=== PATIENT | male | born 1935 | race Caucasian/White ===

== ENCOUNTER → 2016-06-27 | Outpatient (CLI) | payer MEDICARE ==
[2016-06-27 16:48] LABS: Blood Urea Nitrogen 21 mg/dL (9-20); Non-African American GFR(MDRD) 59 (>60 ml/min/1.73 sqM)
--- NOTE | 2016-06-28 07:29 | CT ---
EXAMINATION TYPE: CT angio neck DATE OF EXAM: 06/27/2016 6:06 PM COMPARISON: NONE HISTORY: Carotid stenosis CT DLP: 344.70 mGycm Automated exposure control for dose reduction was used. TECHNIQUE: Performed with IV Contrast, patient injected with 80 mL of Visipaque 320. 3D reconstructed images are created on an independent workstation and reviewed. FINDINGS: There are emphysematous changes throughout the visualized portions of the lungs. Visualized intracranial structures are normal. Visualized portions of the paranasal sinuses and mastoids are clear. There is degenerative disc disease and hypertrophic spondylosis in the cervical spine, most marked at C5-6. There is uncovertebral joint disease throughout the cervical spine. There is facet arthropathy , most marked at C3-4 and C4-5. The major salivary glands are unremarkable. The parapharyngeal, oropharyngeal and laryngeal soft tissues are normal. The thyroid is heterogenous in its enhancement pattern. There is no significant cervical adenopathy. There is a normal origin of the great vessels. The right vertebral artery is diminutive. The left marc tebral artery is dominant. There is moderate atheromatous calcification at the level of the carotid bulbs, worse on the right th an the left. There is a greater than 70% by diameter stenosis of the proximal right ICA. This approac hes 90% by diameter. There is only a mild, 20-30% by diameter stenosis of the proximal left ICA. IMPRESSION: 1. HIGH-GRADE STENOSIS OF THE PROXIMAL RIGHT ICA. 2. MILD STENOSIS OF THE PROXIMAL LEFT ICA. 3. DIMINUTIVE RIGHT VERTEBRAL ARTERY. 4. EMPHYSEMATOUS CHANGES. 5. DEGENERATIVE CHANGES IN THE CERVICAL SPINE. 6. HETEROGENOUS THYROID GLAND. THYROID ULTRASOUND MAY BE INDICATED.
== END | disposition home or self-care (01) ==
LOC: RADCTMAIN 15:48
PROVIDERS: ATTEND Internal Medicine
DX: I65.23 Occlusion and stenosis of bilateral carotid arteries (principal)
CPT/HCPCS: 82565; 84520; 70498; 36415; Q9967

== ENCOUNTER → 2016-08-14 | Outpatient (CLI) | payer MEDICARE ==
--- NOTE | 2016-08-15 08:20 | ECHOF ---
Referral Reason:Pre Op Clearance I.27 MEASUREMENTS -------- HEIGHT: 182.9 cm WEIGHT: 98.0 kg BP: RVIDd: 3.1 cm (< 3.3) IVSd: 1.4 cm (0.6 - 1.1) LVIDd: 4.2 cm (3.9 - 5.3) LVPWd: 1.2 cm (0.6 - 1.1) IVSs: 1.7 cm LVIDs: 3.6 cm LVPWs: 1.2 cm LA Diam: 4.0 cm (2.7 - 3.8) Ao Diam: 4.2 cm (2.0 - 3.7) AV Cusp: 1.9 cm (1.5 - 2.6) LA Diam: 4.6 cm (2.7 - 3.8) MV EXCURSION: 9.371 mm (> 18.000) MV EF SLOPE: 33 mm/s (70 - 150) EPSS: 0.9 cm MV E Moo: 0.38 m/s MV DecT: 276 ms MV A Moo: 0.77 m/s MV E/A Ratio: 0.50 RAP: 5.00 mmHg RVSP: 16.63 mmHg FINDINGS -------- Sinus rhythm. This was a technically adequate study. There is mild concentric left ventricular hypertrophy. Overall left ventricular systolic function is normal with, an EF between 55 - 60 %. The right ventricle is normal in size. The right atrial size is normal. There is mild aortic valve sclerosis. There is no evidence of aortic regurgitation. Mild mitral annular calcification present. Mild mitral regurgitation is present. Mild tricuspid regurgitation present. There is no evidence of pulmonary hypertension. The right ventricular systolic pressure, as measured by Doppler, is 16.63mmHg. There is no pulmonic regurgitation present. Aortic Root is mildly dilated measures 4.1cm. Echo free space may represent effusion or a pericardial fat pad. CONCLUSIONS -------- 1. There is mild concentric left ventricular hypertrophy. 2. Echo free space may represent effusion or a pericardial fat pad. 3. Overall left ventricular systolic function is normal with, an EF between 55 - 60 %. 4. There is mild aortic valve sclerosis. 5. Mild mitral annular calcification present. 6. Mild mitral regurgitation is present. 7. Mild tricuspid regurgitation present. 8. There is no evidence of pulmonary hypertension. 9. The right ventricular systolic pressure, as measured by Doppler, is 16.63mmHg. 10. Aortic Root is mildly dilated measures 4.1cm. [employer]OKE BEATER OPERATOR: Jacqueline Spence RDCS
== END | disposition home or self-care (01) ==
LOC: RADECHMAIN 13:51
PROVIDERS: ATTEND Internal Medicine Interventional Cardiology
DX: I27.0 Primary pulmonary hypertension (principal)
CPT/HCPCS: 93306

== ENCOUNTER → 2016-09-02 | Outpatient (CLI) | payer MEDICARE ==
[2016-09-02 13:00] LABS: Anion Gap 13 mmol/L; Blood Urea Nitrogen 19 mg/dL (9-20); Carbon Dioxide 25 mmol/L (22-30); Chloride 95 mmol/L (98-107); Glucose 144 mg/dL (74-99); Non-African American GFR(MDRD) >60 (>60 ml/min/1.73 sqM); Potassium 3.9 mmol/L (3.5-5.1); Sodium 133 mmol/L (137-145)
[2016-09-02 13:06] LABS: Partial Thromboplastin Time 23.5 sec (22.0-30.0); Prothrombin Time 10.3 sec (9.0-12.0)
[2016-09-02 13:14] LABS: Basophils # (A) 0.1 k/uL (0-0.2); Basophils % (A) 1 %; CH 32.9; Eosinophils # (A) 0.2 k/uL (0-0.7); Eosinophils % (A) 2 %; HCT 44.4 % (39.0-53.0); HDW 2.72; HGB 15.4 gm/dL (13.0-17.5); Luc # (Auto) 0.32; Luc % (Auto) 3; Lymphocytes # (A) 2.2 k/uL (1.0-4.8); Lymphocytes % (A) 23 %; MCH 31.9 pg (25.0-35.0); MCHC 34.7 g/dL (31.0-37.0); MCV 91.9 fL (80.0-100.0); Mean Platelet Volume 9.3; Monocytes # (A) 0.6 k/uL (0-1.0); Monocytes % (A) 6 %; Neutrophils # (A) 6.2 k/uL (1.3-7.7); Neutrophils % (A) 66 %; RBC 4.83 m/uL (4.30-5.90); RDW 12.6 % (11.5-15.5); WBC 9.5 k/uL (3.8-10.6)
== END | disposition home or self-care (01) ==
LOC: LABPAT 12:02
PROVIDERS: ATTEND Thoracic Surgery (Cardiothoracic Vascular Surgery)
DX: Z01.812 Encounter for preprocedural laboratory examination (principal)
CPT/HCPCS: 80051; 82565; 82947; 84520; 85025; 85610; 85730; 86850; 86900; 86901; 87086

== ENCOUNTER 2017-06-19 21:20 | Emergency (ER) | payer MEDICARE ==
--- NOTE | 2017-06-19 21:51 | ED ---
Extremity Problem HPI - General Chief complaint: Extremity Problem,Nontraumatic Stated complaint: swollen legs/ankles Time Seen by Provider: 06/19/17 21:36 Source: patient Mode of arrival: ambulatory Limitations: no limitations - History of Present Illness Initial comments: This patient is an 82-year-old man who presents to be evaluated for bilateral lower extremity swelling that has been going on for approximately one week. The patient states that he saw Dr. Johnson on Friday who examined him and assured him that this was not a circulatory issue and recommended that he follow -up with his physician Dr. Alexis. The patient states that the next available appointment was for July 10 and he did not feel that this was appropriate to wait that long. The patient denies fever or chills, chest pain, dyspnea, change in urination or bowel movements. He denies calf pain but states there is a little bit of a swollen feeling in bilateral legs. He states that this does seem to be getting progressively worse, that it started low in the legs and now has progressed almost to the knees. He feels it is symmetric. The patient states that he may also have some mild dyspnea with exertion, but not at rest. MD Complaint: extremity swelling Onset/Timin -: week(s) Location: bilateral lower extremity History of Same: No Radiation: distal Quality: dull Consistency: constant Improves with: nothing Worsens with: nothing - Related Data Home Medications Medication Instructions Recorded Confirmed Aspirin 81 mg PO W/SUPPER 02/21/14 06/19/17 Atorvastatin [Lipitor] 20 mg PO W/SUPPER 02/21/14 06/19/17 Latanoprost [Xalatan 0.005%] 1 drop RIGHT EYE 1900 08/30/16 06/19/17 Losartan/Hydrochlorothiazide 1 tab PO DAILY 08/30/16 06/19/17 [Losartan-Hctz 100-25 mg Tab] Vitamin B Complex 1 tab PO DAILY 08/30/16 06/19/17 diphenhydrAMINE [Benadryl] 50 mg PO TID PRN 08/30/16 06/19/17 metFORMIN HCL [Glucophage] 1,000 mg PO W/SUPPER 08/30/16 06/19/17 Previous Rx's Medication Instructions Recorded Acetaminophen Tab [Tylenol] 650 mg PO Q4HR PRN #0 tab 09/11/16 Metoprolol Tartrate [Lopressor] 25 mg PO BID #60 tab 09/11/16 amLODIPine [Norvasc] 5 mg PO DAILY #30 tab 09/11/16 Furosemide [Lasix] 20 mg PO BID #10 tablet 06/20/17 Allergies Allergy/AdvReac Type Severity Reaction Status Date / Time sulfamethoxazole Allergy Rash/Hives Verified 06/19/17 22:10 [From Bactrim] trimethoprim [From Bactrim] Allergy Rash/Hives Verified 06/19/17 22:10 Review of Systems ROS Statement: Those systems with pertinent positive or pertinent negative responses have been documented in the HPI. ROS Other: All systems not noted in ROS Statement are negative. Constitutional: Denies: fever, chills Respiratory: Denies: cough, dyspnea Cardiovascular: Reports: dyspnea on exertion, edema. Denies: chest pain, palpitations, orthopnea, syncope Gastrointestinal: Denies: abdominal pain, vomiting, diarrhea Genitourinary: Denies: dysuria, frequency, hematuria Musculoskeletal: Denies: back pain Skin: Reports: rash (Patient has had diffuse rash with erythema for approximately one year.) Neurological: Denies: headache, weakness, numbness Past Medical History Past Medical History: Cancer, Diabetes Mellitus, Hyperlipidemia, Hypertension, Pulmonary Embolus (PE), Skin Disorder Additional Past Medical History / Comment(s): skin cancer, PE 1974, current rash on arms and legs(topical tx), bll carotid blockage History of Any Multi-Drug Resistant Organisms: None Reported Past Surgical History: Appendectomy, Orthopedic Surgery, Tonsillectomy Additional Past Surgical History / Comment(s): BASAL CELL CA REMOVED RTTEMPLE AREA, left knee surgery, carotids Past Anesthesia/Blood Transfusion Reactions: Previous Problems w/ Anesthesia, Motion Sickness Additional Past Anesthesia/Blood Transfusion Reaction / Comment(s): "diff personality when coming out" Past Psychological History: No Psychological Hx Reported Smoking Status: Current some day smoker Past Alcohol Use History: Daily Past Drug Use History: None Reported - Past Family History Son(s) Family Medical History: Cancer General Exam Limitations: no limitations General appearance: alert, in no apparent distress Head exam: Present: atraumatic, normocephalic Eye exam: Present: normal appearance. Absent: scleral icterus, conjunctival injection ENT exam: Present: normal oropharynx Respiratory exam: Present: normal lung sounds bilaterally. Absent: respiratory distress, wheezes, rales, rhonchi, stridor, accessory muscle use, decreased breath sounds, prolonged expiratory Cardiovascular Exam: Present: regular rate, normal rhythm, normal heart sounds. Absent: systolic murmur, diastolic murmur, rubs, gallop GI/Abdominal exam: Present: soft. Absent: distended, tenderness, guarding, rebound, rigid, pulsatile mass Extremities exam: Present: normal capillary refill, pedal edema (There is pitting edema to the midpoint in the pretibial areas bilaterally.). Absent: calf tenderness Back exam: Present: normal inspection. Absent: CVA tenderness (R), CVA tenderness (L) Neurological exam: Present: alert Skin exam: Present: warm, dry, intact, rash (Patient has erythematous maculopapular rash mainly over the bilateral upper extremities, but also to the bilateral lower extremities to a lesser extent. There are excoriations. There does not appear to be any secondary infection..), erythema, other. Absent: cyanosis, diaphoretic, urticaria, vesicles, petechiae, pallor, mottled, abrasion Course Vital Signs 06/19/17 06/19/17 06/20/17 21:28 22:50 00:17 Temperature 97.8 F Pulse Rate 86 78 86 Respiratory 20 18 18 Rate Blood Pressure 143/82 132/80 160/71 O2 Sat by Pulse 99 98 98 Oximetry Medical Decision Making - Medical Decision Making I patient is an 82-year-old man with bilateral lower extremity edema. The workup does appear to show some acute renal injury versus the previous lab tests however these were from the early half of 2016. Given the recent start of the losartan-containing medication, will hold this. Discussed the case with Dr. Avelar, covering for Dr. Alexis and he does request that the patient be given a day of Lasix and follow-up. I did review this with the patient and also in addition to the appropriate follow-up, other return parameters. I patient will have repeat echocardiogram as well. The patient is having dermatology care related to the rash. - Lab Data Result diagrams: 06/19/17 21:50 06/19/17 21:50 Lab Results 06/19/17 06/19/17 06/19/17 Range/Units 21:50 21:50 21:50 WBC 13.9 H (3.8-10.6) k/uL RBC 3.91 L (4.30-5.90) m/uL Hgb 12.7 L (13.0-17.5) gm/dL Hct 36.1 L (39.0-53.0) % MCV 92.3 (80.0-100.0) fL MCH 32.5 (25.0-35.0) pg MCHC 35.1 (31.0-37.0) g/dL RDW 14.8 (11.5-15.5) % Plt Count 266 (150-450) k/uL Neutrophils % 66 % Lymphocytes % 13 % Monocytes % 6 % Eosinophils % 13 % Basophils % 1 % Neutrophils # 9.1 H (1.3-7.7) k/uL Lymphocytes # 1.8 (1.0-4.8) k/uL Monocytes # 0.8 (0-1.0) k/uL Eosinophils # 1.8 H (0-0.7) k/uL Basophils # 0.1 (0-0.2) k/uL Sodium 139 (137-145) mmol/L Potassium 4.3 (3.5-5.1) mmol/L Chloride 102 (98-107) mmol/L Carbon Dioxide 25 (22-30) mmol/L Anion Gap 12 mmol/L BUN 26 H (9-20) mg/dL Creatinine 1.30 H (0.66-1.25) mg/dL Est GFR (MDRD) Af Amer >60 (>60 ml/min/1.73 sqM) Est GFR (MDRD) Non-Af 53 (>60 ml/min/1.73 sqM) Glucose 174 H (74-99) mg/dL Calcium 9.8 (8.4-10.2) mg/dL Total Bilirubin 0.4 (0.2-1.3) mg/dL AST 65 H (17-59) U/L ALT 71 (21-72) U/L Alkaline Phosphatase 107 (38-126) U/L Troponin I (0.000-0.034) ng/mL NT-Pro-B Natriuret Pep 425 pg/mL Total Protein 7.0 (6.3-8.2) g/dL Albumin 4.2 (3.5-5.0) g/dL TSH 3.060 (0.465-4.680) mIU/L Urine Color Urine Appearance (Clear) Urine pH (5.0-8.0) Ur Specific [place] (1.001-1.035) Urine Protein (Negative) Urine Glucose (UA) (Negative) Urine Ketones (Negative) Urine Blood (Negative) Urine Nitrite (Negative) Urine Bilirubin (Negative) Urine Urobilinogen (<2.0) mg/dL Ur Leukocyte Esterase (Negative) Urine RBC (0-5) /hpf Urine WBC (0-5) /hpf Hyaline Casts (0-2) /lpf Urine Mucus (None) /hpf 06/19/17 06/19/17 Range/Units 21:50 23:50 WBC (3.8-10.6) k/uL RBC (4.30-5.90) m/uL Hgb (13.0-17.5) gm/dL Hct (39.0-53.0) % MCV (80.0-100.0) fL MCH (25.0-35.0) pg MCHC (31.0-37.0) g/dL RDW (11.5-15.5) % Plt Count (150-450) k/uL Neutrophils % % Lymphocytes % % Monocytes % % Eosinophils % % Basophils % % Neutrophils # (1.3-7.7) k/uL Lymphocytes # (1.0-4.8) k/uL Monocytes # (0-1.0) k/uL Eosinophils # (0-0.7) k/uL Basophils # (0-0.2) k/uL Sodium (137-145) mmol/L Potassium (3.5-5.1) mmol/L Chloride (98-107) mmol/L Carbon Dioxide (22-30) mmol/L Anion Gap mmol/L BUN (9-20) mg/dL Creatinine (0.66-1.25) mg/dL Est GFR (MDRD) Af Amer (>60 ml/min/1.73 sqM) Est GFR (MDRD) Non-Af (>60 ml/min/1.73 sqM) Glucose (74-99) mg/dL Calcium (8.4-10.2) mg/dL Total Bilirubin (0.2-1.3) mg/dL AST (17-59) U/L ALT (21-72) U/L Alkaline Phosphatase (38-126) U/L Troponin I <0.012 (0.000-0.034) ng/mL NT-Pro-B Natriuret Pep pg/mL Total Protein (6.3-8.2) g/dL Albumin (3.5-5.0) g/dL TSH (0.465-4.680) mIU/L Urine Color Yellow Urine Appearance Clear (Clear) Urine pH 5.5 (5.0-8.0) Ur Specific [place] 1.019 (1.001-1.035) Urine Protein 1+ H (Negative) Urine Glucose (UA) 2+ H (Negative) Urine Ketones Negative (Negative) Urine Blood Negative (Negative) Urine Nitrite Negative (Negative) Urine Bilirubin Negative (Negative) Urine Urobilinogen <2.0 (<2.0) mg/dL Ur Leukocyte Esterase Negative (Negative) Urine RBC <1 (0-5) /hpf Urine WBC 1 (0-5) /hpf Hyaline Casts 1 (0-2) /lpf Urine Mucus Rare H (None) /hpf Disposition Clinical Impression: Edema, Acute kidney injury, Rash Disposition: HOME SELF-CARE Condition: Fair Instructions: Leg Edema (ED) Additional Instructions: As we discussed, follow-up Friday to have your kidney tests repeated. Also has we discussed, follow-up to set up the echocardiogram. Hold the medication as discussed and take the Lasix for edema. Return immediately if there is any worsening or if new symptoms develop. Prescriptions: Furosemide [Lasix] 20 mg PO BID #10 tablet Referrals: Elan Alexis MD [Primary Care Provider] - 1-2 days
[2017-06-19 22:08] LABS: Basophils # (A) 0.1 k/uL (0-0.2); Basophils % (A) 1 %; Eosinophils # (A) 1.8 k/uL (0-0.7); Eosinophils % (A) 13 %; HCT 36.1 % (39.0-53.0); HGB 12.7 gm/dL (13.0-17.5); Lymphocytes # (A) 1.8 k/uL (1.0-4.8); Lymphocytes % (A) 13 %; MCH 32.5 pg (25.0-35.0); MCHC 35.1 g/dL (31.0-37.0); MCV 92.3 fL (80.0-100.0); Mean Platelet Volume 8.9; Monocytes # (A) 0.8 k/uL (0-1.0); Monocytes % (A) 6 %; Neutrophils # (A) 9.1 k/uL (1.3-7.7); Neutrophils % (A) 66 %; Platelet Count 266 k/uL (150-450); RBC 3.91 m/uL (4.30-5.90); RDW 14.8 % (11.5-15.5); WBC 13.9 k/uL (3.8-10.6)
--- NOTE | 2017-06-19 22:08 | XR ---
EXAMINATION TYPE: XR chest 2V DATE OF EXAM: 06/19/2017 COMPARISON: NONE HISTORY: Chest pain TECHNIQUE: Frontal and lateral views of the chest are obtained. FINDINGS: There is no heart failure nor confluent pneumonic infiltrate. Costophrenic angles are kain r. There is spurring in the thoracic spine. Heart appears slightly enlarged. IMPRESSION: Mild cardiomegaly. No active cardiopulmonary disease.
[2017-06-19 22:18] LABS: ALT 71 U/L (21-72); AST 65 U/L (17-59); Albumin 4.2 g/dL (3.5-5.0); Alkaline Phosphatase 107 U/L (38-126); Anion Gap 12 mmol/L; Blood Urea Nitrogen 26 mg/dL (9-20); Calcium 9.8 mg/dL (8.4-10.2); Carbon Dioxide 25 mmol/L (22-30); Chloride 102 mmol/L (98-107); Glucose 174 mg/dL (74-99); Potassium 4.3 mmol/L (3.5-5.1); Sodium 139 mmol/L (137-145); Total Bilirubin 0.4 mg/dL (0.2-1.3)
[2017-06-19 22:51] VITALS: RESP 18
[2017-06-20 00:19] LABS: Appearance,Urine Clear (Clear); Bilirubin,Urine Negative (Negative); Blood,Urine Negative (Negative); Color,Urine Yellow; Glucose,Urine (UA) 2+ (Negative); Hyaline Casts,Urine 1 /lpf (0-2); Ketones,Urine Negative (Negative); Leukocyte Esterase,Urine Negative (Negative); Mucus,Urine Rare /hpf; Nitrite,Urine Negative (Negative); PH, Urine 5.5 (5.0-8.0); Protein,Urine 1+ (Negative); RBC,Urine <1 /hpf (0-5); Specific Gravity,Urine 1.019 (1.001-1.035); Urobilinogen,Urine <2.0 mg/dL (<2.0); WBC,Urine 1 /hpf (0-5)
[2017-06-20] MEDS ORDERED: FUROSEMIDE 10 MG/ML 4 ML VIAL IV STA (00:41)
[2017-06-20 01:29] VITALS: BP 150/57; PULSE 82
--- NOTE | 2017-06-20 02:01 | US ---
EXAMINATION TYPE: US venous doppler duplex LE BI DATE OF EXAM: 06/20/2017 1:54 AM COMPARISON: NONE CLINICAL HISTORY: Pain, R/O DVT. Edema SIDE PERFORMED: Bilateral TECHNIQUE: The lower extremity deep venous system is examined utilizing real time linear array sonog gil with graded compression, doppler sonography and color-flow sonography. VESSELS IMAGED: External Iliac Vein (EIV) Common Femoral Vein Deep Femoral Vein Greater Saphenous Vein * Femoral Vein Popliteal Vein Small Saphenous Vein * Proximal Calf Veins (* superficial vessels) Right Leg: Negative for DVT Left Leg: Negative for DVT No evidence of DVT bilateral legs. IMPRESSION: Normal exam. No evidence of deep venous thrombosis in both legs.
--- NOTE | 2017-06-20 02:17 | ED ---
Medical Decision Making - Medical Decision Making The patient was endorsed to me by Dr. Randolph at our shift change. Patient's ultrasound was negative for evidence of DVT. The plan was to discharge the patient with outpatient echocardiogram also a prescription for Lasix. His losartan. He is a follow-up with Dr. Avelar in 4 days. - Lab Data Result diagrams: 06/19/17 21:50 06/19/17 21:50 Lab Results 06/19/17 06/19/17 06/19/17 Range/Units 21:50 21:50 21:50 WBC 13.9 H (3.8-10.6) k/uL RBC 3.91 L (4.30-5.90) m/uL Hgb 12.7 L (13.0-17.5) gm/dL Hct 36.1 L (39.0-53.0) % MCV 92.3 (80.0-100.0) fL MCH 32.5 (25.0-35.0) pg MCHC 35.1 (31.0-37.0) g/dL RDW 14.8 (11.5-15.5) % Plt Count 266 (150-450) k/uL Neutrophils % 66 % Lymphocytes % 13 % Monocytes % 6 % Eosinophils % 13 % Basophils % 1 % Neutrophils # 9.1 H (1.3-7.7) k/uL Lymphocytes # 1.8 (1.0-4.8) k/uL Monocytes # 0.8 (0-1.0) k/uL Eosinophils # 1.8 H (0-0.7) k/uL Basophils # 0.1 (0-0.2) k/uL Sodium 139 (137-145) mmol/L Potassium 4.3 (3.5-5.1) mmol/L Chloride 102 (98-107) mmol/L Carbon Dioxide 25 (22-30) mmol/L Anion Gap 12 mmol/L BUN 26 H (9-20) mg/dL Creatinine 1.30 H (0.66-1.25) mg/dL Est GFR (MDRD) Af Amer >60 (>60 ml/min/1.73 sqM) Est GFR (MDRD) Non-Af 53 (>60 ml/min/1.73 sqM) Glucose 174 H (74-99) mg/dL Calcium 9.8 (8.4-10.2) mg/dL Total Bilirubin 0.4 (0.2-1.3) mg/dL AST 65 H (17-59) U/L ALT 71 (21-72) U/L Alkaline Phosphatase 107 (38-126) U/L Troponin I (0.000-0.034) ng/mL NT-Pro-B Natriuret Pep 425 pg/mL Total Protein 7.0 (6.3-8.2) g/dL Albumin 4.2 (3.5-5.0) g/dL TSH 3.060 (0.465-4.680) mIU/L Urine Color Urine Appearance (Clear) Urine pH (5.0-8.0) Ur Specific [place] (1.001-1.035) Urine Protein (Negative) Urine Glucose (UA) (Negative) Urine Ketones (Negative) Urine Blood (Negative) Urine Nitrite (Negative) Urine Bilirubin (Negative) Urine Urobilinogen (<2.0) mg/dL Ur Leukocyte Esterase (Negative) Urine RBC (0-5) /hpf Urine WBC (0-5) /hpf Hyaline Casts (0-2) /lpf Urine Mucus (None) /hpf 06/19/17 06/19/17 Range/Units 21:50 23:50 WBC (3.8-10.6) k/uL RBC (4.30-5.90) m/uL Hgb (13.0-17.5) gm/dL Hct (39.0-53.0) % MCV (80.0-100.0) fL MCH (25.0-35.0) pg MCHC (31.0-37.0) g/dL RDW (11.5-15.5) % Plt Count (150-450) k/uL Neutrophils % % Lymphocytes % % Monocytes % % Eosinophils % % Basophils % % Neutrophils # (1.3-7.7) k/uL Lymphocytes # (1.0-4.8) k/uL Monocytes # (0-1.0) k/uL Eosinophils # (0-0.7) k/uL Basophils # (0-0.2) k/uL Sodium (137-145) mmol/L Potassium (3.5-5.1) mmol/L Chloride (98-107) mmol/L Carbon Dioxide (22-30) mmol/L Anion Gap mmol/L BUN (9-20) mg/dL Creatinine (0.66-1.25) mg/dL Est GFR (MDRD) Af Amer (>60 ml/min/1.73 sqM) Est GFR (MDRD) Non-Af (>60 ml/min/1.73 sqM) Glucose (74-99) mg/dL Calcium (8.4-10.2) mg/dL Total Bilirubin (0.2-1.3) mg/dL AST (17-59) U/L ALT (21-72) U/L Alkaline Phosphatase (38-126) U/L Troponin I <0.012 (0.000-0.034) ng/mL NT-Pro-B Natriuret Pep pg/mL Total Protein (6.3-8.2) g/dL Albumin (3.5-5.0) g/dL TSH (0.465-4.680) mIU/L Urine Color Yellow Urine Appearance Clear (Clear) Urine pH 5.5 (5.0-8.0) Ur Specific [place] 1.019 (1.001-1.035) Urine Protein 1+ H (Negative) Urine Glucose (UA) 2+ H (Negative) Urine Ketones Negative (Negative) Urine Blood Negative (Negative) Urine Nitrite Negative (Negative) Urine Bilirubin Negative (Negative) Urine Urobilinogen <2.0 (<2.0) mg/dL Ur Leukocyte Esterase Negative (Negative) Urine RBC <1 (0-5) /hpf Urine WBC 1 (0-5) /hpf Hyaline Casts 1 (0-2) /lpf Urine Mucus Rare H (None) /hpf Disposition Clinical Impression: Edema, Acute kidney injury, Rash Disposition: HOME SELF-CARE Condition: Fair Instructions: Leg Edema (ED) Additional Instructions: As we discussed, follow-up Friday to have your kidney tests repeated. Also has we discussed, follow-up to set up the echocardiogram. Hold the medication as discussed and take the Lasix for edema. Return immediately if there is any worsening or if new symptoms develop. Prescriptions: Furosemide [Lasix] 20 mg PO BID #10 tablet Referrals: Elan Alexis MD [Primary Care Provider] - 1-2 days
[2017-06-20 02:29] VITALS: TEMP 98
== END 2017-06-20 02:28 | disposition home or self-care (01) ==
LOC: EC 21:20
DX: N17.9 Acute kidney failure, unspecified (principal); R60.0 Localized edema; R21 Rash and other nonspecific skin eruption; E11.9 Type 2 diabetes mellitus without complications; E78.5 Hyperlipidemia, unspecified; I10 Essential (primary) hypertension; F17.200 Nicotine dependence, unspecified, uncomplicated; Z85.828 Personal history of other malignant neoplasm of skin; Z79.82 Long term (current) use of aspirin; Z79.84 Long term (current) use of oral hypoglycemic drugs; Z79.899 Other long term (current) drug therapy; Z88.2 Allergy status to sulfonamides
CPT/HCPCS: 36415; 83880; 80053; 84443; 84484; 85025; 81001; 71046; 93970; 99284; 96374; J1940

== ENCOUNTER 2017-06-23 21:06 | Inpatient (IN) | payer MEDICARE ==
[2017-06-23] MEDS ORDERED: DIAZEPAM 5 MG/ML 2 ML INJ IVP STA (21:32)
[2017-06-23] MEDS ORDERED: MORPHINE SULFATE 5 MG/ML SYRINGE IV STA (21:32)
[2017-06-23] MEDS ORDERED: IBUPROFEN 600 MG TAB PO STA (21:32)
[2017-06-23] MEDS ORDERED: methylPREDNISolone SOD SUCCI 125 MG/2 ML VIAL IV STA (21:32)
[2017-06-23] MEDS ORDERED: ACETAMINOPHEN TAB 500 MG TAB PO STA (21:32)
[2017-06-23] MEDS ORDERED: diphenhydrAMINE 50 MG/ML 1 ML VIAL IVP STA (21:32)
[2017-06-23] MEDS ORDERED: FAMOTIDINE 20 MG/2 ML VIAL IV STA (21:32)
[2017-06-23] MEDS ORDERED: SODIUM CHLORIDE 0.9% 1,000 ML IV STA ×2 (21:32)
--- NOTE | 2017-06-23 22:01 | ED ---
General Adult HPI - General Chief complaint: Extremity Problem,Nontraumatic Stated complaint: swelling legs/rash all over/boils Time Seen by Provider: 06/23/17 21:18 Source: patient, RN notes reviewed, old records reviewed Mode of arrival: wheelchair Limitations: no limitations - History of Present Illness Initial comments: This is a 2-year-old male to the ER for evaluation. Patient presents today for vaginal bilateral lower extremity edema severe. Edema spreading up both of his legs. Patient also complains of rash diffuse body rash these had for about a year has been episodic but is currently severe. Patient also has multiple secondary infection secondary to scratching. Patient denies fever. Does complain of bilateral lower Shorty pain - Related Data Home Medications Medication Instructions Recorded Confirmed Aspirin 81 mg PO W/SUPPER 02/21/14 06/23/17 Atorvastatin [Lipitor] 20 mg PO W/SUPPER 02/21/14 06/23/17 Latanoprost [Xalatan 0.005%] 1 drop BOTH EYES HS 08/30/16 06/23/17 Vitamin B Complex 1 tab PO DAILY 08/30/16 06/23/17 diphenhydrAMINE [Benadryl] 50 mg PO TID PRN 08/30/16 06/23/17 metFORMIN HCL [Glucophage] 1,000 mg PO W/SUPPER 08/30/16 06/23/17 SILVER sulfADIAZINE CREAM 1 applic TOPICAL DAILY 06/23/17 06/23/17 [Silvadene Cream] Previous Rx's Medication Instructions Recorded Acetaminophen Tab [Tylenol] 650 mg PO Q4HR PRN #0 tab 09/11/16 Metoprolol Tartrate [Lopressor] 25 mg PO BID #60 tab 09/11/16 amLODIPine [Norvasc] 5 mg PO DAILY #30 tab 09/11/16 Furosemide [Lasix] 20 mg PO BID #10 tablet 06/20/17 Allergies Allergy/AdvReac Type Severity Reaction Status Date / Time sulfamethoxazole Allergy Rash/Hives Verified 06/23/17 21:41 [From Bactrim] trimethoprim [From Bactrim] Allergy Rash/Hives Verified 06/23/17 21:41 Review of Systems ROS Statement: Those systems with pertinent positive or pertinent negative responses have been documented in the HPI. ROS Other: All systems not noted in ROS Statement are negative. Past Medical History Past Medical History: Cancer, Diabetes Mellitus, Hyperlipidemia, Hypertension, Pulmonary Embolus (PE), Skin Disorder Additional Past Medical History / Comment(s): skin cancer, PE 1974, current rash on arms and legs(topical tx), bll carotid blockage History of Any Multi-Drug Resistant Organisms: None Reported Past Surgical History: Appendectomy, Orthopedic Surgery, Tonsillectomy Additional Past Surgical History / Comment(s): BASAL CELL CA REMOVED RTTEMPLE AREA, left knee surgery, carotids Past Anesthesia/Blood Transfusion Reactions: Previous Problems w/ Anesthesia, Motion Sickness Additional Past Anesthesia/Blood Transfusion Reaction / Comment(s): "diff personality when coming out" Past Psychological History: No Psychological Hx Reported Smoking Status: Current some day smoker Past Alcohol Use History: Daily Past Drug Use History: None Reported - Past Family History Son(s) Family Medical History: Cancer General Exam Limitations: no limitations General appearance: alert, in no apparent distress Head exam: Present: atraumatic, normocephalic, normal inspection Eye exam: Present: normal appearance, PERRL, EOMI. Absent: scleral icterus, conjunctival injection, periorbital swelling ENT exam: Present: normal exam, mucous membranes moist Neck exam: Present: normal inspection. Absent: tenderness, meningismus, lymphadenopathy Respiratory exam: Present: normal lung sounds bilaterally. Absent: respiratory distress, wheezes, rales, rhonchi, stridor Cardiovascular Exam: Present: normal rhythm, tachycardia, normal heart sounds. Absent: systolic murmur, diastolic murmur, rubs, gallop, clicks GI/Abdominal exam: Present: soft, normal bowel sounds. Absent: distended, tenderness, guarding, rebound, rigid Extremities exam: Present: normal inspection, full ROM, normal capillary refill. Absent: tenderness, pedal edema, joint swelling, calf tenderness Back exam: Present: normal inspection Neurological exam: Present: alert, oriented X3, CN II-XII intact Psychiatric exam: Present: normal affect, normal mood Skin exam: Present: warm, dry, intact, normal color, erythema, urticaria, other (Multiple areas of abscess and infection). Absent: rash Course Vital Signs 06/23/17 21:26 Temperature 97.6 F Pulse Rate 115 H Respiratory 16 Rate Blood Pressure 163/81 O2 Sat by Pulse 99 Oximetry EKG Findings - EKG Comments: EKG Findings:: EKG shows sinus tachycardia rate of 101, LA 80, QRS 76, QTc 612 Medical Decision Making - Medical Decision Making 82 male the ER for body rash will be admitted for treatment of infection, patient also with lower extremity edema we will put to diuresis - Lab Data Result diagrams: 06/23/17 22:01 06/25/17 06:52 Lab Results 06/23/17 06/23/17 06/23/17 Range/Units 22:01 22:01 22:01 WBC 14.8 H (3.8-10.6) k/uL RBC 4.05 L (4.30-5.90) m/uL Hgb 12.9 L (13.0-17.5) gm/dL Hct 37.7 L (39.0-53.0) % MCV 93.1 (80.0-100.0) fL MCH 31.7 (25.0-35.0) pg MCHC 34.1 (31.0-37.0) g/dL RDW 13.6 (11.5-15.5) % Plt Count 318 (150-450) k/uL Neutrophils % 62 % Lymphocytes % 14 % Monocytes % 5 % Eosinophils % 16 % Basophils % 1 % Neutrophils # 9.2 H (1.3-7.7) k/uL Lymphocytes # 2.1 (1.0-4.8) k/uL Monocytes # 0.8 (0-1.0) k/uL Eosinophils # 2.3 H (0-0.7) k/uL Basophils # 0.1 (0-0.2) k/uL Polychromasia Present PT (9.0-12.0) sec INR (<1.2) APTT (22.0-30.0) sec Sodium 140 (137-145) mmol/L Potassium 3.7 (3.5-5.1) mmol/L Chloride 101 (98-107) mmol/L Carbon Dioxide 27 (22-30) mmol/L Anion Gap 12 mmol/L BUN 31 H (9-20) mg/dL Creatinine 1.24 (0.66-1.25) mg/dL Est GFR (MDRD) Af Amer >60 (>60 ml/min/1.73 sqM) Est GFR (MDRD) Non-Af 56 (>60 ml/min/1.73 sqM) Glucose 252 H (74-99) mg/dL Estimated Ave Glu mg/dL Hemoglobin A1c (4.0-6.0) % Calcium 9.9 (8.4-10.2) mg/dL Phosphorus 3.0 (2.5-4.5) mg/dL Magnesium 2.0 (1.6-2.3) mg/dL Total Bilirubin 0.4 (0.2-1.3) mg/dL AST 49 (17-59) U/L ALT 63 (21-72) U/L Alkaline Phosphatase 126 (38-126) U/L Total Creatine Kinase 67 (55-170) U/L CK-MB (CK-2) 1.3 (0.0-2.4) ng/mL CK-MB (CK-2) Rel Index 1.9 Troponin I <0.012 (0.000-0.034) ng/mL NT-Pro-B Natriuret Pep pg/mL Total Protein 7.2 (6.3-8.2) g/dL Albumin 4.3 (3.5-5.0) g/dL 06/23/17 06/23/17 06/23/17 Range/Units 22:01 22:04 22:04 WBC (3.8-10.6) k/uL RBC (4.30-5.90) m/uL Hgb (13.0-17.5) gm/dL Hct (39.0-53.0) % MCV (80.0-100.0) fL MCH (25.0-35.0) pg MCHC (31.0-37.0) g/dL RDW (11.5-15.5) % Plt Count (150-450) k/uL Neutrophils % % Lymphocytes % % Monocytes % % Eosinophils % % Basophils % % Neutrophils # (1.3-7.7) k/uL Lymphocytes # (1.0-4.8) k/uL Monocytes # (0-1.0) k/uL Eosinophils # (0-0.7) k/uL Basophils # (0-0.2) k/uL Polychromasia PT 9.5 (9.0-12.0) sec INR 1.0 (<1.2) APTT 23.7 (22.0-30.0) sec Sodium (137-145) mmol/L Potassium (3.5-5.1) mmol/L Chloride (98-107) mmol/L Carbon Dioxide (22-30) mmol/L Anion Gap mmol/L BUN (9-20) mg/dL Creatinine (0.66-1.25) mg/dL Est GFR (MDRD) Af Amer (>60 ml/min/1.73 sqM) Est GFR (MDRD) Non-Af (>60 ml/min/1.73 sqM) Glucose (74-99) mg/dL Estimated Ave Glu mg/dL 151 Hemoglobin A1c 6.9 H (4.0-6.0) % Calcium (8.4-10.2) mg/dL Phosphorus (2.5-4.5) mg/dL Magnesium (1.6-2.3) mg/dL Total Bilirubin (0.2-1.3) mg/dL AST (17-59) U/L ALT (21-72) U/L Alkaline Phosphatase (38-126) U/L Total Creatine Kinase (55-170) U/L CK-MB (CK-2) (0.0-2.4) ng/mL CK-MB (CK-2) Rel Index Troponin I (0.000-0.034) ng/mL NT-Pro-B Natriuret Pep 571 pg/mL Total Protein (6.3-8.2) g/dL Albumin (3.5-5.0) g/dL Disposition Clinical Impression: Edema, Rash, Urticaria, Bilateral leg edema Disposition: ADMITTED IP TO THIS HOSP Condition: Fair
[2017-06-23] MEDS ORDERED: LORazepam 2 MG/ML INJ IV STA (22:07)
[2017-06-23 22:23] LABS: Partial Thromboplastin Time 23.7 sec (22.0-30.0); Prothrombin Time 9.5 sec (9.0-12.0)
[2017-06-23 22:28] LABS: Basophils # (A) 0.1 k/uL (0-0.2); Basophils % (A) 1 %; Eosinophils # (A) 2.3 k/uL (0-0.7); Eosinophils % (A) 16 %; HCT 37.7 % (39.0-53.0); HGB 12.9 gm/dL (13.0-17.5); Lymphocytes # (A) 2.1 k/uL (1.0-4.8); Lymphocytes % (A) 14 %; MCH 31.7 pg (25.0-35.0); MCHC 34.1 g/dL (31.0-37.0); MCV 93.1 fL (80.0-100.0); Mean Platelet Volume 8.4; Monocytes # (A) 0.8 k/uL (0-1.0); Monocytes % (A) 5 %; Neutrophils # (A) 9.2 k/uL (1.3-7.7); Neutrophils % (A) 62 %; Platelet Count 318 k/uL (150-450); RBC 4.05 m/uL (4.30-5.90); RDW 13.6 % (11.5-15.5); WBC 14.8 k/uL (3.8-10.6)
[2017-06-23 22:29] LABS: ALT 63 U/L (21-72); AST 49 U/L (17-59); Albumin 4.3 g/dL (3.5-5.0); Alkaline Phosphatase 126 U/L (38-126); Anion Gap 12 mmol/L; Blood Urea Nitrogen 31 mg/dL (9-20); Calcium 9.9 mg/dL (8.4-10.2); Carbon Dioxide 27 mmol/L (22-30); Chloride 101 mmol/L (98-107); Glucose 252 mg/dL (74-99); Potassium 3.7 mmol/L (3.5-5.1); Sodium 140 mmol/L (137-145); Total Bilirubin 0.4 mg/dL (0.2-1.3); Total Protein 7.2 g/dL (6.3-8.2)
[2017-06-23 22:35] LABS: Creatine Kinase 67 U/L (55-170)
[2017-06-23 22:38] LABS: Polychromasia Present
[2017-06-23 22:48] LABS: Creatine Kinase MB 1.3 ng/mL (0.0-2.4); Troponin I <0.012 ng/mL (0.000-0.034)
[2017-06-23] MEDS ORDERED: VANCOMYCIN 1,500 MG in SODIUM CHLORIDE 0.9% 250 ML IVPB ONE (23:00)
[2017-06-23] MEDS ORDERED: HYDROmorphone 2 MG/ML 1 ML SYRINGE IVP STA (23:15)
[2017-06-23] MEDS ORDERED: VANCOMYCIN IV PER PHARMACY 1 EACH MISC MISCELLANE PRN (23:16)
[2017-06-23] MEDS ORDERED: FUROSEMIDE 10 MG/ML 4 ML VIAL IV STA (23:16)
[2017-06-24 00:37] VITALS: BMI 29.2
[2017-06-24 01:16] LABS: Appearance,Urine Clear (Clear); Bilirubin,Urine Negative (Negative); Blood,Urine Negative (Negative); Color,Urine Yellow; Glucose,Urine (UA) 3+ (Negative); Ketones,Urine Negative (Negative); Leukocyte Esterase,Urine Negative (Negative); Nitrite,Urine Negative (Negative); Protein,Urine Trace (Negative); Urobilinogen,Urine <2.0 mg/dL (<2.0)
[2017-06-24] MEDS: methylPREDNISolone SOD SUCCI 125 MG/2 ML VIAL IV SCH ×3 (06:15→16:46)
[2017-06-24 08:00] LABS: Glucose,Whole Blood 253 mg/dL (75-99)
[2017-06-24] MEDS: INSULIN ASPART 100 UNIT/ML 1 ML 10 ML VIAL SQ SCH ×4 (08:37→21:39)
[2017-06-24] MEDS: diphenhydrAMINE 50 MG/ML 1 ML VIAL IVP PRN ×3 (08:37→21:39)
[2017-06-24] MEDS: FUROSEMIDE 10 MG/ML 4 ML VIAL IV SCH ×2 (08:40→19:59)
[2017-06-24] MEDS: HYDROmorphone 2 MG/ML 1 ML SYRINGE IVP PRN ×4 (08:55→23:28)
[2017-06-24] MEDS ORDERED: FAMOTIDINE 20 MG/2 ML VIAL IV SCH (09:00)
[2017-06-24] MEDS: ENOXAPARIN 40 MG/0.4 ML SYRINGE SQ SCH (10:08)
[2017-06-24 11:36] LABS: Glucose,Whole Blood 294 mg/dL (75-99)
[2017-06-24] MEDS ORDERED: ACETAMINOPHEN TAB 325 MG TAB PO PRN (12:50)
[2017-06-24] MEDS ORDERED: diphenhydrAMINE 25 MG CAP PO PRN (12:50)
[2017-06-24] MEDS: VANCOMYCIN 1,500 MG in SODIUM CHLORIDE 0.9% 250 ML IVPB SCH (16:33)
[2017-06-24 17:06] LABS: Glucose,Whole Blood 304 mg/dL (75-99)
[2017-06-24] MEDS ORDERED: ATORVASTATIN 20 MG TAB PO SCH (17:30)
[2017-06-24] MEDS: metFORMIN 500 MG TAB PO SCH (18:13)
[2017-06-24] MEDS: ASPIRIN 81 MG PO SCH (18:13)
[2017-06-24 18:50] LABS: Hemoglobin A1C 6.9 % (4.0-6.0)
[2017-06-24] MEDS: FAMOTIDINE 20 MG TAB PO SCH (19:23)
[2017-06-24] MEDS: METOPROLOL TARTRATE 25 MG TAB PO SCH (19:23)
[2017-06-24] MEDS: SPIRONOLACTONE 25 MG TAB PO SCH (19:23)
[2017-06-24 21:25] LABS: Glucose,Whole Blood 159 mg/dL (75-99)
[2017-06-24] MEDS: LATANOPROST 0.005% OPHTH DROPS 2.5 ML BTL BOTH EYES SCH (21:40)
--- NOTE | 2017-06-24 22:06 | HP ---
HISTORY AND PHYSICAL CHIEF COMPLAINT: Swollen legs and pain in the legs. HISTORY OF PRESENT ILLNESS: This is an 82-year-old gentleman who was admitted to the hospital after failed therapy as an outpatient with oral diuretics. The patient has significant edema of the lower extremities. He also has a significant skin condition which he has been dealing with for the past 6 or 7 months. The patient has a history of pruritus and he basically digs into his skin. He has had multiple nodular lesions. He has only had one on the left arm which was infected. The patient was placed on Bactrim at the time and had improvement and it resolved. He has been using Silvadene cream. The patient's condition on the skin actually started prior to using sulfa. However, he was told by the mold maker plastic molds that recent exacerbation might be related to sulfa. The patient had a biopsy which revealed basically significant eosinophils indicative of a possible reaction to either an arthropod or a drug. No suggestion of mycosis fungoides. The patient otherwise denies any other major symptoms of chest pain, shortness of breath. He does have a history of diabetes mellitus with mild chronic kidney disease, stage III, long-standing history of hypertension. No history of any myocardial infarction or CVA. PAST MEDICAL HISTORY: 1. As mentioned above, history of diabetes mellitus for the past 16 years. 2. History of hypertension for the past about 27 years. 3. History of pulmonary embolism post left knee surgery back in 1975. 4. History of osteoarthritis. 5. Present dermatitis. PAST SURGICAL HISTORY: 1. Tonsillectomy. 2. Appendectomy. 3. Left knee open meniscus repair. PERSONAL HISTORY: Used to smoke a cigar occasionally. Alcohol about 6 beers a week. Vaccinations annual. Seasonal flu shot. Previous Pneumovax in 2002. MEDICATIONS: Medications have included: 1. Metformin 1000 mg daily. 2. Benadryl 50 mg p.r.n. t.i.d. 3. Amlodipine 5 mg daily. 4. Vitamin B complex. 5. Metoprolol tartrate 25 b.i.d. 6. Xalatan 0.005% one drop both eyes at night. 7. Lasix 20 mg b.i.d. 8. Atorvastatin 20 mg with supper. 9. Aspirin 81 mg daily. 10.Tylenol p.r.n. SOCIAL HISTORY: Patient is . Lives single, as his spouse has dementia and is in a nursing facility. FAMILY MEDICAL HISTORY: Father at age 70. He had sepsis and cholecystitis. Mother at age of 73 with hypertension, CVA. Brother, 84, with history of carcinoma of the prostate and diabetes mellitus, history of CVA. Sister, 86, with history of cancer of the breast and dementia. The patient has 3 daughters, all in good health, and 2 sons, one with a history of hypertension and one with a history of rectal cancer, doing okay. REVIEW OF SYSTEMS: NEURO: Denies any headaches, dizziness. No double vision or blurred vision. No symptoms of TIA or syncope or seizures. PSYCH: No anxiety, depression. CARDIAC: No chest pain, angina, palpitation. RESPIRATORY: No shortness of breath, cough, hemoptysis. GI: No nausea, vomiting, abdominal pain, diarrhea. : No symptoms of dysuria, hematuria, urgency, frequency. EXTREMITIES: No pain, edema. CONSTITUTIONAL: No fever, chills. HEMATOLOGICAL: No anemia or bleeding disorder. ENDOCRINE: History of diabetes mellitus. SKIN: Present rash, progressively worsening skin condition. PHYSICAL EXAMINATION: Pleasant gentleman in no distress. Vital signs revealed temperature 97.7, pulse rate 100, respirations 18, blood pressure 140/76, pulse ox 98% in room air. HEENT: Normocephalic. NECK: Supple. No JVD. CHEST: Clear to auscultation and percussion. CARDIAC: Normal S1 and S2 with no gallops. Systolic murmur 2/6, left sternal border. ABDOMEN: Soft. No palpable masses. Bowel sounds normal. No organomegaly. No abdominal bruits. Extremities reveal 3+ edema. Neurologically awake, alert, oriented with well-coordinated movements. LABORATORY ASSESSMENT: White count 14.8, hemoglobin 12.9. BUN 31, creatinine 1.24, GFR 56. Glucose 252. Albumin 4.3. Troponins negative. Urinalysis 3+ glucose; otherwise unremarkable. Skin reveals multiple lesions, including a small nodular lesion on the left forearm which is draining purulence. The patient otherwise has diffuse skin rash, both maculopapular. ASSESSMENT: 1. Acute dermatitis, etiology undetermined, possibly drug-related. 2. Infected skin lesions on the left forearm. 3. Chronic kidney disease, stage III. 4. Diabetes mellitus. 5. History of hypertension. PLAN: The patient at present is clinically stable. Continue present medical regimen. Patient will have diuresis with Lasix and Aldactone. Follow up renal function and electrolytes. Prognosis remains guarded. Condition discussed with the daughter and patient. We may primarily change medications around; may discontinue the amlodipine as well. Patient's condition discussed with the patient. Prognosis guarded. MMODL / IJN: [id number] /
[2017-06-25] MEDS: diphenhydrAMINE 50 MG/ML 1 ML VIAL IVP PRN ×3 (03:38→17:16)
[2017-06-25] MEDS: HYDROmorphone 2 MG/ML 1 ML SYRINGE IVP PRN ×5 (03:38→22:33)
[2017-06-25 07:26] LABS: Glucose,Whole Blood 171 mg/dL (75-99)
[2017-06-25 07:37] LABS: Anion Gap 11 mmol/L; Blood Urea Nitrogen 34 mg/dL (9-20); Calcium 9.2 mg/dL (8.4-10.2); Carbon Dioxide 27 mmol/L (22-30); Chloride 106 mmol/L (98-107); Glucose 163 mg/dL (74-99); Potassium 3.6 mmol/L (3.5-5.1); Sodium 144 mmol/L (137-145)
[2017-06-25] MEDS: SPIRONOLACTONE 25 MG TAB PO SCH ×2 (07:57→22:26)
[2017-06-25] MEDS: INSULIN ASPART 100 UNIT/ML 1 ML 10 ML VIAL SQ SCH ×4 (07:57→22:24)
[2017-06-25] MEDS: ENOXAPARIN 40 MG/0.4 ML SYRINGE SQ SCH (07:58)
[2017-06-25] MEDS: METOPROLOL TARTRATE 25 MG TAB PO SCH ×2 (07:58→22:25)
[2017-06-25] MEDS: FUROSEMIDE 10 MG/ML 4 ML VIAL IV SCH ×2 (07:58→22:25)
[2017-06-25] MEDS: FAMOTIDINE 20 MG TAB PO SCH ×2 (07:59→22:25)
[2017-06-25] MEDS: hydrOXYzine HCL 25 MG TAB PO SCH ×4 (08:15→22:25)
[2017-06-25] MEDS: VANCOMYCIN 1,500 MG in SODIUM CHLORIDE 0.9% 250 ML IVPB SCH (08:15)
[2017-06-25] MEDS: MENTHOL-CAMPHOR LOTION 222 APPLIC/222 ML BOTTLE TOPICAL SCH ×4 (08:17→22:19)
[2017-06-25] MEDS ORDERED: amLODIPine 5 MG TAB PO SCH (09:00)
[2017-06-25 11:33] LABS: Glucose,Whole Blood 159 mg/dL (75-99)
[2017-06-25] MEDS: metFORMIN 500 MG TAB PO SCH (17:15)
[2017-06-25] MEDS: ASPIRIN 81 MG PO SCH (17:15)
[2017-06-25 17:31] LABS: Glucose,Whole Blood 136 mg/dL (75-99)
[2017-06-25 20:33] LABS: Glucose,Whole Blood 140 mg/dL (75-99)
--- NOTE | 2017-06-25 21:46 | PN ---
PROGRESS NOTE CHIEF COMPLAINT: Re-evaluation. HISTORY OF PRESENT ILLNESS: This 82-year-old gentleman was admitted to the hospital with significant edema in lower extremities which is somewhat improved today. The patient also has significant pruritus and he is constantly scratching that. The patient's steroids were discontinued yesterday. He is somewhat mildly euphoric, possible side effects of the steroids. Otherwise he feels fairly well. I explained to the patient that I did review the pathology report from Dr. Landon who suggests the patient has allergic type of reaction to the skin; source would be difficult to say; medication versus allergens versus anthropods. The patient will be switched over to Atarax. Doxepin will be tried and some medications to help him relax. The patient otherwise denies any symptoms. He has had a small abscess on the left forearm which has been known to be MRSA and was drained significantly yesterday. The patient is on IV vancomycin. REVIEW OF SYSTEMS: NEURO: Denies any headaches, dizziness. PSYCH: No anxiety. CARDIAC: No chest pain, angina, palpitations. RESPIRATORY: Denies shortness of breath, cough, hemoptysis. GI: No nausea, vomiting, abdominal pain, diarrhea. : No symptoms of dysuria, hematuria, urgency, frequency. EXTREMITIES: Denies pain. Has edema. CONSTITUTIONAL: No fever, chills. SKIN: Rash and multiple neurodermatitis. PHYSICAL EXAMINATION: Vital signs revealed temperature 97.2, pulse 114, respirations 18, blood pressure 122/71, pulse ox 97% on room air. HEENT: Normocephalic. NECK: Supple. No JVD. CHEST: Clear to auscultation. CARDIAC: Normal S1, S2 with no gallops. Systolic murmur, apex and right second intercostal space. ABDOMEN: Soft. Bowel sounds present. Extremities reveal edema 1 to 2+ in lower extremities. NEUROLOGIC: Awake, alert, oriented with well-coordinated movements. LABORATORY ASSESSMENT: Electrolytes normal. BUN 34, creatinine 1.15, calcium 9.2. Blood sugars are better. ASSESSMENT: 1. Dermatitis, allergic in nature. 2. Edema. 3. Hypertension. 4. Diabetes mellitus. PLAN: The patient is stable. Continue present medical regimen. Will add Atarax to the patient's regimen, Sarna lotion and doxepin to try and see if the patient's pruritus can be helped. He is going to discontinue his calcium channel ambika and his atorvastatin. Will substitute those with other medications. Prognosis remains guarded. MMODL / IJN: [id number] /
[2017-06-25] MEDS: DOXEPIN 10 MG CAP PO SCH (22:25)
[2017-06-25] MEDS: LATANOPROST 0.005% OPHTH DROPS 2.5 ML BTL BOTH EYES SCH (22:25)
[2017-06-26] MEDS: diphenhydrAMINE 50 MG/ML 1 ML VIAL IVP PRN ×4 (00:36→23:37)
[2017-06-26] MEDS: VANCOMYCIN 1,500 MG in SODIUM CHLORIDE 0.9% 250 ML IVPB SCH ×2 (00:36→16:46)
[2017-06-26] MEDS: HYDROmorphone 2 MG/ML 1 ML SYRINGE IVP PRN ×5 (03:29→21:45)
[2017-06-26 07:06] LABS: Anion Gap 10 mmol/L; Blood Urea Nitrogen 30 mg/dL (9-20); Calcium 9.1 mg/dL (8.4-10.2); Carbon Dioxide 29 mmol/L (22-30); Chloride 104 mmol/L (98-107); Glucose 144 mg/dL (74-99); Potassium 4.1 mmol/L (3.5-5.1); Sodium 143 mmol/L (137-145)
[2017-06-26 07:30] LABS: Glucose,Whole Blood 132 mg/dL (75-99)
[2017-06-26] MEDS: ENOXAPARIN 40 MG/0.4 ML SYRINGE SQ SCH (08:08)
[2017-06-26] MEDS: INSULIN ASPART 100 UNIT/ML 1 ML 10 ML VIAL SQ SCH ×4 (08:08→21:46)
[2017-06-26] MEDS: SPIRONOLACTONE 25 MG TAB PO SCH ×2 (08:10→21:47)
[2017-06-26] MEDS: hydrOXYzine HCL 25 MG TAB PO SCH ×4 (08:11→22:49)
[2017-06-26] MEDS: METOPROLOL TARTRATE 25 MG TAB PO SCH ×2 (08:12→21:47)
[2017-06-26] MEDS: FAMOTIDINE 20 MG TAB PO SCH ×2 (08:13→21:47)
[2017-06-26] MEDS: MENTHOL-CAMPHOR LOTION 222 APPLIC/222 ML BOTTLE TOPICAL SCH ×4 (08:13→22:49)
[2017-06-26] MEDS: IBUPROFEN 600 MG TAB PO SCH ×3 (08:20→22:49)
[2017-06-26] MEDS: FUROSEMIDE 10 MG/ML 10 ML VIAL IV SCH ×2 (08:23→21:47)
[2017-06-26 11:45] LABS: Glucose,Whole Blood 253 mg/dL (75-99)
[2017-06-26] MEDS: POLYETHYLENE GLYCOL 3350 17 GM POWD.PACK PO SCH (13:26)
[2017-06-26] MEDS ORDERED: VANCOMYCIN TROUGH DUE 1 EACH MISC MISCELLANE ONE (15:00)
[2017-06-26 17:56] LABS: Glucose,Whole Blood 98 mg/dL (75-99)
[2017-06-26] MEDS: metFORMIN 500 MG TAB PO SCH (18:00)
[2017-06-26] MEDS: ASPIRIN 81 MG PO SCH (18:01)
[2017-06-26 20:31] LABS: Glucose,Whole Blood 147 mg/dL (75-99)
[2017-06-26] MEDS: LATANOPROST 0.005% OPHTH DROPS 2.5 ML BTL BOTH EYES SCH (21:47)
[2017-06-26] MEDS: DOXEPIN 10 MG CAP PO SCH (21:47)
--- NOTE | 2017-06-26 21:59 | PN ---
PROGRESS NOTE DATE OF SERVICE: 06/26/2017 CHIEF COMPLAINT: Re-evaluation. HISTORY OF PRESENT ILLNESS: This is a 82-year-old gentleman who was admitted to the hospital with significant pruritic lesions and infected left forearm and dermatitis. The patient is feeling somewhat better today. He was able to sleep some with decreased pruritus with the use of medical therapy of Atarax and doxepin. REVIEW OF SYSTEMS: NEURO: Denies any headaches, dizziness. PSYCH: No anxiety. CARDIAC: No chest pain, angina, palpitation. RESPIRATORY: Denies shortness of breath, cough. GI: No nausea, vomiting, abdominal pain, diarrhea. : No symptoms of dysuria or hematuria. EXTREMITIES: No pain, edema. CONSTITUTIONAL: No fever, chills. PHYSICAL EXAMINATION: Pleasant gentleman, at present in no distress. Vital signs reveal temperature 98.4, pulse 83, respirations 18, blood pressure 118/75, pulse ox of 99% on room air. HEENT: Normocephalic. NECK: Supple. No JVD. CHEST: Clear to auscultation. CARDIAC: Normal S1, S2 with no gallops. Systolic murmur 2/6, left sternal border. ABDOMEN: Soft. Bowel sounds normal. No organomegaly. No bruits. EXTREMITIES: Left forearm has a small superficial abscess. It is dry with no drainage. Extremities reveal good pulses. The patient's upper extremities reveal no edema. Lower extremities reveal edema which is improved. Neurologically awake, alert, oriented with well- coordinated movements. LABORATORY ASSESSMENT: Electrolytes are normal. BUN 30, creatinine 1.08. Glucose 144. ASSESSMENT: 1. Cellulitis, left forearm. 2. Dermatitis of unclear etiology. Evaluate by sales producer as an outpatient. 3. Stasis edema, lower extremities. 4. Diabetes mellitus. PLAN: Continue with diuresis. Continue vancomycin for now. We will continue patient on doxepin and Atarax. Prognosis remains guarded. Potential discharge by Friday. The patient also has an appointment to see a sales producer at the [facility] on Friday. Patient's condition discussed with the patient. Prognosis guarded. MMODL / IJN: [id number] /
[2017-06-27] MEDS: HYDROmorphone 2 MG/ML 1 ML SYRINGE IVP PRN ×4 (04:14→21:44)
[2017-06-27] MEDS: diphenhydrAMINE 50 MG/ML 1 ML VIAL IVP PRN ×3 (06:04→23:18)
[2017-06-27 07:50] LABS: Glucose,Whole Blood 172 mg/dL (75-99)
[2017-06-27] MEDS: VANCOMYCIN 1,500 MG in SODIUM CHLORIDE 0.9% 250 ML IVPB SCH ×2 (07:58→23:18)
[2017-06-27] MEDS: ENOXAPARIN 40 MG/0.4 ML SYRINGE SQ SCH (07:58)
[2017-06-27] MEDS: INSULIN ASPART 100 UNIT/ML 1 ML 10 ML VIAL SQ SCH ×4 (07:59→21:45)
[2017-06-27] MEDS: POLYETHYLENE GLYCOL 3350 17 GM POWD.PACK PO SCH (07:59)
[2017-06-27 08:00] LABS: Calcium 9.6 mg/dL (8.4-10.2); Potassium 3.9 mmol/L (3.5-5.1)
[2017-06-27] MEDS: FUROSEMIDE 10 MG/ML 10 ML VIAL IV SCH ×2 (08:17→21:45)
[2017-06-27] MEDS: ALPRAZolam 0.5 MG TAB PO PRN (08:18)
[2017-06-27] MEDS: SPIRONOLACTONE 25 MG TAB PO SCH ×2 (08:18→21:47)
[2017-06-27] MEDS: FAMOTIDINE 20 MG TAB PO SCH (08:19)
[2017-06-27] MEDS: IBUPROFEN 600 MG TAB PO SCH ×3 (08:19→21:46)
[2017-06-27] MEDS: hydrOXYzine HCL 25 MG TAB PO SCH ×4 (08:19→23:17)
[2017-06-27] MEDS: METOPROLOL TARTRATE 25 MG TAB PO SCH ×2 (08:20→21:46)
--- NOTE | 2017-06-27 09:12 | US ---
EXAMINATION TYPE: US venous doppler duplex LE DATE OF EXAM: 06/27/2017 8:51 AM COMPARISON: US CLINICAL HISTORY: persistent edema. SIDE PERFORMED: Bilateral TECHNIQUE: The lower extremity deep venous system is examined utilizing real time linear array sonog gil with graded compression, doppler sonography and color-flow sonography. VESSELS IMAGED: External Iliac Vein (EIV) Common Femoral Vein Deep Femoral Vein Greater Saphenous Vein * Femoral Vein Popliteal Vein Small Saphenous Vein * Proximal Calf Veins (* superficial vessels) Extensive pitting edema bilateral, worse on the left, patient unable to well adduct his legs. Technic nicolás difficult study. Right Leg: Negative for DVT Left Leg: Negative for DVT Subcutaneous edema channels are noted. IMPRESSION: Grayscale, color doppler, spectral doppler imaging performed of the deep veins of the lo wer extremities. There is normal flow, compressibility, vascular waveforms. No evident deep venous thrombosis at or above the knees.
[2017-06-27 11:44] LABS: Glucose,Whole Blood 116 mg/dL (75-99)
[2017-06-27] MEDS: ASPIRIN 81 MG PO SCH (16:34)
[2017-06-27 17:34] LABS: Glucose,Whole Blood 132 mg/dL (75-99)
[2017-06-27] MEDS: MENTHOL-CAMPHOR LOTION 222 APPLIC/222 ML BOTTLE TOPICAL SCH ×2 (18:08→21:08)
[2017-06-27] MEDS: metFORMIN 500 MG TAB PO SCH (18:10)
[2017-06-27 20:03] LABS: Glucose,Whole Blood 151 mg/dL (75-99)
[2017-06-27] MEDS: LATANOPROST 0.005% OPHTH DROPS 2.5 ML BTL BOTH EYES SCH (21:46)
[2017-06-27] MEDS: DOXEPIN 10 MG CAP PO SCH (21:46)
--- NOTE | 2017-06-27 22:06 | PN ---
PROGRESS NOTE ATTENDING PHYSICIAN: Dr. Alexis. CHIEF COMPLAINT: Re-evaluation. HISTORY OF PRESENT ILLNESS: This 82-year-old gentleman admitted to the hospital with a significant rash multiple scratch spots with an infected left area was cellulitis localized. Patient pruritus is somewhat better. The rash is about the same. The patient is scheduled to see a rn home care on Friday. He has seen front end architect here and had a biopsy done. Biopsy reaction type of reaction unknown type of allergy unknown. REVIEW OF SYSTEMS: Neuro: Denies any headaches or dizziness. Psych: Occasional agitation. Cardiac: No chest pain, angina, palpitation. Respiratory: No shortness of breath, cough, hemoptysis. GI: No nausea, vomiting, abdominal pain, diarrhea. no symptoms of dysuria or hematuria. Extremities: No pain, edema. Constitutional: No fever or chills. PHYSICAL EXAM: Pleasant gentleman in no distress. Vital signs stable as recorded. HEENT: Normocephalic. NECK: Supple. No JVD. CHEST: Clear to auscultation. Cardiac normal S1, S2 with no gallops, murmurs. ABDOMEN: Soft. EXTREMITIES: Revealed edema. Neurological awake, alert, oriented with well- coordinated movements. Skin: The patient has multiple excoriated areas and the rash. ASSESSMENT: 1. Dermatitis. 2. Cellulitis, left forearm. 3. Paroxysmal atrial fibrillation. 4. Edema, etiology unclear. PLAN: Patient is stable. Continue present medical regimen. Patient's condition discussed with the patient. Prognosis is guarded. The patient meanwhile will be continued on the same medications. 1. If. MMODL / IJN: [id number] /
[2017-06-28] MEDS: HYDROmorphone 2 MG/ML 1 ML SYRINGE IVP PRN ×3 (04:47→20:59)
[2017-06-28 07:24] LABS: Glucose,Whole Blood 152 mg/dL (75-99)
[2017-06-28] MEDS: INSULIN ASPART 100 UNIT/ML 1 ML 10 ML VIAL SQ SCH ×4 (07:34→20:59)
[2017-06-28] MEDS: IBUPROFEN 600 MG TAB PO SCH ×3 (07:35→23:16)
[2017-06-28] MEDS: ENOXAPARIN 40 MG/0.4 ML SYRINGE SQ SCH (07:37)
[2017-06-28] MEDS: hydrOXYzine HCL 25 MG TAB PO SCH ×4 (07:38→20:59)
[2017-06-28] MEDS: FAMOTIDINE 20 MG TAB PO SCH (07:38)
[2017-06-28] MEDS: METOPROLOL TARTRATE 25 MG TAB PO SCH ×2 (07:39→21:00)
[2017-06-28] MEDS: SPIRONOLACTONE 25 MG TAB PO SCH ×2 (07:39→21:00)
[2017-06-28] MEDS: POLYETHYLENE GLYCOL 3350 17 GM POWD.PACK PO SCH (07:40)
[2017-06-28 08:00] LABS: Calcium 9.9 mg/dL (8.4-10.2); Potassium 4.5 mmol/L (3.5-5.1)
[2017-06-28] MEDS: FUROSEMIDE 10 MG/ML 10 ML VIAL IV SCH ×2 (09:26→21:00)
[2017-06-28 11:22] LABS: Glucose,Whole Blood 146 mg/dL (75-99)
[2017-06-28] MEDS ORDERED: LIDOCAINE 1% INJ 10MG/ML (20 ML MDV) SQ ONE (12:11)
[2017-06-28] MEDS: MENTHOL-CAMPHOR LOTION 222 APPLIC/222 ML BOTTLE TOPICAL SCH ×4 (12:30→21:01)
[2017-06-28] MEDS: diphenhydrAMINE 50 MG/ML 1 ML VIAL IVP PRN ×2 (13:13→20:58)
--- NOTE | 2017-06-28 15:04 | P.PN ---
Subjective Progress Note Date: 06/28/17 Principal diagnosis: Chief complaint: Reevaluation. History present illness: 82-year-old gentleman was admitted to the hospital with progressively worsening anasarca. The patient has a skin condition etiology undetermined. He has seen the audit consultant biopsies done reveal suggestion of an ALLERGIC type of dermatitis. no malignancy noted . Patient' s medications have been altered in view of that. 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 He had one on the left forearm with evidence of cellulitis and significant purulent drainage. The patient had a small residual area for which Dr. Jain did see and an Incision and Drainage Done. The Patient's on Vancomycin, patient actually feels better. His anasarca is improved. Potential discharge home tomorrow. He has an appointment to see a audit consultant at the tertiary center on Friday. Patient's edema has decreased renal function stable with evidence of mild chronic kidney disease. Patient does have history of diabetes mellitus type 2. REVIEW OF SYSTEMS: Neuro: Denies any headaches dizziness. Psych: Intermittent anxiety Cardiac: Denies chest pain and angina palpitations. Respiratory: Denies shortness of breath cough. GI: Denies nausea vomiting or abdominal pain. No diarrhea or constipation, no bowel movement yet. : Denies dysuria hematuria. Extremities: Denies pain. No edema. Skin: Intact. Constitutional: No fever, chills. Objective - Vital Signs Vital signs: Vital Signs Temp 97.2 F L 06/28/17 07:00 Pulse 91 06/28/17 07:00 Resp 16 06/28/17 07:00 BP 148/72 06/28/17 07:00 Pulse Ox 99 06/28/17 07:00 Intake & Output 06/27/17 06/28/17 06/28/17 18:59 06:59 18:59 Intake Total 250 300 Output Total 1000 Balance 250 -700 Intake: IV 250 Vancomycin 1,500 mg In 250 Sodium Chloride 0.9% 250 ml @ 125 mls/hr IVPB Q16H [facility] Rx#:[id number] Oral 300 Output: Urine 1000 Other: Voiding Method Toilet Toilet # Voids 4 PHYSICAL EXAMINATION: Cooperative, at present in no acute distress. HEENT: Neck supple. No JVD. Chest: Clear to auscultation percussion. Cardiac: Normal S1-S2 no gallops no murmur . Abdomen: Soft bowel sounds present. Extremities: Improved edema no tenderness Neurologically: Awake, alert, oriented with well-coordinated movements. Skin: Multiple scabs and pruritic rash. - Labs CBC & Chem 7: 06/23/17 22:01 06/28/17 06:59 Labs: Abnormal Lab Results - Last 24 Hours (Table) 06/27/17 06/27/17 06/28/17 Range/Units 17:30 20:03 06:59 BUN 29 H (9-20) mg/dL Creatinine 1.38 H (0.66-1.25) mg/dL Glucose 157 H (74-99) mg/dL POC Glucose (mg/dL) 132 H 151 H (75-99) mg/dL 06/28/17 06/28/17 Range/Units 07:22 11:18 BUN (9-20) mg/dL Creatinine (0.66-1.25) mg/dL Glucose (74-99) mg/dL POC Glucose (mg/dL) 152 H 146 H (75-99) mg/dL Microbiology - Last 24 Hours (Table) 06/24/17 07:12 Anaerobic Culture - Final Drainage Assessment and Plan Assessment: ASSESSMENT: 1. Cellulitis left forearm resolving. 2. I&D of a small abscess left forearm. 3. 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 4. [Chronic edema lower extremities 5. [Diabetes mellitus 6. Chronic kidney disease stage III related to diabetes mellitus. 7. [Hypertension 8. [Hyperlipidemia PLAN: [Plan continue present medical regimen patient's condition is discussed with the patient reviewed the findings of lower extremity ultrasounds. Potential discharge home tomorrow
[2017-06-28 17:36] LABS: Glucose,Whole Blood 179 mg/dL (75-99)
[2017-06-28] MEDS: VANCOMYCIN 1,500 MG in SODIUM CHLORIDE 0.9% 250 ML IVPB SCH (17:37)
[2017-06-28] MEDS: metFORMIN 500 MG TAB PO SCH (17:41)
[2017-06-28] MEDS: ASPIRIN 81 MG PO SCH (17:41)
[2017-06-28 20:45] LABS: Glucose,Whole Blood 216 mg/dL (75-99)
[2017-06-28] MEDS: DOXEPIN 10 MG CAP PO SCH (21:00)
[2017-06-28] MEDS: LATANOPROST 0.005% OPHTH DROPS 2.5 ML BTL BOTH EYES SCH (21:00)
[2017-06-29] MEDS: HYDROmorphone 2 MG/ML 1 ML SYRINGE IVP PRN ×3 (03:04→16:18)
[2017-06-29] MEDS: ALPRAZolam 0.5 MG TAB PO PRN ×2 (03:05→22:14)
[2017-06-29] MEDS ORDERED: VANCOMYCIN TROUGH DUE 1 EACH MISC MISCELLANE ONE (07:00)
[2017-06-29 07:30] LABS: Glucose,Whole Blood 133 mg/dL (75-99)
[2017-06-29] MEDS: POLYETHYLENE GLYCOL 3350 17 GM POWD.PACK PO SCH (07:42)
[2017-06-29] MEDS: SPIRONOLACTONE 25 MG TAB PO SCH ×2 (07:43→22:15)
[2017-06-29] MEDS: IBUPROFEN 600 MG TAB PO SCH ×3 (07:43→22:14)
[2017-06-29] MEDS: METOPROLOL TARTRATE 25 MG TAB PO SCH ×2 (07:44→22:14)
[2017-06-29] MEDS: FUROSEMIDE 10 MG/ML 10 ML VIAL IV SCH ×2 (07:44→22:16)
[2017-06-29] MEDS: hydrOXYzine HCL 25 MG TAB PO SCH ×4 (07:44→22:15)
[2017-06-29] MEDS: FAMOTIDINE 20 MG TAB PO SCH (07:44)
[2017-06-29] MEDS: ENOXAPARIN 40 MG/0.4 ML SYRINGE SQ SCH (07:45)
[2017-06-29] MEDS: INSULIN ASPART 100 UNIT/ML 1 ML 10 ML VIAL SQ SCH ×4 (07:53→22:15)
[2017-06-29] MEDS: MENTHOL-CAMPHOR LOTION 222 APPLIC/222 ML BOTTLE TOPICAL SCH ×4 (07:54→22:19)
[2017-06-29 07:57] VITALS: RESP 18
[2017-06-29] MEDS: VANCOMYCIN 1,500 MG in SODIUM CHLORIDE 0.9% 250 ML IVPB SCH (08:00)
[2017-06-29 08:13] LABS: Calcium 10.1 mg/dL (8.4-10.2); Potassium 4.1 mmol/L (3.5-5.1)
[2017-06-29] MEDS: diphenhydrAMINE 50 MG/ML 1 ML VIAL IVP PRN ×2 (10:56→17:50)
--- NOTE | 2017-06-29 11:44 | P.PN ---
Subjective Progress Note Date: 06/29/17 Principal diagnosis: Chief complaint: Reevaluation. History present illness: 82-year-old gentleman was admitted to the hospital with progressively worsening anasarca. The patient has a skin condition etiology undetermined. He has seen the functional analyst biopsies done reveal suggestion of an ALLERGIC type of dermatitis. no malignancy noted . Patient' s medications have been altered in view of that. 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 He had one on the left forearm with evidence of cellulitis and significant purulent drainage. The patient had a small residual area for which Dr. Jain did see and an Incision and Drainage Done. The Patient's on Vancomycin, patient actually feels better. His anasarca is improved. Potential discharge home tomorrow. He has an appointment to see a functional analyst at the tertiary center on Friday. Patient's edema has decreased renal function stable with evidence of mild chronic kidney disease. Patient does have history of diabetes mellitus type 2. REVIEW OF SYSTEMS: Neuro: Denies any headaches dizziness. Psych: Intermittent anxiety Cardiac: Denies chest pain and angina palpitations. Respiratory: Denies shortness of breath cough. GI: Denies nausea vomiting or abdominal pain. No diarrhea or constipation, no bowel movement yet. : Denies dysuria hematuria. Extremities: Denies pain. No edema. Skin: Intact. Constitutional: No fever, chills. This 82-year-old gentleman was admitted to the hospital with significant anasarca especially affecting the lower extremities. No evidence of DVT. The patient has a significant skin condition etiology undetermined. He has seen in the local motel a chest. The patient also had developed some MRSA infections and cellulitis left forearm. And a small abscess which has been drained. Patient has no fever. The patient's condition has been discussed with the patient and daughter. They've an appointment to see a functional analyst tomorrow. Patient complains of weakness in his lower legs and arms. He has some difficulty getting in and out of bed. Patient was planned for discharge today however this can be held because he does not think and back into his house. Have discussed the option of him going into rehab versus home therapy. Patient wants to keep his appointment at [facility] tomorrow. Subsequent to that he will try home rehab and if doesn't work within the week we'll try to get in to the halfway rehab. Patient's general condition discussed with him. REVIEW OF SYSTEMS: Neuro: Denies any headaches dizziness. Psych: Some anxiety Cardiac: Denies chest pain and angina palpitations. Respiratory: Denies shortness of breath cough. GI: Denies nausea vomiting or abdominal pain. No diarrhea or constipation, no bowel movement yet. : Denies dysuria hematuria. Extremities: And pain in the hip joints and difficulty with movements Skin: Intact. Constitutional: No fever, chills. Objective - Vital Signs Vital signs: Vital Signs Temp 97.6 F 06/29/17 07:00 Pulse 83 06/29/17 08:00 Resp 18 06/29/17 08:00 BP 138/87 06/29/17 07:00 Pulse Ox 95 06/29/17 07:00 Intake & Output 06/28/17 06/29/17 06/29/17 18:59 06:59 18:59 Intake Total 1050 Output Total 300 Balance 1050 -300 Intake: IV 250 Vancomycin 1,500 mg In 250 Sodium Chloride 0.9% 250 ml @ 125 mls/hr IVPB Q16H [facility] Rx#:[id number] Oral 800 Output: Urine 300 Other: Voiding Method Toilet Toilet Toilet Urinal Urinal # Voids 2 3 # Bowel Movements 1 PHYSICAL EXAMINATION: Cooperative, at present in no acute distress. HEENT: Neck supple. No JVD. Chest: Clear to auscultation percussion. Cardiac: Normal S1-S2 no gallops no murmur . Abdomen: Soft bowel sounds present. Extremities: 1+ edema no tenderness hips decreased range of motion. Patient ambulates with a walker. Does have evidence of some quadricep wasting Neurologically: Awake, alert, oriented with well-coordinated movements. - Labs CBC & Chem 7: 06/23/17 22:01 06/29/17 07:26 Labs: Abnormal Lab Results - Last 24 Hours (Table) 06/28/17 06/28/17 06/29/17 Range/Units 17:02 20:43 07:25 Carbon Dioxide (22-30) mmol/L BUN (9-20) mg/dL Creatinine (0.66-1.25) mg/dL Glucose (74-99) mg/dL POC Glucose (mg/dL) 179 H 216 H 133 H (75-99) mg/dL 06/29/17 Range/Units 07:26 Carbon Dioxide 31 H (22-30) mmol/L BUN 31 H (9-20) mg/dL Creatinine 1.40 H (0.66-1.25) mg/dL Glucose 142 H (74-99) mg/dL POC Glucose (mg/dL) (75-99) mg/dL Microbiology - Last 24 Hours (Table) 06/28/17 12:27 Gram Stain - Preliminary Arm - Left Wound Culture - Preliminary Presumptive Staph aureus 06/24/17 07:12 Anaerobic Culture - Final Drainage Assessment and Plan Assessment: ASSESSMENT: 1. Dermatitis of unclear etiology. 2. Cellulitis left forearm resolving. 3. Small abscess left forearm. 4. MRSA infection. 5. CK D3. 6. Diabetes mellitus type 2. 7. Weakness lower leg thigh muscles. 8. Hypertension. PLAN: Continue present medical regimen patient was planned for discharge today which has been placed on hold until tomorrow morning when 2 directly to [facility] dermatology clinic. Patient after return home with have continued home care for physical therapy. If he cannot manage well at home placement into nursing facility for rehab..
[2017-06-29 12:16] LABS: Glucose,Whole Blood 251 mg/dL (75-99)
[2017-06-29] MEDS ORDERED: VANCOMYCIN 1,500 MG in SODIUM CHLORIDE 0.9% 250 ML IVPB SCH (16:00)
[2017-06-29] MEDS: ASPIRIN 81 MG PO SCH (16:17)
[2017-06-29 17:24] LABS: Glucose,Whole Blood 139 mg/dL (75-99)
[2017-06-29] MEDS: metFORMIN 500 MG TAB PO SCH (17:49)
[2017-06-29 20:16] LABS: Glucose,Whole Blood 222 mg/dL (75-99)
[2017-06-29] MEDS: DOXEPIN 10 MG CAP PO SCH (22:14)
[2017-06-29] MEDS: LATANOPROST 0.005% OPHTH DROPS 2.5 ML BTL BOTH EYES SCH (22:15)
[2017-06-29 23:03] VITALS: BP 139/67; PULSE 81; TEMP 98
[2017-06-30] MEDS: HYDROmorphone 2 MG/ML 1 ML SYRINGE IVP PRN (03:05)
[2017-06-30 07:25] LABS: Glucose,Whole Blood 150 mg/dL (75-99)
[2017-06-30] MEDS: POLYETHYLENE GLYCOL 3350 17 GM POWD.PACK PO SCH (07:50)
--- NOTE | 2017-06-30 07:50 | P.DS ---
Providers Date of admission: 06/23/17 23:23 Expected date of discharge: 06/30/17 Attending physician: Elan Alexis Primary care physician: Elan Alexis [facility] Course: This 82-year-old gentleman was admitted to the hospital with increasing anasarca. He had been on steroids off and on in the outpatient. He has a significant skin condition etiology of which is undetermined. His qa automation engineer did do a skin biopsy which shows significant amount of eosinophils and indicated ALLERGIC reaction to possible drug, anthropod, or potential environmental. Patient rash was present prior to him using Bactrim and Silvadene cream. The patient had a left forearm small abscess which had been drained and treated with Bactrim for MRSA on the outpatient about a month ago. His any recurrence at that site associated with significant cellulitis. He had no fever or chills. He was treated with vancomycin with resolution of the cellulitis. The small nodule/abscess was drained by the surgeon. The patient is constantly digging into his skin. Medications have been changed except for the metformin. The patient is on Atarax and Benadryl when necessary and doxepin and Pepcid to help with his pruritic condition. Patient is to see the qa automation engineer at the tertiary Center today. He does have some weakness in the lower legs especially proximally. He does use a walker. He will continue the diuretics Lasix and Aldactone. He will have physical therapy in the outpatient. Further evaluation of the lumbosacral spine and hips will be done as an outpatient. Meanwhile patient to use Motrin for pain. Do note that the patient does have chronic kidney disease stage III. The Motrin is temporarily being used. We will adjust medication in the outpatient after his appointment with the qa automation engineer. Final diagnoses to include 1. Cellulitis/abscess left forearm with MRSA 2. Chronic kidney disease stage III associated with diabetes mellitus. 3. Diabetes mellitus type 2 4. Hypertension 5. Dermatitis of unclear etiology Patient Condition at Discharge: Fair Plan - Discharge Summary Discharge Rx Participant: No New Discharge Prescriptions: New ALPRAZolam [Xanax] 0.5 mg PO QID PRN #100 tab PRN Reason: Anxiety Doxepin [SINEquan] 10 mg PO HS #30 cap Famotidine [Pepcid] 20 mg PO DAILY tab Furosemide [Lasix] 80 mg PO BID #60 tablet hydrOXYzine HCL [Atarax] 25 mg PO QID #120 tab Ibuprofen [Motrin] 600 mg PO TID #90 tab Polyethylene Glycol 3350 [Miralax] 17 gm PO DAILY powd.pack Spironolactone [Aldactone] 25 mg PO BID #60 tab Continue Aspirin 81 mg PO W/SUPPER Latanoprost [Xalatan 0.005%] 1 drop BOTH EYES HS metFORMIN HCL [Glucophage] 1,000 mg PO W/SUPPER Vitamin B Complex 1 tab PO DAILY Acetaminophen Tab [Tylenol] 650 mg PO Q4HR PRN #0 tab PRN Reason: Pain Metoprolol Tartrate [Lopressor] 25 mg PO BID #60 tab Discontinued Atorvastatin [Lipitor] 20 mg PO W/SUPPER diphenhydrAMINE [Benadryl] 50 mg PO TID PRN PRN Reason: Itching amLODIPine [Norvasc] 5 mg PO DAILY #30 tab Furosemide [Lasix] 20 mg PO BID #10 tablet SILVER sulfADIAZINE CREAM [Silvadene Cream] 1 applic TOPICAL DAILY Discharge Medication List Aspirin 81 mg PO W/SUPPER 02/21/14 [History] Latanoprost [Xalatan 0.005%] 1 drop BOTH EYES HS 08/30/16 [History] Vitamin B Complex 1 tab PO DAILY 08/30/16 [History] metFORMIN HCL [Glucophage] 1,000 mg PO W/SUPPER 08/30/16 [History] Acetaminophen Tab [Tylenol] 650 mg PO Q4HR PRN #0 tab 09/11/16 [Rx] Metoprolol Tartrate [Lopressor] 25 mg PO BID #60 tab 09/11/16 [Rx] ALPRAZolam [Xanax] 0.5 mg PO QID PRN #100 tab 06/29/17 [Rx] Doxepin [SINEquan] 10 mg PO HS #30 cap 06/29/17 [Rx] Famotidine [Pepcid] 20 mg PO DAILY tab 06/29/17 [Rx] Furosemide [Lasix] 80 mg PO BID #60 tablet 06/29/17 [Rx] Ibuprofen [Motrin] 600 mg PO TID #90 tab 06/29/17 [Rx] Polyethylene Glycol 3350 [Miralax] 17 gm PO DAILY powd.pack 06/29/17 [Rx] Spironolactone [Aldactone] 25 mg PO BID #60 tab 06/29/17 [Rx] hydrOXYzine HCL [Atarax] 25 mg PO QID #120 tab 06/29/17 [Rx] Follow up Appointment(s)/Referral(s): Elan Alexis MD [Primary Care Provider] - 1-2 days () Patient Instructions/Handouts: Spironolactone (By mouth), Furosemide (By mouth) , Alprazolam (By mouth), Doxepin (By mouth), Hydroxyzine (By mouth) Discharge Disposition: HOME WITH HOME HEALTH SERVICES
[2017-06-30] MEDS: diphenhydrAMINE 50 MG/ML 1 ML VIAL IVP PRN (07:51)
[2017-06-30] MEDS: INSULIN ASPART 100 UNIT/ML 1 ML 10 ML VIAL SQ SCH (07:51)
[2017-06-30] MEDS: FUROSEMIDE 10 MG/ML 10 ML VIAL IV SCH (07:52)
[2017-06-30] MEDS: FAMOTIDINE 20 MG TAB PO SCH (07:52)
[2017-06-30] MEDS: ENOXAPARIN 40 MG/0.4 ML SYRINGE SQ SCH (07:52)
[2017-06-30] MEDS: IBUPROFEN 600 MG TAB PO SCH (07:53)
[2017-06-30] MEDS: hydrOXYzine HCL 25 MG TAB PO SCH (07:53)
[2017-06-30] MEDS: SPIRONOLACTONE 25 MG TAB PO SCH (07:54)
[2017-06-30] MEDS: METOPROLOL TARTRATE 25 MG TAB PO SCH (07:54)
== END 2017-06-30 08:50 | disposition home health service (06) | DRG 603 ==
LOC: EC 21:06 → 5MS5E 23:23
PROVIDERS: ADMIT Internal Medicine; ATTEND Internal Medicine
DX: L03.114 Cellulitis of left upper limb (principal); E11.22 Type 2 diabetes mellitus with diabetic chronic kidney disease; I48.0 Paroxysmal atrial fibrillation; B95.62 Methicillin resistant Staphylococcus aureus infection as the cause of diseases classified elsewhere; N18.3 Chronic kidney disease, stage 3 (moderate); R53.1 Weakness; L02.414 Cutaneous abscess of left upper limb; L30.9 Dermatitis, unspecified; I12.9 Hypertensive chronic kidney disease with stage 1 through stage 4 chronic kidney disease, or unspecified chronic kidney disease; R60.1 Generalized edema; L29.9 Pruritus, unspecified; E78.5 Hyperlipidemia, unspecified; F17.200 Nicotine dependence, unspecified, uncomplicated; L28.0 Lichen simplex chronicus; Z79.82 Long term (current) use of aspirin; Z79.899 Other long term (current) drug therapy; Z79.84 Long term (current) use of oral hypoglycemic drugs; Z82.3 Family history of stroke; Z82.49 Family history of ischemic heart disease and other diseases of the circulatory system; Z83.3 Family history of diabetes mellitus; Z85.828 Personal history of other malignant neoplasm of skin; Z86.711 Personal history of pulmonary embolism; Z88.1 Allergy status to other antibiotic agents; Z88.2 Allergy status to sulfonamides; Z90.89 Acquired absence of other organs
CPT/HCPCS: 36415; 80048; 80053; 80202; 81003; 82550; 82553; 83036; 83735; 83880; 84100; 84484; 85025; 85610; 85730; 87070; 87075; 87077; 87086; 87186; 87205; 93005; 93306; 93970; 96361; 96365; 96372; 96374; 96375; 99284; 99285

== ENCOUNTER → 2017-06-23 | Outpatient (CLI) | payer MEDICARE ==
--- NOTE | 2017-06-24 09:36 | ECHOF ---
Referral Reason:R60.9 peripheral edema MEASUREMENTS -------- HEIGHT: 182.9 cm WEIGHT: 98.9 kg BP: IVSd: 1.5 cm (0.6 - 1.1) LVIDd: 3.6 cm (3.9 - 5.3) LVPWd: 1.6 cm (0.6 - 1.1) IVSs: 1.7 cm LVIDs: 2.3 cm LVPWs: 2.0 cm Ao Diam: 4.0 cm (2.0 - 3.7) AV Cusp: 1.9 cm (1.5 - 2.6) LA Diam: 3.8 cm (2.7 - 3.8) MV EXCURSION: 11.453 mm (> 18.000) MV EF SLOPE: 33 mm/s (70 - 150) EPSS: 0.5 cm MV E Moo: 0.77 m/s MV DecT: 257 ms MV A Moo: 0.72 m/s MV E/A Ratio: 1.08 RAP: 5.00 mmHg RVSP: 15.84 mmHg FINDINGS -------- Sinus rhythm. This was a technically good study. The left ventricular size is normal. There is moderate concentric left ventricular hypertrophy. O verall left ventricular systolic function is normal with, an EF between 55 - 60 %. The right ventricle is normal in size and function. The left atrial size is normal. The right atrium is normal in size. The aortic valve is trileaflet, and appears structurally normal. No aortic stenosis or regurgitation. The mitral valve leaflets are mildly thickened. Mild mitral regurgitation is present. Mild tricuspid regurgitation present. The right ventricular systolic pressure, as measured by Doppl er, is 15.84mmHg. Pulmonic valve appears structurally normal. The aortic root is mildy dilated. Measuring 4.1cm The pericardium is normal. CONCLUSIONS -------- 1. Sinus rhythm. 2. This was a technically good study. 3. The left ventricular size is normal. 4. There is moderate concentric left ventricular hypertrophy. 5. Overall left ventricular systolic function is normal with, an EF between 55 - 60 %. 6. The right ventricle is normal in size and function. 7. The left atrial size is normal. 8. The right atrium is normal in size. 9. The aortic valve is trileaflet, and appears structurally normal. No aortic stenosis or regurgitati on. 10. The mitral valve leaflets are mildly thickened. 11. Mild mitral regurgitation is present. 12. Mild tricuspid regurgitation present. 13. The right ventricular systolic pressure, as measured by Doppler, is 15.84mmHg. 14. Pulmonic valve appears structurally normal. 15. The aortic root is mildy dilated. Measuring 4.1cm 16. The pericardium is normal. CARE WORKER: Heidi Calhoun RDCS
== END | disposition home or self-care (01) ==
LOC: RADECHMAIN 13:35
PROVIDERS: ATTEND Emergency Medicine
DX: I08.1 Rheumatic disorders of both mitral and tricuspid valves (principal); R53.83 Other fatigue; E87.8 Other disorders of electrolyte and fluid balance, not elsewhere classified
CPT/HCPCS: 93306

== ENCOUNTER → 2017-06-23 | Outpatient (CLI) | payer MEDICARE ==
[2017-06-23 13:44] LABS: Basophils # (A) 0.1 k/uL (0-0.2); Basophils % (A) 1 %; Eosinophils # (A) 2.1 k/uL (0-0.7); Eosinophils % (A) 17 %; HCT 35.8 % (39.0-53.0); HGB 11.9 gm/dL (13.0-17.5); Lymphocytes # (A) 1.7 k/uL (1.0-4.8); Lymphocytes % (A) 13 %; MCH 31.3 pg (25.0-35.0); MCHC 33.3 g/dL (31.0-37.0); MCV 93.9 fL (80.0-100.0); Mean Platelet Volume 8.3; Monocytes # (A) 0.8 k/uL (0-1.0); Monocytes % (A) 6 %; Neutrophils # (A) 7.8 k/uL (1.3-7.7); Neutrophils % (A) 61 %; Platelet Count 292 k/uL (150-450); RBC 3.81 m/uL (4.30-5.90); RDW 13.7 % (11.5-15.5); WBC 12.9 k/uL (3.8-10.6)
[2017-06-23 14:19] LABS: Anion Gap 12 mmol/L; Blood Urea Nitrogen 31 mg/dL (9-20); Calcium 9.3 mg/dL (8.4-10.2); Carbon Dioxide 27 mmol/L (22-30); Chloride 101 mmol/L (98-107); Glucose 244 mg/dL (74-99); Potassium 3.9 mmol/L (3.5-5.1); Sodium 140 mmol/L (137-145)
== END | disposition home or self-care (01) ==
LOC: LABWHC1 12:52
PROVIDERS: ATTEND Internal Medicine
DX: E87.8 Other disorders of electrolyte and fluid balance, not elsewhere classified (principal); R53.83 Other fatigue
CPT/HCPCS: 36415; 80048; 85025

== ENCOUNTER 2017-06-30 21:25 | Emergency (ER) | payer MEDICARE ==
[2017-06-30 21:53] VITALS: RESP 18
[2017-06-30] MEDS ORDERED: KETOROLAC 30 MG/ML 1 ML VIAL IM STA (23:07)
[2017-06-30] MEDS ORDERED: HYDROcodone/APAP 7.5-325MG 1 EACH TAB PO ONE (23:09)
--- NOTE | 2017-06-30 23:15 | ED ---
General Adult HPI - General Chief complaint: Extremity Problem,Nontraumatic Stated complaint: Hip and Back Pain Time Seen by Provider: 06/30/17 22:48 Source: patient, family, RN notes reviewed, old records reviewed Mode of arrival: wheelchair Limitations: no limitations - History of Present Illness Initial comments: 82-year-old male presents for evaluation of bilateral lower extremity rash, lower extremity swelling, and bilateral hip pain. Patient was discharged with morning after being treated for same conditions. He had an appointment at [facility] with a butane compressor operator. He had biopsies taken, he was started on triamcinolone cream and doxycycline. Biopsies are pending. Patient has been seen by butane compressor operator in his primary care physician over the past 15 months for this condition. Patient did ride in a car to [place] and back, resulting in worsening lower extremity edema. He is on diuretics. Patient states that this edema has worsened his bilateral sciatic pain. He is complaining of pain on the lateral aspect of his thighs. He is taking Tylenol Motrin over this is not giving him good relief of his pain. He was on the lawn and while in the hospital for his lower extremity pain. No fever or chills. No chest pain or shortness of breath. Rash is diffuse on his entire body not just his legs. - Related Data Home Medications Medication Instructions Recorded Confirmed Aspirin 81 mg PO W/SUPPER 02/21/14 06/30/17 Latanoprost [Xalatan 0.005%] 1 drop BOTH EYES HS 08/30/16 06/30/17 Vitamin B Complex 1 tab PO DAILY 08/30/16 06/30/17 metFORMIN HCL [Glucophage] 1,000 mg PO W/SUPPER 08/30/16 06/30/17 Previous Rx's Medication Instructions Recorded Acetaminophen Tab [Tylenol] 650 mg PO Q4HR PRN #0 tab 09/11/16 Metoprolol Tartrate [Lopressor] 25 mg PO BID #60 tab 09/11/16 ALPRAZolam [Xanax] 0.5 mg PO QID PRN #100 tab 06/29/17 Doxepin [SINEquan] 10 mg PO HS #30 cap 06/29/17 Famotidine [Pepcid] 20 mg PO DAILY tab 06/29/17 Furosemide [Lasix] 80 mg PO BID #60 tablet 06/29/17 Ibuprofen [Motrin] 600 mg PO TID #90 tab 06/29/17 Polyethylene Glycol 3350 [Miralax] 17 gm PO DAILY powd.pack 06/29/17 Spironolactone [Aldactone] 25 mg PO BID #60 tab 06/29/17 hydrOXYzine HCL [Atarax] 25 mg PO QID #120 tab 06/29/17 HYDROcodone/APAP 7.5-325MG [Bath 1 tab PO Q6HR PRN #20 tab 06/30/17 7.5-325] Allergies Allergy/AdvReac Type Severity Reaction Status Date / Time sulfamethoxazole Allergy Rash/Hives Verified 06/30/17 22:51 [From Bactrim] trimethoprim [From Bactrim] Allergy Rash/Hives Verified 06/30/17 22:51 Review of Systems ROS Statement: Those systems with pertinent positive or pertinent negative responses have been documented in the HPI. ROS Other: All systems not noted in ROS Statement are negative. Past Medical History Past Medical History: Cancer, Diabetes Mellitus, Hyperlipidemia, Hypertension, Pulmonary Embolus (PE), Skin Disorder Additional Past Medical History / Comment(s): skin cancer, PE 1974, current rash on arms and legs(topical tx), bll carotid blockage History of Any Multi-Drug Resistant Organisms: MRSA Date of last positivie culture/infection: 06/24/17 MDRO Source:: LEG Past Surgical History: Appendectomy, Orthopedic Surgery, Tonsillectomy Additional Past Surgical History / Comment(s): BASAL CELL CA REMOVED RTTEMPLE AREA, left knee surgery, carotids Past Anesthesia/Blood Transfusion Reactions: Previous Problems w/ Anesthesia, Motion Sickness Additional Past Anesthesia/Blood Transfusion Reaction / Comment(s): "diff personality when coming out" Past Psychological History: No Psychological Hx Reported Smoking Status: Current some day smoker Past Alcohol Use History: Daily Past Drug Use History: None Reported - Past Family History Son(s) Family Medical History: Cancer General Exam Limitations: no limitations General appearance: alert, in no apparent distress Head exam: Present: atraumatic, normocephalic Eye exam: Present: normal appearance, PERRL ENT exam: Present: normal exam, mucous membranes dry Neck exam: Present: normal inspection. Absent: tenderness, meningismus Respiratory exam: Present: normal lung sounds bilaterally. Absent: respiratory distress Cardiovascular Exam: Present: regular rate, normal rhythm GI/Abdominal exam: Present: soft. Absent: distended, tenderness Extremities exam: Present: pedal edema, other (Diffuse eczematous rash throughout bilateral lower extremities. Patient does have 1-2+ pitting edema.) Back exam: Present: normal inspection, tenderness (Bilateral sacroiliac joint tenderness) Neurological exam: Present: alert, oriented X3, normal gait. Absent: motor sensory deficit Psychiatric exam: Present: normal affect, normal mood Skin exam: Present: warm, rash (Diffuse eczematous rash), erythema Course Vital Signs 06/30/17 21:50 Temperature 98.4 F Pulse Rate 84 Respiratory 18 Rate Blood Pressure 123/70 O2 Sat by Pulse 98 Oximetry Medical Decision Making - Medical Decision Making Patient presenting with multiple chronic issues, main issue is pain preventing the patient from sleeping and elevating his legs. He is currently taking Tylenol Motrin with minimal relief. He was taking Dilaudid while in the hospital. Contact primary care physician but was unable to reach him. He is given a shot of Toradol and Bath in the emergency department. He is prescribed Bath for his pain. He will continue taking Motrin. He will follow the instructions of his butane compressor operator regarding his rash. He will follow-up with his primary care physician for reevaluation. Disposition Clinical Impression: Rash, Edema, Bilateral leg edema Disposition: HOME SELF-CARE Condition: Fair Instructions: Eczema (ED), Sciatica (ED), Leg Edema (ED) Prescriptions: HYDROcodone/APAP 7.5-325MG [Bath 7.5-325] 1 tab PO Q6HR PRN #20 tab PRN Reason: Pain Referrals: Elan Alexis MD [Primary Care Provider] - 1-2 days Time of Disposition: 23:15
[2017-06-30 23:34] VITALS: BP 136/69; PULSE 67; TEMP 97.9
== END 2017-06-30 23:30 | disposition home or self-care (01) ==
LOC: EC 21:25
DX: R60.0 Localized edema (principal); R21 Rash and other nonspecific skin eruption; L53.9 Erythematous condition, unspecified; M25.551 Pain in right hip; M25.552 Pain in left hip; M54.32 Sciatica, left side; M54.31 Sciatica, right side; M79.651 Pain in right thigh; M79.652 Pain in left thigh; E11.9 Type 2 diabetes mellitus without complications; F17.200 Nicotine dependence, unspecified, uncomplicated; Z79.82 Long term (current) use of aspirin; Z79.84 Long term (current) use of oral hypoglycemic drugs; Z79.899 Other long term (current) drug therapy; Z88.1 Allergy status to other antibiotic agents; Z86.14 Personal history of Methicillin resistant Staphylococcus aureus infection; Z85.828 Personal history of other malignant neoplasm of skin; Z98.890 Other specified postprocedural states
CPT/HCPCS: 99284; 96372; J1885

== ENCOUNTER 2017-07-02 20:24 | Emergency (ER) | payer MEDICARE ==
[2017-07-02 20:44] VITALS: PULSE 80
[2017-07-02] MEDS ORDERED: HYDROmorphone 0.5 MG/0.5 ML SYRINGE IVP STA (21:44)
--- NOTE | 2017-07-02 21:47 | ED ---
Back Pain [facility] - General Chief Complaint: Back Pain/Injury Stated Complaint: body pain Time Seen by Provider: 07/02/17 21:25 Source: patient Limitations: no limitations - History of Present Illness MD Complaint: back pain -: days(s) Similar Symptoms Previously: Yes Place: home Radiation: buttocks, left leg, right leg Severity: severe Quality: burning, aching Consistency: constant Improves With: none Worsens With: sitting upright Associated Symptoms: denies other symptoms - Related Data Home Medications Medication Instructions Recorded Confirmed Aspirin 81 mg PO W/SUPPER 02/21/14 07/02/17 Latanoprost [Xalatan 0.005%] 1 drop BOTH EYES HS 08/30/16 07/02/17 Vitamin B Complex 1 tab PO DAILY 08/30/16 07/02/17 metFORMIN HCL [Glucophage] 1,000 mg PO W/SUPPER 08/30/16 07/02/17 Doxycycline Hyclate 100 mg PO BID 07/02/17 07/02/17 HYDROcodone/APAP 7.5-325MG [[place] 1 tab PO Q6HR PRN 07/02/17 07/02/17 7.5-325] Triamcinolone 0.1% Ointment 1 applic TOPICAL BID 07/02/17 07/02/17 [Kenalog 0.1% Ointment] Previous Rx's Medication Instructions Recorded Acetaminophen Tab [Tylenol] 650 mg PO Q4HR PRN #0 tab 09/11/16 Metoprolol Tartrate [Lopressor] 25 mg PO BID #60 tab 09/11/16 ALPRAZolam [Xanax] 0.5 mg PO QID PRN #100 tab 06/29/17 Doxepin [SINEquan] 10 mg PO HS #30 cap 06/29/17 Famotidine [Pepcid] 20 mg PO DAILY tab 06/29/17 Furosemide [Lasix] 80 mg PO BID #60 tablet 06/29/17 Ibuprofen [Motrin] 600 mg PO TID #90 tab 06/29/17 Polyethylene Glycol 3350 [Miralax] 17 gm PO DAILY powd.pack 06/29/17 Spironolactone [Aldactone] 25 mg PO BID #60 tab 06/29/17 hydrOXYzine HCL [Atarax] 25 mg PO QID #120 tab 06/29/17 HYDROcodone/APAP 10-325MG [[place] 1 tab PO Q4HR PRN #20 tab 07/03/17 10-325] predniSONE 60 mg PO DAILY #30 tab 07/03/17 Allergies Allergy/AdvReac Type Severity Reaction Status Date / Time sulfamethoxazole Allergy Rash/Hives Verified 07/02/17 21:44 [From Bactrim] trimethoprim [From Bactrim] Allergy Rash/Hives Verified 07/02/17 21:44 Review of Systems ROS Statement: Those systems with pertinent positive or pertinent negative responses have been documented in the HPI. ROS Other: All systems not noted in ROS Statement are negative. Constitutional: Denies: fever, chills Respiratory: Denies: cough, dyspnea Cardiovascular: Denies: chest pain Gastrointestinal: Denies: abdominal pain, vomiting, diarrhea Genitourinary: Denies: dysuria, hematuria Musculoskeletal: Reports: as per HPI, back pain Skin: Reports: rash (Chronic) Neurological: Denies: headache, weakness, numbness Past Medical History Past Medical History: Cancer, Diabetes Mellitus, Hyperlipidemia, Hypertension, Pulmonary Embolus (PE), Skin Disorder Additional Past Medical History / Comment(s): skin cancer, PE 1974, current rash on arms and legs(topical tx), bll carotid blockage History of Any Multi-Drug Resistant Organisms: MRSA Date of last positivie culture/infection: 06/24/17 MDRO Source:: LEG Past Surgical History: Appendectomy, Orthopedic Surgery, Tonsillectomy Additional Past Surgical History / Comment(s): BASAL CELL CA REMOVED RTTEMPLE AREA, left knee surgery, carotids Past Anesthesia/Blood Transfusion Reactions: Previous Problems w/ Anesthesia, Motion Sickness Additional Past Anesthesia/Blood Transfusion Reaction / Comment(s): "diff personality when coming out" Past Psychological History: No Psychological Hx Reported Smoking Status: Current some day smoker Past Alcohol Use History: Daily Past Drug Use History: None Reported - Past Family History Son(s) Family Medical History: Cancer General Exam Limitations: no limitations General appearance: alert, in no apparent distress Head exam: Present: atraumatic, normocephalic Eye exam: Present: normal appearance. Absent: scleral icterus, conjunctival injection Neck exam: Present: normal inspection Respiratory exam: Present: normal lung sounds bilaterally. Absent: respiratory distress, wheezes, rales, rhonchi, stridor Cardiovascular Exam: Present: regular rate, normal rhythm, normal heart sounds GI/Abdominal exam: Present: soft. Absent: distended, tenderness, guarding, rebound, mass exam: Present: normal inspection, circumcision. Absent: scrotal swelling Extremities exam: Present: normal capillary refill, pedal edema. Absent: calf tenderness Back exam: Present: normal inspection. Absent: CVA tenderness (R), CVA tenderness (L) Neurological exam: Present: alert. Absent: motor sensory deficit Skin exam: Present: warm, dry, intact, normal color. Absent: rash Course Vital Signs 07/02/17 20:40 Temperature 97.6 F Pulse Rate 80 Respiratory 20 Rate Blood Pressure 148/59 O2 Sat by Pulse 100 Oximetry Medical Decision Making - Lab Data Result diagrams: 07/02/17 22:09 07/02/17 22:09 Lab Results 07/02/17 07/02/17 07/02/17 Range/Units 22:09 22:09 22:09 WBC 11.3 H (3.8-10.6) k/uL RBC 3.73 L (4.30-5.90) m/uL Hgb 12.0 L (13.0-17.5) gm/dL Hct 35.1 L (39.0-53.0) % MCV 94.0 (80.0-100.0) fL MCH 32.2 (25.0-35.0) pg MCHC 34.3 (31.0-37.0) g/dL RDW 14.4 (11.5-15.5) % Plt Count 281 (150-450) k/uL Neutrophils % 52 % Lymphocytes % 14 % Monocytes % 7 % Eosinophils % 23 % Basophils % 1 % Neutrophils # 5.9 (1.3-7.7) k/uL Lymphocytes # 1.6 (1.0-4.8) k/uL Monocytes # 0.8 (0-1.0) k/uL Eosinophils # 2.6 H (0-0.7) k/uL Basophils # 0.1 (0-0.2) k/uL Manual Slide Review Performed Poikilocytosis (manual Present PT 9.4 (9.0-12.0) sec INR 0.9 (<1.2) APTT 22.8 (22.0-30.0) sec Sodium 142 (137-145) mmol/L Potassium 4.0 (3.5-5.1) mmol/L Chloride 98 (98-107) mmol/L Carbon Dioxide 31 H (22-30) mmol/L Anion Gap 13 mmol/L BUN 43 H (9-20) mg/dL Creatinine 1.69 H (0.66-1.25) mg/dL Est GFR (MDRD) Af Amer 47 (>60 ml/min/1.73 sqM) Est GFR (MDRD) Non-Af 39 (>60 ml/min/1.73 sqM) Glucose 176 H (74-99) mg/dL Calcium 10.6 H (8.4-10.2) mg/dL Total Bilirubin 0.4 (0.2-1.3) mg/dL AST 69 H (17-59) U/L ALT 72 (21-72) U/L Alkaline Phosphatase 94 (38-126) U/L Total Protein 7.2 (6.3-8.2) g/dL Albumin 4.3 (3.5-5.0) g/dL Urine Color Urine Appearance (Clear) Urine pH (5.0-8.0) Ur Specific [place] (1.001-1.035) Urine Protein (Negative) Urine Glucose (UA) (Negative) Urine Ketones (Negative) Urine Blood (Negative) Urine Nitrite (Negative) Urine Bilirubin (Negative) Urine Urobilinogen (<2.0) mg/dL Ur Leukocyte Esterase (Negative) 07/02/17 Range/Units 22:09 WBC (3.8-10.6) k/uL RBC (4.30-5.90) m/uL Hgb (13.0-17.5) gm/dL Hct (39.0-53.0) % MCV (80.0-100.0) fL MCH (25.0-35.0) pg MCHC (31.0-37.0) g/dL RDW (11.5-15.5) % Plt Count (150-450) k/uL Neutrophils % % Lymphocytes % % Monocytes % % Eosinophils % % Basophils % % Neutrophils # (1.3-7.7) k/uL Lymphocytes # (1.0-4.8) k/uL Monocytes # (0-1.0) k/uL Eosinophils # (0-0.7) k/uL Basophils # (0-0.2) k/uL Manual Slide Review Poikilocytosis (manual PT (9.0-12.0) sec INR (<1.2) APTT (22.0-30.0) sec Sodium (137-145) mmol/L Potassium (3.5-5.1) mmol/L Chloride (98-107) mmol/L Carbon Dioxide (22-30) mmol/L Anion Gap mmol/L BUN (9-20) mg/dL Creatinine (0.66-1.25) mg/dL Est GFR (MDRD) Af Amer (>60 ml/min/1.73 sqM) Est GFR (MDRD) Non-Af (>60 ml/min/1.73 sqM) Glucose (74-99) mg/dL Calcium (8.4-10.2) mg/dL Total Bilirubin (0.2-1.3) mg/dL AST (17-59) U/L ALT (21-72) U/L Alkaline Phosphatase (38-126) U/L Total Protein (6.3-8.2) g/dL Albumin (3.5-5.0) g/dL Urine Color Yellow Urine Appearance Clear (Clear) Urine pH 6.0 (5.0-8.0) Ur Specific [place] 1.007 (1.001-1.035) Urine Protein Negative (Negative) Urine Glucose (UA) Negative (Negative) Urine Ketones Negative (Negative) Urine Blood Negative (Negative) Urine Nitrite Negative (Negative) Urine Bilirubin Negative (Negative) Urine Urobilinogen <2.0 (<2.0) mg/dL Ur Leukocyte Esterase Negative (Negative) Disposition Clinical Impression: Lumbar radicular pain Disposition: HOME SELF-CARE Condition: Fair Instructions: Acute Low Back Pain (ED) Prescriptions: HYDROcodone/APAP 10-325MG [[place] 10-325] 1 tab PO Q4HR PRN #20 tab PRN Reason: Pain predniSONE 60 mg PO DAILY #30 tab Referrals: Elan Alexis MD [Primary Care Provider] - 1-2 days Parviz Garcia DO [Doctor of Osteopathic Medicine] - 1-2 days
[2017-07-02 22:29] LABS: Basophils # (A) 0.1 k/uL (0-0.2); Basophils % (A) 1 %; Eosinophils # (A) 2.6 k/uL (0-0.7); Eosinophils % (A) 23 %; HCT 35.1 % (39.0-53.0); Lymphocytes # (A) 1.6 k/uL (1.0-4.8); Lymphocytes % (A) 14 %; MCH 32.2 pg (25.0-35.0); MCHC 34.3 g/dL (31.0-37.0); Mean Platelet Volume 8.9; Monocytes # (A) 0.8 k/uL (0-1.0); Monocytes % (A) 7 %; Neutrophils # (A) 5.9 k/uL (1.3-7.7); Neutrophils % (A) 52 %; Platelet Count 281 k/uL (150-450); RBC 3.73 m/uL (4.30-5.90); RDW 14.4 % (11.5-15.5); WBC 11.3 k/uL (3.8-10.6)
[2017-07-02 22:31] LABS: Appearance,Urine Clear (Clear); Bilirubin,Urine Negative (Negative); Blood,Urine Negative (Negative); Color,Urine Yellow; Glucose,Urine (UA) Negative (Negative); Ketones,Urine Negative (Negative); Leukocyte Esterase,Urine Negative (Negative); Nitrite,Urine Negative (Negative); Protein,Urine Negative (Negative); Specific Gravity,Urine 1.007 (1.001-1.035); Urobilinogen,Urine <2.0 mg/dL (<2.0)
[2017-07-02 22:40] LABS: INR 0.9 (<1.2); Prothrombin Time 9.4 sec (9.0-12.0)
[2017-07-02 22:42] LABS: Albumin 4.3 g/dL (3.5-5.0); Calcium 10.6 mg/dL (8.4-10.2); Total Bilirubin 0.4 mg/dL (0.2-1.3); Total Protein 7.2 g/dL (6.3-8.2)
[2017-07-02 22:45] LABS: Poikilocytosis (M) Present
[2017-07-02 22:49] LABS: Partial Thromboplastin Time 22.8 sec (22.0-30.0)
--- NOTE | 2017-07-02 23:10 | CT ---
EXAM: CT Lumbar Spine Without Intravenous Contrast CLINICAL HISTORY: Reason: Pain TECHNIQUE: Axial computed tomography images of the lumbar spine without intravenous contrast. CTDI is 46.30 mGy and DLP is 1438.00 mGy-cm. This CT exam was performed using one or more of the following dose reduction techniques: automated exposure control, adjustment of the mA and/or kV according to patient size, and/or use of iterative reconstruction technique. COMPARISON: No relevant prior studies available. FINDINGS: No evidence of fracture or spondylolisthesis. Disc height loss noted at all levels of the lumbar spine. Vacuum phenomena is seen at T12-L1, L1-L2, and L5-S1. Posterior disc protrusions are demonstrated at all levels of the lumbar spine. The most severe bilateral neural foraminal narrowing is seen at L1-2 and L5-S1. A 1.3 cm sclerotic lesion is seen in the right iliac wing. IMPRESSION: 1. No evidence of fracture or spondylolisthesis. 2. Multilevel spondylotic changes as above. 3. There is a 1.3 cm sclerotic lesion in the right iliac wing. This may represent a bone island; however, osteoblastic neoplasm cannot be excluded. Correlate clinically. Comparison with prior outside studies would be helpful. Need for further imaging may be determined clinically.
[2017-07-03] MEDS ORDERED: HYDROmorphone 0.5 MG/0.5 ML SYRINGE IVP STA (00:03)
[2017-07-03] MEDS ORDERED: methylPREDNISolone SOD SUCCI 125 MG/2 ML VIAL IV STA (00:04)
--- NOTE | 2017-07-03 00:43 | CT ---
EXAM: CT Abdomen and Pelvis Without Intravenous Contrast CLINICAL HISTORY: Reason: Pain TECHNIQUE: Axial computed tomography images of the abdomen and pelvis without intravenous contrast. CTDI is 20.70 mGy and DLP is 1038.80 mGy-cm. This CT exam was performed using one or more of the following dose reduction techniques: automated exposure control, adjustment of the mA and/or kV according to patient size, and/or use of iterative reconstruction technique. COMPARISON: No relevant prior studies available. FINDINGS: Lower thorax: Right base pleural parenchymal scarring. ABDOMEN: Liver: Unremarkable. Gallbladder and bile ducts: Unremarkable. No calcified stones. No ductal dilation. Pancreas: Unremarkable. No ductal dilation. Spleen: Unremarkable. No splenomegaly. Adrenals: Unremarkable. No mass. Kidneys and ureters: Unremarkable. No obstructing stones. No hydronephrosis. Stomach and bowel: Colonic fecal stasis. No obstruction. No mucosal thickening. Appendix: Appendix is not seen and may have been surgically removed. No signs of appendicitis. PELVIS: Bladder: Unremarkable. No stones. Reproductive: Coarse central calcifications in the prostate. ABDOMEN and PELVIS: Intraperitoneal space: Unremarkable. No free air. No significant fluid collection. Bones/joints: Thoracolumbar spondylotic changes noted. No acute fracture. No dislocation. Soft tissues: Unremarkable. Vasculature: Unremarkable. No abdominal aortic aneurysm. Lymph nodes: Unremarkable. No enlarged lymph nodes. IMPRESSION: No acute intra-abdominal or intrapelvic process. Colonic fecal stasis.
[2017-07-03 01:43] VITALS: BP 168/74; RESP 18; TEMP 97.4
== END 2017-07-03 01:41 | disposition home or self-care (01) ==
LOC: EC 20:24
DX: M54.16 Radiculopathy, lumbar region (principal); E11.9 Type 2 diabetes mellitus without complications; F17.200 Nicotine dependence, unspecified, uncomplicated; Z85.828 Personal history of other malignant neoplasm of skin; Z86.14 Personal history of Methicillin resistant Staphylococcus aureus infection; Z79.82 Long term (current) use of aspirin; Z79.84 Long term (current) use of oral hypoglycemic drugs; Z79.899 Other long term (current) drug therapy; Z88.2 Allergy status to sulfonamides
CPT/HCPCS: 36415; 80053; 85025; 85610; 85730; 81003; 72131; 74176; 99284; 96374; 96375; 96376; J2930; J1170 ×2

== ENCOUNTER → 2017-07-04 | Outpatient (CLI) | payer MEDICARE ==
--- NOTE | 2017-07-04 15:18 | MR ---
EXAMINATION TYPE: MR lumbar spine wo con DATE OF EXAM: 07/04/2017 COMPARISON: Prior CT 07/02/2017 HISTORY: Low back pain, Stenosis TECHNIQUE: Multiplanar, multisequence images of the lumbar spine were acquired. L1-L2: Posterior extension of endplate disc complex causes mild anterior mass effect on the thecal sa c but no significant central stenosis. Circumferential extension of endplate disc complex along with minimal retrolisthesis grade 1 L1 to causes mild bilateral foraminal encroachment. Mild facet arthrop athy. L2-L3: Broad-based posterior disc bulge causes mild anterior mass effect on the thecal sac. No signif icant central stenosis or foraminal encroachment. Facet arthropathy with hypertrophy of the ligamentu m flavum encroaches somewhat on the lateral recesses. L3-L4: Posterior broad-based disc bulge causes mild anterior mass effect on the thecal sac. No signif icant central stenosis. There is facet arthropathy with hypertrophy of the ligamentum flavum encroach es somewhat on the right lateral recess. No significant foraminal encroachment. L4-L5: Minimal anterolisthesis grade 1 is present which contributes to cause bilateral foraminal encr oachment, broad-based posterior disc bulge causes anterior mass effect on the thecal sac, no signific ant central stenosis. Facet arthropathy with hypertrophy of the ligamentum flavum encroaches somewhat on the lateral recesses. L5-S1: Loss of disc height and signal is present, there is associated vacuum phenomenon. Facet arthro sera encroaches somewhat on the lateral recesses. Minimal anterolisthesis grade 1 contributes to cau se bilateral foraminal encroachment. Sequential posterior disc bulge causes only minimal anterior mas s effect on the thecal sac. Lumbar segments are intact. No paraspinal masses are identified. Conus medullaris has a normal appe arance. There is a mild scoliosis as noted on CT convex left centered at L3-4. Multilevel spondylosis is present, there is endplate discogenic marrow signal change, loss of disc height and signal at the intervertebral levels. Multiple small hemangiomas are noted within multiple vertebral bodies. Cortic al cyst is associated with the left kidney which is incompletely evaluated. IMPRESSION: Scoliosis, degenerative disc disease, facet arthropathy, multilevel foraminal encroachment, minimal c entral canal stenosis greatest at L4-5.
== END | disposition home or self-care (01) ==
LOC: RADMRIMAIN 14:08
PROVIDERS: ATTEND Orthopaedic Surgery Orthopaedic Surgery of the Spine
DX: M48.061 Spinal stenosis, lumbar region without neurogenic claudication (principal); M51.36 Other intervertebral disc degeneration, lumbar region; M41.9 Scoliosis, unspecified; M46.96 Unspecified inflammatory spondylopathy, lumbar region
CPT/HCPCS: 72148

== ENCOUNTER 2017-07-15 15:29 | Emergency (ER) | payer MEDICARE ==
[2017-07-15 15:40] VITALS: BP 154/82; PULSE 97; RESP 22; TEMP 98.4
--- NOTE | 2017-07-15 16:00 | ED ---
General Adult HPI - General Chief complaint: Abdominal Pain Stated complaint: Constipation Time Seen by Provider: 07/15/17 15:33 Source: patient, EMS, RN notes reviewed, old records reviewed Mode of arrival: EMS Limitations: no limitations - History of Present Illness Initial comments: 82-year-old male presenting with chief complaint of constipation. Patient states his been 5 or 6 days he has had a bowel movement. He is attempted to disimpact himself several times with minimal success. He also complains of generalized abdominal pain. This is worse with straining to take a bowel movement. Patient has history of low back pain, he is currently taking [place] for his pain. He was admitted several weeks ago with a diffuse eczematous rash. He is followed up with dermatology regarding this rash. He states this is somewhat improved. He denies any chest pain or shortness of breath. Denies vomiting. Denies fever or chills. - Related Data Home Medications Medication Instructions Recorded Confirmed Latanoprost [Xalatan 0.005%] 1 drop BOTH EYES HS 08/30/16 07/15/17 metFORMIN HCL [Glucophage] 1,000 mg PO W/SUPPER 08/30/16 07/15/17 Triamcinolone 0.1% Ointment 1 applic TOPICAL BID 07/02/17 07/15/17 [Kenalog 0.1% Ointment] Aspirin EC [Ecotrin Low Dose] 81 mg PO DAILY 07/15/17 07/15/17 Ibuprofen [Motrin] 600 mg PO Q6H PRN 07/15/17 07/15/17 Thiamine 250mg 250 mg PO DAILY 07/15/17 07/15/17 Previous Rx's Medication Instructions Recorded Metoprolol Tartrate [Lopressor] 25 mg PO BID #60 tab 09/11/16 ALPRAZolam [Xanax] 0.5 mg PO QID PRN #100 tab 06/29/17 Doxepin [SINEquan] 10 mg PO HS #30 cap 06/29/17 Famotidine [Pepcid] 20 mg PO DAILY tab 06/29/17 Furosemide [Lasix] 80 mg PO BID #60 tablet 06/29/17 Polyethylene Glycol 3350 [Miralax] 17 gm PO DAILY powd.pack 06/29/17 Spironolactone [Aldactone] 25 mg PO BID #60 tab 06/29/17 hydrOXYzine HCL [Atarax] 25 mg PO QID #120 tab 06/29/17 HYDROcodone/APAP 10-325MG [[place] 1 tab PO Q4HR PRN #20 tab 07/03/17 10-325] Allergies Allergy/AdvReac Type Severity Reaction Status Date / Time sulfamethoxazole Allergy Rash/Hives Verified 07/15/17 16:02 [From Bactrim] trimethoprim [From Bactrim] Allergy Rash/Hives Verified 07/15/17 16:02 Review of Systems ROS Statement: Those systems with pertinent positive or pertinent negative responses have been documented in the HPI. ROS Other: All systems not noted in ROS Statement are negative. Past Medical History Past Medical History: Cancer, Diabetes Mellitus, Hyperlipidemia, Hypertension, Pulmonary Embolus (PE), Skin Disorder Additional Past Medical History / Comment(s): skin cancer, PE 1974, current rash on arms and legs(topical tx), bll carotid blockage History of Any Multi-Drug Resistant Organisms: MRSA Date of last positivie culture/infection: 06/24/17 MDRO Source:: LEG Past Surgical History: Appendectomy, Orthopedic Surgery, Tonsillectomy Additional Past Surgical History / Comment(s): BASAL CELL CA REMOVED RTTEMPLE AREA, left knee surgery, carotids Past Anesthesia/Blood Transfusion Reactions: Previous Problems w/ Anesthesia, Motion Sickness Additional Past Anesthesia/Blood Transfusion Reaction / Comment(s): "diff personality when coming out" Past Psychological History: No Psychological Hx Reported Smoking Status: Current some day smoker Past Alcohol Use History: Daily Past Drug Use History: None Reported - Past Family History Son(s) Family Medical History: Cancer General Exam Limitations: no limitations General appearance: alert, in no apparent distress Head exam: Present: atraumatic, normocephalic Eye exam: Present: normal appearance, PERRL ENT exam: Present: normal exam Neck exam: Present: normal inspection. Absent: tenderness Respiratory exam: Present: normal lung sounds bilaterally. Absent: respiratory distress Cardiovascular Exam: Present: regular rate, normal rhythm GI/Abdominal exam: Present: soft, distended, tenderness. Absent: guarding, rebound Rectal exam: Present: normal rectal tone, fecal impaction Extremities exam: Present: normal inspection Neurological exam: Present: alert, oriented X3 Psychiatric exam: Present: normal affect, normal mood Skin exam: Present: warm, dry, rash (eczema) Course Vital Signs 07/15/17 15:35 Temperature 98.4 F Pulse Rate 97 Respiratory 22 Rate Blood Pressure 154/82 O2 Sat by Pulse 98 Oximetry Procedures - Rectal Disimpaction Consent Obtained: verbal consent Time Out Performed: Yes Indication: fecal impaction Procedural Sedation: No Technique: manual disimpaction with gloved finger Result: significant stool output Complications: none Patient Tolerated Procedure: well Medical Decision Making - Medical Decision Making 82-year-old male with mild generalized abdominal pain and inability to have a bowel movement. He has attempted self disimpaction. This was unsuccessful. In the emergency department x-rays obtained, there is large stool burning, no signs of obstruction or intraperitoneal free air. Patient's abdomen is soft nondistended with no significant tenderness. Vital signs are stable. I was able to disimpact a large amount of stool. He receives a fleets enema. He is given magnesium citrate in the department and is able to have a second large bowel movement. He had his daughter are instructed to increase water intake, increase the amount of vegetables he consumes. They will try one week of MiraLAX which they have at home and will add a magnesium supplement to his diet. Disposition Clinical Impression: Constipation Disposition: HOME SELF-CARE Condition: Good Instructions: Constipation (ED), High Fiber Diet (ED) Referrals: Elan Alexis MD [Primary Care Provider] - 1-2 days Time of Disposition: 17:31
--- NOTE | 2017-07-15 16:09 | XR ---
EXAMINATION TYPE: XR KUB DATE OF EXAM: 07/15/2017 3:56 PM CLINICAL HISTORY: Abdominal pain TECHNIQUE: Single supine KUB image of the abdomen is obtained. COMPARISON: None. FINDINGS: Scattered gas is seen in non-distended small bowel loops. Gas and fecal material is seen in non-distended colon. There is no visceromegaly, pneumoperitoneum, or abnormal calcification apprecia penny. The lung bases are clear and the osseous structures are intact. Moderate multilevel degenerative changes of the thoracolumbar spine and femoral acetabular joints are noted. IMPRESSION: Nonobstructive bowel gas pattern.
[2017-07-15] MEDS ORDERED: NA PHOS,M-B/NA PHOS,DI-BA 133 ML ENEMA RECTAL STA (16:15)
[2017-07-15] MEDS ORDERED: MAGNESIUM CITRATE 296 ML BOTTLE PO ONE (16:25)
== END 2017-07-15 18:29 | disposition home or self-care (01) ==
LOC: EC 15:29
DX: K59.00 Constipation, unspecified (principal); R21 Rash and other nonspecific skin eruption; M54.5 Low back pain; E11.9 Type 2 diabetes mellitus without complications; F17.200 Nicotine dependence, unspecified, uncomplicated; Z79.82 Long term (current) use of aspirin; Z79.84 Long term (current) use of oral hypoglycemic drugs; Z79.891 Long term (current) use of opiate analgesic; Z79.899 Other long term (current) drug therapy; Z88.1 Allergy status to other antibiotic agents; Z86.14 Personal history of Methicillin resistant Staphylococcus aureus infection; Z85.828 Personal history of other malignant neoplasm of skin; Z98.890 Other specified postprocedural states
CPT/HCPCS: 74018; 99284

== ENCOUNTER → 2017-07-29 | Outpatient (CLI) | payer MEDICARE ==
--- NOTE | 2017-07-29 11:55 | FL ---
EXAMINATION TYPE: FL barium swallow w video DATE OF EXAM: 07/29/2017 MODIFIED SWALLOW / DEGLUTITION STUDY CLINICAL HISTORY: Dysphagia. TECHNIQUE: Deglutition study is performed utilizing thin liquid barium, honey and nectar thick liqui d barium, barium thick applesauce, and barium coated cracker. 1 minute and 53 seconds of fluoroscopy time was utilized with 0 images saved. COMPARISON: None. FINDINGS: The oral and pharyngeal phases show satisfactory initiation and propagation with all modali ties tested. Normal mastication is seen with solid modalities tested. There is no evidence of aspir ation with any modality tested. Transient trace penetration is seen with the thin consistency only. No significant pharyngeal residue was appreciated. On frontal imaging moderate intraesophageal reflux to the level of the mid thoracic esophagus is identified with no obstruction at the gastroesophageal junction. IMPRESSION: 1. Transient trace penetration with the thin consistency only. Please refer to speech therapist note s for further details if necessary. 2. Moderate intraesophageal reflux to the level of the midthoracic esophagus without distal obstructi on. 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
== END | disposition home or self-care (01) ==
LOC: RADFLMAIN 10:48
PROVIDERS: ATTEND Internal Medicine
DX: K21.9 Gastro-esophageal reflux disease without esophagitis (principal)
CPT/HCPCS: 74230

== ENCOUNTER → 2017-08-19 | Outpatient (CLI) | payer MEDICARE ==
--- NOTE | 2017-08-19 14:05 | US ---
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 History of right endarectomy EXAM MEASUREMENTS: RIGHT: Peak Systolic Velocity (PSV) cm/sec ----- Right CCA: 96.3 ----- Right ICA: 75.6 ----- Right ECA: 196.6 ICA/CCA ratio: 0.8 RIGHT: End Diastole cm/sec ----- Right CCA: 22.6 ----- Right ICA: 20.6 ----- Right ECA: 24.6 LEFT: Peak Systolic Velocity (PSV) cm/sec ----- Left CCA: 94.1 ----- Left ICA: 106.2 ----- Left ECA: 117.3 ICA/CCA ratio: 1.1 LEFT: End Diastole cm/sec ----- Left CCA: 24.8 ----- Left ICA: 23.7 ----- Left ECA: 22.8 VERTEBRALS (direction of flow): Right Vertebral: Antegrade Left Vertebral: Antegrade Rhythm: Normal No significant stenosis seen, elevated right ECA velocity. IMPRESSION: 1. Atheromatous plaquing left carotid bulb. Intimal thickening appears to be present on the right. 2. There is elevated velocity of the right external carotid artery. 3. No significant flow-limiting stenosis is evident within the internal carotid arteries or common ca rotid arteries. Criteria for Assigning % of Stenosis / Diameter reduction (Estimation based on the indirect measurements of the internal carotid artery velocities (ICA PSV). 1. Normal (no stenosis)=ICA PSV < 125 cm/s: ratio < 2.0: ICA EDV<40 cm/s. 2. Less than 50% stenosis=ICA PSV < 125 cm/s: ratio < 2.0: ICA EDV<40 cm/s. 3. 50 to 69% stenosis=ICA PSV of 125 to 230 cm/s: ration 2.0 ? 4.0: ICA EDV 40-100 cm/s. 4. Greater than 70% stenosis to near occlusion= ICA PSV > 230 cm/s: ratio > 4.0: ICA EDV > 100 cm/s. 5. Near occlusion= ICA PSV velocities may be low or undetectable: variable ratio and ICA EDV. 6. Total occlusion=unable to detect flow.
== END | disposition home or self-care (01) ==
LOC: RADUSWWP 09:58
PROVIDERS: ATTEND Thoracic Surgery (Cardiothoracic Vascular Surgery)
DX: I65.22 Occlusion and stenosis of left carotid artery (principal)
CPT/HCPCS: 93880

== ENCOUNTER → 2018-02-02 | Outpatient (CLI) | payer MEDICARE ==
[2018-02-02 12:10] LABS: Albumin 3.8 g/dL (3.5-5.0); Calcium 10.9 mg/dL (8.4-10.2); Potassium 4.6 mmol/L (3.5-5.1); Total Bilirubin 0.6 mg/dL (0.2-1.3); Total Protein 6.6 g/dL (6.3-8.2)
[2018-02-02 22:40] LABS: Hemoglobin A1C 7.8 % (4.0-6.0)
== END | disposition home or self-care (01) ==
LOC: LABWHC1 10:58
PROVIDERS: ATTEND Internal Medicine
DX: E11.9 Type 2 diabetes mellitus without complications (principal)
CPT/HCPCS: 36415; 80053; 83036

== ENCOUNTER → 2018-02-03 | Outpatient (CLI) | payer MEDICARE ==
--- NOTE | 2018-02-03 14:40 | US ---
EXAMINATION TYPE: US abdomen limited DATE OF EXAM: 02/03/2018 COMPARISON: Correlation CT 07/03/2017 CLINICAL HISTORY: 82-year-old male R10.11 right upper quadrant pain. TECHNIQUE: Multiple sonographic images of the right upper quadrant are obtained. FINDINGS: EXAM MEASUREMENTS: Liver Length: 17.3 cm Gallbladder Wall: 0.2 cm CBD: 0.4 cm Right Kidney: 11.5 x 5.3 x 5.0 cm Pancreas: Suboptimal visualization of the pancreatic head and neck due to shadowing from bowel gas. Liver: Borderline enlarged. Normal homogeneous echotexture. There are 3 hyperechoic areas : 1) = 1.1 x 1.1 x 1.0 cm 2) = 1.1 x 1.3 x 1.0 cm 3) = 0.8 x 0.9 x 0.6 cm Gallbladder: wnl Evidence for sonographic Queen's sign: No CBD: wnl Right Kidney: No hydronephrosis IMPRESSION: 1. Borderline size liver (17.3 cm). 2. 3 hyperechoic lesions in the liver measuring up to 1.3 cm. These are indeterminate but hemangiomas are favored. Correlation can be made with tumor markers and risk factor for primary or secondary mal ignancy. Six-month follow-up ultrasound versus further characterization with liver MRI.
== END | disposition home or self-care (01) ==
LOC: RADUSWWP 11:02
PROVIDERS: ATTEND Internal Medicine
DX: K76.9 Liver disease, unspecified (principal)
CPT/HCPCS: 76705

== ENCOUNTER 2018-03-12 18:12 | Emergency (ER) | payer MEDICARE ==
[2018-03-12 18:24] VITALS: RESP 18; TEMP 98.1
[2018-03-12 18:27] LABS: Glucose,Whole Blood 418 mg/dL (75-99)
--- NOTE | 2018-03-12 18:43 | ED ---
General Adult HPI - General Chief complaint: Recheck/Abnormal Lab/Rx Stated complaint: HYPERGLYCEMIA Time Seen by Provider: 03/12/18 18:29 Source: patient, RN notes reviewed Mode of arrival: ambulatory Limitations: no limitations - History of Present Illness Initial comments: Patient 82-year-old male presented to the emergency room today with chief complaint of elevated blood sugar per patient does admit that he is a type II diabetic is on metformin. He states that he's been on steroids over the last 5 weeks due to skin infection. He states loan originator put him on steroids. He states that he does have a history of MRSA. He was on Bactrim. States that they are planning to put him back on Bactrim as they feel that the MRSA may be coming back. [facility] for his elevated liver enzymes. States that the troponin on his way home was called and told that his blood sugar was over 500. Advised him come to the emergency room. Patient does admit to a new ulcer area to the right mid lower leg. He states there is redness. Does admit some pain locally. He denies any drainage. Denies any other complaints or symptoms. Patient denies any recent fever, chills, shortness of breath, chest pain, back pain, abdominal pain, nausea or vomiting, headaches or visual changes, or any other complaints. - Related Data Home Medications Medication Instructions Recorded Confirmed Latanoprost [Xalatan 0.005%] 1 drop BOTH EYES HS 08/30/16 03/12/18 metFORMIN HCL [Glucophage] 1,000 mg PO W/SUPPER 08/30/16 03/12/18 Triamcinolone 0.1% Ointment 1 applic TOPICAL BID 07/02/17 03/12/18 [Kenalog 0.1% Ointment] Aspirin EC [Ecotrin Low Dose] 81 mg PO DAILY 07/15/17 03/12/18 ALPRAZolam [Xanax] 0.5 mg PO HS PRN 03/12/18 03/12/18 Acetaminophen Tab [Tylenol Tab] 650 mg PO Q8H PRN 03/12/18 03/12/18 Calcium Carbonate/Vitamin D3 1 tab PO DAILY 03/12/18 03/12/18 [Calcium 500-Vit D3 200 Tablet] Clobetasol Propionate [Temovate 1 applic TOPICAL BID 03/12/18 03/12/18 0.05% Cream] Magnesium Oxide [Mag-Ox] 250 mg PO DAILY 03/12/18 03/12/18 Mupirocin 2% Oint [Bactroban 2% 1 applic TOPICAL DIRECTED 03/12/18 03/12/18 Oint] Vitamin B Complex 1 cap PO DAILY 03/12/18 03/12/18 hydrOXYzine HCL [Atarax] 25 mg PO Q8H 03/12/18 03/12/18 predniSONE See Taper PO DAILY 03/12/18 03/12/18 Previous Rx's Medication Instructions Recorded Metoprolol Tartrate [Lopressor] 25 mg PO BID #60 tab 09/11/16 Polyethylene Glycol 3350 [Miralax] 17 gm PO DAILY powd.pack 06/29/17 Sulfamethox-Tmp 800-160Mg [Bactrim 1 tab PO Q12HR #20 tab 03/12/18 DS 800-160 mg] Allergies Allergy/AdvReac Type Severity Reaction Status Date / Time No Known Allergies Allergy Unverified 03/12/18 18:51 Review of Systems ROS Statement: Those systems with pertinent positive or pertinent negative responses have been documented in the HPI. ROS Other: All systems not noted in ROS Statement are negative. Past Medical History Past Medical History: Diabetes Mellitus, Hyperlipidemia, Hypertension, Pulmonary Embolus (PE), Skin Disorder Additional Past Medical History / Comment(s): skin CA, PE 1974, current rash on arms and legs(topical tx), bll carotid blockage, enlarged liver History of Any Multi-Drug Resistant Organisms: MRSA Date of last positivie culture/infection: 06/24/17 MDRO Source:: LEG Past Surgical History: Appendectomy, Orthopedic Surgery, Tonsillectomy Additional Past Surgical History / Comment(s): BASAL CELL CA REMOVED RTTEMPLE AREA, left knee surgery, carotids Past Anesthesia/Blood Transfusion Reactions: Previous Problems w/ Anesthesia, Motion Sickness Additional Past Anesthesia/Blood Transfusion Reaction / Comment(s): "diff personality when coming out" Past Psychological History: No Psychological Hx Reported Smoking Status: Current some day smoker Past Alcohol Use History: Occasional Past Drug Use History: None Reported - Past Family History Son(s) Family Medical History: Cancer General Exam - General Exam Comments Initial Comments: General: The patient is awake and alert, in no distress, and does not appear acutely ill. Eye: Extra-ocular movements are intact. No nystagmus. There is normal conjunctiva bilaterally. No signs of icterus. Ears, nose, mouth and throat: There are moist mucous membranes and no oral lesions. Neck: The neck is supple, there is no tenderness or JVD. Cardiovascular: There is a regular rate and rhythm. No murmur, rub or gallop is appreciated. Respiratory: Lungs are clear to auscultation, respirations are non-labored, breath sounds are equal. No wheezes, stridor, rales, or rhonchi. Musculoskeletal: Normal ROM, no tenderness. Sensation intact. Strength 5/5. Pulses equal bilaterally 2+. Neurological: A&O x 3. CN II-XII intact, There are no obvious motor or sensory deficits. Coordination appears grossly intact. Speech is normal. Skin: Patient does have ulcerated area mid tibia measures approximately centimeter across. There is no active drainage. There is redness surrounding the area. Psychiatric: Cooperative, appropriate mood & affect, normal judgment. Limitations: no limitations Course Vital Signs 03/12/18 18:16 Temperature 98.1 F Pulse Rate 75 Respiratory 18 Rate Blood Pressure 182/84 O2 Sat by Pulse 99 Oximetry Medical Decision Making - Medical Decision Making Patient's labs been reviewed does show 12,000 white count. Blood sugar was 375. Results were discussed with patient. Patient does have ulcer on the right lower extremity. Will be started back on Bactrim given starter pack today. Also be given a prescription is advised follow-up with his loan originator. Patient given dose of insulin here in the emergency room. Blood sugar is trending down from previous 500 previous lab draw this morning. Patient has no symptoms. He does have a moderate home is advised to continue to monitor this follow up his family doctor over the next 2 days with these recordings. - Lab Data Result diagrams: 03/12/18 18:45 03/12/18 18:45 Lab Results 03/12/18 03/12/18 03/12/18 Range/Units 18:26 18:45 18:45 WBC 12.5 H (3.8-10.6) k/uL RBC 4.79 (4.30-5.90) m/uL Hgb 14.1 (13.0-17.5) gm/dL Hct 44.1 (39.0-53.0) % MCV 92.0 (80.0-100.0) fL MCH 29.4 (25.0-35.0) pg MCHC 32.0 (31.0-37.0) g/dL RDW 13.3 (11.5-15.5) % Plt Count 264 (150-450) k/uL Neutrophils % 80 % Lymphocytes % 14 % Monocytes % 4 % Eosinophils % 0 % Basophils % 0 % Neutrophils # 10.0 H (1.3-7.7) k/uL Lymphocytes # 1.7 (1.0-4.8) k/uL Monocytes # 0.5 (0-1.0) k/uL Eosinophils # 0.0 (0-0.7) k/uL Basophils # 0.0 (0-0.2) k/uL PT (9.0-12.0) sec INR (<1.2) APTT (22.0-30.0) sec Sodium 136 L (137-145) mmol/L Potassium 4.4 (3.5-5.1) mmol/L Chloride 103 (98-107) mmol/L Carbon Dioxide 20 L (22-30) mmol/L Anion Gap 13 mmol/L BUN 22 H (9-20) mg/dL Creatinine 1.12 (0.66-1.25) mg/dL Est GFR (CKD-EPI)AfAm 71 (>60 ml/min/1.73 sqM) Est GFR (CKD-EPI)NonAf 62 (>60 ml/min/1.73 sqM) Glucose 375 H (74-99) mg/dL POC Glucose (mg/dL) 418 H (75-99) mg/dL POC Glu Bran Mixer ID Alexus Leger Calcium 9.6 (8.4-10.2) mg/dL Total Bilirubin 0.8 (0.2-1.3) mg/dL AST 30 (17-59) U/L ALT 31 (21-72) U/L Alkaline Phosphatase 118 (38-126) U/L Total Protein 6.9 (6.3-8.2) g/dL Albumin 4.0 (3.5-5.0) g/dL 03/12/18 Range/Units 18:45 WBC (3.8-10.6) k/uL RBC (4.30-5.90) m/uL Hgb (13.0-17.5) gm/dL Hct (39.0-53.0) % MCV (80.0-100.0) fL MCH (25.0-35.0) pg MCHC (31.0-37.0) g/dL RDW (11.5-15.5) % Plt Count (150-450) k/uL Neutrophils % % Lymphocytes % % Monocytes % % Eosinophils % % Basophils % % Neutrophils # (1.3-7.7) k/uL Lymphocytes # (1.0-4.8) k/uL Monocytes # (0-1.0) k/uL Eosinophils # (0-0.7) k/uL Basophils # (0-0.2) k/uL PT 9.4 (9.0-12.0) sec INR 0.9 (<1.2) APTT 23.3 (22.0-30.0) sec Sodium (137-145) mmol/L Potassium (3.5-5.1) mmol/L Chloride (98-107) mmol/L Carbon Dioxide (22-30) mmol/L Anion Gap mmol/L BUN (9-20) mg/dL Creatinine (0.66-1.25) mg/dL Est GFR (CKD-EPI)AfAm (>60 ml/min/1.73 sqM) Est GFR (CKD-EPI)NonAf (>60 ml/min/1.73 sqM) Glucose (74-99) mg/dL POC Glucose (mg/dL) (75-99) mg/dL POC Glu Bran Mixer ID Calcium (8.4-10.2) mg/dL Total Bilirubin (0.2-1.3) mg/dL AST (17-59) U/L ALT (21-72) U/L Alkaline Phosphatase (38-126) U/L Total Protein (6.3-8.2) g/dL Albumin (3.5-5.0) g/dL Disposition Clinical Impression: Hyperglycemia, Cellulitis Disposition: HOME SELF-CARE Condition: Good Instructions: Diabetic Hyperglycemia (ED) Additional Instructions: Please use medication as discussed. Please follow-up with family doctor in the next 2 days of symptoms have not improved. Please return to emergency room if the symptoms increase or worsen or for any other concerns. Prescriptions: Sulfamethox-Tmp 800-160Mg [Bactrim DS 800-160 mg] 1 tab PO Q12HR #20 tab Is patient prescribed a controlled substance at d/c from ED?: No Referrals: Elan Alexis MD [Primary Care Provider] - 1-2 days Time of Disposition: 19:32
[2018-03-12 19:03] LABS: Basophils % (A) 0 %; Eosinophils % (A) 0 %; HCT 44.1 % (39.0-53.0); HGB 14.1 gm/dL (13.0-17.5); Lymphocytes # (A) 1.7 k/uL (1.0-4.8); Lymphocytes % (A) 14 %; MCH 29.4 pg (25.0-35.0); Mean Platelet Volume 7.4; Monocytes # (A) 0.5 k/uL (0-1.0); Monocytes % (A) 4 %; Neutrophils % (A) 80 %; Platelet Count 264 k/uL (150-450); RBC 4.79 m/uL (4.30-5.90); RDW 13.3 % (11.5-15.5); WBC 12.5 k/uL (3.8-10.6)
[2018-03-12 19:12] LABS: Calcium 9.6 mg/dL (8.4-10.2); INR 0.9 (<1.2); Partial Thromboplastin Time 23.3 sec (22.0-30.0); Potassium 4.4 mmol/L (3.5-5.1); Prothrombin Time 9.4 sec (9.0-12.0); Total Bilirubin 0.8 mg/dL (0.2-1.3); Total Protein 6.9 g/dL (6.3-8.2)
[2018-03-12] MEDS ORDERED: SULFAMETH-TMP DS STARTER PACK 2 TAB BTL PO STA (19:30)
[2018-03-12] MEDS ORDERED: INSULIN ASPART 100 UNIT/ML 1 ML 10 ML VIAL SQ ONE (19:30)
[2018-03-12 20:07] VITALS: BP 152/77; PULSE 71
== END 2018-03-12 19:45 | disposition home or self-care (01) ==
LOC: EC 18:12
DX: E11.65 Type 2 diabetes mellitus with hyperglycemia (principal); L03.115 Cellulitis of right lower limb; E11.622 Type 2 diabetes mellitus with other skin ulcer; L97.919 Non-pressure chronic ulcer of unspecified part of right lower leg with unspecified severity; F17.200 Nicotine dependence, unspecified, uncomplicated; Z79.52 Long term (current) use of systemic steroids; Z79.82 Long term (current) use of aspirin; Z79.84 Long term (current) use of oral hypoglycemic drugs; Z79.899 Other long term (current) drug therapy; Z85.828 Personal history of other malignant neoplasm of skin; Z98.890 Other specified postprocedural states; Z86.14 Personal history of Methicillin resistant Staphylococcus aureus infection
CPT/HCPCS: 36415; 80053; 85025; 85610; 85730; 99283

== ENCOUNTER → 2018-06-08 | Outpatient (CLI) | payer MEDICARE ==
[2018-06-08 16:25] LABS: Albumin 4.4 g/dL (3.80-4.90); Albumin/Globulin Ratio 2.44 (1.20-2.10); Anion Gap 8.3 mmol/L (4.00-12.00); Calcium 9.5 mg/dL (8.7-10.3); Carbon Dioxide 25.7 mmol/L (21.6-31.8); Globulin 1.8 g/dL (1.6-3.3); Potassium 4.5 mmol/L (3.5-5.5); Total Bilirubin 0.3 mg/dL (0.3-1.2); Total Protein 6.2 g/dL (6.2-8.2)
== END ==
LOC: LABWHC1 10:36
PROVIDERS: ATTEND Internal Medicine Gastroenterology
DX: R16.0 Hepatomegaly, not elsewhere classified (principal)
CPT/HCPCS: 36415; 80053

== ENCOUNTER → 2018-07-23 | Outpatient (CLI) | payer MEDICARE ==
--- NOTE | 2018-07-24 11:18 | CT ---
EXAMINATION TYPE: CT abdomen wo/w con DATE OF EXAM: 07/23/2018 COMPARISON: 07/03/2017 HISTORY: Pt describes pain around mid lower abdominal region that radiates to the right, under ribs CT DLP: 1142 mGycm Automated exposure control for dose reduction was used. TECHNIQUE: Helical acquisition of images was performed from the lung bases through the top of iliac crest to include entire abdomen. CONTRAST: Performed with Oral Contrast and with IV Contrast, patient injected with 100 mL of Isovue 300. FINDINGS: LUNG BASES: There is minimal bibasilar subsegmental atelectasis and a right lower lobe pulmonary nodu le contiguous with an area of scarring at the right lung base measuring 8 mm, measuring smaller than on the prior of 2017. This may represent scarring. The heart is mildly enlarged with small pericardia l effusion. Probable bilateral retroareolar mild gynecomastia seen. LIVER/GB: Too small to accurately characterize solitary hepatic lesion is seen on series 6 image 15 t hat is unchanged from 07/03/2017 and likely benign. The other 2 hyperechoic lesions within the liver s een on the ultrasound of 02/03/2018 are not well visualized on today's exam. No intrahepatic biliary d uctal dilatation. No cholelithiasis. PANCREAS: No significant abnormality is seen. SPLEEN: No significant abnormality is seen. ADRENALS: There is slight thickening of the adrenal glands although they maintain a normal adreniform shape, likely related to adrenal gland hyperplasia. KIDNEYS: There is a 1.1 cm left midpole renal cyst. Cortical scarring and right upper pole subcentime ter cyst are noted on the right as well as a prominent, Leo. No hydronephrosis of either kidney. T oo small to accurately characterize left upper pole renal lesion also is favored to represent a small cyst. BOWEL: There is a moderate amount retained colonic stool. No dilated large or small bowel. The visua lized portions of the appendix is air-filled. LYMPH NODES: No greater than 1 cm short axis lymph nodes are seen in the abdomen or pelvis. OSSEOUS STRUCTURES: Nonspecific sclerotic lesion of the right iliac bone measures 1.2 cm on series 6 image 60, only partially visualized and it elongates medially on image 58. Multilevel moderate degen erative changes of the spine are noted. FREE AIR: No free air is visualized. OTHER: There is extensive atherosclerosis of the abdominal aorta and its branches. Abdominal aorta is of normal course and caliber. IMPRESSION: 1. NO CT FINDING TO CORRESPOND TO THE PATIENT'S MID ABDOMINAL PAIN. MODERATE AMOUNT RETAINED COLONIC STOOL IS NOTED. NO EVIDENCE OF BOWEL OBSTRUCTION. 2. NONSPECIFIC 1.2 CM SCLEROTIC LESION WITHIN THE RIGHT ILIAC BONE. ALTHOUGH THIS COULD REPRESENT A B [place] ISLAND CORRELATION WITH PSA IS RECOMMENDED. IF ELEVATED PSA, NUCLEAR MEDICINE BONE SCAN COULD BE PERFORMED 2 EVALUATE FOR SCLEROTIC METASTASIS. 3. THERE IS A SOLITARY HEPATIC LESION FAVORED TO BE BENIGN UNCHANGED FROM THE EXAM OF 07/03/2017, CORNELIO ABY THE OTHER 2 HEPATIC LESION SEEN ON THE ULTRASOUND OF 01/26/[address]. FURTHER CHARACTERIZATION WITH MRI OF THE LIVER WITH CONTRAST COULD BE PERFORMED FOR INCREASED SENSITIVITY.
== END | disposition home or self-care (01) ==
LOC: RADCTMAIN 14:15
DX: K76.9 Liver disease, unspecified (principal); M89.8X8 Other specified disorders of bone, other site
CPT/HCPCS: 82565; 84520; 74170; 36415; Q9967

== ENCOUNTER → 2019-03-26 | Outpatient (CLI) | payer MEDICARE ==
[2019-03-26 15:49] LABS: Chol/HDL Ratio 4.97; LDL Cholesterol,Calculated 117.8 mg/dL (0.0-131.0); VLDL Calculation 37.2 mg/dL (5.00-40.00)
[2019-03-26 20:24] LABS: Hemoglobin A1C 6.1 % (4.0-6.0)
== END ==
LOC: LABWHC1 09:24
PROVIDERS: ATTEND Internal Medicine
DX: E11.9 Type 2 diabetes mellitus without complications (principal); E78.5 Hyperlipidemia, unspecified
CPT/HCPCS: 36415; 80061; 83036

== ENCOUNTER → 2020-11-10 | Outpatient (CLI) | payer MEDICARE ==
--- NOTE | 2020-11-12 07:13 | CT ---
EXAMINATION TYPE: CT soft tissue neck wo con DATE OF EXAM: 11/10/2020 HISTORY: Left sided enlarged lymph nodes. BB placed on region of interest. COMPARISON: None CT DLP: 541 mGycm. Automated Exposure Control for Dose Reduction was Utilized. TECHNIQUE: CT scan of the neck is performed without contrast. Coronal and sagittal reconstructions w ere generated and reviewed. FINDINGS: The thyroid gland is not enlarged. There is a 1 cm nodule in the right lobe. The larynx including the thyroid cartilage, arytenoid cartilages and cricoid cartilages as well as th e vocal cords are normal and symmetric. The tongue base and epiglottis, aryepiglottic folds, piriform sinuses and vallecula are normal and sy mmetric. The parotid and submandibular glands are normal and symmetric. Pharynx, parapharyngeal soft tissues and prevertebral soft tissues are normal. There are no enlarged lymph nodes in the neck. There are no inflammatory changes in soft tissues and there is no evidence of abscess or soft tissue mass. Left carotid bifurcation is heavily calcified probable significant stenosis IMPRESSION: 1. No evidence of neck mass or adenopathy. 2. Left internal carotid calcification and stenosis as described above. 3. 1 cm nodule in the right lobe of the thyroid gland. .
== END | disposition home or self-care (01) ==
LOC: RADCTMAIN 17:33
PROVIDERS: ATTEND Internal Medicine
DX: R59.9 Enlarged lymph nodes, unspecified (principal); E04.1 Nontoxic single thyroid nodule; I65.22 Occlusion and stenosis of left carotid artery
CPT/HCPCS: 70490

== ENCOUNTER → 2020-12-25 | Outpatient (CLI) | payer MEDICARE ==
--- NOTE | 2020-12-26 08:07 | US ---
EXAMINATION TYPE: US thyroid st tissue head/neck DATE OF EXAM: 12/25/2020 COMPARISON: CLINICAL HISTORY: E04.[address] showed thyroid nodule GLAND SIZE: Right Lobe: 3.9 x 2.1 x 2.2 cm Overall Parenchyma: homogenous Left Lobe: 3.9 x 1.6 x 1.4 cm Overall Parenchyma: homogeneous Isthmus Thickness: 0.4 cm NODULES RIGHT: # of nodules measured on right: 2 1. 1.6 x 1.2 x 1.2 cm, mid , mixed cystic and solid, isoechoic nodule, which is taller than wide, wi th ill-defined margins, without echogenic foci. Prior size: no prior 2. 1.0 X 0.9 x 0.9 cm, lower mid, solid or almost completely solid, hypoechoic nodule, which is wid er as tall, with smooth margins, without echogenic foci. Prior size: no prior LEFT: # of nodules measured on left: 0 ISTHMUS: # of nodules measured in the isthmus: 0 Bilateral neck scanned, no evidence of lymphadenopathy. IMPRESSION: Right thyroid nodules. 2017 ACR TI-RADS LEVEL: TR-RADS 4 - Moderately Suspicious: Follow if > 1 cm, FNA if > 1.5 cm *Highest TI-RADS level nodule reported
== END | disposition home or self-care (01) ==
LOC: RADUSWWP 16:53
PROVIDERS: ATTEND Internal Medicine
DX: E04.1 Nontoxic single thyroid nodule (principal)
CPT/HCPCS: 76536

== ENCOUNTER → 2021-01-08 | Outpatient (CLI) | payer MEDICARE ==
--- NOTE | 2021-01-08 18:32 | XR ---
EXAMINATION TYPE: XR chest 2V DATE OF EXAM: 01/08/2021 COMPARISON: 06/19/2017 HISTORY: 85-year-old male right-sided axillary pain. 786.50, R07.81. TECHNIQUE: Frontal and lateral views FINDINGS: Low lung volumes. Leftward patient rotation. Mild interstitial prominence probably due to the low marvin g volumes and crowded vascular markings. Heart size accentuated, likely borderline in size. No grei consolidation or pleural effusion. IMPRESSION: Hypoventilatory changes. Borderline cardiomegaly. No definite acute process.
== END | disposition home or self-care (01) ==
LOC: RADXRMAIN 17:26
PROVIDERS: ATTEND Internal Medicine
DX: R07.81 Pleurodynia (principal)
CPT/HCPCS: 71046

== ENCOUNTER → 2021-02-07 | Outpatient (CLI) | payer MEDICARE ==
--- NOTE | 2021-02-07 12:48 | US ---
EXAMINATION TYPE: US carotid duplex BILAT DATE OF EXAM: 02/07/2021 COMPARISON: US, CT neck CLINICAL HISTORY: I65.29 Carotid Stenosis. Right carotid endarterectomy; CT neck showed left carotid artery calcification. EXAM MEASUREMENTS: RIGHT: Peak Systolic Velocity (PSV) cm/sec ----- Right CCA: 47.6 ----- Right ICA: 80.8 ----- Right ECA: 127.3 ICA/CCA ratio: 1.7 RIGHT: End Diastole cm/sec ----- Right CCA: 0.0 ----- Right ICA: 17.1 ----- Right ECA: 0.0 LEFT: Peak Systolic Velocity (PSV) cm/sec ----- Left CCA: 72.0 ----- Left ICA: 95.3 ----- Left ECA: 205.2 ICA/CCA ratio: 1.3 LEFT: End Diastole cm/sec ----- Left CCA: 11.1 ----- Left ICA: 24.1 ----- Left ECA: 0.0 VERTEBRALS (direction of flow): Right Vertebral: Antegrade Left Vertebral: Antegrade Rhythm: Normal Irregular intimal wall thickening is noted in bilateral CCA,ECA and ICA with abnormally elevated PSV in bilateral ECA, especially in Left ECA. IMPRESSION: Estimated diameter reduction of approximately 50% bilaterally. NASCET criteria was used in interpretation of this exam? Criteria for Assigning % of Stenosis / Diameter reduction (Estimation based on the indirect measurements of the internal carotid artery velocities (ICA PSV). 1. Normal (no stenosis)=ICA PSV < 125 cm/s: ratio < 2.0: ICA EDV<40 cm/s. 2. Less than 50% stenosis=ICA PSV < 125 cm/s: ratio < 2.0: ICA EDV<40 cm/s. 3. 50 to 69% stenosis=ICA PSV of 125 to 230 cm/s: ration 2.0 ? 4.0: ICA EDV 40-100 cm/s. 4. Greater than 70% stenosis to near occlusion= ICA PSV > 230 cm/s: ratio > 4.0: ICA EDV > 100 cm/s. 5. Near occlusion= ICA PSV velocities may be low or undetectable: variable ratio and ICA EDV. 6. Total occlusion=unable to detect flow.
== END | disposition home or self-care (01) ==
LOC: RADUSWWP 10:56
PROVIDERS: ATTEND Internal Medicine
DX: I65.23 Occlusion and stenosis of bilateral carotid arteries (principal)
CPT/HCPCS: 93880

== ENCOUNTER 2021-02-27 17:50 | Observation (INO) | payer MEDICARE ==
[2021-02-27] MEDS ORDERED: SODIUM CHLORIDE 0.9% 500 ML 500 ML IV STA (18:11)
[2021-02-27] MEDS ORDERED: MORPHINE SULFATE 2 MG/ML SYRINGE IVP STA (18:12)
--- NOTE | 2021-02-27 18:16 | ED ---
General Adult HPI - General Chief complaint: Fall Stated complaint: Fall Time Seen by Provider: 02/27/21 17:51 Source: patient, RN notes reviewed, old records reviewed Mode of arrival: ambulatory Limitations: no limitations - History of Present Illness Initial comments: 85-year-old male with a presented for evaluation of fall. Patient is a poor historian, he was transported by paramedics. They're uncertain of when the fall had occurred but the patient had complained of both headache, neck pain, and left side pain from his ankle to his shoulder. The patient had initially reported EMS at the fall may have occurred several days ago. Patient is blind and was found by his son. Again patient is uncertain exactly when the fall occurred. Uncertain if there was loss of consciousness. He reports only aspirin. - Related Data Home Medications Medication Instructions Recorded Confirmed metFORMIN HCL [Glucophage] 500 mg PO BID 08/30/16 02/27/21 Aspirin EC [Ecotrin Low Dose] 81 mg PO DAILY 07/15/17 02/27/21 Magnesium Oxide [Mag-Ox] 250 mg PO DAILY 03/12/18 02/27/21 Gabapentin [Neurontin] 100 mg PO TID 02/27/21 02/27/21 Vitamin B Complex W/Vitamin C 1 tab PO DAILY 02/27/21 02/27/21 Energy/Metabolism acetaZOLAMIDE [acetaZOLAMIDE ER] 500 mg PO BID 02/27/21 02/27/21 glyBURIDE 1.25 mg PO DAILY 02/27/21 02/27/21 Previous Rx's Medication Instructions Recorded Metoprolol Tartrate [Lopressor] 25 mg PO BID #60 tab 09/11/16 Allergies Allergy/AdvReac Type Severity Reaction Status Date / Time Sulfa (Sulfonamide Allergy Rash/Hives Verified 02/27/21 19:50 Antibiotics) Review of Systems ROS Statement: Those systems with pertinent positive or pertinent negative responses have been documented in the HPI. ROS Other: All systems not noted in ROS Statement are negative. Past Medical History Past Medical History: Diabetes Mellitus, Hyperlipidemia, Hypertension, Pulmonary Embolus (PE), Skin Disorder Additional Past Medical History / Comment(s): skin CA, PE 1974, current rash on arms and legs(topical tx), bll carotid blockage, enlarged liver History of Any Multi-Drug Resistant Organisms: MRSA Date of last positivie culture/infection: 06/24/17 MDRO Source:: LEG Past Surgical History: Appendectomy, Orthopedic Surgery, Tonsillectomy Additional Past Surgical History / Comment(s): BASAL CELL CA REMOVED RTTEMPLE AREA, left knee surgery, carotids Past Anesthesia/Blood Transfusion Reactions: Previous Problems w/ Anesthesia, Motion Sickness Additional Past Anesthesia/Blood Transfusion Reaction / Comment(s): "diff personality when coming out" Past Psychological History: No Psychological Hx Reported Past Alcohol Use History: Occasional Past Drug Use History: None Reported - Past Family History Son(s) Family Medical History: Cancer General Exam Limitations: no limitations General appearance: alert, in no apparent distress Head exam: Present: normocephalic Eye exam: Present: normal appearance, PERRL Neck exam: Present: normal inspection. Absent: tenderness, meningismus Respiratory exam: Present: normal lung sounds bilaterally. Absent: respiratory distress, wheezes Cardiovascular Exam: Present: regular rate, irregular rhythm GI/Abdominal exam: Present: soft. Absent: distended, tenderness, guarding Extremities exam: Present: tenderness. Absent: calf tenderness Neurological exam: Present: alert, oriented X3. Absent: motor sensory deficit Skin exam: Present: warm, dry Course Vital Signs 02/27/21 02/27/21 17:51 18:09 Temperature 98.8 F Pulse Rate 99 90 Respiratory 18 18 Rate Blood Pressure 193/111 168/82 O2 Sat by Pulse 100 Oximetry EKG Findings - EKG Comments: EKG Findings:: EKG: Atrial fibrillation, low voltage, rate of 83, QRS duration 66, QTC 406, no ST segment elevation. Medical Decision Making - Medical Decision Making 85-year-old male with fall at home. After further history from the family it is likely that this patient fell yesterday evening and was unable to get up a ccording to the son who had found him. Workup initiated including CT brain CT C-spine, chest x-ray and pelvis are negative for traumatic injury. Patient has a leukocytosis of uncertain etiology of 15.9. Stable hemoglobin. He has urinalysis which is negative for infection but does show 1+ ketones. There is likely a degree of dehydration. I did discuss the living situation of this patient with family and they're uncertain of his ability to stay home alone any longer. Case discussed with Dr. Pozo who will admit. - Lab Data Result diagrams: 02/27/21 18:16 02/27/21 18:16 Lab Results 02/27/21 02/27/21 02/27/21 Range/Units 18:16 18:16 18:16 WBC 15.9 H (3.8-10.6) k/uL RBC 4.99 (4.30-5.90) m/uL Hgb 14.6 (13.0-17.5) gm/dL Hct 44.5 (39.0-53.0) % MCV 89.2 (80.0-100.0) fL MCH 29.3 (25.0-35.0) pg MCHC 32.9 (31.0-37.0) g/dL RDW 13.1 (11.5-15.5) % Plt Count 255 (150-450) k/uL MPV 9.8 Neutrophils % 82 % Lymphocytes % 11 % Monocytes % 5 % Eosinophils % 1 % Basophils % 1 % Neutrophils # 13.0 H (1.3-7.7) k/uL Lymphocytes # 1.7 (1.0-4.8) k/uL Monocytes # 0.8 (0-1.0) k/uL Eosinophils # 0.2 (0-0.7) k/uL Basophils # 0.1 (0-0.2) k/uL PT 9.9 (9.0-12.0) sec INR 0.9 (<1.2) APTT 23.8 (22.0-30.0) sec Sodium 138 (137-145) mmol/L Potassium 4.0 (3.5-5.1) mmol/L Chloride 103 (98-107) mmol/L Carbon Dioxide 23 (22-30) mmol/L Anion Gap 12 mmol/L BUN 10 (9-20) mg/dL Creatinine 0.79 (0.66-1.25) mg/dL Est GFR (CKD-EPI)AfAm >90 (>60 ml/min/1.73 sqM) Est GFR (CKD-EPI)NonAf 83 (>60 ml/min/1.73 sqM) Glucose 233 H (74-99) mg/dL Plasma Lactic Acid Alexandro (0.7-2.0) mmol/L Calcium 9.5 (8.4-10.2) mg/dL Magnesium 2.3 (1.6-2.3) mg/dL Total Bilirubin 1.2 (0.2-1.3) mg/dL AST 33 (17-59) U/L ALT 15 (4-49) U/L Alkaline Phosphatase 140 H (38-126) U/L Creatine Kinase 88 (55-170) U/L Troponin I (0.000-0.034) ng/mL Total Protein 7.4 (6.3-8.2) g/dL Albumin 4.1 (3.5-5.0) g/dL Urine Color Urine Appearance (Clear) Urine pH (5.0-8.0) Ur Specific [place] (1.001-1.035) Urine Protein (Negative) Urine Glucose (UA) (Negative) Urine Ketones (Negative) Urine Blood (Negative) Urine Nitrite (Negative) Urine Bilirubin (Negative) Urine Urobilinogen (<2.0) mg/dL Ur Leukocyte Esterase (Negative) Urine WBC (0-5) /hpf 02/27/21 02/27/21 02/27/21 Range/Units 18:16 18:16 19:43 WBC (3.8-10.6) k/uL RBC (4.30-5.90) m/uL Hgb (13.0-17.5) gm/dL Hct (39.0-53.0) % MCV (80.0-100.0) fL MCH (25.0-35.0) pg MCHC (31.0-37.0) g/dL RDW (11.5-15.5) % Plt Count (150-450) k/uL MPV Neutrophils % % Lymphocytes % % Monocytes % % Eosinophils % % Basophils % % Neutrophils # (1.3-7.7) k/uL Lymphocytes # (1.0-4.8) k/uL Monocytes # (0-1.0) k/uL Eosinophils # (0-0.7) k/uL Basophils # (0-0.2) k/uL PT (9.0-12.0) sec INR (<1.2) APTT (22.0-30.0) sec Sodium (137-145) mmol/L Potassium (3.5-5.1) mmol/L Chloride (98-107) mmol/L Carbon Dioxide (22-30) mmol/L Anion Gap mmol/L BUN (9-20) mg/dL Creatinine (0.66-1.25) mg/dL Est GFR (CKD-EPI)AfAm (>60 ml/min/1.73 sqM) Est GFR (CKD-EPI)NonAf (>60 ml/min/1.73 sqM) Glucose (74-99) mg/dL Plasma Lactic Acid Alexandro 1.9 (0.7-2.0) mmol/L Calcium (8.4-10.2) mg/dL Magnesium (1.6-2.3) mg/dL Total Bilirubin (0.2-1.3) mg/dL AST (17-59) U/L ALT (4-49) U/L Alkaline Phosphatase (38-126) U/L Creatine Kinase (55-170) U/L Troponin I 0.031 (0.000-0.034) ng/mL Total Protein (6.3-8.2) g/dL Albumin (3.5-5.0) g/dL Urine Color Yellow Urine Appearance Clear (Clear) Urine pH 7.5 (5.0-8.0) Ur Specific [place] 1.016 (1.001-1.035) Urine Protein 1+ H (Negative) Urine Glucose (UA) 4+ H (Negative) Urine Ketones 1+ H (Negative) Urine Blood Small H (Negative) Urine Nitrite Negative (Negative) Urine Bilirubin Negative (Negative) Urine Urobilinogen <2.0 (<2.0) mg/dL Ur Leukocyte Esterase Negative (Negative) Urine WBC 1 (0-5) /hpf Disposition Clinical Impression: Fall, Dehydration Disposition: ADMITTED IP TO THIS [facility] Condition: Stable Is patient prescribed a controlled substance at d/c from ED?: No Referrals: Tamara Lemus MD [Primary Care Provider] - 1-2 days Decision to Admit Reason: Admit from EC Decision Date: 02/27/21 Decision Time: 20:45
[2021-02-27 18:21] LABS: Basophils # (A) 0.1 k/uL (0-0.2); Basophils % (A) 1 %; Eosinophils # (A) 0.2 k/uL (0-0.7); Eosinophils % (A) 1 %; HCT 44.5 % (39.0-53.0); HGB 14.6 gm/dL (13.0-17.5); Lymphocytes # (A) 1.7 k/uL (1.0-4.8); Lymphocytes % (A) 11 %; MCH 29.3 pg (25.0-35.0); MCHC 32.9 g/dL (31.0-37.0); MCV 89.2 fL (80.0-100.0); Mean Platelet Volume 9.8; Monocytes # (A) 0.8 k/uL (0-1.0); Monocytes % (A) 5 %; Neutrophils % (A) 82 %; Platelet Count 255 k/uL (150-450); RBC 4.99 m/uL (4.30-5.90); RDW 13.1 % (11.5-15.5); WBC 15.9 k/uL (3.8-10.6)
[2021-02-27 18:29] LABS: ALT 15 U/L (4-49); AST 33 U/L (17-59); African American GFR (CKD) >90 (>60 ml/min/1.73 sqM); Albumin 4.1 g/dL (3.5-5.0); Alkaline Phosphatase 140 U/L (38-126); Anion Gap 12 mmol/L; Blood Urea Nitrogen 10 mg/dL (9-20); Calcium 9.5 mg/dL (8.4-10.2); Carbon Dioxide 23 mmol/L (22-30); Chloride 103 mmol/L (98-107); Creatine Kinase 88 U/L (55-170); Glucose 233 mg/dL (74-99); Magnesium 2.3 mg/dL (1.6-2.3); Non-African American GFR(CKD) 83 (>60 ml/min/1.73 sqM); Sodium 138 mmol/L (137-145); Total Bilirubin 1.2 mg/dL (0.2-1.3); Total Protein 7.4 g/dL (6.3-8.2)
[2021-02-27 18:31] LABS: INR 0.9 (<1.2); Partial Thromboplastin Time 23.8 sec (22.0-30.0); Prothrombin Time 9.9 sec (9.0-12.0)
--- NOTE | 2021-02-27 18:59 | CT ---
EXAMINATION TYPE: CT brain cspine wo con DATE OF EXAM: 02/27/2021 COMPARISON: None available. HISTORY: Fall with possible injury CT DLP: 1721 mGycm Automated exposure control for dose reduction was used. TECHNIQUE: CT scan of the head and cervical spine are performed without contrast. FINDINGS: There is no acute intracranial hemorrhage, mass effect, or midline shift identified. The ventricles and sulci are within normal limits in size. The globes are intact and the visualized sin uses are clear. Cervical spine is visualized in its entirety from C1 through upper thoracic levels and demonstrates s atisfactory alignment without evidence of acute fracture or dislocation. There is mild to moderate ce rvical spondylosis most notable at C4-C6. Prevertebral soft tissue appears within normal limits. The C1-C2 articulation is unremarkable. IMPRESSION: 1. There is no acute fracture or dislocation evident in the cervical spine. 2. No acute intracranial hemorrhage, mass effect, or midline shift is seen.
[2021-02-27 19:56] LABS: Appearance,Urine Clear (Clear); Bilirubin,Urine Negative (Negative); Blood,Urine Small (Negative); Color,Urine Yellow; Glucose,Urine (UA) 4+ (Negative); Ketones,Urine 1+ (Negative); Leukocyte Esterase,Urine Negative (Negative); Nitrite,Urine Negative (Negative); PH, Urine 7.5 (5.0-8.0); Protein,Urine 1+ (Negative); Specific Gravity,Urine 1.016 (1.001-1.035); Urobilinogen,Urine <2.0 mg/dL (<2.0); WBC,Urine 1 /hpf (0-5)
--- NOTE | 2021-02-27 19:56 | XR ---
Result: History: Pain status post fall. Comparison: None available. Technique: A single frontal radiograph of the pelvis was reviewed. Findings: No acute fracture or dislocation is seen. The visualized osseous structures are in anatomic alignmen t. There are mild degenerative changes of the bilateral hips . Impression: No acute osseous abnormality.
--- NOTE | 2021-02-27 19:57 | XR ---
EXAMINATION TYPE: XR chest 1V portable DATE OF EXAM: 02/27/2021 COMPARISON: 01/08/2021. HISTORY: Pain status post fall TECHNIQUE: Single frontal view of the chest is obtained. FINDINGS: There is no focal air space opacity, pleural effusion, or pneumothorax seen. The cardiac silhouette size is enlarged. The osseous structures are intact. IMPRESSION: No acute process.
[2021-02-27] MEDS ORDERED: NALOXONE 0.4 MG/ML 1 ML VIAL IV PRN (20:42)
[2021-02-27] MEDS ORDERED: MORPHINE SULFATE 2 MG/ML SYRINGE IV PRN (20:42)
[2021-02-27] MEDS: SODIUM CHLORIDE 0.9% 1,000 ML IV SCH (21:07)
[2021-02-27 22:51] LABS: Glucose,Whole Blood 231 mg/dL (75-99)
[2021-02-27] MEDS: INSULIN ASPART (NovoLOG) 100 UNIT/ML VIAL SQ SCH (22:55)
--- NOTE | 2021-02-28 01:45 | P.HPIM ---
History of Present Illness H&P Date: 02/27/21 Chief Complaint: fall 85 year old male with hypertension , DM , P. afib not on anticoagulation , legally blind patient brought in by EMS for a fall. he lives alone, blind, has 3 children in the area that they check on him regularly , the night before he was found down, they spoke with him around 9 PM, then they found him on the floor around 4 PM, it seems like he tried to get up from one recliner to another and missed it somehow and fell. he is unable to provide any meaning full history. however, denies any chest pain , headache or trouble breathing. it is not known if he had a LOC or arrhythmia. it is not clear if he had any prior falls. currently he has an injury (skin scrape ) over left knee. family are hoping they can get home care with visiting nurse and avoid half-way imaging in the ED, showed no acute injuries. EKG afib Review of Systems ROS unobtainable: due to mental status Past Medical History Past Medical History: Diabetes Mellitus, Hyperlipidemia, Hypertension, Pulmonary Embolus (PE), Skin Disorder Additional Past Medical History / Comment(s): skin CA, PE 1974, current rash on arms and legs(topical tx), bll carotid blockage, enlarged liver History of Any Multi-Drug Resistant Organisms: MRSA Date of last positivie culture/infection: 06/24/17 MDRO Source:: LEG Past Surgical History: Appendectomy, Orthopedic Surgery, Tonsillectomy Additional Past Surgical History / Comment(s): BASAL CELL CA REMOVED RTTEMPLE AREA, left knee surgery, carotids Past Anesthesia/Blood Transfusion Reactions: Previous Problems w/ Anesthesia, Motion Sickness Additional Past Anesthesia/Blood Transfusion Reaction / Comment(s): "diff personality when coming out" Past Psychological History: No Psychological Hx Reported Past Alcohol Use History: Occasional Past Drug Use History: None Reported - Past Family History Son(s) Family Medical History: Cancer Medications and Allergies Home Medications Medication Instructions Recorded Confirmed Type metFORMIN HCL [Glucophage] 500 mg PO BID 08/30/16 02/27/21 History Metoprolol Tartrate [Lopressor] 25 mg PO BID #60 tab 09/11/16 02/27/21 Rx Aspirin EC [Ecotrin Low Dose] 81 mg PO DAILY 07/15/17 02/27/21 History Magnesium Oxide [Mag-Ox] 250 mg PO DAILY 03/12/18 02/27/21 History Gabapentin [Neurontin] 100 mg PO TID 02/27/21 02/27/21 History Vitamin B Complex W/Vitamin C 1 tab PO DAILY 02/27/21 02/27/21 History Energy/Metabolism acetaZOLAMIDE [acetaZOLAMIDE ER] 500 mg PO BID 02/27/21 02/27/21 History glyBURIDE 1.25 mg PO DAILY 02/27/21 02/27/21 History Allergies Allergy/AdvReac Type Severity Reaction Status Date / Time Sulfa (Sulfonamide Allergy Rash/Hives Verified 02/27/21 19:50 Antibiotics) Physical Exam Vitals: Vital Signs Temp Pulse Resp BP Pulse Ox 02/27/21 22:00 90 18 151/74 99 02/27/21 20:00 90 18 100 02/27/21 18:09 90 18 168/82 02/27/21 17:51 98.8 F 99 18 193/111 100 Intake and Output 02/27/21 02/27/21 02/28/21 14:59 22:59 06:59 Other: Weight 90.718 kg Constitutional: No acute distress, he only answers with yes and no, does not offer any history or information Eyes: Anicteric sclerae, moist conjunctiva, corneal clouding bilaterally ENMT: NC/AT Oropharynx clear, no erythema, or exudates Neck: Supple, no masses, or JVD No carotid bruits No thyromegaly Lungs: Clear to auscultation Clear to percussion Normal respiratory effort, no accessory muscle use Cardiovascular: Heart irregular in rate and rhythm, No murmurs, gallops, or rubs No peripheral edema Abdominal: Soft Nontender, no guarding, rebound or rigidity Abdomen moving with respiration Normoactive bowel sounds No hepatomegaly, No splenomegaly No palpable mass No abdominal wall hernia noted Skin: skin scraping 2X2 CM over left knee no swellling no erythema no tenderness no warmth to the touch no active bleeding , otherwise Normal temperature, tone, texture, turgor Extremities: No digital cyanosis No clubbing Pedal pulses intact and symmetrical Radial pulses intact and symmetrical No calf tenderness Psychiatric: patient is awake, but does not participate in exam or history taking Neuro patient moving spontaneously , however, he is not understanding instructions to perform proper neuro exam, he is very hard of hearing Lymphatics: no palpable cervical or supraclavicular , or inguinal lymph nodes Results CBC & Chem 7: 02/27/21 18:16 02/27/21 18:16 Labs: Abnormal Lab Results - Last 24 Hours (Table) 02/27/21 02/27/21 02/27/21 Range/Units 18:16 18:16 19:43 WBC 15.9 H (3.8-10.6) k/uL Neutrophils # 13.0 H (1.3-7.7) k/uL Glucose 233 H (74-99) mg/dL POC Glucose (mg/dL) (75-99) mg/dL Alkaline Phosphatase 140 H (38-126) U/L Urine Protein 1+ H (Negative) Urine Glucose (UA) 4+ H (Negative) Urine Ketones 1+ H (Negative) Urine Blood Small H (Negative) 02/27/21 Range/Units 22:50 WBC (3.8-10.6) k/uL Neutrophils # (1.3-7.7) k/uL Glucose (74-99) mg/dL POC Glucose (mg/dL) 231 H (75-99) mg/dL Alkaline Phosphatase (38-126) U/L Urine Protein (Negative) Urine Glucose (UA) (Negative) Urine Ketones (Negative) Urine Blood (Negative) Assessment and Plan Assessment: falling at home (unknown details) P afib not on blood thinners , only aspirin CT head no acute pathology blood work unremarkable except for leukocytosis , most likely reactive , no report of respiratory symptoms or urinary changes UA unremarkable except for ketones , no acidosis bicarb unremarkable , AGAP within normal limits fall precautions PT eval public health social worker for discharge planning DM , with hyperglycemia insulin sliding scale hypertension , urgency resume home BP meds clonidine 0.2 mg PRN macular degenration , legally blind lives alone patient is not safe to live alone, family aware , they are hoping to avoid residential placement , and hoping for home care and fall alert monitoring device full code mechanical DVT PPX PT eval anticipated length of stay < 2 midnights
[2021-02-28] MEDS: SODIUM CHLORIDE 0.9% 1,000 ML IV SCH (07:46)
[2021-02-28 07:49] LABS: Glucose,Whole Blood 189 mg/dL (75-99)
[2021-02-28] MEDS: INSULIN ASPART (NovoLOG) 100 UNIT/ML VIAL SQ SCH ×4 (08:24→20:53)
[2021-02-28] MEDS: GABAPENTIN 100 MG CAP PO SCH ×3 (08:25→20:40)
[2021-02-28] MEDS: METOPROLOL TARTRATE 25 MG TAB PO SCH ×2 (08:26→20:39)
[2021-02-28] MEDS: ASPIRIN 81 MG PO SCH (08:26)
[2021-02-28] MEDS ORDERED: ACETAZOLAMIDE 500 MG PO SCH (09:00)
[2021-02-28] MEDS: lisinopriL 10 MG TAB PO SCH (09:47)
[2021-02-28 12:02] LABS: Glucose,Whole Blood 262 mg/dL (75-99)
[2021-02-28] MEDS: acetaZOLAMIDE 250 MG TAB PO SCH ×2 (13:07→20:39)
--- NOTE | 2021-02-28 14:35 | P.PN ---
Subjective Patient was seen and evaluated this morning. He was sleepy and easily arousable. No acute events overnight. Objective - Vital Signs Vital signs: Vital Signs Temp 98.7 F 02/28/21 12:03 Pulse 64 02/28/21 12:03 Resp 19 02/28/21 12:03 BP 103/66 02/28/21 12:03 Pulse Ox 96 02/28/21 12:03 Intake & Output 02/27/21 02/28/21 02/28/21 18:59 06:59 18:59 Intake Total 0 Output Total 100 Balance 0 -100 Weight 90.718 kg 90.718 kg Intake: Oral 0 Output: Urine 100 Other: Voiding Method Urinal Diaper # Voids 1 - Exam General: The patient is awake and alert, in no distress Eye: there is normal conjunctiva bilaterally. Neck: The neck is supple, there is no JVD. Cardiovascular: Normal S1-S2, no S3-S4, no murmurs. Respiratory: Lungs clear to auscultation bilaterally Gastrointestinal: Abdomen is soft, nontender Musculoskeletal: There is no pedal edema. Neurological:. Speech is normal. Skin: Skin is warm and dry - Labs CBC & Chem 7: 02/27/21 18:16 02/27/21 18:16 Labs: Abnormal Lab Results - Last 24 Hours (Table) 02/27/21 02/27/21 02/27/21 Range/Units 18:16 18:16 19:43 WBC 15.9 H (3.8-10.6) k/uL Neutrophils # 13.0 H (1.3-7.7) k/uL Glucose 233 H (74-99) mg/dL POC Glucose (mg/dL) (75-99) mg/dL Alkaline Phosphatase 140 H (38-126) U/L Urine Protein 1+ H (Negative) Urine Glucose (UA) 4+ H (Negative) Urine Ketones 1+ H (Negative) Urine Blood Small H (Negative) 02/27/21 02/28/21 02/28/21 Range/Units 22:50 07:47 12:01 WBC (3.8-10.6) k/uL Neutrophils # (1.3-7.7) k/uL Glucose (74-99) mg/dL POC Glucose (mg/dL) 231 H 189 H 262 H (75-99) mg/dL Alkaline Phosphatase (38-126) U/L Urine Protein (Negative) Urine Glucose (UA) (Negative) Urine Ketones (Negative) Urine Blood (Negative) Assessment and Plan Assessment: This is a 85-year-old male with past medical history noted below who presented to the emergency room after he had a fall at home. Patient was evaluated in the ER and placed on observation for further management of his medical problems noted below. 1. Mechanical fall 2. Unsteady gait 3. Hypertension urgency 4. Macular degeneration, legally blind 5. Type 2 diabetes with hyperglycemia Today, I reviewed his medication list and lab work results. Blood pressure still not well controlled. I added lisinopril 10 mg daily to his regimen. We will continue to monitor closely. PT/OT evaluation. Computed tomography scan of the brain in the ER with no acute findings. Distended discharge home versus rehab tomorrow.
[2021-02-28 17:24] LABS: Glucose,Whole Blood 126 mg/dL (75-99)
[2021-02-28] MEDS: metFORMIN 500 MG TAB PO SCH (17:51)
[2021-02-28] MEDS: ACETAMINOPHEN TAB 325 MG TAB PO PRN (20:40)
[2021-02-28 21:04] LABS: Glucose,Whole Blood 153 mg/dL (75-99)
[2021-03-01 02:17] LABS: Glucose,Whole Blood 187 mg/dL (75-99)
[2021-03-01] MEDS: ACETAMINOPHEN TAB 325 MG TAB PO PRN (06:25)
[2021-03-01 07:32] LABS: Glucose,Whole Blood 134 mg/dL (75-99)
[2021-03-01] MEDS: INSULIN ASPART (NovoLOG) 100 UNIT/ML VIAL SQ SCH ×4 (07:49→20:58)
[2021-03-01] MEDS: METOPROLOL TARTRATE 25 MG TAB PO SCH ×2 (07:50→20:58)
[2021-03-01] MEDS: GABAPENTIN 100 MG CAP PO SCH ×3 (07:50→20:58)
[2021-03-01] MEDS: ASPIRIN 81 MG PO SCH (07:50)
[2021-03-01] MEDS: acetaZOLAMIDE 250 MG TAB PO SCH ×2 (07:51→20:58)
[2021-03-01] MEDS: lisinopriL 10 MG TAB PO SCH (07:51)
[2021-03-01] MEDS: metFORMIN 500 MG TAB PO SCH ×2 (07:51→17:14)
[2021-03-01 11:45] LABS: Glucose,Whole Blood 113 mg/dL (75-99)
--- NOTE | 2021-03-01 14:42 | P.DS ---
Providers Date of admission: 02/27/21 20:46 Expected date of discharge: 03/01/21 Attending physician: Raymon Pozo MD Primary care physician: Tamara Lemus MD Hospital Course: This is a 85-year-old male with past medical history noted below who presented to the emergency room after he had a fall at home. Patient was evaluated in the ER and placed on observation for further management of his medical problems noted below. 1. Mechanical fall 2. Unsteady gait 3. Hypertension urgency 4. Macular degeneration, legally blind 5. Type 2 diabetes with hyperglycemia Patient was seen and evaluated by PT/OT. He was thought to be safe for him to go home. Home health care will be arranged. Lisinopril 5 mg daily added to his regimen. Blood pressure better controlled. Computed tomography scan of the brain in the ER with no acute findings. Patient will be discharged home in a stable condition. Physical exam: General: The patient is awake and alert, in no distress Eye: there is normal conjunctiva bilaterally. Neck: The neck is supple, there is no JVD. Cardiovascular: Normal S1-S2, no S3-S4, no murmurs. Respiratory: Lungs clear to auscultation bilaterally Gastrointestinal: Abdomen is soft, nontender Musculoskeletal: There is no pedal edema. Neurological:. Speech is normal. Skin: Skin is warm and dry Patient Condition at Discharge: Stable Plan - Discharge Summary Discharge Rx Participant: No New Discharge Prescriptions: New lisinopriL [Zestril] 5 mg PO DAILY #30 tablet Continue metFORMIN HCL [Glucophage] 500 mg PO BID Metoprolol Tartrate [Lopressor] 25 mg PO BID #60 tab Aspirin EC [Ecotrin Low Dose] 81 mg PO DAILY Magnesium Oxide [Mag-Ox] 250 mg PO DAILY acetaZOLAMIDE [acetaZOLAMIDE ER] 500 mg PO BID Gabapentin [Neurontin] 100 mg PO TID Vitamin B Complex W/Vitamin C Energy/Metabolism 1 tab PO DAILY glyBURIDE 1.25 mg PO DAILY Discharge Medication List metFORMIN HCL [Glucophage] 500 mg PO BID 08/30/16 [History] Metoprolol Tartrate [Lopressor] 25 mg PO BID #60 tab 09/11/16 [Rx] Aspirin EC [Ecotrin Low Dose] 81 mg PO DAILY 07/15/17 [History] Magnesium Oxide [Mag-Ox] 250 mg PO DAILY 03/12/18 [History] Gabapentin [Neurontin] 100 mg PO TID 02/27/21 [History] Vitamin B Complex W/Vitamin C Energy/Metabolism 1 tab PO DAILY 02/27/21 [History] acetaZOLAMIDE [acetaZOLAMIDE ER] 500 mg PO BID 02/27/21 [History] glyBURIDE 1.25 mg PO DAILY 02/27/21 [History] lisinopriL [Zestril] 5 mg PO DAILY #30 tablet 03/01/21 [Rx] Follow up Appointment(s)/Referral(s): Tamara Lemus MD [Primary Care Provider] - 1-2 days [facility],Home Care [NON-STAFF] - 1 Week Discharge Disposition: HOME WITH HOME HEALTH SERVICES
[2021-03-01 17:10] LABS: Glucose,Whole Blood 122 mg/dL (75-99)
[2021-03-01 19:54] LABS: Glucose,Whole Blood 163 mg/dL (75-99)
[2021-03-02 01:57] LABS: Glucose,Whole Blood 141 mg/dL (75-99)
[2021-03-02 07:18] LABS: Glucose,Whole Blood 124 mg/dL (75-99)
[2021-03-02] MEDS: INSULIN ASPART (NovoLOG) 100 UNIT/ML VIAL SQ SCH ×2 (07:26→11:44)
[2021-03-02] MEDS: GABAPENTIN 100 MG CAP PO SCH (07:32)
[2021-03-02] MEDS: ASPIRIN 81 MG PO SCH (07:32)
[2021-03-02] MEDS: lisinopriL 10 MG TAB PO SCH (07:32)
[2021-03-02] MEDS: metFORMIN 500 MG TAB PO SCH (07:32)
[2021-03-02] MEDS: METOPROLOL TARTRATE 25 MG TAB PO SCH (07:33)
[2021-03-02] MEDS: acetaZOLAMIDE 250 MG TAB PO SCH (07:34)
[2021-03-02] MEDS: ACETAMINOPHEN TAB 325 MG TAB PO PRN ×2 (07:35→14:50)
[2021-03-02 11:41] LABS: Glucose,Whole Blood 126 mg/dL (75-99)
[2021-03-02 12:13] VITALS: BP 118/69; PULSE 69; RESP 18; TEMP 98.8
--- NOTE | 2021-03-02 12:18 | P.DS ---
Providers Date of admission: 02/27/21 20:46 Expected date of discharge: 03/02/21 Attending physician: Raymon Pozo MD Primary care physician: Tamara Lemus MD Hospital Course: Discharge orders from yesterday was discontinued as patient change his mind and was agreeable for placement to rehab. Patient will be discharged today in a stable condition. This is a 85-year-old male with past medical history noted below who presented to the emergency room after he had a fall at home. Patient was evaluated in the ER and placed on observation for further management of his medical problems noted below. 1. Mechanical fall 2. Unsteady gait 3. Hypertension urgency 4. Macular degeneration, legally blind 5. Type 2 diabetes with hyperglycemia Patient was seen and evaluated by PT/OT. Lisinopril 5 mg daily added to his regimen. Blood pressure better controlled. Computed tomography scan of the brain in the ER with no acute findings. Physical exam: General: The patient is awake and alert, in no distress Eye: there is normal conjunctiva bilaterally. Neck: The neck is supple, there is no JVD. Cardiovascular: Normal S1-S2, no S3-S4, no murmurs. Respiratory: Lungs clear to auscultation bilaterally Gastrointestinal: Abdomen is soft, nontender Musculoskeletal: There is no pedal edema. Neurological:. Speech is normal. Skin: Skin is warm and dry Patient Condition at Discharge: Stable Plan - Discharge Summary Discharge Rx Participant: No New Discharge Prescriptions: New lisinopriL [Zestril] 5 mg PO DAILY #30 tablet Continue metFORMIN HCL [Glucophage] 500 mg PO BID Metoprolol Tartrate [Lopressor] 25 mg PO BID #60 tab Aspirin EC [Ecotrin Low Dose] 81 mg PO DAILY Magnesium Oxide [Mag-Ox] 250 mg PO DAILY acetaZOLAMIDE [acetaZOLAMIDE ER] 500 mg PO BID Gabapentin [Neurontin] 100 mg PO TID Vitamin B Complex W/Vitamin C Energy/Metabolism 1 tab PO DAILY glyBURIDE 1.25 mg PO DAILY Discharge Medication List metFORMIN HCL [Glucophage] 500 mg PO BID 08/30/16 [History] Metoprolol Tartrate [Lopressor] 25 mg PO BID #60 tab 09/11/16 [Rx] Aspirin EC [Ecotrin Low Dose] 81 mg PO DAILY 07/15/17 [History] Magnesium Oxide [Mag-Ox] 250 mg PO DAILY 03/12/18 [History] Gabapentin [Neurontin] 100 mg PO TID 02/27/21 [History] Vitamin B Complex W/Vitamin C Energy/Metabolism 1 tab PO DAILY 02/27/21 [History] acetaZOLAMIDE [acetaZOLAMIDE ER] 500 mg PO BID 02/27/21 [History] glyBURIDE 1.25 mg PO DAILY 02/27/21 [History] lisinopriL [Zestril] 5 mg PO DAILY #30 tablet 03/01/21 [Rx] Follow up Appointment(s)/Referral(s): Tamara Lemus MD [Primary Care Provider] - 1-2 days [facility],Home Care [NON-STAFF] - 1 Week Patient Instructions/Handouts: Dehydration (DC), Fall Prevention (DC) Discharge Disposition: HOME WITH HOME HEALTH SERVICES
== END 2021-03-02 15:35 | disposition home health service (06) ==
LOC: EC 17:50 → 5NMEDONC 20:46
PROVIDERS: ADMIT Internal Medicine; ATTEND Internal Medicine
DX: E86.0 Dehydration (principal); I16.0 Hypertensive urgency; D72.829 Elevated white blood cell count, unspecified; E11.65 Type 2 diabetes mellitus with hyperglycemia; I48.91 Unspecified atrial fibrillation; E78.5 Hyperlipidemia, unspecified; Z20.822 Contact with and (suspected) exposure to COVID-19; H35.30 Unspecified macular degeneration; H54.8 Legal blindness, as defined in USA; I10 Essential (primary) hypertension; W18.30XA Fall on same level, unspecified, initial encounter; Y92.009 Unspecified place in unspecified non-institutional (private) residence as the place of occurrence of the external cause; Z79.82 Long term (current) use of aspirin; Z79.84 Long term (current) use of oral hypoglycemic drugs; Z79.899 Other long term (current) drug therapy; Z85.828 Personal history of other malignant neoplasm of skin; Z86.711 Personal history of pulmonary embolism; Z91.81 History of falling; R26.81 Unsteadiness on feet
CPT/HCPCS: 96361 ×3; 96376; 96374; 99285; 36415; 93005; 97530; 97162; 97166; 80053; 82550; 83605; 83735; 84484; 85025; 85610; 85730; 81001; 87635; 72170; 71045; 72125; 70450; G0378 ×4; J2270

== ENCOUNTER 2021-03-27 15:49 | Inpatient (IN) | payer MEDICARE ==
[2021-03-27] MEDS ORDERED: DIPH,PERTUS(ACELL)TETVAC-LF 0.5 ML VIAL IM ONE (16:25)
[2021-03-27] MEDS ORDERED: SODIUM CHLORIDE 0.9% 1,000 ML IV ONE ×2 (16:25→20:21)
[2021-03-27] MEDS ORDERED: SODIUM CHLORIDE 0.9% 500 ML 500 ML IV ONE (16:25)
[2021-03-27 16:38] LABS: Glucose,Whole Blood 184 mg/dL (75-99)
--- NOTE | 2021-03-27 16:43 | ED ---
General Adult HPI - General Chief complaint: Fall Stated complaint: fall Time Seen by Provider: 03/27/21 15:55 Source: patient, family, EMS, RN notes reviewed, old records reviewed Mode of arrival: EMS Limitations: no limitations - History of Present Illness Initial comments: This is an 85-year-old male who presents emergency Department from a nursing h ome is normally alert and oriented times to family states he is more altered today and also he had a fullness morning and again a fall this afternoon. Patient has abrasions to both legs and skin tear on his right elbow patient has full range of motion of his knees and his elbow. Patient is not a very good historian but the daughter states she's deftly more altered than his baseline and he also appears to be very dehydrated to her. Patient did complain of some neck pain so he kept the c-collar on the patient. There's been no report of any fevers there's been a report of any difficulty breathing or vomiting or diarrhea. - Related Data Home Medications Medication Instructions Recorded Confirmed metFORMIN HCL [Glucophage] 500 mg PO BID 08/30/16 03/27/21 Aspirin EC [Ecotrin Low Dose] 81 mg PO DAILY@0800 07/15/17 03/27/21 Magnesium Oxide [Mag-Ox] 250 mg PO DAILY 03/12/18 03/27/21 glyBURIDE 2.5 mg PO BID@0800,1600 02/27/21 03/27/21 Acetaminophen [Tylenol] 650 mg PO Q8H PRN 03/27/21 03/27/21 Diclofenac Sodium Gel 3% 1 applic TOPICAL BID@0800,1600 03/27/21 03/27/21 Escitalopram [Lexapro] 5 mg PO DAILY@0600 03/27/21 03/27/21 Gabapentin [Neurontin] 100 mg PO TID@0800,1200,1800 03/27/21 03/27/21 Health Shake 1 can PO BID-W/MEALS 03/27/21 03/27/21 Metoprolol Tartrate [Lopressor] 25 mg PO BID@0800,1600 03/27/21 03/27/21 Multivitamins, Thera [Multivitamin 1 tab PO DAILY 03/27/21 03/27/21 (formulary)] Proheal 30 ml PO BID 03/27/21 03/27/21 Vitamin B Complex 1 cap PO DAILY 03/27/21 03/27/21 acetaZOLAMIDE [Diamox] 500 mg PO BID@0800,1600 03/27/21 03/27/21 Previous Rx's Medication Instructions Recorded lisinopriL [Zestril] 5 mg PO DAILY #30 tablet 03/01/21 Allergies Allergy/AdvReac Type Severity Reaction Status Date / Time Sulfa (Sulfonamide Allergy Rash/Hives Verified 03/27/21 16:03 Antibiotics) Review of Systems ROS Statement: Those systems with pertinent positive or pertinent negative responses have been documented in the HPI. ROS Other: All systems not noted in ROS Statement are negative. Past Medical History Past Medical History: Diabetes Mellitus, Hyperlipidemia, Hypertension, Pulmonary Embolus (PE), Skin Disorder Additional Past Medical History / Comment(s): skin CA, PE 1974, current rash on arms and legs(topical tx), bll carotid blockage, enlarged liver History of Any Multi-Drug Resistant Organisms: MRSA Date of last positivie culture/infection: 06/24/17 MDRO Source:: LEG Past Surgical History: Appendectomy, Orthopedic Surgery, Tonsillectomy Additional Past Surgical History / Comment(s): BASAL CELL CA REMOVED RTTEMPLE AREA, left knee surgery, carotids Past Anesthesia/Blood Transfusion Reactions: Previous Problems w/ Anesthesia, Motion Sickness Additional Past Anesthesia/Blood Transfusion Reaction / Comment(s): "diff personality when coming out" Past Psychological History: No Psychological Hx Reported Smoking Status: Former smoker Past Alcohol Use History: Occasional Past Drug Use History: None Reported - Past Family History Son(s) Family Medical History: Cancer General Exam - General Exam Comments Initial Comments: GENERAL: Patient is well-developed and well-nourished. Patient is nontoxic and well- hydrated and is in no acute distress. ENT: Neck is soft and supple. No significant lymphadenopathy is noted. Oropharynx is clear. Dry mucous membranes. Neck has full range of motion without eliciting any pain. EYES: The sclera were anicteric and conjunctiva were pink and moist. Extraocular movements were intact and pupils were equal round and reactive to light. Ey elids were unremarkable. PULMONARY: Unlabored respirations. Good breath sounds bilaterally. No audible rales rhonchi or wheezing was noted. CARDIOVASCULAR: There is a regular rate and rhythm without any murmurs gallops or rubs. ABDOMEN: Soft and nontender with normal bowel sounds. SKIN: Patient has abrasions to both knees and a skin tear to the posterior aspect of the right arm which started been approximated with Steri-Strips prior to arrival NEUROLOGIC: Patient is alert and oriented x3. Cranial nerves II through XII are grossly intact. Motor and sensory are also intact. Normal speech, volume and content. Symmetrical smile. MUSCULOSKELETAL: Normal extremities with adequate strength and full range of motion. LYMPHATICS: No significant lymphadenopathy is noted PSYCHIATRIC: Normal psychiatric evaluation. Limitations: no limitations Course Vital Signs 03/27/21 03/27/21 03/27/21 15:51 17:27 18:35 Temperature 95.9 F L Pulse Rate 91 88 88 Respiratory 18 18 18 Rate Blood Pressure 124/90 122/54 141/69 O2 Sat by Pulse 100 99 100 Oximetry Medical Decision Making - Medical Decision Making EKG shows sinus rhythm with 87 bpm CO interval is 256 QRS is 86 QT interval 376 QTC is 452. Patient's EKG shows T-wave inversions in precordial leads V3 through V6. CT of the brain C-spine showed no acute abnormality. Chest x-ray shows no acute normalities. Patient's troponin was elevated 0.09 as was his creatinine elevated. Patient also was dehydrated he received a liter and half of fluid while in the emergency department. I spoke with Dr. Pastor he agreed to admit the patient admitted the patient wrote admitting orders. - Lab Data Result diagrams: 03/27/21 16:29 03/27/21 16:29 Lab Results 03/27/21 03/27/21 03/27/21 Range/Units 16:29 16:29 16:29 WBC 14.2 H (3.8-10.6) k/uL RBC 4.86 (4.30-5.90) m/uL Hgb 14.8 (13.0-17.5) gm/dL Hct 44.8 (39.0-53.0) % MCV 92.2 (80.0-100.0) fL MCH 30.5 (25.0-35.0) pg MCHC 33.1 (31.0-37.0) g/dL RDW 14.8 (11.5-15.5) % Plt Count 173 (150-450) k/uL MPV 10.6 Neutrophils % 93 % Lymphocytes % 3 % Monocytes % 3 % Eosinophils % 0 % Basophils % 0 % Neutrophils # 13.2 H (1.3-7.7) k/uL Lymphocytes # 0.5 L (1.0-4.8) k/uL Monocytes # 0.4 (0-1.0) k/uL Eosinophils # 0.0 (0-0.7) k/uL Basophils # 0.0 (0-0.2) k/uL Sodium 142 (137-145) mmol/L Potassium 4.0 (3.5-5.1) mmol/L Chloride 115 H (98-107) mmol/L Carbon Dioxide 11 L (22-30) mmol/L Anion Gap 16 mmol/L BUN 40 H (9-20) mg/dL Creatinine 1.81 H (0.66-1.25) mg/dL Est GFR (CKD-EPI)AfAm 39 (>60 ml/min/1.73 sqM) Est GFR (CKD-EPI)NonAf 34 (>60 ml/min/1.73 sqM) Glucose 215 H (74-99) mg/dL POC Glucose (mg/dL) (75-99) mg/dL POC Glu Data Sme ID Calcium 9.4 (8.4-10.2) mg/dL Total Bilirubin 0.8 (0.2-1.3) mg/dL AST 22 (17-59) U/L ALT 14 (4-49) U/L Alkaline Phosphatase 138 H (38-126) U/L Troponin I (0.000-0.034) ng/mL Total Protein 7.0 (6.3-8.2) g/dL Albumin 4.0 (3.5-5.0) g/dL Urine Color Yellow Urine Appearance Clear (Clear) Urine pH 5.5 (5.0-8.0) Ur Specific Horatio 1.020 (1.001-1.035) Urine Protein 1+ H (Negative) Urine Glucose (UA) 1+ H (Negative) Urine Ketones 3+ H (Negative) Urine Blood Small H (Negative) Urine Nitrite Negative (Negative) Urine Bilirubin 1+ H (Negative) Urine Urobilinogen 2.0 (<2.0) mg/dL Ur Leukocyte Esterase Negative (Negative) Urine RBC 4 (0-5) /hpf Urine WBC 1 (0-5) /hpf Ur Squamous Epith Cells <1 (0-4) /hpf Urine Bacteria Rare H (None) /hpf Urine Mucus Rare H (None) /hpf Urine Opiates Screen Not Detected (NotDetected) Ur Oxycodone Screen Not Detected (NotDetected) Urine Methadone Screen Not Detected (NotDetected) Ur Propoxyphene Screen Not Detected (NotDetected) Ur Barbiturates Screen Not Detected (NotDetected) U Tricyclic Antidepress Not Detected (NotDetected) Ur Phencyclidine Scrn Not Detected (NotDetected) Ur Amphetamines Screen Not Detected (NotDetected) U Methamphetamines Scrn Not Detected (NotDetected) U Benzodiazepines Scrn Not Detected (NotDetected) Urine Cocaine Screen Not Detected (NotDetected) U Marijuana (THC) Screen Not Detected (NotDetected) Coronavirus (PCR) (Not Detectd) 03/27/21 03/27/21 03/27/21 Range/Units 16:29 16:37 18:08 WBC (3.8-10.6) k/uL RBC (4.30-5.90) m/uL Hgb (13.0-17.5) gm/dL Hct (39.0-53.0) % MCV (80.0-100.0) fL MCH (25.0-35.0) pg MCHC (31.0-37.0) g/dL RDW (11.5-15.5) % Plt Count (150-450) k/uL MPV Neutrophils % % Lymphocytes % % Monocytes % % Eosinophils % % Basophils % % Neutrophils # (1.3-7.7) k/uL Lymphocytes # (1.0-4.8) k/uL Monocytes # (0-1.0) k/uL Eosinophils # (0-0.7) k/uL Basophils # (0-0.2) k/uL Sodium (137-145) mmol/L Potassium (3.5-5.1) mmol/L Chloride (98-107) mmol/L Carbon Dioxide (22-30) mmol/L Anion Gap mmol/L BUN (9-20) mg/dL Creatinine (0.66-1.25) mg/dL Est GFR (CKD-EPI)AfAm (>60 ml/min/1.73 sqM) Est GFR (CKD-EPI)NonAf (>60 ml/min/1.73 sqM) Glucose (74-99) mg/dL POC Glucose (mg/dL) 184 H (75-99) mg/dL POC Glu Data Sme ID Sharita Friedman Calcium (8.4-10.2) mg/dL Total Bilirubin (0.2-1.3) mg/dL AST (17-59) U/L ALT (4-49) U/L Alkaline Phosphatase (38-126) U/L Troponin I 0.090 H* (0.000-0.034) ng/mL Total Protein (6.3-8.2) g/dL Albumin (3.5-5.0) g/dL Urine Color Urine Appearance (Clear) Urine pH (5.0-8.0) Ur Specific Horatio (1.001-1.035) Urine Protein (Negative) Urine Glucose (UA) (Negative) Urine Ketones (Negative) Urine Blood (Negative) Urine Nitrite (Negative) Urine Bilirubin (Negative) Urine Urobilinogen (<2.0) mg/dL Ur Leukocyte Esterase (Negative) Urine RBC (0-5) /hpf Urine WBC (0-5) /hpf Ur Squamous Epith Cells (0-4) /hpf Urine Bacteria (None) /hpf Urine Mucus (None) /hpf Urine Opiates Screen (NotDetected) Ur Oxycodone Screen (NotDetected) Urine Methadone Screen (NotDetected) Ur Propoxyphene Screen (NotDetected) Ur Barbiturates Screen (NotDetected) U Tricyclic Antidepress (NotDetected) Ur Phencyclidine Scrn (NotDetected) Ur Amphetamines Screen (NotDetected) U Methamphetamines Scrn (NotDetected) U Benzodiazepines Scrn (NotDetected) Urine Cocaine Screen (NotDetected) U Marijuana (THC) Screen (NotDetected) Coronavirus (PCR) Not Detected (Not Detectd) Disposition Clinical Impression: Multiple falls, Renal insufficiency, Elevated troponin, Dehydration, Skin tear of right upper extremity, Abrasion of both knees Disposition: ADMITTED IP TO THIS HOSP Referrals: Abel Pastor MD [Primary Care Provider] - 1-2 days Time of Disposition: 20:19
[2021-03-27 16:53] LABS: Basophils % (A) 0 %; Eosinophils % (A) 0 %; HCT 44.8 % (39.0-53.0); HGB 14.8 gm/dL (13.0-17.5); Lymphocytes # (A) 0.5 k/uL (1.0-4.8); Lymphocytes % (A) 3 %; MCH 30.5 pg (25.0-35.0); MCHC 33.1 g/dL (31.0-37.0); MCV 92.2 fL (80.0-100.0); Mean Platelet Volume 10.6; Monocytes # (A) 0.4 k/uL (0-1.0); Monocytes % (A) 3 %; Neutrophils # (A) 13.2 k/uL (1.3-7.7); Neutrophils % (A) 93 %; Platelet Count 173 k/uL (150-450); RBC 4.86 m/uL (4.30-5.90); RDW 14.8 % (11.5-15.5); WBC 14.2 k/uL (3.8-10.6)
[2021-03-27 16:54] LABS: Calcium 9.4 mg/dL (8.4-10.2); Total Bilirubin 0.8 mg/dL (0.2-1.3)
[2021-03-27 18:30] LABS: Appearance,Urine Clear (Clear); Bacteria,Urine Rare /hpf; Bilirubin,Urine 1+ (Negative); Blood,Urine Small (Negative); Color,Urine Yellow; Glucose,Urine (UA) 1+ (Negative); Leukocyte Esterase,Urine Negative (Negative); Mucus,Urine Rare /hpf; Nitrite,Urine Negative (Negative); PH, Urine 5.5 (5.0-8.0); Protein,Urine 1+ (Negative); RBC,Urine 4 /hpf (0-5); Squamous Epithelial Cell,Urine <1 /hpf (0-4); WBC,Urine 1 /hpf (0-5)
[2021-03-27 18:36] LABS: Amphetamine Screen,Urine Not Detected (NotDetected); Barbiturate Screen,Urine Not Detected (NotDetected); Benzodiazepines Screen,Urine Not Detected (NotDetected); Cocaine Screen,Urine Not Detected (NotDetected); Methadone Screen, Urine Not Detected (NotDetected); Opiate Screen,Urine Not Detected (NotDetected); Oxycodone Screen, Urine Not Detected (NotDetected); Phencyclidine Screen,Urine Not Detected (NotDetected); Tricyclic Antidepressant,Urine Not Detected (NotDetected); Urn Cannabinoid Scrn Not Detected (NotDetected)
--- NOTE | 2021-03-27 18:49 | CT ---
EXAMINATION TYPE: CT brain cspine wo con DATE OF EXAM: 03/27/2021 COMPARISON: 02/27/2021 HISTORY: Fall. TECHNIQUE: CT scan of the head and cervical spine performed without contrast CT DLP: 1388.9 mGycm Automated exposure control for dose reduction was used. FINDINGS: CT HEAD: No acute intracranial hemorrhage, midline shift or mass effect appreciated. The peterson-white matter dif ferentiation is preserved. There is brain volume loss. The CSF spaces and basilar cisterns are normal in configuration. Mild bilateral intracranial internal carotid artery atherosclerotic calcifications seen. No acute orbital, osseous or soft tissue abnormalities seen. Mild ethmoid sinus mucosal thicke carine. No mastoid air cell effusion seen. Mild thickening and trabeculation of the skull base is likel y age-related changes. CT C-SPINE: There is reversal of C-spine curvature. Craniocervical junction is acutely intact. Vertebral body hei ghts are maintained. Posterior elements are acutely intact. There are multilevel moderate severe degenerative changes including intervertebral space narrowing, d isc osteophyte complexes and uncovertebral facet joint arthropathy changes. These findings of degener ative changes are not significantly changed compared to the prior study. There is no significant soft tissue swelling. The lung apices are unremarkable. There is a nodule in the right thyroid lobe was seen on the prior study. The airways are symmetric and patent. IMPRESSION: 1. NO EVIDENCE OF ACUTE INTRACRANIAL HEMORRHAGE MIDLINE SHIFT OR MASS EFFECT. 2. NO DEFINITE ACUTE FRACTURE OR DISLOCATION THE CERVICAL SPINE. 3. CHRONIC BRAIN PARENCHYMAL CHANGES AND DEGENERATIVE CHANGES IN THE CERVICAL SPINE DESCRIBED IN B JANESSA OF REPORT, NO SIGNIFICANT CHANGE SINCE PRIOR STUDIES.
[2021-03-27 18:50] LABS: Ketones,Urine 3+ (Negative)
--- NOTE | 2021-03-27 20:28 | XR ---
EXAMINATION TYPE: XR chest 2V DATE OF EXAM: 03/27/2021 COMPARISON: 02/27/2021 and 01/27/2021 HISTORY: 85 years Male. STUDY INDICATION GIVEN: altered mental status . TECHNIQUE: Frontal and lateral chest radiographs IMPRESSION: No focal airspace disease, pneumothorax or pleural effusion seen. There is stable mild cardiomegaly. Acute osseous abnormalities seen.
--- NOTE | 2021-03-28 12:18 | P.HPIM ---
History of Present Illness H&P Date: 03/28/21 HISTORY OF PRESENT ILLNESS This is an 85-year-old male patient of Dr. 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 Tejada, carotid artery disease. Patient was hospitalized 02/27/2021 at [facility] after a fall at home where he was found at 4 PM by his family came to check on him. He tried to get up from a recliner and somehow fell. Patient denies having any lightheadedness or dizziness at the time. Patient was stabilized and discharged to [facility] for rehab. Yesterday evening, nurse found patient to be very confused and hypotensive and tachycardic. Patient also had 2 falls yesterday and 1 included that the staff walked into the room and found the patient on the floor next to his bed and at that time he thought he had his head. He had abrasions on his lower extremities. Patient was brought into [facility] emergency center for evaluation review was found to be afebrile, heart rate 91, blood pressure 07/02/1989, pulse ox 100% on room air. EKG sinus rhythm with first-degree AV block and inverted T waves. WBC 14.2, hemoglobin 14.8, platelet count 173. S odium 142, potassium 4.0, chloride 115, CO2 11, BUN 40 creatinine 1.81. Blood sugar 215. Troponin 0.090, 0.106, 0.122. Alkaline phosphatase 138. Urinalysis was clear, blood small, bilirubin 1+, nitrate and leukoesterase negative. Urine drug screen was negative. coronavirus PCR not detected. CAT scan of the brain and cervical spine revealed no evidence of acute intracranial hemorrhage, midline shift or mass effect. No definite acute fracture or dislocation of the cervical spine. Chronic brain parenchymal changes and degenerative changes in the cervical spine. Chest x-ray reveals no focal airspace disease, pneumothorax or pleural effusion. Stable mild cardiomegaly. Acute osseous abnormality seen. Patient is seen today in the emergency center waiting for bed on the cardiac stepdown unit. REVIEW OF SYSTEMS Constitutional: No documented fever. No weight change. Reports weakness, Reports fatigue noted lethargy. Reports daytime sleepiness. EENT: No headache. Chronic loss of vision. Chronic loss of Hearing. No nasal drainage or congestion. Lungs: No shortness of breath, no cough, no sputum production. No wheezing. Cardiovascular: No chest pain, no lower extremity edema. No palpitations. No paroxysmal nocturnal dyspnea. No orthopnea. No lightheadedness or dizziness. Possible syncopal episodes. Abdominal: No abdominal pain. No nausea, vomiting. No diarrhea. No constipation. No bloody or tarry stools. No loss of appetite. Genitourinary: No dysuria, increased frequency, urgency. No urinary retention. Musculoskeletal: No myalgias. Reports muscle weakness, Reports gait dysfunction, no frequent falls. No back pain. No neck pain. Reports bilat knee pain. Integumentary: Reports bilateral lower extremity wounds. No rash or pruritus. No unusual bruising. Neurologic: No aphasia. No facial droop. Noted change in mentation. Reported head injury. No headache. No paralysis. No paresthesia. Psychiatric: No depression. No anxiety. No mood swings. Endocrine: No abnormal blood sugars. No weight change. MEDICAL HISTORY Diabetes mellitus type 2 Hypertension Hyperlipidemia Pulmonary embolism and 1976 following knee surgery Paroxysmal Atrial fibrillation Generalized osteoarthritis Chronic kidney disease stage III Drug-induced liver disease Macular degeneration and glaucoma Legally blind Skin cancer SURGICAL HISTORY Right carotid endarterectomy Tonsillectomy Appendectomy Left knee meniscus tear repair SOCIAL HISTORY Patient smoked cigars in the past but quit 46 years ago. Patient drinks alcohol occasionally. Patient is currently living at home alone but has children that live nearby and check on him.. Patient's is a long-term resident at [facility] FAMILY HISTORY Father at age 70 from sepsis and cholecystitis. Mother at age 73 with hypertension and CVA. Patient has a brother with history of carcinoma of the prostate and diabetes, CVA. One sister with history of cancer of the breast and dementia. Patient has 3 daughters in good health and 2 sons and one has history of hypertension N1 rectal cancer. PHYSICAL EXAMINATION Gen: This is an 85-year-old male. He is resting on ER stretcher and appears to be comfortable. HEENT: Head is atraumatic, normocephalic. Pupils equal, round. Sclerae is anicteric. NECK: Supple. No JVD. No lymphadenopathy. No thyromegaly. LUNGS: Clear to auscultation. No wheezes or rhonchi. No intercostal retractions. HEART: Regular rate and rhythm. 2/6 systolic murmur at the left sternal border. ABDOMEN: Soft. Bowel sounds are present. No masses. No tenderness. EXTREMITIES: No pedal edema. No calf tenderness. dorsalis pedis 1+ bilaterally. Multiple small superficial abrasions to bilateral lower extremities. NEUROLOGICAL: Patient is awake, alert and oriented to person and place. Cranial nerves 2 through 12 are grossly intact. ASSESSMENT AND PLAN 1. Acute kidney injury, ATN secondary to poor oral intake. Continue IV fluid 0.9 normal saline at 75 mL per hour, hold lisinopril, metformin, Diamox, glyburide. Repeat lab work in the morning. 2. Dehydration from poor oral intake. Continue as in #1. 3. Metabolic encephalopathy most likely secondary to acute kidney injury and falls. Continue treatment as in #1. 4. Metabolic acidosis secondary to acute kidney injury. 5. Fall 2 with head injury. CAT scan of the brain is negative. 6. Elevated troponin. Cardiac consult requested, echocardiogram, continue aspirin 81 mg daily and Lopressor 25 mg twice daily. 7. Paroxysmal atrial fibrillation not on anticoagulation. 8. Hypertension. Hold lisinopril 5 mg daily, continue metoprolol tartrate 25 mg twice daily. 9. Diabetes mellitus type 2. Hold glyburide 2.5 mg 2 times daily, metformin 500 mg 1 twice daily. 10. Hyperlipidemia. Patient not currently on statin. 11. Legally blind secondary to macular degeneration and glaucoma. 12. Chronic kidney disease stage II, stable. 13. History of drug induced liver disease. 14. Thyroid nodule being monitored by Dr. Tejada, endocrinology. 15. Carotid artery disease status post right-sided endarterectomy. 16. Remote history of remote pulmonary embolism. 17. Generalized osteoarthritis with bilateral knee pain. Voltaren gel 3% daily to bilateral knees. 13. Recent hospitalization after fall with debility transferred to subacute rehab. Continue PT, OT consults. CODE STATUS: FULL CODE DISCHARGE PLAN [facility]. Impression and plan of care have been directed as dictated by the signing physician. Roselia Vaughn nurse practitioner acting as scribe for signing physic elmira. Past Medical History Past Medical History: Diabetes Mellitus, Hyperlipidemia, Hypertension, Pulmonary Embolus (PE), Skin Disorder Additional Past Medical History / Comment(s): skin CA, PE 1974, current rash on arms and legs(topical tx), bll carotid blockage, enlarged liver History of Any Multi-Drug Resistant Organisms: MRSA Date of last positivie culture/infection: 06/24/17 MDRO Source:: LEG Past Surgical History: Appendectomy, Orthopedic Surgery, Tonsillectomy Additional Past Surgical History / Comment(s): BASAL CELL CA REMOVED RTTEMPLE AREA, left knee surgery, carotids Past Anesthesia/Blood Transfusion Reactions: Previous Problems w/ Anesthesia, Motion Sickness Additional Past Anesthesia/Blood Transfusion Reaction / Comment(s): "diff personality when coming out" Past Psychological History: No Psychological Hx Reported Smoking Status: Former smoker Past Alcohol Use History: Occasional Past Drug Use History: None Reported - Past Family History Son(s) Family Medical History: Cancer Medications and Allergies Home Medications Medication Instructions Recorded Confirmed Type metFORMIN HCL [Glucophage] 500 mg PO BID 08/30/16 03/27/21 History Aspirin EC [Ecotrin Low Dose] 81 mg PO DAILY@0800 07/15/17 03/27/21 History Magnesium Oxide [Mag-Ox] 250 mg PO DAILY 03/12/18 03/27/21 History glyBURIDE 2.5 mg PO BID@0800,1600 02/27/21 03/27/21 History lisinopriL [Zestril] 5 mg PO DAILY #30 tablet 03/01/21 03/27/21 Rx Acetaminophen [Tylenol] 650 mg PO Q8H PRN 03/27/21 03/27/21 History Diclofenac Sodium Gel 3% 1 applic TOPICAL BID@0800,1600 03/27/21 03/27/21 History Escitalopram [Lexapro] 5 mg PO DAILY@0600 03/27/21 03/27/21 History Gabapentin [Neurontin] 100 mg PO TID@0800,1200,1800 03/27/21 03/27/21 History Health Shake 1 can PO BID-W/MEALS 03/27/21 03/27/21 History Metoprolol Tartrate [Lopressor] 25 mg PO BID@0800,1600 03/27/21 03/27/21 History Multivitamins, Thera [Multivitamin 1 tab PO DAILY 03/27/21 03/27/21 History (formulary)] Proheal 30 ml PO BID 03/27/21 03/27/21 History Vitamin B Complex 1 cap PO DAILY 03/27/21 03/27/21 History acetaZOLAMIDE [Diamox] 500 mg PO BID@0800,1600 03/27/21 03/27/21 History Allergies Allergy/AdvReac Type Severity Reaction Status Date / Time Sulfa (Sulfonamide Allergy Rash/Hives Verified 03/27/21 16:03 Antibiotics) Physical Exam Vitals: Vital Signs Temp Pulse Resp BP Pulse Ox 03/28/21 06:00 65 14 120/52 97 03/28/21 05:00 61 16 124/51 97 03/28/21 04:00 65 15 114/44 98 03/28/21 03:00 70 16 136/59 98 03/28/21 02:19 71 14 136/59 97 03/27/21 22:27 73 18 116/64 98 03/27/21 18:35 88 18 141/69 100 03/27/21 17:27 88 18 122/54 99 03/27/21 15:51 95.9 F L 91 18 124/90 100 Intake and Output 03/27/21 03/28/21 03/28/21 22:59 06:59 14:59 Other: Weight 85.411 kg Results CBC & Chem 7: 03/27/21 16:29 03/27/21 16:29 Labs: Abnormal Lab Results - Last 24 Hours (Table) 03/27/21 03/27/21 03/27/21 Range/Units 16:29 16:29 16:29 WBC 14.2 H (3.8-10.6) k/uL Neutrophils # 13.2 H (1.3-7.7) k/uL Lymphocytes # 0.5 L (1.0-4.8) k/uL Chloride 115 H (98-107) mmol/L Carbon Dioxide 11 L (22-30) mmol/L BUN 40 H (9-20) mg/dL Creatinine 1.81 H (0.66-1.25) mg/dL Glucose 215 H (74-99) mg/dL POC Glucose (mg/dL) (75-99) mg/dL Alkaline Phosphatase 138 H (38-126) U/L Troponin I (0.000-0.034) ng/mL Urine Protein 1+ H (Negative) Urine Glucose (UA) 1+ H (Negative) Urine Ketones 3+ H (Negative) Urine Blood Small H (Negative) Urine Bilirubin 1+ H (Negative) Urine Bacteria Rare H (None) /hpf Urine Mucus Rare H (None) /hpf 03/27/21 03/27/21 03/27/21 Range/Units 16:29 16:37 21:29 WBC (3.8-10.6) k/uL Neutrophils # (1.3-7.7) k/uL Lymphocytes # (1.0-4.8) k/uL Chloride (98-107) mmol/L Carbon Dioxide (22-30) mmol/L BUN (9-20) mg/dL Creatinine (0.66-1.25) mg/dL Glucose (74-99) mg/dL POC Glucose (mg/dL) 184 H (75-99) mg/dL Alkaline Phosphatase (38-126) U/L Troponin I 0.090 H* 0.106 H* (0.000-0.034) ng/mL Urine Protein (Negative) Urine Glucose (UA) (Negative) Urine Ketones (Negative) Urine Blood (Negative) Urine Bilirubin (Negative) Urine Bacteria (None) /hpf Urine Mucus (None) /hpf 03/28/21 Range/Units 02:15 WBC (3.8-10.6) k/uL Neutrophils # (1.3-7.7) k/uL Lymphocytes # (1.0-4.8) k/uL Chloride (98-107) mmol/L Carbon Dioxide (22-30) mmol/L BUN (9-20) mg/dL Creatinine (0.66-1.25) mg/dL Glucose (74-99) mg/dL POC Glucose (mg/dL) (75-99) mg/dL Alkaline Phosphatase (38-126) U/L Troponin I 0.122 H* (0.000-0.034) ng/mL Urine Protein (Negative) Urine Glucose (UA) (Negative) Urine Ketones (Negative) Urine Blood (Negative) Urine Bilirubin (Negative) Urine Bacteria (None) /hpf Urine Mucus (None) /hpf
[2021-03-28] MEDS: SODIUM CHLORIDE 0.9% 1,000 ML IV SCH (15:43)
[2021-03-28] MEDS: INSULIN ASPART (NovoLOG) 100 UNIT/ML VIAL SQ SCH ×3 (15:43→20:05)
[2021-03-28 17:09] LABS: Glucose,Whole Blood 85 mg/dL (75-99)
[2021-03-28] MEDS: DICLOFENAC SODIUM GEL 100 GM TUBE TOPICAL SCH (17:29)
[2021-03-28] MEDS ORDERED: HEALTH SHAKE PO SCH (17:30)
[2021-03-28] MEDS: METOPROLOL TARTRATE 25 MG TAB PO SCH (17:30)
[2021-03-28 20:06] LABS: Glucose,Whole Blood 104 mg/dL (75-99)
[2021-03-29 06:10] LABS: Glucose,Whole Blood 109 mg/dL (75-99)
[2021-03-29] MEDS: INSULIN ASPART (NovoLOG) 100 UNIT/ML VIAL SQ SCH ×4 (06:12→20:30)
[2021-03-29] MEDS: ESCITALOPRAM 5 MG TAB PO SCH (06:17)
[2021-03-29] MEDS: METOPROLOL TARTRATE 25 MG TAB PO SCH ×2 (06:23→17:37)
[2021-03-29] MEDS: SODIUM CHLORIDE 0.9% 1,000 ML IV SCH (07:23)
[2021-03-29] MEDS: DICLOFENAC SODIUM GEL 100 GM TUBE TOPICAL SCH ×2 (07:33→17:03)
[2021-03-29] MEDS ORDERED: NON FORMULARY DRUG (Vitamin B Complex [Vitamin B Complex] 1 EACH Capsule) PO SCH (09:00)
[2021-03-29] MEDS: ASPIRIN 81 MG PO SCH (09:22)
[2021-03-29] MEDS: MULTIVITAMINS, THERA 1 EACH TAB PO SCH (09:22)
[2021-03-29] MEDS: MAGNESIUM OXIDE 400 MG TAB PO SCH (09:23)
[2021-03-29] MEDS: ATORVASTATIN 40 MG TAB PO SCH (09:25)
--- NOTE | 2021-03-29 10:17 | P.CRDCN ---
History of Present Illness History of present illness: HISTORY OF PRESENTING ILLNESS This is a pleasant 85-year-old male past medical history significant for hypertension, type 2 diabetes, hyperlipidemia, paroxysmal atrial fibrillation, pulmonary embolism, chronic kidney disease, liver disease. Unclear if patient follows with a transportation equipment painter. We have been asked to see in consultation for elevated troponin. Patient presents to the emergency department after a fall at [facility]. On 03/27 the nurse at [facility] apparently found the patient very confused, hypotensive and tachycardic. Apparently patient also had 2 falls at [facility], one included that the staff walked into the room and found the patient on the floor next to his bed and at that time he thought he had his head. Patient sent to emergency department for further evaluation. Patient does endorse some fatigue and weakness. He denies any chest pain, shortness of breath or lightheadedness or dizziness. DIAGNOSTICS EKG reveals sinus rhythm, heart rate 7, first-degree AV block, T-wave inversions in leads II, III, aVF, V2-V6. No prior EKG to compare. CT head and cervical spine revealed no evidence of acute intracranial hemorrhage. No evidence of acute fracture or dislocation. Chronic brain parenchymal changes and changes in the cervical spine. Most recent echocardiogram 2018 revealed an EF of 5560 percent, mild mitral regurgitation, mild tricuspid regurgitation, aortic root is mildly dilated measuring 4.1 cm Cardiolite stress test in 2014 normal Telemetry tracings indicate sinus mechanism heart rate in the 50s to 60s Laboratory reviewed, WBC 14.2, hemoglobin 14.8, platelets 173, sodium 142, potassium 4.0, BUN 40, serum creatinine 1.8, troponin 0.09, 0.10, 0.12, COVID-19 PCR negative Current home medications include aspirin 81 mg daily, Lopressor 25 mg twice a day, lisinopril 5 mg daily REVIEW OF SYSTEMS At the time of my exam: CONSTITUTIONAL: Denies fever or chills. +weakness CARDIOVASCULAR: Denies chest pain, shortness of breath, orthopnea, PND or palp itations. RESPIRATORY: Denies cough. GASTROINTESTINAL: Denies abdominal pain, diarrhea, constipation, nausea or vomiting. MUSCULOSKELETAL: Denies myalgias. NEUROLOGIC: Denies numbness, tingling, headacbe or weakness. ENDOCRINE:+ fatigue, Denies weight change, polydipsia or polyurina. GENITOURINARY: Denies burning, hematuria or urgency with micturation. HEMATOLOGIC: Denies history of anemia or bleeding. PHYSICAL EXAMINATION Blood pressure 153/78, heart 64, afebrile, maintaining oxygen saturations on room air CONSTITUTIONAL: No apparent distress. Frail. Legally blind and hard of hearing HEENT: Head is normocephalic. Pupils are equal, round. Sclerae anicteric. Mucous membranes of the mouth are moist. No JVD. No carotid bruit. CHEST EXAMINATION: Lungs are clear to auscultation. No chest wall tenderness is noted on palpation or with deep breathing. HEART EXAMINATION: Regular rate and rhythm. S1, S2 heard. No murmurs, gallops or rub. ABDOMEN: Soft, nontender. Positive bowel sounds. EXTREMITIES: 2+ peripheral pulses, no lower extremity edema and no calf tenderness. SKIN: warm, dry, pale NEUROLOGIC EXAMINATION: Patient is awake, alert and oriented x3. ASSESSMENT Altered mental status Elevated troponin, not indicative of acute coronary syndrome, likely due to acute kidney injury Acute Kidney injury Multiple Falls Hypertension Type 2 diabetes Hyperlipidemia Paroxysmal atrial fibrillation, not on anticoagulation likely due to increases falls at home History of pulmonary embolism Chronic kidney disease History of liver disease PLAN Echocardiogram has been ordered From a cardiology perspective, we will treat the patient medically with aspirin, statin, and beta ambika. ACEI on hold due to acute kidney injury We will follow the patient as needed. Please reach out with further questions or concerns Nurse Practitioner note has been reviewed, I agree with a documented findings and plan of care. Patient was seen and examined. Past Medical History Past Medical History: Diabetes Mellitus, Hyperlipidemia, Hypertension, Pulmonary Embolus (PE), Skin Disorder Additional Past Medical History / Comment(s): skin CA, PE 1974, current rash on arms and legs(topical tx), bll carotid blockage, enlarged liver History of Any Multi-Drug Resistant Organisms: MRSA Date of last positivie culture/infection: 06/24/17 MDRO Source:: LEG Past Surgical History: Appendectomy, Orthopedic Surgery, Tonsillectomy Additional Past Surgical History / Comment(s): BASAL CELL CA REMOVED RTTEMPLE AREA, left knee surgery, carotids Past Anesthesia/Blood Transfusion Reactions: Previous Problems w/ Anesthesia, Motion Sickness Additional Past Anesthesia/Blood Transfusion Reaction / Comment(s): "diff personality when coming out" Past Psychological History: No Psychological Hx Reported Smoking Status: Former smoker Past Alcohol Use History: Occasional Past Drug Use History: None Reported - Past Family History Son(s) Family Medical History: Cancer Medications and Allergies Home Medications Medication Instructions Recorded Confirmed Type metFORMIN HCL [Glucophage] 500 mg PO BID 08/30/16 03/27/21 History Aspirin EC [Ecotrin Low Dose] 81 mg PO DAILY@0800 07/15/17 03/27/21 History Magnesium Oxide [Mag-Ox] 250 mg PO DAILY 03/12/18 03/27/21 History glyBURIDE 2.5 mg PO BID@0800,1600 02/27/21 03/27/21 History lisinopriL [Zestril] 5 mg PO DAILY #30 tablet 03/01/21 03/27/21 Rx Acetaminophen [Tylenol] 650 mg PO Q8H PRN 03/27/21 03/27/21 History Diclofenac Sodium Gel 3% 1 applic TOPICAL BID@0800,1600 03/27/21 03/27/21 History Escitalopram [Lexapro] 5 mg PO DAILY@0600 03/27/21 03/27/21 History Gabapentin [Neurontin] 100 mg PO TID@0800,1200,1800 03/27/21 03/27/21 History Health Shake 1 can PO BID-W/MEALS 03/27/21 03/27/21 History Metoprolol Tartrate [Lopressor] 25 mg PO BID@0800,1600 03/27/21 03/27/21 History Multivitamins, Thera [Multivitamin 1 tab PO DAILY 03/27/21 03/27/21 History (formulary)] Proheal 30 ml PO BID 03/27/21 03/27/21 History Vitamin B Complex 1 cap PO DAILY 03/27/21 03/27/21 History acetaZOLAMIDE [Diamox] 500 mg PO BID@0800,1600 03/27/21 03/27/21 History Allergies Allergy/AdvReac Type Severity Reaction Status Date / Time Sulfa (Sulfonamide Allergy Rash/Hives Verified 03/27/21 16:03 Antibiotics) Physical Exam Vitals: Vital Signs Temp Pulse Pulse Resp BP BP Pulse Ox 03/28/21 11:31 98.3 F 71 20 129/59 97 03/28/21 08:00 80 20 119/70 96 03/28/21 06:00 65 14 120/52 97 03/28/21 05:00 61 16 124/51 97 03/28/21 04:00 65 15 114/44 98 03/28/21 03:00 70 16 136/59 98 03/28/21 02:19 71 14 136/59 97 03/27/21 22:27 73 18 116/64 98 03/27/21 18:35 88 18 141/69 100 03/27/21 17:27 88 18 122/54 99 03/27/21 15:51 95.9 F L 91 18 124/90 100 Intake and Output 03/27/21 03/28/21 03/28/21 22:59 06:59 14:59 Other: # Voids 1 Weight 85.411 kg Results 03/27/21 16:29 03/27/21 16:29 Cardiac Enzymes 03/27/21 03/27/21 03/27/21 Range/Units 16:29 16:29 21:29 AST 22 (17-59) U/L Troponin I 0.090 H* 0.106 H* (0.000-0.034) ng/mL 03/28/21 Range/Units 02:15 AST (17-59) U/L Troponin I 0.122 H* (0.000-0.034) ng/mL CBC 03/27/21 Range/Units 16:29 WBC 14.2 H (3.8-10.6) k/uL RBC 4.86 (4.30-5.90) m/uL Hgb 14.8 (13.0-17.5) gm/dL Hct 44.8 (39.0-53.0) % Plt Count 173 (150-450) k/uL Comprehensive Metabolic Panel 03/27/21 Range/Units 16:29 Sodium 142 (137-145) mmol/L Potassium 4.0 (3.5-5.1) mmol/L Chloride 115 H (98-107) mmol/L Carbon Dioxide 11 L (22-30) mmol/L BUN 40 H (9-20) mg/dL Creatinine 1.81 H (0.66-1.25) mg/dL Glucose 215 H (74-99) mg/dL Calcium 9.4 (8.4-10.2) mg/dL AST 22 (17-59) U/L ALT 14 (4-49) U/L Alkaline Phosphatase 138 H (38-126) U/L Total Protein 7.0 (6.3-8.2) g/dL Albumin 4.0 (3.5-5.0) g/dL Current Medications Generic Name Dose Route Start Last Admin Trade Name Freq PRN Reason Stop Dose Admin Acetaminophen 650 mg 03/28/21 11:57 Acetaminophen Tab 325 Mg Tab PO Q8H PRN Pain Aspirin 81 mg 03/29/21 08:00 Aspirin 81 Mg PO DAILY@0800 [facility] Diclofenac Sodium 1 gm 03/28/21 16:00 Diclofenac Sodium Gel 100 Gm Tube TOPICAL BID@0800,1600 [facility] Escitalopram Oxalate 5 mg 03/29/21 06:00 Escitalopram 5 Mg Tab PO DAILY@0600 [facility] Sodium Chloride 1,000 mls @ 75 mls/hr 03/28/21 12:15 Saline 0.9% IV .[id number] [facility] Insulin Aspart 0 unit 03/28/21 12:30 Insulin Aspart (Novolog) 100 Unit/Ml Vial SQ ACHS [facility] Protocol Magnesium Oxide 400 mg 03/29/21 09:00 Magnesium Oxide 400 Mg Tab PO DAILY [facility] Metoprolol Tartrate 25 mg 03/28/21 16:00 Metoprolol Tartrate 25 Mg Tab PO BID@0800,1600 [facility] Multivitamins 1 each 03/29/21 09:00 Multivitamins, Thera 1 Each Tab PO DAILY [facility] Intake and Output 03/27/21 03/28/21 03/28/21 22:59 06:59 14:59 Other: # Voids 1 Weight 85.411 kg 03/27/21 16:29 03/27/21 16:29
[2021-03-29 11:27] LABS: Glucose,Whole Blood 92 mg/dL (75-99)
--- NOTE | 2021-03-29 11:47 | ECHOF ---
Referral Reason:LVF MEASUREMENTS -------- HEIGHT: 157.5 cm WEIGHT: 85.3 kg BP: IVSd: 1.3 cm (0.6 - 1.1) LVIDd: 3.6 cm (3.9 - 5.3) LVPWd: 1.6 cm (0.6 - 1.1) EDV(Teich): 56 ml IVSs: 1.5 cm LVIDs: 3.2 cm LVPWs: 1.1 cm %IVS Thck: 15 % ESV(Teich): 39 ml EF(Teich): 30 % %FS: 14 % SV(Teich): 17 ml LA Diam: 4.0 cm (2.7 - 3.8) RVIDd: 3.2 cm (< 3.3) Ao Diam: 3.4 cm (2.0 - 3.7) EPSS: 0.4 cm MV E Moo: 0.42 m/s MV DecT: 203 ms MV Dec [place]: 2.1 m/s MV A Moo: 0.58 m/s MV E/A Ratio: 0.73 MV PHT: 59 ms TR Vmax: 1.62 m/s TR maxP.50 mmHg RAP: 5.00 mmHg RVSP: 15.50 mmHg MV EF SLOPE: 68.82 mm/s (70 - 150) MV EXCURSION: 17.19 mm (> 18.000) FINDINGS -------- Sinus rhythm. This was a technically adequate study. The left ventricular size is normal. There is borderline concentric left ventricular hypertrophy. Overall left ventricular systolic function is low-normal with, an EF between 50 - 55 %. The right ventricle is normal in size. The left atrial size is normal. The right atrial size is normal. Mild mitral regurgitation is present. Mild tricuspid regurgitation present. Right ventricular systolic pressure is normal at < 35 mmHg. There is no pulmonic regurgitation present. Echo free space represents a pericardial fat pad. CONCLUSIONS -------- 1. The left ventricular size is normal. 2. There is borderline concentric left ventricular hypertrophy. 3. Overall left ventricular systolic function is low-normal with, an EF between 50 - 55 %. 4. The right ventricle is normal in size. 5. The left atrial size is normal. 6. The right atrial size is normal. 7. Mild mitral regurgitation is present. 8. Mild tricuspid regurgitation present. 9. Echo free space represents a pericardial fat pad. SENIOR ENLISTED ADVISOR: Jacqueline Spence RDCS
[2021-03-29 12:56] LABS: HCT 44.5 % (39.0-53.0); HGB 13.6 gm/dL (13.0-17.5); Hypochromasia Slight; MCH 29.2 pg (25.0-35.0); MCHC 30.6 g/dL (31.0-37.0); MCV 95.5 fL (80.0-100.0); Mean Platelet Volume 10.5; Platelet Count 134 k/uL (150-450); RBC 4.66 m/uL (4.30-5.90); RDW 14.6 % (11.5-15.5); WBC 10.8 k/uL (3.8-10.6)
[2021-03-29 13:02] LABS: Potassium 3.5 mmol/L (3.5-5.1)
[2021-03-29] MEDS ORDERED: amLODIPine 5 MG TAB PO STA (13:27)
--- NOTE | 2021-03-29 13:35 | P.PN ---
Subjective Progress Note Date: 03/29/21 HISTORY OF PRESENT ILLNESS This is an 85-year-old male patient of Dr. 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 Tejada, carotid artery disease. Patient was hospitalized 02/27/2021 at [facility] after a fall at home where he was found at 4 PM by his family came to check on him. He tried to get up from a recliner and somehow fell. Patient denies having any lightheadedness or dizziness at the time. Patient was stabilized and discharged to [facility] for rehab. Yesterday evening, nurse found patient to be very confused and hypotensive and tachycardic. Patient also had 2 falls yesterday an d 1 included that the staff walked into the room and found the patient on the floor next to his bed and at that time he thought he had his head. He had abrasions on his lower extremities. Patient was brought into [facility] emergency center for evaluation review was found to be afebrile, heart rate 91, blood pressure 07/02/1989, pulse ox 100% on room air. EKG sinus rhythm with first-degree AV block and inverted T waves. WBC 14.2, hemoglobin 14.8, platelet count 173. Sodium 142, potassium 4.0, chloride 115, CO2 11, BUN 40 creatinine 1.81. Blood sugar 215. Troponin 0.090, 0.106, 0.122. Alkaline phosphatase 138. Urinalysis was clear, blood small, bilirubin 1+, nitrate and leukoesterase negative. Urine drug screen was negative. coronavirus PCR not detected. CAT scan of the brain and cervical spine revealed no evidence of acute intracranial hemorrhage, midline shift or mass effect. No definite acute fracture or dislocation of the cervical spine. Chronic brain parenchymal changes and degenerative changes in the cervical spine. Chest x-ray reveals no focal airspace disease, pneumothorax or pleural effusion. Stable mild cardiomegaly. Acute osseous abnormality seen. Patient is seen today in the emergency center waiting for bed on the cardiac stepdown unit. 03/29: Patient has been seen by cardiology and acute coronary syndrome has been ruled out. With plan for medical treatment and they are following on an as needed basis. Echocardiogram has been obtained but report is pending. Patient is afebrile, heart rate in the 60s, blood pressure 160/78, pulse ox 100% on room air. 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 Patient denies any new complaints. No complaints of pain. He is resting in bed and appears very comfortable. No respiratory distress noted. Family have met with piano case and bench assembler/social work program coordinator and have asked for informational meeting with hospice. Capillary blood glucose running between 90-109. WBC 10.8, hemoglobin 13.6, platelet count 134. C hloride 119, CO2 12, BUN 20 creatinine 1. IV fluids will be discontinued, patient started on Norvasc REVIEW OF SYSTEMS Constitutional: No documented fever. No weight change. Reports weakness, Reports fatigue noted lethargy. Reports daytime sleepiness. EENT: No headache. Chronic loss of vision. Chronic loss of Hearing. No nasal drainage or congestion. Lungs: No shortness of breath, no cough, no sputum production. No wheezing. Cardiovascular: No chest pain, no lower extremity edema. No palpitations. No paroxysmal nocturnal dyspnea. No orthopnea. No lightheadedness or dizziness. Possible syncopal episodes. Abdominal: No abdominal pain. No nausea, vomiting. No diarrhea. No constipation. No bloody or tarry stools. No loss of appetite. Genitourinary: No dysuria, increased frequency, urgency. No urinary retention. Musculoskeletal: No myalgias. Reports muscle weakness, Reports gait dysfunction, frequent frequent falls. No back pain. No neck pain. Reports bilat knee pain. Integumentary: Reports bilateral lower extremity wounds. No rash or pruritus. No unusual bruising. Neurologic: No aphasia. No facial droop. Noted change in mentation. Reported head injury. No headache. No paralysis. No paresthesia. Psychiatric: No depression. No anxiety. No mood swings. Endocrine: No abnormal blood sugars. PHYSICAL EXAMINATION Gen: This is an 85-year-old male. He is resting in bed and appears to be comfortable. HEENT: Head is atraumatic, normocephalic. Pupils equal, round. Sclerae is anicteric. NECK: Supple. No JVD. No lymphadenopathy. No thyromegaly. LUNGS: Clear to auscultation. No wheezes or rhonchi. No intercostal retractions. No accessory muscle usage. HEART: Regular rate and rhythm. 2/6 systolic murmur at the left sternal border. ABDOMEN: Soft. Bowel sounds are present. No masses. No tenderness. EXTREMITIES: No pedal edema. No calf tenderness. dorsalis pedis 1+ bilaterally. Multiple small superficial abrasions to bilateral lower extremities. NEUROLOGICAL: Patient is awake, alert and oriented to person and place. Cranial nerves 2 through 12 are grossly intact. ASSESSMENT AND PLAN 1. Acute kidney injury, ATN secondary to poor oral intake. Discontinue IV fluids, hold lisinopril, metformin, Diamox, glyburide. 2. Dehydration from poor oral intake. Continue as in #1. 3. Metabolic encephalopathy most likely secondary to acute kidney injury and falls. Continue treatment as in #1. 4. Metabolic acidosis secondary to acute kidney injury. 5. Fall 2 with head injury. CAT scan of the brain is negative. 6. Elevated troponin. Cardiac consult appreciated, acute coronary syndrome ruled out continue aspirin 81 mg daily and Lopressor 25 mg twice daily. 7. Paroxysmal atrial fibrillation not on anticoagulation. 8. Hypertension. Hold lisinopril 5 mg daily, continue metoprolol tartrate 25 mg twice daily, start amlodipine 5 mg daily. 9. Diabetes mellitus type 2. Hold glyburide 2.5 mg 2 times daily, metformin 500 mg 1 twice daily. Patient is on NovoLog scale only. Hemoglobin A1c is pending 10. Hyperlipidemia. Patient not currently on statin. 11. Legally blind secondary to macular degeneration and glaucoma. 12. Chronic kidney disease stage II, stable. 13. History of drug induced liver disease. 14. Thyroid nodule being monitored by Dr. Tejada, endocrinology. 15. Carotid artery disease status post right-sided endarterectomy. 16. Remote history of remote pulmonary embolism. 17. Generalized osteoarthritis with bilateral knee pain. Voltaren gel 3% daily to bilateral knees. 13. Recent hospitalization after fall with debility transferred to subacute rehab. Continue PT, OT consults. CODE STATUS: FULL CODE DISCHARGE PLAN Possibly [facility] tomorrow. Impression and plan of care have been directed as dictated by the signing physician. Roselia Vaughn nurse practitioner acting as scribe for signing physi dann. Objective - Vital Signs Vital signs: Vital Signs Temp 98.0 F 03/29/21 04:00 Pulse 62 03/29/21 11:29 Resp 16 03/29/21 11:29 BP 160/78 03/29/21 11:29 Pulse Ox 100 03/29/21 11:29 Intake & Output 03/28/21 03/29/21 03/29/21 18:59 06:59 18:59 Intake Total 125 Balance 125 Weight 84 kg 81.5 kg Intake: IV 75 Sodium Chloride 0.9% 1, 75 000 ml @ 75 mls/hr IV . [id number] [facility] Rx#:[id number] Oral 50 Other: Voiding Method Diaper # Voids 1 2 - Labs CBC & Chem 7: 03/29/21 11:52 03/29/21 11:52 Labs: Abnormal Lab Results - Last 24 Hours (Table) 03/28/21 03/29/21 Range/Units 20:04 06:08 POC Glucose (mg/dL) 104 H 109 H (75-99) mg/dL
[2021-03-29 16:39] LABS: Glucose,Whole Blood 146 mg/dL (75-99)
[2021-03-29] MEDS: ACETAMINOPHEN TAB 325 MG TAB PO PRN (17:39)
[2021-03-29 20:26] LABS: Glucose,Whole Blood 158 mg/dL (75-99)
[2021-03-30 06:18] LABS: Glucose,Whole Blood 111 mg/dL (75-99)
[2021-03-30] MEDS: INSULIN ASPART (NovoLOG) 100 UNIT/ML VIAL SQ SCH ×4 (06:18→20:26)
[2021-03-30] MEDS: ESCITALOPRAM 5 MG TAB PO SCH (06:52)
[2021-03-30] MEDS ORDERED: TOBRA-DEXAMET 0.3-0.1% OPHTH DROPS 2.5 ML BTL BOTH EYES SCH (09:00)
[2021-03-30] MEDS: DICLOFENAC SODIUM GEL 100 GM TUBE TOPICAL SCH ×2 (09:21→18:11)
[2021-03-30] MEDS: TOBRAMYCIN 0.3% OPHTH DROPS 5 ML BTL BOTH EYES SCH ×3 (09:21→20:57)
[2021-03-30] MEDS: MAGNESIUM OXIDE 400 MG TAB PO SCH (09:22)
[2021-03-30] MEDS: lisinopriL 5 MG TAB PO SCH (09:22)
[2021-03-30] MEDS: METOPROLOL TARTRATE 50 MG TAB PO SCH ×2 (09:22→20:57)
[2021-03-30] MEDS: ASPIRIN 81 MG PO SCH (09:22)
[2021-03-30] MEDS: LINAGLIPTIN 5 MG TABLET PO SCH (09:22)
[2021-03-30] MEDS: amLODIPine 5 MG TAB PO SCH (09:22)
[2021-03-30] MEDS: ATORVASTATIN 40 MG TAB PO SCH (09:22)
[2021-03-30] MEDS: MULTIVITAMINS, THERA 1 EACH TAB PO SCH (09:23)
[2021-03-30 09:30] LABS: HCT 40.7 % (39.0-53.0); HGB 13.2 gm/dL (13.0-17.5); MCH 30.2 pg (25.0-35.0); MCHC 32.4 g/dL (31.0-37.0); Mean Platelet Volume 10.7; Platelet Count 148 k/uL (150-450); RBC 4.38 m/uL (4.30-5.90); RDW 14.7 % (11.5-15.5); WBC 10.2 k/uL (3.8-10.6)
[2021-03-30] MEDS: METOPROLOL TARTRATE 25 MG TAB PO SCH ×2 (09:31→09:37)
[2021-03-30 09:44] LABS: Albumin 3.2 g/dL (3.5-5.0); Calcium 8.9 mg/dL (8.4-10.2); Magnesium 2.1 mg/dL (1.6-2.3); Potassium 3.3 mmol/L (3.5-5.1); Total Protein 6.1 g/dL (6.3-8.2)
[2021-03-30] MEDS ORDERED: Potassium Replacement Protocol 1 EACH MISC MISCELLANE PRN (11:05)
--- NOTE | 2021-03-30 11:08 | P.PN ---
Subjective This is a pleasant 85-year-old male past medical history significant for hypertension, type 2 diabetes, hyperlipidemia, paroxysmal atrial fibrillation, pulmonary embolism, chronic kidney disease, liver disease. 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 We have been asked to see in consultation for elevated troponin. Patient presents to the emergency department after a fall at [facility]. On 03/27 the nurse at [facility] apparently found the patient very confused, hypotensive and tachycardic. Apparently patient also had 2 falls at [facility], one included that the staff walked into the room and found the patient on the floor next to his bed and at that time he thought he had his head. Patient sent to emergency department for further evaluation. Patient does endorse some fatigue and weakness. He denies any chest pain, shortness of gwendolyn ath or lightheadedness or dizziness. EKG reveals sinus rhythm, heart rate 7, first-degree AV block, T-wave inversions in leads II, III, aVF, V2-V6. No prior EKG to compare. Laboratory reviewed,troponin 0.09, 0.10, 0.12. Echocardiogram 50-55%, mild MR, mild TR. 03/30/21: Patient seen and examined at bedside, resting in bed, no acute distress. Telemetry tracings indicate sinus mechanism in the 70s, patient with 50 BUN of NSVT and cardiology was reconsulted. His metoprolol has been increased. he's currently maintained on aspirin 81 mg daily, amlodipine 5 mg daily, lisinopril 5 mg daily, metoprolol titrate 50 mg twice a day and IV fluids 75 ml/hr. His renal function has improved. WBC 10.2, hemoglobin 13.2, platelets 148, sodium 140, potassium 3.3, P1 15, serum creatinine 0.9, magnesium 2.1. PHYSICAL EXAMINATION Blood pressure 140/84, heart rate 69, afebrile, maintaining oxygen saturations on room air CONSTITUTIONAL: No apparent distress. Frail. Legally blind and hard of hearing HEENT: Neck Supple. No JVD. CHEST EXAMINATION: Lungs are clear to auscultation. No chest wall tenderness is noted on palpation or with deep breathing. HEART EXAMINATION: Regular rate and rhythm. S1, S2 heard. No murmurs, gallops or rub. ABDOMEN: Soft, nontender. Positive bowel sounds. EXTREMITIES: 2+ peripheral pulses, no lower extremity edema and no calf tenderness. SKIN: warm, dry, pale NEUROLOGIC EXAMINATION: Patient is awake, alert and oriented x3. ASSESSMENT Altered mental status Elevated troponin, not indicative of acute coronary syndrome, likely due to acute kidney injury Acute Kidney injury Multiple Falls Hypertension Type 2 diabetes Hyperlipidemia Paroxysmal atrial fibrillation, not on anticoagulation likely due to increases falls at home History of pulmonary embolism Chronic kidney disease History of liver disease NSVT on 03/29 overnight Hypokalemia PLAN -Agree with increase in beta ambika -Replace potassium per protocol -From a cardiology perspective, we will treat the patient medically with aspirin, statin, ACEI and beta ambika. Amlodipine added for blood pressure control. -We will follow the patient as needed. Please reach out with further questions or concerns Nurse Practitioner note has been reviewed, I agree with a documented findings and plan of care. Patient was seen and examined. Objective - Vital Signs Vital signs: Vital Signs Temp 97.8 F 03/30/21 08:00 Pulse 69 03/30/21 08:00 Resp 18 03/30/21 08:00 BP 140/84 03/30/21 08:00 Pulse Ox 99 03/30/21 08:00 Intake & Output 03/29/21 03/30/21 03/30/21 18:59 06:59 18:59 Weight 81.5 kg 82.5 kg Other: Voiding Method Diaper Diaper Diaper # Voids 0 2 - Labs CBC & Chem 7: 03/30/21 08:39 03/30/21 08:39 Labs: Abnormal Lab Results - Last 24 Hours (Table) 03/27/21 03/29/21 03/29/21 Range/Units 16:29 11:52 11:52 WBC 10.8 H (3.8-10.6) k/uL MCHC 30.6 L (31.0-37.0) g/dL Plt Count 134 L (150-450) k/uL Potassium (3.5-5.1) mmol/L Chloride 119 H (98-107) mmol/L Carbon Dioxide 12 L (22-30) mmol/L Glucose 101 H (74-99) mg/dL POC Glucose (mg/dL) (75-99) mg/dL Hemoglobin A1c 6.7 H (4.0-6.0) % Total Protein (6.3-8.2) g/dL Albumin (3.5-5.0) g/dL 03/29/21 03/29/21 03/30/21 Range/Units 16:38 20:07 06:06 WBC (3.8-10.6) k/uL MCHC (31.0-37.0) g/dL Plt Count (150-450) k/uL Potassium (3.5-5.1) mmol/L Chloride (98-107) mmol/L Carbon Dioxide (22-30) mmol/L Glucose (74-99) mg/dL POC Glucose (mg/dL) 146 H 158 H 111 H (75-99) mg/dL Hemoglobin A1c (4.0-6.0) % Total Protein (6.3-8.2) g/dL Albumin (3.5-5.0) g/dL 03/30/21 03/30/21 Range/Units 08:39 08:39 WBC (3.8-10.6) k/uL MCHC (31.0-37.0) g/dL Plt Count 148 L (150-450) k/uL Potassium 3.3 L (3.5-5.1) mmol/L Chloride 116 H (98-107) mmol/L Carbon Dioxide 14 L (22-30) mmol/L Glucose 131 H (74-99) mg/dL POC Glucose (mg/dL) (75-99) mg/dL Hemoglobin A1c (4.0-6.0) % Total Protein 6.1 L (6.3-8.2) g/dL Albumin 3.2 L (3.5-5.0) g/dL
[2021-03-30 11:42] LABS: Glucose,Whole Blood 131 mg/dL (75-99)
[2021-03-30] MEDS: POTASSIUM CHLORIDE ER 20 MEQ TAB.ER PO SCH (12:44)
--- NOTE | 2021-03-30 13:38 | P.PN ---
Subjective Progress Note Date: 03/30/21 HISTORY OF PRESENT ILLNESS This is an 85-year-old male patient of Dr. 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 Tejada, carotid artery disease. Patient was hospitalized 02/27/2021 at [facility] after a fall at home where he was found at 4 PM by his family came to check on him. He tried to get up from a recliner and somehow fell. Patient denies having any lightheadedness or dizziness at the time. Patient was stabilized and discharged to [facility] for rehab. Yesterday evening, nurse found patient to be very confused and hypotensive and tachycardic. Patient also had 2 falls yesterday an d 1 included that the staff walked into the room and found the patient on the floor next to his bed and at that time he thought he had his head. He had abrasions on his lower extremities. Patient was brought into [facility] emergency center for evaluation review was found to be afebrile, heart rate 91, blood pressure 07/02/1989, pulse ox 100% on room air. EKG sinus rhythm with first-degree AV block and inverted T waves. WBC 14.2, hemoglobin 14.8, platelet count 173. Sodium 142, potassium 4.0, chloride 115, CO2 11, BUN 40 creatinine 1.81. Blood sugar 215. Troponin 0.090, 0.106, 0.122. Alkaline phosphatase 138. Urinalysis was clear, blood small, bilirubin 1+, nitrate and leukoesterase negative. Urine drug screen was negative. coronavirus PCR not detected. CAT scan of the brain and cervical spine revealed no evidence of acute intracranial hemorrhage, midline shift or mass effect. No definite acute fracture or dislocation of the cervical spine. Chronic brain parenchymal changes and degenerative changes in the cervical spine. Chest x-ray reveals no focal airspace disease, pneumothorax or pleural effusion. Stable mild cardiomegaly. Acute osseous abnormality seen. Patient is seen today in the emergency center waiting for bed on the cardiac stepdown unit. 03/29: Patient has been seen by cardiology and acute coronary syndrome has been ruled out. With plan for medical treatment and they are following on an as needed basis. Echocardiogram has been obtained but report is pending. Patient is afebrile, heart rate in the 60s, blood pressure 160/78, pulse ox 100% on room air. monitoring tech sinus rhythm. Patient denies any new complaints. No complaints of pain. He is resting in bed and appears very comfortable. No respiratory distress noted. Family have met with rn case manager/director of social services and have asked for informational meeting with hospice. Capillary blood glucose running between 90-109. WBC 10.8, hemoglobin 13.6, platelet count 134. C hloride 119, CO2 12, BUN 20 creatinine 1. IV fluids will be discontinued, patient started on Norvasc. 03/30: This reports the patient had a run of V. tach 58 beats with no symptoms. Metoprolol increased to 50 mg twice daily and Cardiology consult added, no plan for any intervention and are following on an as needed basis. Patient states he denies chest pain or shortness of breath. He is feeling okay today. Left eye especially appears to have conjunctivitis and eye drops added. Patient had a bowel movement yesterday. Patient has been afebrile, heart rate 69, blood pressure 140/84, pulse ox 99% on room air. CBC unremarkable except for platelet count of 148. Potassium 3.3 and will be replaced. Magnesium 2.1. Blood sugars are running between 111 158. Patient will be started on Tradjenta and remain off metformin and glyburide. Family have decided on discharge plan to [facility] or [facility]. Social work has been updated for discharge on Friday. REVIEW OF SYSTEMS Constitutional: No documented fever. No weight change. Reports weakness, Reports fatigue noted lethargy. Reports daytime sleepiness. EENT: No headache. Chronic loss of vision. Chronic loss of Hearing. No nasal drainage or congestion. Lungs: No shortness of breath, no cough, no sputum production. No wheezing. Cardiovascular: No chest pain, no lower extremity edema. No palpitations. No paroxysmal nocturnal dyspnea. No orthopnea. No lightheadedness or dizziness. Possible syncopal episodes. Abdominal: No abdominal pain. No nausea, vomiting. No diarrhea. No constipation. No bloody or tarry stools. No loss of appetite. Genitourinary: No dysuria, increased frequency, urgency. No urinary retention. Musculoskeletal: No myalgias. Reports muscle weakness, Reports gait dysfunction, frequent frequent falls. No back pain. No neck pain. Reports bilat knee pain. Integumentary: Reports bilateral lower extremity wounds. No rash or pruritus. No unusual bruising. Neurologic: No aphasia. No facial droop. Noted change in mentation. Reported head injury. No headache. No paralysis. No paresthesia. Psychiatric: No depression. No anxiety. No mood swings. Endocrine: Noted mild abnormal blood sugars. PHYSICAL EXAMINATION Gen: This is an 85-year-old male. He is resting in bed and appears to be comfortable. HEENT: Head is atraumatic, normocephalic. Pupils equal, round. Sclerae is anicteric. NECK: Supple. No JVD. No lymphadenopathy. No thyromegaly. LUNGS: Clear to auscultation. No wheezes or rhonchi. No intercostal retractions. No accessory muscle usage. HEART: Regular rate and rhythm. 2/6 systolic murmur at the left sternal border. ABDOMEN: Soft. Bowel sounds are present. No masses. No tenderness. EXTREMITIES: No pedal edema. No calf tenderness. dorsalis pedis 1+ bilaterally. Multiple small superficial abrasions to bilateral lower extremities. NEUROLOGICAL: Patient is awake, alert and oriented to person and place. Cranial nerves 2 through 12 are grossly intact. ASSESSMENT AND PLAN 1. Acute kidney injury, ATN secondary to poor oral intake, resolved. Continue IV fluids, resume lisinopril, hold metformin, Diamox, glyburide. 2. Dehydration from poor oral intake. Continue as in #1. 3. Metabolic encephalopathy most likely secondary to acute kidney injury and falls. Continue treatment as in #1. 4. Metabolic acidosis secondary to acute kidney injury. 5. Fall 2 with head injury. CAT scan of the brain is negative. 6. Elevated troponin. Cardiac consult appreciated, acute coronary syndrome ruled out continue aspirin 81 mg daily and Lopressor 25 mg twice daily. 7. Paroxysmal atrial fibrillation not on anticoagulation due to frequent falls. 8. Hypertension. Resume lisinopril 5 mg daily, continue amlodipine 5 mg daily and increase metoprolol to 50 mg twice daily. 9. Diabetes mellitus type 2. Hold glyburide 2.5 mg 2 times daily, metformin 500 mg 1 twice daily. Patient is on NovoLog scale and start Tradjenta 5 mg daily. Hemoglobin A1c is 6.7 10. Nonsustained ventricular tachycardia of 58 beats. Lopressor increased to 50 mg twice daily, cardiology recommends continuing current management and are following on an as-needed basis. 11. Conjunctivitis bilateral eyes. Patient started on tobramycin 2 drops both eyes every 6 hours and erythromycin ointment at bedtime. 12. Hyperlipidemia. Patient not currently on statin. 13. Legally blind secondary to macular degeneration and glaucoma. 14. Chronic kidney disease stage II, stable. 15. History of drug induced liver disease. 16. Thyroid nodule being monitored by Dr. Tejada, endocrinology. 17. Carotid artery disease status post right-sided endarterectomy. 18. Remote history of remote pulmonary embolism. 19. Generalized osteoarthritis with bilateral knee pain. Voltaren gel 3% daily to bilateral knees. 20. Recent hospitalization after fall with debility transferred to subacute rehab. Continue PT, OT consults. CODE STATUS: FULL CODE DISCHARGE PLAN on Friday. Impression and plan of care have been directed as dictated by the signing physician. Roselia Vaughn nurse practitioner acting as scribe for signing physician. Objective - Vital Signs Vital signs: Vital Signs Temp 97.8 F 03/30/21 04:00 Pulse 68 03/30/21 04:00 Resp 18 03/30/21 04:00 BP 164/73 03/30/21 04:00 Pulse Ox 99 03/30/21 04:00 Intake & Output 03/29/21 03/30/21 03/30/21 18:59 06:59 18:59 Weight 81.5 kg 82.5 kg Other: Voiding Method Diaper Diaper # Voids 0 - Labs CBC & Chem 7: 03/30/21 08:39 03/30/21 08:39 Labs: Abnormal Lab Results - Last 24 Hours (Table) 03/27/21 03/29/21 03/29/21 Range/Units 16:29 11:52 11:52 WBC 10.8 H (3.8-10.6) k/uL MCHC 30.6 L (31.0-37.0) g/dL Plt Count 134 L (150-450) k/uL Chloride 119 H (98-107) mmol/L Carbon Dioxide 12 L (22-30) mmol/L Glucose 101 H (74-99) mg/dL POC Glucose (mg/dL) (75-99) mg/dL Hemoglobin A1c 6.7 H (4.0-6.0) % 03/29/21 03/29/21 03/30/21 Range/Units 16:38 20:07 06:06 WBC (3.8-10.6) k/uL MCHC (31.0-37.0) g/dL Plt Count (150-450) k/uL Chloride (98-107) mmol/L Carbon Dioxide (22-30) mmol/L Glucose (74-99) mg/dL POC Glucose (mg/dL) 146 H 158 H 111 H (75-99) mg/dL Hemoglobin A1c (4.0-6.0) %
[2021-03-30 16:39] LABS: Glucose,Whole Blood 97 mg/dL (75-99)
[2021-03-30] MEDS: SODIUM CHLORIDE 0.9% 1,000 ML IV SCH (18:11)
[2021-03-30 20:05] LABS: Glucose,Whole Blood 121 mg/dL (75-99)
[2021-03-30] MEDS: ERYTHROMYCIN 5 MG/GM OPHTH OINT 3.5 GM TUBE BOTH EYES SCH (20:57)
[2021-03-31 06:11] LABS: Glucose,Whole Blood 108 mg/dL (75-99)
[2021-03-31] MEDS: INSULIN ASPART (NovoLOG) 100 UNIT/ML VIAL SQ SCH ×4 (06:15→19:52)
[2021-03-31] MEDS: ESCITALOPRAM 5 MG TAB PO SCH (06:39)
[2021-03-31] MEDS: TOBRAMYCIN 0.3% OPHTH DROPS 5 ML BTL BOTH EYES SCH ×4 (06:40→20:28)
[2021-03-31] MEDS: SODIUM CHLORIDE 0.9% 1,000 ML IV SCH ×2 (08:55→12:04)
[2021-03-31] MEDS: MULTIVITAMINS, THERA 1 EACH TAB PO SCH (09:01)
[2021-03-31] MEDS: ASPIRIN 81 MG PO SCH (09:01)
[2021-03-31] MEDS: MAGNESIUM OXIDE 400 MG TAB PO SCH (09:02)
[2021-03-31] MEDS: lisinopriL 5 MG TAB PO SCH (09:02)
[2021-03-31] MEDS: ATORVASTATIN 40 MG TAB PO SCH (09:02)
[2021-03-31] MEDS: amLODIPine 5 MG TAB PO SCH (09:02)
[2021-03-31] MEDS: METOPROLOL TARTRATE 50 MG TAB PO SCH ×2 (09:02→20:27)
[2021-03-31] MEDS: LINAGLIPTIN 5 MG TABLET PO SCH (09:02)
[2021-03-31] MEDS: DICLOFENAC SODIUM GEL 100 GM TUBE TOPICAL SCH ×2 (09:02→16:56)
[2021-03-31 11:43] LABS: Glucose,Whole Blood 115 mg/dL (75-99)
--- NOTE | 2021-03-31 12:02 | P.PN ---
Subjective Progress Note Date: 03/31/21 Progress Note Date: 03/31/21 HISTORY OF PRESENT ILLNESS This is an 85-year-old male patient of Dr. 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 Tejada, carotid artery disease. Patient was hospitalized 02/27/2021 at [facility] after a fall at home where he was found at 4 PM by his family came to check on him. He tried to get up from a recliner and somehow fell. Patient denies having any lightheadedness or dizziness at the time. Patient was stabilized and discharged to [facility] for rehab. Yesterday evening, nurse found patient to be very confused and hypotensive and tachycardic. Patient also had 2 falls yesterday and 1 included that the staff walked into the room and found the patient on the floor next to his bed and at that time he thought he had his head. He had abrasions on his lower extremities. Patient was brought into [facility] emergency center for evaluation review was found to be afebrile, heart rate 91, blood pressure 07/02/1989, pulse ox 100% on room air. EKG sinus rhythm with first-degree AV block and inverted T waves. WBC 14.2, hemoglobin 14.8, platelet count 173. Sodium 142, potassium 4.0, chloride 115, CO2 11, BUN 40 creatinine 1.81. Blood sugar 215. Troponin 0.090, 0.106, 0.122. Alkaline phosphatase 138. Urinalysis was clear, blood small, bilirubin 1+, nitrate and leukoesterase negative. Urine drug screen was negative. coronavirus PCR not detected. CAT scan of the brain and cervical spine revealed no evidence of acute intracranial hemorrhage, midline shift or mass effect. No definite acute fracture or dislocation of the cervical spine. Chronic brain parenchymal changes and degenerative changes in the cervical spine. Chest x-ray reveals no focal airspace disease, pneumothorax or pleural effusion. Stable mild cardiomegaly. Acute osseous abnormality seen. Patient is seen today in the emergency center waiting for bed on the cardiac stepdown unit. 03/29: Patient has been seen by cardiology and acute coronary syndrome has been ruled out. With plan for medical treatment and they are following on an as needed basis. Echocardiogram has been obtained but report is pending. Patient is afebrile, heart rate in the 60s, blood pressure 160/78, pulse ox 100% on room air. field secretary sinus rhythm. Patient denies any new complaints. No complaints of pain. He is resting in bed and appears very comfortable. No respiratory distress noted. Family have met with case management specialist/social research assistant and have asked for informational meeting with hospice. Capillary blood glucose running between 90-109. WBC 10.8, hemoglobin 13.6, platelet count 134. Chloride 119, CO2 12, BUN 20 creatinine 1. IV fluids will be discontinued, patient started on Norvasc. 03/30: This reports the patient had a run of V. tach 58 beats with no symptoms. Metoprolol increased to 50 mg twice daily and Cardiology consult added, no plan for any intervention and are following on an as needed basis. Patient states he denies chest pain or shortness of breath. He is feeling okay today. Left eye especially appears to have conjunctivitis and eye drops added. Patient had a bowel movement yesterday. Patient has been afebrile, heart rate 69, blood pressure 140/84, pulse ox 99% on room air. CBC unremarkable except for platelet count of 148. Potassium 3.3 and will be replaced. Magnesium 2.1. Blood sugars are running between 111 158. Patient will be started on Tradjenta and remain off metformin and glyburide. Family have decided on discharge plan to [facility] or [facility]. Social work has been updated for discharge on Friday. 03/31: Patient is laying down in bed in no current distress, he had an episode of nonsustained ventricular tachycardia yesterday for which she was seen in consultation by cardiology we have increased metoprolol to 50 mg orally twice every day, continue to monitor the patient very closely, we are awaiting family to decide whether the patient can go social research assistant will be involved for possible discharge on Friday, I spoke with his daughter Heidi at the bedside discuss his prognosis and his likely require 24-hour care at this point in time he is unlikely to be able to go to [facility] at this point we'll plan for [place] a Friday. REVIEW OF SYSTEMS Constitutional: No documented fever. No weight change. Reports weakness, Reports fatigue noted lethargy. Reports daytime sleepiness. EENT: No headache. Chronic loss of vision. Chronic loss of Hearing. No nasal drainage or congestion. Lungs: No shortness of breath, no cough, no sputum production. No wheezing. Cardiovascular: No chest pain, no lower extremity edema. No palpitations. No paroxysmal nocturnal dyspnea. No orthopnea. No lightheadedness or dizziness. Possible syncopal episodes. Abdominal: No abdominal pain. No nausea, vomiting. No diarrhea. No constipation. No bloody or tarry stools. No loss of appetite. Genitourinary: No dysuria, increased frequency, urgency. No urinary retention. Musculoskeletal: No myalgias. Reports muscle weakness, Reports gait dysfunction, frequent frequent falls. No back pain. No neck pain. Reports bilat knee pain. Integumentary: Reports bilateral lower extremity wounds. No rash or pruritus. No unusual bruising. Neurologic: No aphasia. No facial droop. Noted change in mentation. Reported head injury. No headache. No paralysis. No paresthesia. Psychiatric: No depression. No anxiety. No mood swings. Endocrine: Noted mild abnormal blood sugars. PHYSICAL EXAMINATION Gen: This is an 85-year-old male. He is resting in bed and appears to be comfortable. HEENT: Head is atraumatic, normocephalic. Pupils equal, round. Sclerae is anicteric. NECK: Supple. No JVD. No lymphadenopathy. No thyromegaly. LUNGS: Clear to auscultation. No wheezes or rhonchi. No intercostal retractions. No accessory muscle usage. HEART: Regular rate and rhythm. 2/6 systolic murmur at the left sternal border. ABDOMEN: Soft. Bowel sounds are present. No masses. No tenderness. EXTREMITIES: No pedal edema. No calf tenderness. dorsalis pedis 1+ bilaterally. Multiple small superficial abrasions to bilateral lower extremities. NEUROLOGICAL: Patient is awake, alert and oriented to person and place. Cranial nerves 2 through 12 are grossly intact. ASSESSMENT AND PLAN 1. Acute kidney injury, ATN secondary to poor oral intake, resolved. Continue IV fluids, resume lisinopril, hold metformin, Diamox, glyburide. 2. Dehydration from poor oral intake. Continue as in #1. 3. Metabolic encephalopathy most likely secondary to acute kidney injury and falls. Continue treatment as in #1. 4. Metabolic acidosis secondary to acute kidney injury. 5. Fall 2 with head injury. CAT scan of the brain is negative. 6. Elevated troponin. Cardiac consult appreciated, acute coronary syndrome ruled out continue aspirin 81 mg daily and Lopressor 25 mg twice daily. 7. Paroxysmal atrial fibrillation not on anticoagulation due to frequent falls. 8. Hypertension. Resume lisinopril 5 mg daily, continue amlodipine 5 mg daily and increase metoprolol to 50 mg twice daily. 9. Diabetes mellitus type 2. Hold glyburide 2.5 mg 2 times daily, metformin 500 mg 1 twice daily. Patient is on NovoLog scale and start Tradjenta 5 mg daily. Hemoglobin A1c is 6.7 10. Nonsustained ventricular tachycardia of 58 beats. Lopressor increased to 50 mg twice daily, cardiology recommends continuing current management and are following on an as-needed basis. 11. Conjunctivitis bilateral eyes. Patient started on tobramycin 2 drops both eyes every 6 hours and erythromycin ointment at bedtime. 12. Hyperlipidemia. Patient not currently on statin. 13. Legally blind secondary to macular degeneration and glaucoma. 14. Chronic kidney disease stage II, stable. 15. History of drug induced liver disease. 16. Thyroid nodule being monitored by Dr. Tejada, endocrinology. 17. Carotid artery disease status post right-sided endarterectomy. 18. Remote history of remote pulmonary embolism. 19. Generalized osteoarthritis with bilateral knee pain. Voltaren gel 3% daily to bilateral knees. 20. Recent hospitalization after fall with debility transferred to subacute rehab. Continue PT, OT consults 22. Depressive disorder with poor appetite start the patient on mirtazapine 7.5 mg at bedtime discontinue Lexapro due to the risk of V. tach, discussed with his daughter at the bedside, start the patient on Nepro twice every day. Objective - Vital Signs Vital signs: Vital Signs Temp 98.2 F 03/31/21 08:00 Pulse 70 03/31/21 08:00 Resp 17 03/31/21 08:00 BP 184/85 03/31/21 08:00 Pulse Ox 98 03/31/21 08:00 Intake & Output 03/30/21 03/31/21 03/31/21 18:59 06:59 18:59 Intake Total 240 180 Output Total 80 Balance 240 -80 180 Weight 84 kg Intake: Oral 240 180 Output: Urine 80 Other: Voiding Method Diaper Diaper Diaper # Voids 2 3 1 - Labs CBC & Chem 7: 03/30/21 08:39 03/30/21 08:39 Labs: Abnormal Lab Results - Last 24 Hours (Table) 03/30/21 03/30/21 03/31/21 Range/Units 11:39 20:04 06:09 POC Glucose (mg/dL) 131 H 121 H 108 H (75-99) mg/dL
[2021-03-31 16:41] LABS: Glucose,Whole Blood 97 mg/dL (75-99)
[2021-03-31 20:18] LABS: Glucose,Whole Blood 109 mg/dL (75-99)
[2021-03-31] MEDS: MIRTAZAPINE 15 MG TAB PO SCH (20:27)
[2021-03-31] MEDS: ERYTHROMYCIN 5 MG/GM OPHTH OINT 3.5 GM TUBE BOTH EYES SCH (20:28)
[2021-03-31] MEDS ORDERED: POTASSIUM CHLORIDE 10 MEQ in WATER FOR INJECTION 4 100ML.BAG IVPB STA (22:59)
[2021-04-01] MEDS: TOBRAMYCIN 0.3% OPHTH DROPS 5 ML BTL BOTH EYES SCH ×4 (04:50→20:57)
[2021-04-01 06:17] LABS: Glucose,Whole Blood 89 mg/dL (75-99)
[2021-04-01] MEDS: INSULIN ASPART (NovoLOG) 100 UNIT/ML VIAL SQ SCH ×4 (06:24→20:57)
[2021-04-01] MEDS: POTASSIUM CHLORIDE ER 20 MEQ TAB.ER PO SCH (06:42)
[2021-04-01] MEDS: SODIUM CHLORIDE 0.9% 1,000 ML IV SCH (07:58)
[2021-04-01] MEDS: MULTIVITAMINS, THERA 1 EACH TAB PO SCH (08:22)
[2021-04-01] MEDS: lisinopriL 5 MG TAB PO SCH (08:23)
[2021-04-01] MEDS: ASPIRIN 81 MG PO SCH (08:23)
[2021-04-01] MEDS: METOPROLOL TARTRATE 50 MG TAB PO SCH ×2 (08:23→20:57)
[2021-04-01] MEDS: DICLOFENAC SODIUM GEL 100 GM TUBE TOPICAL SCH ×2 (08:23→15:50)
[2021-04-01] MEDS: MAGNESIUM OXIDE 400 MG TAB PO SCH (08:23)
[2021-04-01] MEDS: ATORVASTATIN 40 MG TAB PO SCH (08:23)
[2021-04-01] MEDS: amLODIPine 5 MG TAB PO SCH (08:23)
[2021-04-01] MEDS: LINAGLIPTIN 5 MG TABLET PO SCH (08:23)
[2021-04-01 09:02] LABS: Basophils # (A) 0.1 k/uL (0-0.2); Basophils % (A) 1 %; Eosinophils # (A) 0.6 k/uL (0-0.7); Eosinophils % (A) 5 %; HCT 46.2 % (39.0-53.0); Lymphocytes # (A) 2.2 k/uL (1.0-4.8); Lymphocytes % (A) 19 %; MCH 30.1 pg (25.0-35.0); MCHC 32.5 g/dL (31.0-37.0); MCV 92.5 fL (80.0-100.0); Mean Platelet Volume 10.8; Monocytes # (A) 0.8 k/uL (0-1.0); Monocytes % (A) 7 %; Neutrophils # (A) 7.9 k/uL (1.3-7.7); Neutrophils % (A) 67 %; Platelet Count 159 k/uL (150-450); RBC 4.99 m/uL (4.30-5.90); RDW 14.6 % (11.5-15.5); WBC 11.8 k/uL (3.8-10.6)
[2021-04-01 09:23] LABS: ALT 22 U/L (4-49); AST 33 U/L (17-59); African American GFR (CKD) >90 (>60 ml/min/1.73 sqM); Albumin 3.6 g/dL (3.5-5.0); Alkaline Phosphatase 142 U/L (38-126); Anion Gap 11 mmol/L; Blood Urea Nitrogen 10 mg/dL (9-20); Calcium 9.2 mg/dL (8.4-10.2); Carbon Dioxide 15 mmol/L (22-30); Chloride 113 mmol/L (98-107); Glucose 104 mg/dL (74-99); Magnesium 2.1 mg/dL (1.6-2.3); Non-African American GFR(CKD) 80 (>60 ml/min/1.73 sqM); Sodium 139 mmol/L (137-145); Total Bilirubin 1.1 mg/dL (0.2-1.3); Total Protein 6.7 g/dL (6.3-8.2)
[2021-04-01 11:48] LABS: Glucose,Whole Blood 96 mg/dL (75-99)
--- NOTE | 2021-04-01 11:59 | P.PN ---
Subjective Progress Note Date: 04/01/21 Progress Note Date: 04/01/21 HISTORY OF PRESENT ILLNESS This is an 85-year-old male patient of Dr. 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 Tejada, carotid artery disease. Patient was hospitalized 02/27/2021 at [facility] after a fall at home where he was found at 4 PM by his family came to check on him. He tried to get up from a recliner and somehow fell. Patient denies having any lightheadedness or dizziness at the time. Patient was stabilized and discharged to [facility] for rehab. Yesterday evening, nurse found patient to be very confused and hypotensive and tachycardic. Patient also had 2 falls yesterday and 1 included that the staff walked into the room and found the patient on the floor next to his bed and at that time he thought he had his head. He had abrasions on his lower extremities. Patient was brought into [facility] emergency center for evaluation review was found to be afebrile, heart rate 91, blood pressure 07/02/1989, pulse ox 100% on room air. EKG sinus rhythm with first-degree AV block and inverted T waves. WBC 14.2, hemoglobin 14.8, platelet count 173. Sodium 142, potassium 4.0, chloride 115, CO2 11, BUN 40 creatinine 1.81. Blood sugar 215. Troponin 0.090, 0.106, 0.122. Alkaline phosphatase 138. Urinalysis was clear, blood small, bilirubin 1+, nitrate and leukoesterase negative. Urine drug screen was negative. coronavirus PCR not detected. CAT scan of the brain and cervical spine revealed no evidence of acute intracranial hemorrhage, midline shift or mass effect. No definite acute fracture or dislocation of the cervical spine. Chronic brain parenchymal changes and degenerative changes in the cervical spine. Chest x-ray reveals no focal airspace disease, pneumothorax or pleural effusion. Stable mild cardiomegaly. Acute osseous abnormality seen. Patient is seen today in the emergency center waiting for bed on the cardiac stepdown unit. 03/29: Patient has been seen by cardiology and acute coronary syndrome has been ruled out. With plan for medical treatment and they are following on an as needed basis. Echocardiogram has been obtained but report is pending. Patient is afebrile, heart rate in the 60s, blood pressure 160/78, pulse ox 100% on room air. alarm security or surveillance monitor sinus rhythm. Patient denies any new complaints. No complaints of pain. He is resting in bed and appears very comfortable. No respiratory distress noted. Family have met with top case assembler/social insurance specialist and have asked for informational meeting with hospice. Capillary blood glucose running between 90-109. WBC 10.8, hemoglobin 13.6, platelet count 134. Chloride 119, CO2 12, BUN 20 creatinine 1. IV fluids will be discontinued, patient started on Norvasc. 03/30: This reports the patient had a run of V. tach 58 beats with no symptoms. Metoprolol increased to 50 mg twice daily and Cardiology consult added, no plan for any intervention and are following on an as needed basis. Patient states he denies chest pain or shortness of breath. He is feeling okay today. Left eye especially appears to have conjunctivitis and eye drops added. Patient had a bowel movement yesterday. Patient has been afebrile, heart rate 69, blood pressure 140/84, pulse ox 99% on room air. CBC unremarkable except for platelet count of 148. Potassium 3.3 and will be replaced. Magnesium 2.1. Blood sugars are running between 111 158. Patient will be started on Tradjenta and remain off metformin and glyburide. Family have decided on discharge plan to [facility] or [facility]. Social work has been updated for discharge on Friday. 03/31: Patient is laying down in bed in no current distress, he had an episode of nonsustained ventricular tachycardia yesterday for which she was seen in consultation by cardiology we have increased metoprolol to 50 mg orally twice every day, continue to monitor the patient very closely, we are awaiting family to decide whether the patient can go social insurance specialist will be involved for possible discharge on Friday, I spoke with his daughter Heidi at the bedside discuss his prognosis and his likely require 24-hour care at this point in time he is unlikely to be able to go to [facility] at this point we'll plan for [facility] a Friday. 04/01: Patient is laying down in bed in no apparent distress, he continues to be generally weak, he will require Dr. hour care, I discussed this with his brayden michael yesterday that the patient will require 24-hour cares unlikely [facility] greater than [facility] at this point, he may be transitioned to an AFC if his physical activity becomes better down the line. We so plan to send the patient to [facility] tomorrow morning. REVIEW OF SYSTEMS Constitutional: No documented fever. No weight change. Reports weakness, Reports fatigue noted lethargy. Reports daytime sleepiness. EENT: No headache. Chronic loss of vision. Chronic loss of Hearing. No nasal drainage or congestion. Lungs: No shortness of breath, no cough, no sputum production. No wheezing. Cardiovascular: No chest pain, no lower extremity edema. No palpitations. No paroxysmal nocturnal dyspnea. No orthopnea. No lightheadedness or dizziness. Possible syncopal episodes. Abdominal: No abdominal pain. No nausea, vomiting. No diarrhea. No constipation. No bloody or tarry stools. No loss of appetite. Genitourinary: No dysuria, increased frequency, urgency. No urinary retention. Musculoskeletal: No myalgias. Reports muscle weakness, Reports gait dysfunction, frequent frequent falls. No back pain. No neck pain. Reports bilat knee pain. Integumentary: Reports bilateral lower extremity wounds. No rash or pruritus. No unusual bruising. Neurologic: No aphasia. No facial droop. Noted change in mentation. Reported head injury. No headache. No paralysis. No paresthesia. Psychiatric: No depression. No anxiety. No mood swings. Endocrine: Noted mild abnormal blood sugars. PHYSICAL EXAMINATION Gen: This is an 85-year-old male. He is resting in bed and appears to be comfortable. HEENT: Head is atraumatic, normocephalic. Pupils equal, round. Sclerae is anicteric. NECK: Supple. No JVD. No lymphadenopathy. No thyromegaly. LUNGS: Clear to auscultation. No wheezes or rhonchi. No intercostal retractions. No accessory muscle usage. HEART: Regular rate and rhythm. 2/6 systolic murmur at the left sternal border. ABDOMEN: Soft. Bowel sounds are present. No masses. No tenderness. EXTREMITIES: No pedal edema. No calf tenderness. dorsalis pedis 1+ bilaterally. Multiple small superficial abrasions to bilateral lower extremities. NEUROLOGICAL: Patient is awake, alert and oriented to person and place. Cranial nerves 2 through 12 are grossly intact. ASSESSMENT AND PLAN 1. Acute kidney injury, ATN secondary to poor oral intake, resolved. Continue IV fluids, resume lisinopril, hold metformin, Diamox, glyburide. 2. Dehydration. Continue IV fluid changed to D5 half-normal saline at 75 mL an hour. 3. non-anion gap metabolic acidosis.Metabolic encephalopathy most likely secondary to acute kidney injury and falls. Continue treatment as in #1.and sodium bicarbonate 650 mg orally twice every day. 4. Metabolic acidosis secondary to acute kidney injury. continue treatment as previous paragraph. 5. Fall 2 with head injury. CAT scan of the brain is negative. 6. Elevated troponin. Cardiac consult appreciated, acute coronary syndrome ruled out continue aspirin 81 mg daily and Lopressor 25 mg twice daily. 7. Paroxysmal atrial fibrillation not on anticoagulation due to frequent falls. 8. Hypertension. Resume lisinopril 5 mg daily, continue amlodipine 5 mg daily and increase metoprolol to 50 mg twice daily. 9. Diabetes mellitus type 2. Hold glyburide 2.5 mg 2 times daily, metformin 500 mg 1 twice daily. Patient is on NovoLog scale and start Tradjenta 5 mg daily. Hemoglobin A1c is 6.7 10. Nonsustained ventricular tachycardia of 58 beats. Lopressor increased to 5 0 mg twice daily, cardiology recommends continuing current management and are following on an as-needed basis. 11. Conjunctivitis bilateral eyes. Patient started on tobramycin 2 drops both eyes every 6 hours and erythromycin ointment at bedtime. 12. Hyperlipidemia. Patient not currently on statin. 13. Legally blind secondary to macular degeneration and glaucoma. 14. Chronic kidney disease stage II, stable. 15. History of drug induced liver disease. 16. Thyroid nodule being monitored by Dr. Tejada, endocrinology. 17. Carotid artery disease status post right-sided endarterectomy. 18. Remote history of remote pulmonary embolism. 19. Generalized osteoarthritis with bilateral knee pain. Voltaren gel 3% daily to bilateral knees. 20. Recent hospitalization after fall with debility transferred to subacute rehab. Continue PT, OT consults 22. Depressive disorder with poor appetite continue mirtazapine 7.5 mg at bedtime discontinue Lexapro due to the risk of V. tach, discussed with his daughter at the bedside, start the patient on Nepro twice every day. 23. [facility] tomorrow morning. Objective - Vital Signs Vital signs: Vital Signs Temp 97.9 F 04/01/21 08:00 Pulse 65 04/01/21 08:00 Resp 17 04/01/21 08:00 BP 161/99 04/01/21 08:00 Pulse Ox 100 04/01/21 00:00 Intake & Output 03/31/21 04/01/21 04/01/21 18:59 06:59 18:59 Intake Total 420 Balance 420 Weight 83.5 kg Intake: Oral 420 Other: Voiding Method Diaper Diaper Diaper # Voids 1 1 # Bowel Movements 1 - Labs CBC & Chem 7: 04/01/21 08:32 04/01/21 08:32 Labs: Abnormal Lab Results - Last 24 Hours (Table) 03/31/21 03/31/21 04/01/21 Range/Units 11:41 19:47 08:32 WBC 11.8 H (3.8-10.6) k/uL Neutrophils # 7.9 H (1.3-7.7) k/uL Chloride (98-107) mmol/L Carbon Dioxide (22-30) mmol/L Glucose (74-99) mg/dL POC Glucose (mg/dL) 115 H 109 H (75-99) mg/dL Alkaline Phosphatase (38-126) U/L 04/01/21 Range/Units 08:32 WBC (3.8-10.6) k/uL Neutrophils # (1.3-7.7) k/uL Chloride 113 H (98-107) mmol/L Carbon Dioxide 15 L (22-30) mmol/L Glucose 104 H (74-99) mg/dL POC Glucose (mg/dL) (75-99) mg/dL Alkaline Phosphatase 142 H (38-126) U/L
[2021-04-01] MEDS: DEXTROSE 5%-0.45% NACL 1,000 ML IV SCH (12:00)
[2021-04-01 16:36] LABS: Glucose,Whole Blood 137 mg/dL (75-99)
[2021-04-01 20:27] LABS: Glucose,Whole Blood 173 mg/dL (75-99)
[2021-04-01] MEDS: MIRTAZAPINE 15 MG TAB PO SCH (20:56)
[2021-04-01] MEDS: ERYTHROMYCIN 5 MG/GM OPHTH OINT 3.5 GM TUBE BOTH EYES SCH (20:57)
[2021-04-01] MEDS: SODIUM BICARBONATE TAB 650 MG TAB PO SCH (20:57)
[2021-04-02] MEDS: DEXTROSE 5%-0.45% NACL 1,000 ML IV SCH ×2 (00:50→13:17)
[2021-04-02] MEDS: TOBRAMYCIN 0.3% OPHTH DROPS 5 ML BTL BOTH EYES SCH ×4 (03:35→20:18)
[2021-04-02] MEDS: INSULIN ASPART (NovoLOG) 100 UNIT/ML VIAL SQ SCH ×4 (06:29→20:18)
[2021-04-02 06:35] LABS: Glucose,Whole Blood 140 mg/dL (75-99)
[2021-04-02] MEDS: ASPIRIN 81 MG PO SCH (08:46)
[2021-04-02] MEDS: SODIUM BICARBONATE TAB 650 MG TAB PO SCH ×2 (08:46→20:18)
[2021-04-02] MEDS: MAGNESIUM OXIDE 400 MG TAB PO SCH (08:46)
[2021-04-02] MEDS: amLODIPine 5 MG TAB PO SCH (08:47)
[2021-04-02] MEDS: LINAGLIPTIN 5 MG TABLET PO SCH (08:47)
[2021-04-02] MEDS: METOPROLOL TARTRATE 50 MG TAB PO SCH ×2 (08:47→20:18)
[2021-04-02] MEDS: MULTIVITAMINS, THERA 1 EACH TAB PO SCH (08:47)
[2021-04-02] MEDS: lisinopriL 5 MG TAB PO SCH (08:47)
[2021-04-02] MEDS: ATORVASTATIN 40 MG TAB PO SCH (08:47)
[2021-04-02] MEDS: DICLOFENAC SODIUM GEL 100 GM TUBE TOPICAL SCH ×2 (08:47→16:11)
[2021-04-02 10:57] LABS: HCT 40.2 % (39.0-53.0); HGB 13.4 gm/dL (13.0-17.5); MCH 30.2 pg (25.0-35.0); MCHC 33.3 g/dL (31.0-37.0); MCV 90.8 fL (80.0-100.0); Mean Platelet Volume 10.9; Platelet Count 153 k/uL (150-450); RBC 4.43 m/uL (4.30-5.90); RDW 14.9 % (11.5-15.5); WBC 10.4 k/uL (3.8-10.6)
[2021-04-02 11:07] LABS: ALT 20 U/L (4-49); AST 27 U/L (17-59); African American GFR (CKD) >90 (>60 ml/min/1.73 sqM); Albumin 2.8 g/dL (3.5-5.0); Alkaline Phosphatase 118 U/L (38-126); Anion Gap 7 mmol/L; Blood Urea Nitrogen 7 mg/dL (9-20); Calcium 8.4 mg/dL (8.4-10.2); Carbon Dioxide 19 mmol/L (22-30); Chloride 110 mmol/L (98-107); Glucose 178 mg/dL (74-99); Non-African American GFR(CKD) 83 (>60 ml/min/1.73 sqM); Potassium 3.2 mmol/L (3.5-5.1); Sodium 136 mmol/L (137-145); Total Bilirubin 0.7 mg/dL (0.2-1.3); Total Protein 5.6 g/dL (6.3-8.2)
[2021-04-02 11:48] LABS: Glucose,Whole Blood 173 mg/dL (75-99)
[2021-04-02] MEDS: POTASSIUM CHLORIDE ER 20 MEQ TAB.ER PO SCH ×2 (11:58→13:25)
--- NOTE | 2021-04-02 12:41 | P.DS ---
<Zakia Vaughny A - Last Filed: 04/02/21 19:39> Providers Expected date of discharge: 04/03/21 Hospital Course: HISTORY OF PRESENT ILLNESS This is an 85-year-old male patient of Dr. 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 Tejada, carotid artery disease. Patient was hospitalized 02/27/2021 at [facility] after a fall at home where he was found at 4 PM by his family came to check on him. He tried to get up from a recliner and somehow fell. Patient denies having any lightheadedness or dizziness at the time. Patient was stabilized and discharged to [facility] for rehab. Yesterday evening, nurse found patient to be very confused and hypotensive and tachycardic. Patient also had 2 falls yesterday and 1 included that the staff walked into the room and found the patient on the floor next to his bed and at that time he thought he had his head. He had abrasions on his lower extremities. Patient was brought into [facility] emergency center for evaluation review was found to be afebrile, heart rate 91, blood pressure 07/02/1989, pulse ox 100% on room air. EKG sinus rhythm with first-degree AV block and inverted T waves. WBC 14.2, hemoglobin 14.8, platelet count 173. Sodium 142, potassium 4.0, chloride 115, CO2 11, BUN 40 creatinine 1.81. Blood sugar 215. Troponin 0.090, 0.106, 0.122. Alkaline phosphatase 138. Urinalysis was clear, blood small, bilirubin 1+, nitrate and leukoesterase negative. Urine drug screen was negative. coronavirus PCR not detected. CAT scan of the brain and cervical spine revealed no evidence of acute intracranial hemorrhage, midline shift or mass effect. No definite acute fracture or dislocation of the cervical spine. Chronic brain parenchymal changes and degenerative changes in the cervical spine. Chest x-ray reveals no focal airspace disease, pneumothorax or pleural effusion. Stable mild cardiomegaly. Acute osseous abnormality seen. Patient is seen today in the emergency center waiting for bed on the cardiac stepdown unit. 03/29: Patient has been seen by cardiology and acute coronary syndrome has been ruled out. With plan for medical treatment and they are following on an as needed basis. Echocardiogram has been obtained but report is pending. Patient is afebrile, heart rate in the 60s, blood pressure 160/78, pulse ox 100% on room air. hall monitor sinus rhythm. Patient denies any new complaints. No complaints of pain. He is resting in bed and appears very comfortable. No respiratory distress noted. Family have met with case briefer/executive secretary social welfare and have asked for informational meeting with hospice. Capillary blood glucose running between 90-109. WBC 10.8, hemoglobin 13.6, platelet count 134. Chloride 119, CO2 12, BUN 20 creatinine 1. IV fluids will be discontinued, pat ient started on Norvasc. 03/30: This reports the patient had a run of V. tach 58 beats with no symptoms. Metoprolol increased to 50 mg twice daily and Cardiology consult added, no plan for any intervention and are following on an as needed basis. Patient states he denies chest pain or shortness of breath. He is feeling okay today. Left eye especially appears to have conjunctivitis and eye drops added. Patient had a bowel movement yesterday. Patient has been afebrile, heart rate 69, blood pressure 140/84, pulse ox 99% on room air. CBC unremarkable except for platelet count of 148. Potassium 3.3 and will be replaced. Magnesium 2.1. Blood sugars are running between 111 158. Patient will be started on Tradjenta and remain off metformin and glyburide. Family have decided on discharge plan to [place] or [facility]. Social work has been updated for discharge on Friday. 03/31: Patient is laying down in bed in no current distress, he had an episode of nonsustained ventricular tachycardia yesterday for which she was seen in consultation by cardiology we have increased metoprolol to 50 mg orally twice every day, continue to monitor the patient very closely, we are awaiting family to decide whether the patient can go executive secretary social welfare will be involved for possible discharge on Friday, I spoke with his daughter Heidi at the bedside discuss his prognosis and his likely require 24-hour care at this point in time he is unlikely to be able to go to [facility] at this point we'll plan for [facility] a Friday. 04/01: Patient is laying down in bed in no apparent distress, he continues to be generally weak, he will require Dr. hour care, I discussed this with his daughter yesterday that the patient will require 24-hour cares unlikely [facility] greater than [facility] at this point, he may be transitioned to an AFC if his physical activity becomes better down the line. We so plan to send the patient to [facility] tomorrow morning. 04/02: Repeat blood work reveals potassium 3.2 which will be replaced, BUN 7 and creatinine 0.78. Discharge plan is for [facility] for subacute rehab. Patient will be discharged once arrangements are completed. ASSESSMENT AND PLAN 1. Acute kidney injury, ATN secondary to poor oral intake, resolved. 2. Dehydration. 3. Metabolic encephalopathy most likely secondary to acute kidney injury and falls. 4. Metabolic acidosis, nonIon gap, secondary to acute kidney injury. 5. Fall 2 with head injury. 6. Elevated troponin. Acute coronary syndrome ruled out. 7. Paroxysmal atrial fibrillation not on anticoagulation due to frequent falls. 8. Hypertension. 9. Diabetes mellitus type 2. 10. Nonsustained ventricular tachycardia of 58 beats. 11. Conjunctivitis bilateral eyes. 12. Hyperlipidemia. 13. Legally blind secondary to macular degeneration and glaucoma. 14. Chronic kidney disease stage II, stable. 15. History of drug induced liver disease. 16. Thyroid nodule being monitored by Dr. Tejada, endocrinology. 17. Carotid artery disease status post right-sided endarterectomy. 18. Remote history of remote pulmonary embolism. 19. Generalized osteoarthritis with bilateral knee pain. 20. Recent hospitalization after fall with debility transferred to subacute rehab. 22. Depressive disorder with poor appetite 23. [facility] Impression and plan of care have been directed as dictated by the signing physician. Roselia Vaughn nurse practitioner acting as scribe for signing physician. Patient Condition at Discharge: Stable Plan - Discharge Summary New Discharge Prescriptions: New Atorvastatin [Lipitor] 40 mg PO DAILY tab amLODIPine [Norvasc] 5 mg PO DAILY tab Mirtazapine [Remeron] 7.5 mg PO HS tab Erythromycin Ophth Oint [Romycin Ophth Oint] 1 applic BOTH EYES HS gm Sodium Bicarbonate Tab 650 mg PO BID tab Linagliptin [Tradjenta] 5 mg PO DAILY tablet Metoprolol Tartrate [Lopressor] 50 mg PO BID tab Tobramycin 0.3% Ophth Soln [Tobrex 0.3% Ophth Soln] 2 drops BOTH EYES Q6H ml lisinopriL [Zestril] 5 mg PO DAILY tab Continue Aspirin EC [Ecotrin Low Dose] 81 mg PO DAILY@0800 Magnesium Oxide [Mag-Ox] 250 mg PO DAILY Health Shake 1 can PO BID-W/MEALS Diclofenac Sodium Gel 3% 1 applic TOPICAL BID@0800,1600 Acetaminophen [Tylenol] 650 mg PO Q8H PRN PRN Reason: Pain Vitamin B Complex 1 cap PO DAILY Multivitamins, Thera [Multivitamin (formulary)] 1 tab PO DAILY Discontinued metFORMIN HCL [Glucophage] 500 mg PO BID lisinopriL [Zestril] 5 mg PO DAILY #30 tablet Proheal 30 ml PO BID Metoprolol Tartrate [Lopressor] 25 mg PO BID@0800,1600 Escitalopram [Lexapro] 5 mg PO DAILY@0600 glyBURIDE 2.5 mg PO BID@0800,1600 Gabapentin [Neurontin] 100 mg PO TID@0800,1200,1800 acetaZOLAMIDE [Diamox] 500 mg PO BID@0800,1600 Discharge Medication List Aspirin EC [Ecotrin Low Dose] 81 mg PO DAILY@0800 07/15/17 [History] Magnesium Oxide [Mag-Ox] 250 mg PO DAILY 03/12/18 [History] Acetaminophen [Tylenol] 650 mg PO Q8H PRN 03/27/21 [History] Diclofenac Sodium Gel 3% 1 applic TOPICAL BID@0800,1600 03/27/21 [History] Health Shake 1 can PO BID-W/MEALS 03/27/21 [History] Multivitamins, Thera [Multivitamin (formulary)] 1 tab PO DAILY 03/27/21 [History] Vitamin B Complex 1 cap PO DAILY 03/27/21 [History] Atorvastatin [Lipitor] 40 mg PO DAILY tab 04/02/21 [Rx] Erythromycin Ophth Oint [Romycin Ophth Oint] 1 applic BOTH EYES HS gm 04/02/21 [Rx] Linagliptin [Tradjenta] 5 mg PO DAILY tablet 04/02/21 [Rx] Metoprolol Tartrate [Lopressor] 50 mg PO BID tab 04/02/21 [Rx] Mirtazapine [Remeron] 7.5 mg PO HS tab 04/02/21 [Rx] Sodium Bicarbonate Tab 650 mg PO BID tab 04/02/21 [Rx] Tobramycin 0.3% Ophth Soln [Tobrex 0.3% Ophth Soln] 2 drops BOTH EYES Q6H ml 04/02/21 [Rx] amLODIPine [Norvasc] 5 mg PO DAILY tab 04/02/21 [Rx] lisinopriL [Zestril] 5 mg PO DAILY tab 04/02/21 [Rx] Follow up Appointment(s)/Referral(s): [facility], [NON-STAFF] - Abel Pastor MD [Primary Care Provider] - 1 Week (at [facility]) Activity/Diet/Wound Care/Special Instructions: Patient will need a Wheel Chair to complete ADls, he will have someone to assist in propelling patient due to weakness, difficulty with ambulation, CVA. Discharge Disposition: TRANSFER TO SNF/ECF <Abel Pastor - Last Filed: 04/04/21 16:16> Providers Date of admission: 03/30/21 08:06 Expected date of discharge: 04/05/21 Attending physician: Abel Pastor Consults: 03/28/21 12:04 Consult Physician Routine Consulting Provider: Mohamud Wise Consult Reason/Comments: elevated trops Do you want consulting provider notified?: Yes 03/30/21 08:08 Consult Physician Routine Consulting Provider: Mohamud Wise Consult Reason/Comments: [place] Do you want consulting provider notified?: Yes Primary care physician: Abel Pastor
[2021-04-02] MEDS: ACETAMINOPHEN TAB 325 MG TAB PO PRN (16:08)
[2021-04-02 16:13] LABS: Glucose,Whole Blood 128 mg/dL (75-99)
--- NOTE | 2021-04-02 19:45 | P.PN ---
Subjective Progress Note Date: 04/02/21 HISTORY OF PRESENT ILLNESS This is an 85-year-old male patient of Dr. 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 Tejada, carotid artery disease. Patient was hospitalized 02/27/2021 at [facility] after a fall at home where he was found at 4 PM by his family came to check on him. He tried to get up from a recliner and somehow fell. Patient denies having any lightheadedness or dizziness at the time. Patient was stabilized and discharged to [facility] for rehab. Yesterday evening, nurse found patient to be very confused and hypotensive and tachycardic. Patient also had 2 falls yesterday an d 1 included that the staff walked into the room and found the patient on the floor next to his bed and at that time he thought he had his head. He had abrasions on his lower extremities. Patient was brought into [facility] emergency center for evaluation review was found to be afebrile, heart rate 91, blood pressure 07/02/1989, pulse ox 100% on room air. EKG sinus rhythm with first-degree AV block and inverted T waves. WBC 14.2, hemoglobin 14.8, platelet count 173. Sodium 142, potassium 4.0, chloride 115, CO2 11, BUN 40 creatinine 1.81. Blood sugar 215. Troponin 0.090, 0.106, 0.122. Alkaline phosphatase 138. Urinalysis was clear, blood small, bilirubin 1+, nitrate and leukoesterase negative. Urine drug screen was negative. coronavirus PCR not detected. CAT scan of the brain and cervical spine revealed no evidence of acute intracranial hemorrhage, midline shift or mass effect. No definite acute fracture or dislocation of the cervical spine. Chronic brain parenchymal changes and degenerative changes in the cervical spine. Chest x-ray reveals no focal airspace disease, pneumothorax or pleural effusion. Stable mild cardiomegaly. Acute osseous abnormality seen. Patient is seen today in the emergency center waiting for bed on the cardiac stepdown unit. 03/29: Patient has been seen by cardiology and acute coronary syndrome has been ruled out. With plan for medical treatment and they are following on an as needed basis. Echocardiogram has been obtained but report is pending. Patient is afebrile, heart rate in the 60s, blood pressure 160/78, pulse ox 100% on room air. lunchroom monitor sinus rhythm. Patient denies any new complaints. No complaints of pain. He is resting in bed and appears very comfortable. No respiratory distress noted. Family have met with piano case maker/executive secretary social welfare and have asked for informational meeting with hospice. Capillary blood glucose running between 90-109. WBC 10.8, hemoglobin 13.6, platelet count 134. C hloride 119, CO2 12, BUN 20 creatinine 1. IV fluids will be discontinued, patient started on Norvasc. 03/30: This reports the patient had a run of V. tach 58 beats with no symptoms. Metoprolol increased to 50 mg twice daily and Cardiology consult added, no plan for any intervention and are following on an as needed basis. Patient states he denies chest pain or shortness of breath. He is feeling okay today. Left eye especially appears to have conjunctivitis and eye drops added. Patient had a bowel movement yesterday. Patient has been afebrile, heart rate 69, blood pressure 140/84, pulse ox 99% on room air. CBC unremarkable except for platelet count of 148. Potassium 3.3 and will be replaced. Magnesium 2.1. Blood sugars are running between 111 158. Patient will be started on Tradjenta and remain off metformin and glyburide. Family have decided on discharge plan to [facility] or [facility]. Social work has been updated for discharge on Friday. 03/31: Patient is laying down in bed in no current distress, he had an episode of nonsustained ventricular tachycardia yesterday for which she was seen in consultation by cardiology we have increased metoprolol to 50 mg orally twice every day, continue to monitor the patient very closely, we are awaiting family to decide whether the patient can go executive secretary social welfare will be involved for possible discharge on Friday, I spoke with his daughter Heidi at the bedside discuss his prognosis and his likely require 24-hour care at this point in time he is unlikely to be able to go to [facility] at this point we'll plan for [place] a Friday. 04/01: Patient is laying down in bed in no apparent distress, he continues to be generally weak, he will require Dr. hour care, I discussed this with his daughter yesterday that the patient will require 24-hour cares unlikely assisted greater than [facility] at this point, he may be transitioned to an AFC if his p hysical activity becomes better down the line. We so plan to send the patient to [facility] tomorrow morning. 04/02: Repeat blood work reveals potassium 3.2 which will be replaced, BUN 7 and creatinine 0.78. Discharge plan is for [facility] for subacute rehab. Patient will be discharged once arrangements are completed. In the afternoon, family decided that they did not want the patient to go to [facility] as he would not participate with therapy and want to look at hospice at a different facility. 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 REVIEW OF SYSTEMS Constitutional: No documented fever. No weight change. Reports weakness, Reports fatigue noted lethargy. Reports daytime sleepiness. EENT: No headache. Chronic loss of vision. Chronic loss of Hearing. No nasal drainage or congestion. Lungs: No shortness of breath, no cough, no sputum production. No wheezing. Cardiovascular: No chest pain, no lower extremity edema. No palpitations. No paroxysmal nocturnal dyspnea. No orthopnea. No lightheadedness or dizziness. Possible syncopal episodes. Abdominal: No abdominal pain. No nausea, vomiting. No diarrhea. No constipation. No bloody or tarry stools. No loss of appetite. Genitourinary: No dysuria, increased frequency, urgency. No urinary retention. Musculoskeletal: No myalgias. Reports muscle weakness, Reports gait dysfunction, frequent frequent falls. No back pain. No neck pain. Reports bilat knee pain. Integumentary: Reports bilateral lower extremity wounds. No rash or pruritus. No unusual bruising. Neurologic: No aphasia. No facial droop. Noted change in mentation. Reported head injury. No headache. No paralysis. No paresthesia. Psychiatric: Noted depression. No anxiety. No mood swings. Endocrine: Noted mild abnormal blood sugars. PHYSICAL EXAMINATION Gen: This is an 85-year-old male. He is resting in bed and appears to be comfortable. No acute distress. HEENT: Head is atraumatic, normocephalic. Pupils equal, round. Sclerae is anicteric. NECK: Supple. No JVD. No lymphadenopathy. No thyromegaly. LUNGS: Clear to auscultation. No wheezes or rhonchi. No intercostal retractions. No accessory muscle usage. HEART: Regular rate and rhythm. 2/6 systolic murmur at the left sternal border. ABDOMEN: Soft. Bowel sounds are present. No masses. No tenderness. EXTREMITIES: No pedal edema. No calf tenderness. dorsalis pedis 1+ bilaterally. Multiple small superficial abrasions to bilateral lower extremities. NEUROLOGICAL: Patient is awake, alert and oriented to person and place. Cranial nerves 2 through 12 are grossly intact. ASSESSMENT AND PLAN 1. Acute kidney injury, ATN secondary to poor oral intake, resolved. DC IV fluids, resume lisinopril, hold metformin, Diamox will be resumed at dc, hold glyburide. 2. Dehydration, resolved. 3. Metabolic encephalopathy most likely secondary to acute kidney injury and falls. Continue treatment as in #1.and sodium bicarbonate 650 mg orally twice every day. 4. Nonion gap Metabolic acidosis secondary to acute kidney injury. continue treatment as previous paragraph. 5. Fall 2 with head injury. CAT scan of the brain is negative. 6. Elevated troponin. Cardiac consult appreciated, acute coronary syndrome ruled out continue aspirin 81 mg daily and Lopressor 25 mg twice daily. 7. Paroxysmal atrial fibrillation not on anticoagulation due to frequent falls. 8. Hypertension. Resume lisinopril 5 mg daily, continue amlodipine 5 mg daily and increase metoprolol to 50 mg twice daily. 9. Diabetes mellitus type 2. Hold glyburide 2.5 mg 2 times daily, metformin 500 mg 1 twice daily. Patient is on NovoLog scale and start Tradjenta 5 mg daily. Hemoglobin A1c is 6.7 10. Nonsustained ventricular tachycardia of 58 beats. Lopressor increased to 50 mg twice daily, cardiology recommends continuing current management and are following on an as-needed basis. 11. Conjunctivitis bilateral eyes. Patient started on tobramycin 2 drops both eyes every 6 hours and erythromycin ointment at bedtime. 12. Hyperlipidemia. Patient not currently on statin. 13. Legally blind secondary to macular degeneration and glaucoma. 14. Chronic kidney disease stage II, stable. 15. History of drug induced liver disease. 16. Thyroid nodule being monitored by Dr. Tejada, endocrinology. 17. Carotid artery disease status post right-sided endarterectomy. 18. Remote history of remote pulmonary embolism. 19. Generalized osteoarthritis with bilateral knee pain. Voltaren gel 3% daily to bilateral knees. 20. Recent hospitalization after fall with debility transferred to subacute rehab. Continue PT, OT consults 22. Depressive disorder with poor appetite continue mirtazapine 7.5 mg at bedtime discontinue Lexapro due to the risk of V. tach, discussed with his daughter at the bedside, start the patient on Nepro twice every day. 23. Hospice tomorrow morning. Impression and plan of care have been directed as dictated by the signing physician. Roselia Vaughn nurse practitioner acting as scribe for signing physici an. Objective - Vital Signs Vital signs: Vital Signs Temp 97.6 F 04/02/21 16:00 Pulse 67 04/02/21 16:00 Resp 16 04/02/21 16:00 BP 134/80 04/02/21 16:00 Pulse Ox 95 04/02/21 16:00 Intake & Output 04/02/21 04/02/21 04/03/21 06:59 18:59 06:59 Intake Total 50 Balance 50 Weight 83 kg 83 kg Intake: Oral 50 Other: Voiding Method Diaper Diaper # Voids 2 4 # Bowel Movements 0 - Labs CBC & Chem 7: 04/02/21 09:48 04/02/21 09:48 Labs: Abnormal Lab Results - Last 24 Hours (Table) 04/01/21 04/02/21 04/02/21 Range/Units 20:25 06:24 09:48 Sodium 136 L (137-145) mmol/L Potassium 3.2 L (3.5-5.1) mmol/L Chloride 110 H (98-107) mmol/L Carbon Dioxide 19 L (22-30) mmol/L BUN 7 L (9-20) mg/dL Glucose 178 H (74-99) mg/dL POC Glucose (mg/dL) 173 H 140 H (75-99) mg/dL Total Protein 5.6 L (6.3-8.2) g/dL Albumin 2.8 L (3.5-5.0) g/dL 04/02/21 04/02/21 Range/Units 11:48 16:11 Sodium (137-145) mmol/L Potassium (3.5-5.1) mmol/L Chloride (98-107) mmol/L Carbon Dioxide (22-30) mmol/L BUN (9-20) mg/dL Glucose (74-99) mg/dL POC Glucose (mg/dL) 173 H 128 H (75-99) mg/dL Total Protein (6.3-8.2) g/dL Albumin (3.5-5.0) g/dL
[2021-04-02 20:12] LABS: Glucose,Whole Blood 201 mg/dL (75-99)
[2021-04-02] MEDS: ERYTHROMYCIN 5 MG/GM OPHTH OINT 3.5 GM TUBE BOTH EYES SCH (20:18)
[2021-04-02] MEDS: MIRTAZAPINE 15 MG TAB PO SCH (20:18)
[2021-04-03] MEDS: DEXTROSE 5%-0.45% NACL 1,000 ML IV SCH ×3 (01:00→21:33)
[2021-04-03] MEDS: TOBRAMYCIN 0.3% OPHTH DROPS 5 ML BTL BOTH EYES SCH ×3 (03:13→21:32)
--- NOTE | 2021-04-03 04:39 | P.PN ---
Subjective Progress Note Date: 04/02/21 Progress Note Date: 04/01/21 HISTORY OF PRESENT ILLNESS This is an 85-year-old male patient of Dr. 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 Tejada, carotid artery disease. Patient was hospitalized 02/27/2021 at [facility] after a fall at home where he was found at 4 PM by his family came to check on him. He tried to get up from a recliner and somehow fell. Patient denies having any lightheadedness or dizziness at the time. Patient was stabilized and discharged to [facility] for rehab. Yesterday evening, nurse found patient to be very confused and hypotensive and tachycardic. Patient also had 2 falls yesterday and 1 included that the staff walked into the room and found the patient on the floor next to his bed and at that time he thought he had his head. He had abrasions on his lower extremities. Patient was brought into [facility] emergency center for evaluation review was found to be afebrile, heart rate 91, blood pressure 07/02/1989, pulse ox 100% on room air. EKG sinus rhythm with first-degree AV block and inverted T waves. WBC 14.2, hemoglobin 14.8, platelet count 173. Sodium 142, potassium 4.0, chloride 115, CO2 11, BUN 40 creatinine 1.81. Blood sugar 215. Troponin 0.090, 0.106, 0.122. Alkaline phosphatase 138. Urinalysis was clear, blood small, bilirubin 1+, nitrate and leukoesterase negative. Urine drug screen was negative. coronavirus PCR not detected. CAT scan of the brain and cervical spine revealed no evidence of acute intracranial hemorrhage, midline shift or mass effect. No definite acute fracture or dislocation of the cervical spine. Chronic brain parenchymal changes and degenerative changes in the cervical spine. Chest x-ray reveals no focal airspace disease, pneumothorax or pleural effusion. Stable mild cardiomegaly. Acute osseous abnormality seen. Patient is seen today in the emergency center waiting for bed on the cardiac stepdown unit. 03/29: Patient has been seen by cardiology and acute coronary syndrome has been ruled out. With plan for medical treatment and they are following on an as needed basis. Echocardiogram has been obtained but report is pending. Patient is afebrile, heart rate in the 60s, blood pressure 160/78, pulse ox 100% on room air. 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 Patient denies any new complaints. No complaints of pain. He is resting in bed and appears very comfortable. No respiratory distress noted. Family have met with rehabilitation caseworker/social sciences instructor and have asked for informational meeting with hospice. Capillary blood glucose running between 90-109. WBC 10.8, hemoglobin 13.6, platelet count 134. Chloride 119, CO2 12, BUN 20 creatinine 1. IV fluids will be discontinued, patient started on Norvasc. 03/30: This reports the patient had a run of V. tach 58 beats with no symptoms. Metoprolol increased to 50 mg twice daily and Cardiology consult added, no plan for any intervention and are following on an as needed basis. Patient states he denies chest pain or shortness of breath. He is feeling okay today. Left eye especially appears to have conjunctivitis and eye drops added. Patient had a bowel movement yesterday. Patient has been afebrile, heart rate 69, blood pressure 140/84, pulse ox 99% on room air. CBC unremarkable except for platelet count of 148. Potassium 3.3 and will be replaced. Magnesium 2.1. Blood sugars are running between 111 158. Patient will be started on Tradjenta and remain off metformin and glyburide. Family have decided on discharge plan to [place] or [facility]. Social work has been updated for discharge on Friday. 03/31: Patient is laying down in bed in no current distress, he had an episode of nonsustained ventricular tachycardia yesterday for which she was seen in consultation by cardiology we have increased metoprolol to 50 mg orally twice every day, continue to monitor the patient very closely, we are awaiting family to decide whether the patient can go social sciences instructor will be involved for possible discharge on Friday, I spoke with his daughter Heidi at the bedside discuss his prognosis and his likely require 24-hour care at this point in time he is unlikely to be able to go to [facility] at this point we'll plan for [facility] a Friday. 04/01: Patient is laying down in bed in no apparent distress, he continues to be generally weak, he will require Dr. hour care, I discussed this with his brayden irineoter yesterday that the patient will require 24-hour cares unlikely alf greater than [facility] at this point, he may be transitioned to an AFC if his physical activity becomes better down the line. We so plan to send the patient to [facility] tomorrow morning. 04/02: Patient is laying down in bed he continues to be generally weak, family refused to transfer the patient to [facility] at this point in time, instead they elected to go to [facility] with palliative care and possible transition to hospice care down the line. Patient is eating about 15-20% of his meal at this time, he would need 24-hour care at this point in time, he would be transferred tomorrow to [facility] this was discussed with the social sciences instructor. REVIEW OF SYSTEMS Constitutional: No documented fever. No weight change. Reports weakness, Reports fatigue noted lethargy. Reports daytime sleepiness. EENT: No headache. Chronic loss of vision. Chronic loss of Hearing. No nasal drainage or congestion. Lungs: No shortness of breath, no cough, no sputum production. No wheezing. Cardiovascular: No chest pain, no lower extremity edema. No palpitations. No paroxysmal nocturnal dyspnea. No orthopnea. No lightheadedness or dizziness. Possible syncopal episodes. Abdominal: No abdominal pain. No nausea, vomiting. No diarrhea. No constipation. No bloody or tarry stools. No loss of appetite. Genitourinary: No dysuria, increased frequency, urgency. No urinary retention. Musculoskeletal: No myalgias. Reports muscle weakness, Reports gait dysfunction, frequent frequent falls. No back pain. No neck pain. Reports bilat knee pain. Integumentary: Reports bilateral lower extremity wounds. No rash or pruritus. No unusual bruising. Neurologic: No aphasia. No facial droop. Noted change in mentation. Reported head injury. No headache. No paralysis. No paresthesia. Psychiatric: No depression. No anxiety. No mood swings. Endocrine: Noted mild abnormal blood sugars. PHYSICAL EXAMINATION Gen: This is an 85-year-old male. He is resting in bed and appears to be comfortable. HEENT: Head is atraumatic, normocephalic. Pupils equal, round. Sclerae is anicte miya. NECK: Supple. No JVD. No lymphadenopathy. No thyromegaly. LUNGS: Clear to auscultation. No wheezes or rhonchi. No intercostal retractions. No accessory muscle usage. HEART: Regular rate and rhythm. 2/6 systolic murmur at the left sternal border. ABDOMEN: Soft. Bowel sounds are present. No masses. No tenderness. EXTREMITIES: No pedal edema. No calf tenderness. dorsalis pedis 1+ bilaterally. Multiple small superficial abrasions to bilateral lower extremities. NEUROLOGICAL: Patient is awake, alert and oriented to person and place. Cranial nerves 2 through 12 are grossly intact. ASSESSMENT AND PLAN 1. Acute kidney injury, ATN secondary to poor oral intake, resolved. Continue IV fluids, resume lisinopril, discontinue metformin. 2. Dehydration. Continue IV fluid changed to D5 half-normal saline at 100 mL an hour. 3. non-anion gap metabolic acidosis.Metabolic encephalopathy most likely secondary to acute kidney injury and falls. Continue treatment as in #1.and sodium bicarbonate 650 mg orally twice every day. 4. Metabolic acidosis secondary to acute kidney injury. continue treatment as previous paragraph. 5. Fall 2 with head injury. CAT scan of the brain is negative. 6. Elevated troponin. Cardiac consult appreciated, acute coronary syndrome ruled out continue aspirin 81 mg daily and Lopressor 25 mg twice daily. 7. Paroxysmal atrial fibrillation not on anticoagulation due to frequent falls. 8. Hypertension. Resume lisinopril 5 mg daily, continue amlodipine 5 mg daily and increase metoprolol to 50 mg twice daily. 9. Diabetes mellitus type 2. Hold glyburide 2.5 mg 2 times daily, metformin 500 mg 1 twice daily. Patient is on NovoLog scale and start Tradjenta 5 mg daily. Hemoglobin A1c is 6.7 10. Nonsustained ventricular tachycardia of 58 beats. Lopressor increased to 50 mg twice daily, cardiology recommends continuing current management and are following on an as-needed basis. 11. Conjunctivitis bilateral eyes. Patient started on tobramycin 2 drops both eyes every 6 hours and erythromycin ointment at bedtime. 12. Hyperlipidemia. Patient not currently on statin. 13. Legally blind secondary to macular degeneration and glaucoma. 14. Chronic kidney disease stage II, stable. 15. History of drug induced liver disease. 16. Thyroid nodule being monitored by Dr. Tejada, endocrinology. 17. Carotid artery disease status post right-sided endarterectomy. 18. Remote history of remote pulmonary embolism. 19. Generalized osteoarthritis with bilateral knee pain. Voltaren gel 3% daily to bilateral knees. 20. Recent hospitalization after fall with debility transferred to subacute rehab. Continue PT, OT consults 22. Depressive disorder with poor appetite continue mirtazapine 7.5 mg at bedtime discontinue Lexapro due to the risk of V. tach, discussed with his daughter at the bedside, start the patient on Nepro twice every day. 23. Eisenberg Iwona Clark in AM Objective - Vital Signs Vital signs: Vital Signs Temp 97.6 F 04/02/21 16:00 Pulse 67 04/02/21 16:00 Resp 16 04/02/21 16:00 BP 134/80 04/02/21 16:00 Pulse Ox 95 04/02/21 16:00 Intake & Output 04/01/21 04/02/21 04/02/21 18:59 06:59 18:59 Intake Total 520 50 Balance 520 50 Weight 83 kg 83 kg Intake: Oral 520 50 Other: Voiding Method Diaper Diaper Diaper # Voids 1 2 4 # Bowel Movements 1 0 - Labs CBC & Chem 7: 04/02/21 09:48 04/02/21 09:48 Labs: Abnormal Lab Results - Last 24 Hours (Table) 04/01/21 04/02/21 04/02/21 Range/Units 20:25 06:24 09:48 Sodium 136 L (137-145) mmol/L Potassium 3.2 L (3.5-5.1) mmol/L Chloride 110 H (98-107) mmol/L Carbon Dioxide 19 L (22-30) mmol/L BUN 7 L (9-20) mg/dL Glucose 178 H (74-99) mg/dL POC Glucose (mg/dL) 173 H 140 H (75-99) mg/dL Total Protein 5.6 L (6.3-8.2) g/dL Albumin 2.8 L (3.5-5.0) g/dL 04/02/21 04/02/21 Range/Units 11:48 16:11 Sodium (137-145) mmol/L Potassium (3.5-5.1) mmol/L Chloride (98-107) mmol/L Carbon Dioxide (22-30) mmol/L BUN (9-20) mg/dL Glucose (74-99) mg/dL POC Glucose (mg/dL) 173 H 128 H (75-99) mg/dL Total Protein (6.3-8.2) g/dL Albumin (3.5-5.0) g/dL
[2021-04-03] MEDS: POTASSIUM CHLORIDE 10 MEQ in WATER FOR INJECTION 1 100ML.BAG IVPB SCH ×2 (05:55→06:57)
[2021-04-03 06:17] LABS: Glucose,Whole Blood 131 mg/dL (75-99)
[2021-04-03] MEDS: INSULIN ASPART (NovoLOG) 100 UNIT/ML VIAL SQ SCH ×4 (06:18→21:39)
[2021-04-03] MEDS: ACETAMINOPHEN TAB 325 MG TAB PO PRN (08:57)
[2021-04-03] MEDS: MAGNESIUM OXIDE 400 MG TAB PO SCH (08:57)
[2021-04-03 09:00] LABS: Basophils % (A) 0 %; Eosinophils # (A) 0.5 k/uL (0-0.7); Eosinophils % (A) 4 %; HCT 42.5 % (39.0-53.0); HGB 13.8 gm/dL (13.0-17.5); Lymphocytes # (A) 1.6 k/uL (1.0-4.8); Lymphocytes % (A) 16 %; MCH 29.7 pg (25.0-35.0); MCHC 32.4 g/dL (31.0-37.0); MCV 91.7 fL (80.0-100.0); Mean Platelet Volume 10.5; Monocytes # (A) 0.6 k/uL (0-1.0); Monocytes % (A) 6 %; Neutrophils # (A) 7.3 k/uL (1.3-7.7); Neutrophils % (A) 72 %; Platelet Count 168 k/uL (150-450); RBC 4.63 m/uL (4.30-5.90); RDW 14.9 % (11.5-15.5); WBC 10.2 k/uL (3.8-10.6)
[2021-04-03] MEDS: LINAGLIPTIN 5 MG TABLET PO SCH (09:00)
[2021-04-03] MEDS: ATORVASTATIN 40 MG TAB PO SCH (09:00)
[2021-04-03] MEDS: ASPIRIN 81 MG PO SCH (09:00)
[2021-04-03] MEDS: MULTIVITAMINS, THERA 1 EACH TAB PO SCH (09:01)
[2021-04-03] MEDS: METOPROLOL TARTRATE 50 MG TAB PO SCH ×2 (09:01→21:31)
[2021-04-03] MEDS: SODIUM BICARBONATE TAB 650 MG TAB PO SCH ×2 (09:02→21:31)
[2021-04-03] MEDS: lisinopriL 5 MG TAB PO SCH (09:02)
[2021-04-03] MEDS: amLODIPine 5 MG TAB PO SCH (09:02)
[2021-04-03 09:33] LABS: ALT 22 U/L (4-49); AST 29 U/L (17-59); African American GFR (CKD) >90 (>60 ml/min/1.73 sqM); Albumin 3.1 g/dL (3.5-5.0); Alkaline Phosphatase 130 U/L (38-126); Anion Gap 8 mmol/L; Blood Urea Nitrogen 6 mg/dL (9-20); Calcium 8.8 mg/dL (8.4-10.2); Carbon Dioxide 19 mmol/L (22-30); Chloride 109 mmol/L (98-107); Glucose 163 mg/dL (74-99); Non-African American GFR(CKD) 82 (>60 ml/min/1.73 sqM); Potassium 3.9 mmol/L (3.5-5.1); Sodium 136 mmol/L (137-145); Total Bilirubin 0.7 mg/dL (0.2-1.3)
[2021-04-03 12:05] LABS: Glucose,Whole Blood 121 mg/dL (75-99)
[2021-04-03] MEDS: DICLOFENAC SODIUM GEL 100 GM TUBE TOPICAL SCH ×2 (16:38→17:00)
[2021-04-03 16:47] LABS: Glucose,Whole Blood 148 mg/dL (75-99)
[2021-04-03 20:13] LABS: Glucose,Whole Blood 140 mg/dL (75-99)
[2021-04-03] MEDS: MIRTAZAPINE 15 MG TAB PO SCH (21:31)
[2021-04-03] MEDS: ERYTHROMYCIN 5 MG/GM OPHTH OINT 3.5 GM TUBE BOTH EYES SCH (21:32)
[2021-04-04] MEDS: TOBRAMYCIN 0.3% OPHTH DROPS 5 ML BTL BOTH EYES SCH ×4 (04:35→20:58)
[2021-04-04] MEDS: DEXTROSE 5%-0.45% NACL 1,000 ML IV SCH ×2 (04:35→16:49)
[2021-04-04 06:08] LABS: Glucose,Whole Blood 127 mg/dL (75-99)
[2021-04-04] MEDS: INSULIN ASPART (NovoLOG) 100 UNIT/ML VIAL SQ SCH ×4 (06:26→20:59)
[2021-04-04] MEDS: MAGNESIUM OXIDE 400 MG TAB PO SCH (08:41)
[2021-04-04] MEDS: MULTIVITAMINS, THERA 1 EACH TAB PO SCH (08:41)
[2021-04-04] MEDS: METOPROLOL TARTRATE 50 MG TAB PO SCH ×2 (08:41→20:57)
[2021-04-04] MEDS: lisinopriL 5 MG TAB PO SCH (08:42)
[2021-04-04] MEDS: ATORVASTATIN 40 MG TAB PO SCH (08:42)
[2021-04-04] MEDS: amLODIPine 5 MG TAB PO SCH (08:42)
[2021-04-04] MEDS: DICLOFENAC SODIUM GEL 100 GM TUBE TOPICAL SCH ×2 (08:42→16:59)
[2021-04-04] MEDS: ASPIRIN 81 MG PO SCH (08:42)
[2021-04-04] MEDS: SODIUM BICARBONATE TAB 650 MG TAB PO SCH ×2 (08:42→20:57)
[2021-04-04] MEDS: LINAGLIPTIN 5 MG TABLET PO SCH (08:42)
[2021-04-04] MEDS: ACETAMINOPHEN TAB 325 MG TAB PO PRN ×2 (08:45→20:54)
[2021-04-04 11:35] LABS: Glucose,Whole Blood 172 mg/dL (75-99)
--- NOTE | 2021-04-04 14:36 | P.PN ---
Subjective Progress Note Date: 04/03/21 Progress Note Date: 04/01/21 HISTORY OF PRESENT ILLNESS This is an 85-year-old male patient of Dr. 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 Tejada, carotid artery disease. Patient was hospitalized 02/27/2021 at [facility] after a fall at home where he was found at 4 PM by his family came to check on him. He tried to get up from a recliner and somehow fell. Patient denies having any lightheadedness or dizziness at the time. Patient was stabilized and discharged to [facility] for rehab. Yesterday evening, nurse found patient to be very confused and hypotensive and tachycardic. Patient also had 2 falls yesterday and 1 included that the staff walked into the room and found the patient on the floor next to his bed and at that time he thought he had his head. He had abrasions on his lower extremities. Patient was brought into [facility] emergency center for evaluation review was found to be afebrile, heart rate 91, blood pressure 07/02/1989, pulse ox 100% on room air. EKG sinus rhythm with first-degree AV block and inverted T waves. WBC 14.2, hemoglobin 14.8, platelet count 173. Sodium 142, potassium 4.0, chloride 115, CO2 11, BUN 40 creatinine 1.81. Blood sugar 215. Troponin 0.090, 0.106, 0.122. Alkaline phosphatase 138. Urinalysis was clear, blood small, bilirubin 1+, nitrate and leukoesterase negative. Urine drug screen was negative. coronavirus PCR not detected. CAT scan of the brain and cervical spine revealed no evidence of acute intracranial hemorrhage, midline shift or mass effect. No definite acute fracture or dislocation of the cervical spine. Chronic brain parenchymal changes and degenerative changes in the cervical spine. Chest x-ray reveals no focal airspace disease, pneumothorax or pleural effusion. Stable mild cardiomegaly. Acute osseous abnormality seen. Patient is seen today in the emergency center waiting for bed on the cardiac stepdown unit. 03/29: Patient has been seen by cardiology and acute coronary syndrome has been ruled out. With plan for medical treatment and they are following on an as needed basis. Echocardiogram has been obtained but report is pending. Patient is afebrile, heart rate in the 60s, blood pressure 160/78, pulse ox 100% on room air. lead janitor sinus rhythm. Patient denies any new complaints. No complaints of pain. He is resting in bed and appears very comfortable. No respiratory distress noted. Family have met with supervisor case loading/social work professor and have asked for informational meeting with hospice. Capillary blood glucose running between 90-109. WBC 10.8, hemoglobin 13.6, platelet count 134. Chloride 119, CO2 12, BUN 20 creatinine 1. IV fluids will be discontinued, patient started on Norvasc. 03/30: This reports the patient had a run of V. tach 58 beats with no symptoms. Metoprolol increased to 50 mg twice daily and Cardiology consult added, no plan for any intervention and are following on an as needed basis. Patient states he denies chest pain or shortness of breath. He is feeling okay today. Left eye especially appears to have conjunctivitis and eye drops added. Patient had a bowel movement yesterday. Patient has been afebrile, heart rate 69, blood pressure 140/84, pulse ox 99% on room air. CBC unremarkable except for platelet count of 148. Potassium 3.3 and will be replaced. Magnesium 2.1. Blood sugars are running between 111 158. Patient will be started on Tradjenta and remain off metformin and glyburide. Family have decided on discharge plan to [place] or [facility]. Social work has been updated for discharge on Friday. 03/31: Patient is laying down in bed in no current distress, he had an episode of nonsustained ventricular tachycardia yesterday for which she was seen in consultation by cardiology we have increased metoprolol to 50 mg orally twice every day, continue to monitor the patient very closely, we are awaiting family to decide whether the patient can go social work professor will be involved for possible discharge on Friday, I spoke with his daughter Heidi at the bedside discuss his prognosis and his likely require 24-hour care at this point in time he is unlikely to be able to go to AF at this point we'll plan for [place] a Friday. 04/01: Patient is laying down in bed in no apparent distress, he continues to be generally weak, he will require Dr. hour care, I discussed this with his brayden irineoter yesterday that the patient will require 24-hour cares unlikely intermediate greater than [facility] at this point, he may be transitioned to an AF if his physical activity becomes better down the line. We so plan to send the patient to [facility] tomorrow morning. 04/02: Patient is laying down in bed he continues to be generally weak, family refused to transfer the patient to [facility] at this point in time, instead they elected to go to [facility] with palliative care and possible transition to hospice care down the line. Patient is eating about 15-20% of his meal at this time, he would need 24-hour care at this point in time, he would be transferred tomorrow to [facility] this was discussed with the social work professor. 04/03: Patient is laying down in bed continues to be generally weak, family requested to transfer him to [facility] in the next 24 hours since to decline [facility] at this point, they're interested in palliative care and transition to hospice care down the line. REVIEW OF SYSTEMS Constitutional: No documented fever. No weight change. Reports weakness, Reports fatigue noted lethargy. Reports daytime sleepiness. EENT: No headache. Chronic loss of vision. Chronic loss of Hearing. No nasal drainage or congestion. Lungs: No shortness of breath, no cough, no sputum production. No wheezing. Cardiovascular: No chest pain, no lower extremity edema. No palpitations. No paroxysmal nocturnal dyspnea. No orthopnea. No lightheadedness or dizziness. Possible syncopal episodes. Abdominal: No abdominal pain. No nausea, vomiting. No diarrhea. No constipation. No bloody or tarry stools. No loss of appetite. Genitourinary: No dysuria, increased frequency, urgency. No urinary retention. Musculoskeletal: No myalgias. Reports muscle weakness, Reports gait dysfunction, frequent frequent falls. No back pain. No neck pain. Reports bilat knee pain. Integumentary: Reports bilateral lower extremity wounds. No rash or pruritus. No unusual bruising. Neurologic: No aphasia. No facial droop. Noted change in mentation. Reported head injury. No headache. No paralysis. No paresthesia. Psychiatric: No depression. No anxiety. No mood swings. Endocrine: Noted mild abnormal blood sugars. PHYSICAL EXAMINATION Gen: This is an 85-year-old male. He is resting in bed and appears to be comfortable. HEENT: Head is atraumatic, normocephalic. Pupils equal, round. Sclerae is anicteric. NECK: Supple. No JVD. No lymphadenopathy. No thyromegaly. LUNGS: Clear to auscultation. No wheezes or rhonchi. No intercostal retractions. No accessory muscle usage. HEART: Regular rate and rhythm. 2/6 systolic murmur at the left sternal border. ABDOMEN: Soft. Bowel sounds are present. No masses. No tenderness. EXTREMITIES: No pedal edema. No calf tenderness. dorsalis pedis 1+ bilaterally. Multiple small superficial abrasions to bilateral lower extremities. NEUROLOGICAL: Patient is awake, alert and oriented to person and place. Cranial nerves 2 through 12 are grossly intact. ASSESSMENT AND PLAN 1. Acute kidney injury, ATN secondary to poor oral intake, resolved. Continue IV fluids, resume lisinopril, discontinue metformin. 2. Dehydration. Continue IV fluid changed to D5 half-normal saline at 100 mL an hour. 3. non-anion gap metabolic acidosis.Metabolic encephalopathy most likely secondary to acute kidney injury and falls. Continue treatment as in #1.and sodium bicarbonate 650 mg orally twice every day. 4. Metabolic acidosis secondary to acute kidney injury. continue treatment as previous paragraph. 5. Fall 2 with head injury. CAT scan of the brain is negative. 6. Elevated troponin. Cardiac consult appreciated, acute coronary syndrome ruled out continue aspirin 81 mg daily and Lopressor 25 mg twice daily. 7. Paroxysmal atrial fibrillation not on anticoagulation due to frequent falls. 8. Hypertension. Resume lisinopril 5 mg daily, continue amlodipine 5 mg daily and increase metoprolol to 50 mg twice daily. 9. Diabetes mellitus type 2. Hold glyburide 2.5 mg 2 times daily, metformin 500 mg 1 twice daily. Patient is on NovoLog scale and start Tradjenta 5 mg daily. Hemoglobin A1c is 6.7 10. Nonsustained ventricular tachycardia of 58 beats. Lopressor increased to 50 mg twice daily, cardiology recommends continuing current management and are following on an as-needed basis. 11. Conjunctivitis bilateral eyes. Patient started on tobramycin 2 drops both eyes every 6 hours and erythromycin ointment at bedtime. 12. Hyperlipidemia. Patient not currently on statin. 13. Legally blind secondary to macular degeneration and glaucoma. 14. Chronic kidney disease stage II, stable. 15. History of drug induced liver disease. 16. Thyroid nodule being monitored by Dr. Tejada, endocrinology. 17. Carotid artery disease status post right-sided endarterectomy. 18. Remote history of remote pulmonary embolism. 19. Generalized osteoarthritis with bilateral knee pain. Voltaren gel 3% daily to bilateral knees. 20. Recent hospitalization after fall with debility transferred to subacute rehab. Continue PT, OT consults 22. Depressive disorder with poor appetite continue mirtazapine 7.5 mg at bedtime discontinue Lexapro due to the risk of V. tach, discussed with his daughter at the bedside, start the patient on Nepro twice every day. 23. [facility] in AM Objective - Vital Signs Vital signs: Vital Signs Temp 97.7 F 04/03/21 08:00 Pulse 63 04/03/21 16:00 Resp 16 04/03/21 16:00 BP 118/67 04/03/21 16:00 Pulse Ox 99 04/03/21 16:00 Intake & Output 04/02/21 04/03/21 04/03/21 18:59 06:59 18:59 Intake Total 50 460 Balance 50 460 Weight 83 kg 82 kg Intake: Intake, IV Titration 200 Amount Dextrose 5%-0.45% NaCl 1, 200 000 ml @ 100 mls/hr IV . Q10H [facility] Rx#:[id number] Oral 50 260 Other: Voiding Method Diaper Diaper Diaper # Voids 4 3 2 # Bowel Movements 0 1 - Labs CBC & Chem 7: 04/03/21 08:25 04/03/21 08:10 Labs: Abnormal Lab Results - Last 24 Hours (Table) 04/02/21 04/03/21 04/03/21 Range/Units 20:10 04:41 06:15 Sodium (137-145) mmol/L Chloride (98-107) mmol/L Carbon Dioxide (22-30) mmol/L BUN (9-20) mg/dL Glucose (74-99) mg/dL POC Glucose (mg/dL) 201 H 148 H 131 H (75-99) mg/dL Alkaline Phosphatase (38-126) U/L Total Protein (6.3-8.2) g/dL Albumin (3.5-5.0) g/dL 04/03/21 04/03/21 Range/Units 08:10 11:56 Sodium 136 L (137-145) mmol/L Chloride 109 H (98-107) mmol/L Carbon Dioxide 19 L (22-30) mmol/L BUN 6 L (9-20) mg/dL Glucose 163 H (74-99) mg/dL POC Glucose (mg/dL) 121 H (75-99) mg/dL Alkaline Phosphatase 130 H (38-126) U/L Total Protein 6.0 L (6.3-8.2) g/dL Albumin 3.1 L (3.5-5.0) g/dL
--- NOTE | 2021-04-04 16:17 | P.PN ---
Subjective Progress Note Date: 04/04/21 Progress Note Date: 04/01/21 HISTORY OF PRESENT ILLNESS This is an 85-year-old male patient of Dr. 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 Tejada, carotid artery disease. Patient was hospitalized 02/27/2021 at [facility] after a fall at home where he was found at 4 PM by his family came to check on him. He tried to get up from a recliner and somehow fell. Patient denies having any lightheadedness or dizziness at the time. Patient was stabilized and discharged to [facility] for rehab. Yesterday evening, nurse found patient to be very confused and hypotensive and tachycardic. Patient also had 2 falls yesterday and 1 included that the staff walked into the room and found the patient on the floor next to his bed and at that time he thought he had his head. He had abrasions on his lower extremities. Patient was brought into [facility] emergency center for evaluation review was found to be afebrile, heart rate 91, blood pressure 07/02/1989, pulse ox 100% on room air. EKG sinus rhythm with first-degree AV block and inverted T waves. WBC 14.2, hemoglobin 14.8, platelet count 173. Sodium 142, potassium 4.0, chloride 115, CO2 11, BUN 40 creatinine 1.81. Blood sugar 215. Troponin 0.090, 0.106, 0.122. Alkaline phosphatase 138. Urinalysis was clear, blood small, bilirubin 1+, nitrate and leukoesterase negative. Urine drug screen was negative. coronavirus PCR not detected. CAT scan of the brain and cervical spine revealed no evidence of acute intracranial hemorrhage, midline shift or mass effect. No definite acute fracture or dislocation of the cervical spine. Chronic brain parenchymal changes and degenerative changes in the cervical spine. Chest x-ray reveals no focal airspace disease, pneumothorax or pleural effusion. Stable mild cardiomegaly. Acute osseous abnormality seen. Patient is seen today in the emergency center waiting for bed on the cardiac stepdown unit. 03/29: Patient has been seen by cardiology and acute coronary syndrome has been ruled out. With plan for medical treatment and they are following on an as needed basis. Echocardiogram has been obtained but report is pending. Patient is afebrile, heart rate in the 60s, blood pressure 160/78, pulse ox 100% on room air. teletypesetter monitor sinus rhythm. Patient denies any new complaints. No complaints of pain. He is resting in bed and appears very comfortable. No respiratory distress noted. Family have met with case fitter/social service agency director and have asked for informational meeting with hospice. Capillary blood glucose running between 90-109. WBC 10.8, hemoglobin 13.6, platelet count 134. Chloride 119, CO2 12, BUN 20 creatinine 1. IV fluids will be discontinued, patient started on Norvasc. 03/30: This reports the patient had a run of V. tach 58 beats with no symptoms. Metoprolol increased to 50 mg twice daily and Cardiology consult added, no plan for any intervention and are following on an as needed basis. Patient states he denies chest pain or shortness of breath. He is feeling okay today. Left eye especially appears to have conjunctivitis and eye drops added. Patient had a bowel movement yesterday. Patient has been afebrile, heart rate 69, blood pressure 140/84, pulse ox 99% on room air. CBC unremarkable except for platelet count of 148. Potassium 3.3 and will be replaced. Magnesium 2.1. Blood sugars are running between 111 158. Patient will be started on Tradjenta and remain off metformin and glyburide. Family have decided on discharge plan to [place] or [facility]. Social work has been updated for discharge on Friday. 03/31: Patient is laying down in bed in no current distress, he had an episode of nonsustained ventricular tachycardia yesterday for which she was seen in consultation by cardiology we have increased metoprolol to 50 mg orally twice every day, continue to monitor the patient very closely, we are awaiting family to decide whether the patient can go social service agency director will be involved for possible discharge on Friday, I spoke with his daughter Heidi at the bedside discuss his prognosis and his likely require 24-hour care at this point in time he is unlikely to be able to go to AF at this point we'll plan for [place] a Friday. 04/01: Patient is laying down in bed in no apparent distress, he continues to be generally weak, he will require Dr. hour care, I discussed this with his brayden irineoter yesterday that the patient will require 24-hour cares unlikely retirement greater than [facility] at this point, he may be transitioned to an AF if his physical activity becomes better down the line. We so plan to send the patient to [facility] tomorrow morning. 04/02: Patient is laying down in bed he continues to be generally weak, family refused to transfer the patient to [facility] at this point in time, instead they elected to go to [facility] with palliative care and possible transition to hospice care down the line. Patient is eating about 15-20% of his meal at this time, he would need 24-hour care at this point in time, he would be transferred tomorrow to [facility] this was discussed with the social service agency director. 04/03: Patient is laying down in bed continues to be generally weak, family requested to transfer him to [facility] in the next 24 hours since to decline [facility] at this point, they're interested in palliative care and transition to hospice care down the line. 04/04: Patient is laying down in bed he is about the same, his eating a bit more today than yesterday, he denies any chest pain, not short of breath, he has no abdominal pain, nausea or vomiting, he continues to have pain in both lower extremity is, he continues to be weak, the plan is to transfer the patient to [facility] tomorrow morning. All the paperwork signed and the patient can be discharged home in the morning REVIEW OF SYSTEMS Constitutional: No documented fever. No weight change. Reports weakness, Reports fatigue noted lethargy. Reports daytime sleepiness. EENT: No headache. Chronic loss of vision. Chronic loss of Hearing. No nasal drainage or congestion. Lungs: No shortness of breath, no cough, no sputum production. No wheezing. Cardiovascular: No chest pain, no lower extremity edema. No palpitations. No paroxysmal nocturnal dyspnea. No orthopnea. No lightheadedness or dizziness. Possible syncopal episodes. Abdominal: No abdominal pain. No nausea, vomiting. No diarrhea. No constipation. No bloody or tarry stools. No loss of appetite. Genitourinary: No dysuria, increased frequency, urgency. No urinary retention. Musculoskeletal: No myalgias. Reports muscle weakness, Reports gait dysfunction, frequent frequent falls. No back pain. No neck pain. Reports bilat knee pain. Integumentary: Reports bilateral lower extremity wounds. No rash or pruritus. No unusual bruising. Neurologic: No aphasia. No facial droop. Noted change in mentation. Reported head injury. No headache. No paralysis. No paresthesia. Psychiatric: No depression. No anxiety. No mood swings. Endocrine: Noted mild abnormal blood sugars. PHYSICAL EXAMINATION Gen: This is an 85-year-old male. He is resting in bed and appears to be comfortable. HEENT: Head is atraumatic, normocephalic. Pupils equal, round. Sclerae is anicteric. NECK: Supple. No JVD. No lymphadenopathy. No thyromegaly. LUNGS: Clear to auscultation. No wheezes or rhonchi. No intercostal retractions. No accessory muscle usage. HEART: Regular rate and rhythm. 2/6 systolic murmur at the left sternal border. ABDOMEN: Soft. Bowel sounds are present. No masses. No tenderness. EXTREMITIES: No pedal edema. No calf tenderness. dorsalis pedis 1+ bilaterally. Multiple small superficial abrasions to bilateral lower extremities. NEUROLOGICAL: Patient is awake, alert and oriented to person and place. Cranial nerves 2 through 12 are grossly intact. ASSESSMENT AND PLAN 1. Acute kidney injury, ATN secondary to poor oral intake, resolved. Continue IV fluids, resume lisinopril, discontinue metformin. 2. Dehydration. Continue IV fluid changed to D5 half-normal saline at 100 mL an hour. 3. non-anion gap metabolic acidosis.Metabolic encephalopathy most likely secondary to acute kidney injury and falls. Continue treatment as in #1.and sodium bicarbonate 650 mg orally twice every day. 4. Metabolic acidosis secondary to acute kidney injury. continue treatment as previous paragraph. 5. Fall 2 with head injury. CAT scan of the brain is negative. 6. Elevated troponin. Cardiac consult appreciated, acute coronary syndrome ruled out continue aspirin 81 mg daily and Lopressor 25 mg twice daily. 7. Paroxysmal atrial fibrillation not on anticoagulation due to frequent falls. 8. Hypertension. Resume lisinopril 5 mg daily, continue amlodipine 5 mg daily and increase metoprolol to 50 mg twice daily. 9. Diabetes mellitus type 2. Hold glyburide 2.5 mg 2 times daily, metformin 500 mg 1 twice daily. Patient is on NovoLog scale and start Tradjenta 5 mg daily. Hemoglobin A1c is 6.7 10. Nonsustained ventricular tachycardia of 58 beats. Lopressor increased to 50 mg twice daily, cardiology recommends continuing current management and are following on an as-needed basis. 11. Conjunctivitis bilateral eyes. Patient started on tobramycin 2 drops both eyes every 6 hours and erythromycin ointment at bedtime. 12. Hyperlipidemia. Patient not currently on statin. 13. Legally blind secondary to macular degeneration and glaucoma. 14. Chronic kidney disease stage II, stable. 15. History of drug induced liver disease. 16. Thyroid nodule being monitored by Dr. Tejada, endocrinology. 17. Carotid artery disease status post right-sided endarterectomy. 18. Remote history of remote pulmonary embolism. 19. Generalized osteoarthritis with bilateral knee pain. Voltaren gel 3% daily to bilateral knees. 20. Recent hospitalization after fall with debility transferred to subacute rehab. Continue PT, OT consults 22. Depressive disorder with poor appetite continue mirtazapine 7.5 mg at be dtime discontinue Lexapro due to the risk of V. tach, discussed with his daughter at the bedside, start the patient on Nepro twice every day. 23. [facility] in AM Objective - Vital Signs Vital signs: Vital Signs Temp 97.2 F L 04/04/21 08:00 Pulse 61 04/04/21 12:00 Resp 16 04/04/21 12:00 BP 104/52 04/04/21 12:00 Pulse Ox 98 04/04/21 12:00 Intake & Output 04/03/21 04/04/21 04/04/21 18:59 06:59 18:59 Intake Total 460 480 Balance 460 480 Weight 89.5 kg Intake: Intake, IV Titration 200 Amount Dextrose 5%-0.45% NaCl 1, 200 000 ml @ 100 mls/hr IV . Q10H [facility] Rx#:[id number] Oral 260 480 Other: Voiding Method Diaper Diaper Diaper # Voids 2 4 1 # Bowel Movements 1 - Labs CBC & Chem 7: 04/03/21 08:25 04/03/21 08:10 Labs: Abnormal Lab Results - Last 24 Hours (Table) 04/03/21 04/03/21 04/04/21 Range/Units 04:41 20:11 06:07 POC Glucose (mg/dL) 148 H 140 H 127 H (75-99) mg/dL 04/04/21 Range/Units 11:33 POC Glucose (mg/dL) 172 H (75-99) mg/dL
[2021-04-04 16:51] LABS: Glucose,Whole Blood 105 mg/dL (75-99)
[2021-04-04 20:07] LABS: Glucose,Whole Blood 139 mg/dL (75-99)
[2021-04-04] MEDS: MIRTAZAPINE 15 MG TAB PO SCH (20:56)
[2021-04-04] MEDS: ERYTHROMYCIN 5 MG/GM OPHTH OINT 3.5 GM TUBE BOTH EYES SCH (20:58)
[2021-04-05] MEDS: DEXTROSE 5%-0.45% NACL 1,000 ML IV SCH (04:34)
[2021-04-05] MEDS: TOBRAMYCIN 0.3% OPHTH DROPS 5 ML BTL BOTH EYES SCH ×2 (04:35→09:44)
[2021-04-05 05:49] VITALS: TEMP 97.9
[2021-04-05 06:32] LABS: Glucose,Whole Blood 95 mg/dL (75-99)
[2021-04-05] MEDS: INSULIN ASPART (NovoLOG) 100 UNIT/ML VIAL SQ SCH ×2 (06:35→12:18)
[2021-04-05] MEDS: ATORVASTATIN 40 MG TAB PO SCH (09:40)
[2021-04-05] MEDS: SODIUM BICARBONATE TAB 650 MG TAB PO SCH (09:40)
[2021-04-05] MEDS: MULTIVITAMINS, THERA 1 EACH TAB PO SCH (09:40)
[2021-04-05] MEDS: amLODIPine 5 MG TAB PO SCH (09:40)
[2021-04-05] MEDS: lisinopriL 5 MG TAB PO SCH (09:40)
[2021-04-05] MEDS: LINAGLIPTIN 5 MG TABLET PO SCH (09:40)
[2021-04-05] MEDS: METOPROLOL TARTRATE 50 MG TAB PO SCH (09:40)
[2021-04-05] MEDS: DICLOFENAC SODIUM GEL 100 GM TUBE TOPICAL SCH (09:47)
[2021-04-05] MEDS: MAGNESIUM OXIDE 400 MG TAB PO SCH (09:50)
[2021-04-05] MEDS: ASPIRIN 81 MG PO SCH (09:50)
[2021-04-05 11:04] VITALS: RESP 16
[2021-04-05 11:16] VITALS: BMI 26.9
[2021-04-05 11:29] LABS: Glucose,Whole Blood 109 mg/dL (75-99)
[2021-04-05 12:28] VITALS: BP 138/70; PULSE 65
== END 2021-04-05 13:00 | disposition home or self-care (01) | DRG 682 ==
LOC: EC 15:49 → 3SCARD 20:21 → OBSVTOIN 03-30 08:06 → 3SCARD 04-05 02:54
PROVIDERS: ADMIT Internal Medicine; ATTEND Internal Medicine
DX: N17.0 Acute kidney failure with tubular necrosis (principal); G93.41 Metabolic encephalopathy; E87.2 Acidosis; I47.2 Ventricular tachycardia; E11.22 Type 2 diabetes mellitus with diabetic chronic kidney disease; N18.30 Chronic kidney disease, stage 3 unspecified; Z79.84 Long term (current) use of oral hypoglycemic drugs; E04.1 Nontoxic single thyroid nodule; E86.0 Dehydration; E87.6 Hypokalemia; F32.9 Major depressive disorder, single episode, unspecified; H54.8 Legal blindness, as defined in USA; I12.9 Hypertensive chronic kidney disease with stage 1 through stage 4 chronic kidney disease, or unspecified chronic kidney disease; I44.0 Atrioventricular block, first degree; I48.0 Paroxysmal atrial fibrillation; M15.9 Polyosteoarthritis, unspecified; Z51.5 Encounter for palliative care; Z85.828 Personal history of other malignant neoplasm of skin; M47.812 Spondylosis without myelopathy or radiculopathy, cervical region; S09.90XA Unspecified injury of head, initial encounter; K71.9 Toxic liver disease, unspecified; R29.6 Repeated falls; Z20.822 Contact with and (suspected) exposure to COVID-19; H35.30 Unspecified macular degeneration; S41.111A Laceration without foreign body of right upper arm, initial encounter; H10.9 Unspecified conjunctivitis; E78.5 Hyperlipidemia, unspecified; H40.9 Unspecified glaucoma; M25.562 Pain in left knee; S51.011A Laceration without foreign body of right elbow, initial encounter; M25.561 Pain in right knee; S80.211A Abrasion, right knee, initial encounter; S80.212A Abrasion, left knee, initial encounter; R77.8 Other specified abnormalities of plasma proteins; W19.XXXA Unspecified fall, initial encounter; Z79.82 Long term (current) use of aspirin; Z79.899 Other long term (current) drug therapy; Z80.0 Family history of malignant neoplasm of digestive organs; Z82.3 Family history of stroke; Z82.49 Family history of ischemic heart disease and other diseases of the circulatory system; Z83.3 Family history of diabetes mellitus; Z86.711 Personal history of pulmonary embolism; Z87.891 Personal history of nicotine dependence; Z80.3 Family history of malignant neoplasm of breast; Z98.890 Other specified postprocedural states; Z88.2 Allergy status to sulfonamides; Z90.89 Acquired absence of other organs; Z60.2 Problems related to living alone; Z90.49 Acquired absence of other specified parts of digestive tract
CPT/HCPCS: 36415; 70450; 71046; 72125; 80048; 80053; 80306; 81001; 83036; 83735; 84132; 84484; 85025; 85027; 87635; 90471; 90715; 93005; 93306; 96360; 96361; 99285

== ENCOUNTER 2021-12-24 18:08 | Emergency (ER) | payer MEDICARE ==
[2021-12-24 18:16] VITALS: PULSE 66; TEMP 97.6
[2021-12-24] MEDS ORDERED: CEPHALEXIN 500 MG CAP PO STA (18:33)
[2021-12-24] MEDS ORDERED: ACETAMINOPHEN TAB 325 MG TAB PO STA (18:38)
--- NOTE | 2021-12-24 18:40 | ED ---
General Adult HPI - General Chief complaint: Skin/Abscess/Foreign Body Stated complaint: Headache Time Seen by Provider: 12/24/21 18:15 Source: patient, family (daughter), EMS, RN notes reviewed, old records reviewed Mode of arrival: EMS Limitations: no limitations - History of Present Illness -: days(s) (2) Location: head - Related Data Home Medications Medication Instructions Recorded Confirmed Aspirin EC [Ecotrin Low Dose] 81 mg PO DAILY@0800 07/15/17 03/27/21 Magnesium Oxide [Mag-Ox] 250 mg PO DAILY 03/12/18 03/27/21 Acetaminophen [Tylenol] 650 mg PO Q8H PRN 03/27/21 03/27/21 Diclofenac Sodium Gel 3% 1 applic TOPICAL BID@0800,1600 03/27/21 03/27/21 Health Shake 1 can PO BID-W/MEALS 03/27/21 03/27/21 Multivitamins, Thera [Multivitamin 1 tab PO DAILY 03/27/21 03/27/21 (formulary)] Vitamin B Complex 1 cap PO DAILY 03/27/21 03/27/21 Previous Rx's Medication Instructions Recorded Atorvastatin [Lipitor] 40 mg PO DAILY tab 04/02/21 Erythromycin Ophth Oint [Romycin 1 applic BOTH EYES HS gm 04/02/21 Ophth Oint] Linagliptin [Tradjenta] 5 mg PO DAILY tablet 04/02/21 Metoprolol Tartrate [Lopressor] 50 mg PO BID tab 04/02/21 Mirtazapine [Remeron] 7.5 mg PO HS tab 04/02/21 Sodium Bicarbonate Tab 650 mg PO BID tab 04/02/21 Tobramycin 0.3% Ophth Soln [Tobrex 2 drops BOTH EYES Q6H ml 04/02/21 0.3% Ophth Soln] amLODIPine [Norvasc] 5 mg PO DAILY tab 04/02/21 lisinopriL [Zestril] 5 mg PO DAILY tab 04/02/21 Cephalexin [Keflex] 500 mg PO Q6HR 5 Days #20 cap 12/24/21 Allergies Allergy/AdvReac Type Severity Reaction Status Date / Time Sulfa (Sulfonamide Allergy Rash/Hives Verified 12/24/21 18:17 Antibiotics) Review of Systems ROS Statement: Those systems with pertinent positive or pertinent negative responses have been documented in the HPI. ROS Other: All systems not noted in ROS Statement are negative. Past Medical History Past Medical History: Diabetes Mellitus, Hyperlipidemia, Hypertension, Pulmonary Embolus (PE), Skin Disorder Additional Past Medical History / Comment(s): skin CA, PE 1974, current rash on arms and legs(topical tx), bll carotid blockage, enlarged liver History of Any Multi-Drug Resistant Organisms: MRSA Date of last positivie culture/infection: 06/24/17 MDRO Source:: LEG Arm Past Surgical History: Appendectomy, Orthopedic Surgery, Tonsillectomy Additional Past Surgical History / Comment(s): BASAL CELL CA REMOVED RTTEMPLE AREA, left knee surgery, carotids Past Anesthesia/Blood Transfusion Reactions: Previous Problems w/ Anesthesia, Motion Sickness Additional Past Anesthesia/Blood Transfusion Reaction / Comment(s): "diff personality when coming out" Past Psychological History: No Psychological Hx Reported Smoking Status: Former smoker Past Alcohol Use History: None Reported, Occasional Past Drug Use History: None Reported - Past Family History Son(s) Family Medical History: Cancer General Exam Limitations: physical limitation (blind) General appearance: alert, in no apparent distress Head exam: Present: normocephalic, other (4) A. fib. Of erythema to the right parietal scalp with dry scaly in the center there is no area of fluctuance; 1 cm circular area of erythema above right eyebrow dried scale center no fluctuance) Eye exam: Present: other (legally blind). Absent: scleral icterus, conjunctival injection ENT exam: Present: mucous membranes moist Neck exam: Absent: tenderness, meningismus Respiratory exam: Present: normal lung sounds bilaterally. Absent: respiratory distress, accessory muscle use Cardiovascular Exam: Present: regular rate GI/Abdominal exam: Present: soft. Absent: distended, tenderness Extremities exam: Present: normal capillary refill. Absent: pedal edema Back exam: Absent: tenderness, CVA tenderness (R), CVA tenderness (L), rash noted Neurological exam: Present: alert, oriented X3 Psychiatric exam: Present: normal affect, normal mood Skin exam: Present: warm, dry, normal color, erythema (scalp, multiple excoriated lesions to bilateral legs and arms, daughter states he is picking. No evidence of cellulitis to extremities) Course Vital Signs 12/24/21 18:10 Temperature 97.6 F Pulse Rate 66 Respiratory 18 Rate Blood Pressure 122/75 O2 Sat by Pulse 100 Oximetry Medical Decision Making - Medical Decision Making 86-year-old male presents from nursing facility with his daughter after she noticed 2 areas of excoriation with surrounding erythema to the right side of his scalp. They deny any fevers, no nausea vomiting or diarrhea. Patient has a history of diabetes, basal cell skin cancer, hypertension, and is being treated by a trade manager for chronic skin rashes. His daughter states rash if from picking at his own skin. He is using topical creams at the shelter facility. Vital signs are stable, no reports of fevers. There is no concern for sepsis. He will be treated with Keflex. Patient was witnessed picking at lesions on his right leg during exam. Daughter was encouraged to cut his nails to keep him from picking as this is likely the cause of the infection. Daughter is agreeable to this plan of care. He was given a dose of Keflex in the emergency room. They were directed to follow up with the primary care doctor and trade manager this week. Case discussed with Dr. Willoughby Disposition Clinical Impression: Cellulitis Disposition: HOME SELF-CARE Condition: Good Instructions (If sedation given, give patient instructions): Cellulitis (ED) Additional Instructions: I would suggest using a warm moist compress to the area to promote drainage twice a day. Cut nails short to keep from picking at the skin which increases his risk of infection. Use Tylenol for pain. Take antibiotics as prescribed. Follow-up with your trade manager or primary care doctor this week. Return to the emergency room with any new or concerning symptoms including increased redness, fevers, or persistent nausea vomiting. Prescriptions: Cephalexin [Keflex] 500 mg PO Q6HR 5 Days #20 cap Is patient prescribed a controlled substance at d/c from ED?: No Referrals: Abel Pastor MD [Primary Care Provider] - 1-2 days Time of Disposition: 18:38
[2021-12-24 18:58] VITALS: BP 127/66; RESP 19
== END 2021-12-24 19:18 | disposition home or self-care (01) ==
LOC: EC 18:08
DX: L03.811 Cellulitis of head [any part, except face] (principal); E11.9 Type 2 diabetes mellitus without complications; I10 Essential (primary) hypertension; E78.5 Hyperlipidemia, unspecified; Z87.891 Personal history of nicotine dependence; Z79.82 Long term (current) use of aspirin; Z79.899 Other long term (current) drug therapy
CPT/HCPCS: 99283

== ENCOUNTER 2022-02-01 12:45 | Inpatient (IN) | payer MEDICARE ==
[2022-02-01] MEDS ORDERED: SODIUM CHLORIDE 0.9% 1,000 ML IV ONE ×2 (13:22→18:26)
[2022-02-01] MEDS ORDERED: ACETAMINOPHEN TAB 500 MG TAB PO STA (13:23)
[2022-02-01] MEDS ORDERED: ONDANSETRON 4 MG/2 ML VIAL IVP STA (13:36)
[2022-02-01] MEDS ORDERED: ACETAMINOPHEN IV (For NPO) 1,000 MG in EMPTY BAG 1 BAG IVPB STA (13:36)
[2022-02-01] MEDS ORDERED: IBUPROFEN 800 MG TAB PO STA (13:36)
[2022-02-01 14:05] LABS: Basophils # (A) 0.1 k/uL (0-0.2); Basophils % (A) 0 %; Eosinophils # (A) 0.2 k/uL (0-0.7); Eosinophils % (A) 2 %; HGB 11.6 gm/dL (13.0-17.5); Lymphocytes # (A) 1.4 k/uL (1.0-4.8); Lymphocytes % (A) 9 %; MCH 31.7 pg (25.0-35.0); MCV 93.1 fL (80.0-100.0); Mean Platelet Volume 8.7; Monocytes # (A) 0.5 k/uL (0-1.0); Monocytes % (A) 3 %; Neutrophils # (A) 12.8 k/uL (1.3-7.7); Neutrophils % (A) 85 %; Platelet Count 384 k/uL (150-450); RBC 3.66 m/uL (4.30-5.90); RDW 12.8 % (11.5-15.5); WBC 15.1 k/uL (3.8-10.6)
[2022-02-01 14:09] LABS: INR 0.9 (<1.2); Partial Thromboplastin Time 24.1 sec (22.0-30.0)
[2022-02-01 14:13] LABS: ALT 13 U/L (4-49); AST 25 U/L (17-59); African American GFR (CKD) 88 (>60 ml/min/1.73 sqM); Albumin 3.3 g/dL (3.5-5.0); Alcohol <10 mg/dL; Alkaline Phosphatase 136 U/L (38-126); Anion Gap 13 mmol/L; Blood Urea Nitrogen 19 mg/dL (9-20); Calcium 8.9 mg/dL (8.4-10.2); Carbon Dioxide 24 mmol/L (22-30); Chloride 99 mmol/L (98-107); Glucose 158 mg/dL (74-99); Non-African American GFR(CKD) 76 (>60 ml/min/1.73 sqM); Potassium 4.9 mmol/L (3.5-5.1); Sodium 136 mmol/L (137-145); Total Bilirubin 0.4 mg/dL (0.2-1.3); Total Protein 6.4 g/dL (6.3-8.2)
[2022-02-01 14:21] LABS: Lactic Acid, Venous 2.9 mmol/L (0.7-2.0)
[2022-02-01] MEDS ORDERED: VANCOMYCIN IV PER PHARMACY 1 EACH MISC MISCELLANE PRN (14:42)
[2022-02-01] MEDS ORDERED: VANCOMYCIN 1,250 MG in SODIUM CHLORIDE 0.9% 250 ML IVPB STA (14:50)
--- NOTE | 2022-02-01 14:59 | XR ---
EXAMINATION TYPE: XR chest 2V DATE OF EXAM: 02/01/2022 COMPARISON: 03/27/2021 INDICATION: Fever TECHNIQUE: Frontal and lateral views of the chest are obtained. FINDINGS: The heart size is normal. The pulmonary vasculature is normal. Mild posterior infiltrate is evident on the lateral projection. This may be in the posterior right darcie ng base but is not available with visualized on the frontal projection. IMPRESSION: 1. Posterior infiltrate. Correlate for pneumonia. Follow-up exams are recommended
--- NOTE | 2022-02-01 15:01 | XR ---
EXAMINATION TYPE: XR KUB DATE OF EXAM: 02/01/2022 COMPARISON: HISTORY: Nausea vomiting TECHNIQUE: Supine abdomen FINDINGS: Fecal debris is within the distal colon. Nonspecific bowel gas within small bowel loops. No dilated small bowel loops are present. Ascending colon is somewhat prominent. Sulci margins are norm al. Organomegaly is not evident. IMPRESSION: 1. Mild fecal retention through the distal colon. Nonspecific bowel gas is present.
--- NOTE | 2022-02-01 15:04 | XR ---
EXAMINATION TYPE: XR tibia fibula bilateral DATE OF EXAM: 02/01/2022 COMPARISON: None HISTORY: Skin wounds, fever TECHNIQUE: Tibia and fibula are examined in 2 projections. FINDINGS: There is loss of the medial compartment knee joint space. Narrowing of lateral compartment joint space is present. Mild soft tissue prominence over the distal foreleg. The ankle mortise appear s intact as visualized. No cortical erosions are evident. Note is made of a calcaneal heel spur. Follow-up exams can be performed 7-10 days from acute trauma for continued pain. If there is clinical concern for osteomyelitis, three-phase bone scan could be performed. IMPRESSION: 1. Moderate degenerative changes left knee.
--- NOTE | 2022-02-01 15:06 | XR ---
EXAMINATION TYPE: XR knee limited bilateral DATE OF EXAM: 02/01/2022 COMPARISON: None HISTORY: Skin wounds, fever TECHNIQUE: Bilateral knees are examined in 2 projections each. FINDINGS: Left knee: There is loss of the medial compartment joint space. There is narrowing of the lateral com partment joint space. Medial tibial plateau spurring is present. Talar femoral spurring and degenerat saira changes are present. No joint effusion is evident. Right knee: There is mild narrowing of the medial compartment joint space. Mild narrowing of lateral compartment joint space is present. Posterior patellar spurring is present. No joint effusion is evid ent. No acute fracture or dislocations are evident. IMPRESSION: 1. Moderate degenerative changes right knee. 2. Milder degenerative changes at the left knee.
[2022-02-01] MEDS ORDERED: LACTATED RINGERS 1,000 ML IV ONE (15:17)
--- NOTE | 2022-02-01 15:20 | ED ---
General Adult HPI - General Source: EMS, RN notes reviewed, old records reviewed Mode of arrival: EMS Limitations: altered mental status <Mack Sam - Last Filed: 02/01/22 15:24> <Speedy Quezada - Last Filed: 02/01/22 16:06> - General Chief complaint: Fever Stated complaint: AMS,fever Time Seen by Provider: 02/01/22 13:18 - History of Present Illness Initial comments: Patient is an 86-year-old male with past medical history remarkable for diabetes, atrial fibrillation, blindness, deafness, CK D, history of falls who presents emergency Department febrile with nausea and vomiting. Patient also has chronic sores on bilateral lower extremities. Patient's children present with him and provide most the history. Has been acting differently today, normally is alert and oriented 2-3. He currently is alert and oriented times one to 2. Unknown falls. Has been having fevers for the last 12 hours at the nursing facility with unknown etiology or cause. Does have a history of chronic leg sores from itching. Patient's only other acute complaints are subjective abdominal pain as well as multiple episodes of nausea with nonbilious nonbloody emesis. Does not appear the patient is on blood thinners. No chest pain. No shortness of breath. No other acute point at this time. When asked, the patie nt primarily complains of chronic bilateral leg pain. (Mack Sam) - Related Data Home Medications Medication Instructions Recorded Confirmed Aspirin EC [Ecotrin Low Dose] 81 mg PO DAILY@0800 07/15/17 03/27/21 Magnesium Oxide [Mag-Ox] 250 mg PO DAILY 03/12/18 03/27/21 Acetaminophen [Tylenol] 650 mg PO Q8H PRN 03/27/21 03/27/21 Diclofenac Sodium Gel 3% 1 applic TOPICAL BID@0800,1600 03/27/21 03/27/21 Health Shake 1 can PO BID-W/MEALS 03/27/21 03/27/21 Multivitamins, Thera [Multivitamin 1 tab PO DAILY 03/27/21 03/27/21 (formulary)] Vitamin B Complex 1 cap PO DAILY 03/27/21 03/27/21 Previous Rx's Medication Instructions Recorded Atorvastatin [Lipitor] 40 mg PO DAILY tab 04/02/21 Erythromycin Ophth Oint [Romycin 1 applic BOTH EYES HS gm 04/02/21 Ophth Oint] Linagliptin [Tradjenta] 5 mg PO DAILY tablet 04/02/21 Metoprolol Tartrate [Lopressor] 50 mg PO BID tab 04/02/21 Mirtazapine [Remeron] 7.5 mg PO HS tab 04/02/21 Sodium Bicarbonate Tab 650 mg PO BID tab 04/02/21 Tobramycin 0.3% Ophth Soln [Tobrex 2 drops BOTH EYES Q6H ml 04/02/21 0.3% Ophth Soln] amLODIPine [Norvasc] 5 mg PO DAILY tab 04/02/21 lisinopriL [Zestril] 5 mg PO DAILY tab 04/02/21 Cephalexin [Keflex] 500 mg PO Q6HR 5 Days #20 cap 12/24/21 Allergies Allergy/AdvReac Type Severity Reaction Status Date / Time Sulfa (Sulfonamide Allergy Rash/Hives Verified 02/01/22 13:20 Antibiotics) Review of Systems ROS Other: All systems not noted in ROS Statement are negative. <Mack Sam - Last Filed: 02/01/22 15:24> ROS Other: All systems not noted in ROS Statement are negative. <Speedy Quezada - Last Filed: 02/01/22 16:06> ROS Statement: Those systems with pertinent positive or pertinent negative responses have been documented in the HPI. Review of Systems: CONST: Endorses fever EYES: Denies blurry vision ENT: Denies nasal congestion C/V: Denies Chest pain RESP: Denies shortness of breath GI: Denies abdominal pain : Denies dysuria SKIN: Endorses leg wounds MSK: Endorses chronic leg pain NEURO: Denies headache (Mack Sam) Past Medical History Past Medical History: Diabetes Mellitus, Hyperlipidemia, Hypertension, Pulmonary Embolus (PE), Skin Disorder Additional Past Medical History / Comment(s): skin CA, PE 1974, current rash on arms and legs(topical tx), bll carotid blockage, enlarged liver History of Any Multi-Drug Resistant Organisms: MRSA Date of last positivie culture/infection: 06/24/17 MDRO Source:: LEG Arm Past Surgical History: Appendectomy, Orthopedic Surgery, Tonsillectomy Additional Past Surgical History / Comment(s): BASAL CELL CA REMOVED RTTEMPLE AREA, left knee surgery, carotids Past Anesthesia/Blood Transfusion Reactions: Previous Problems w/ Anesthesia, Motion Sickness Additional Past Anesthesia/Blood Transfusion Reaction / Comment(s): "diff personality when coming out" Past Psychological History: No Psychological Hx Reported Smoking Status: Former smoker Past Alcohol Use History: None Reported, Occasional Past Drug Use History: None Reported - Past Family History Son(s) Family Medical History: Cancer <Mack Sam - Last Filed: 02/01/22 15:24> General Exam Limitations: altered mental status <Mack Sam - Last Filed: 02/01/22 15:24> - General Exam Comments Initial Comments: General: Appears in no acute distress. Cachectic HEAD: Normal with no signs of head trauma. EYES: PERRLA, EOMI, conjunctiva normal, no discharge. ENT: Hard of hearing. Dry mucous members. RESPIRATORY: Clear breath sounds bilaterally. No wheezes, rales, or rhonchi. No hypoxia. No increased work of breathing. C/V: Regular rate and rhythm. S1 and S2 auscultated, no edema, peripheral pulses 2+ and intact throughout ABD: Abd is soft, nontender, nondistended. No guarding. No rebound tenderness. EXT: Reduced range of motion bilateral lower extremities which is chronic. 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 SKIN: Bilateral lower extremity skin sores. Right lower extremity has an open wound that is proximal the size of a half-dollar with purulent material. NEURO: Alert and oriented 1-2. Hard of hearing. Family members state that his mental status is at baseline except for the confusion. Moving all 4 extremities but is chronically weak. (Mack Sam) Course <Speedy Quezada - Last Filed: 02/01/22 16:06> Vital Signs 02/01/22 13:14 Temperature 101.2 F H Pulse Rate 95 Respiratory 18 Rate Blood Pressure 122/59 O2 Sat by Pulse 98 Oximetry - Reevaluation(s) Reevaluation #1: 02/01/22 15:59 Case, test results and ED management were discussed with Dr. Dominguez. He accepts hospital admission. He has no further recommendations at this time. (Speedy Quezada) Medical Decision Making - Lab Data Result diagrams: 02/01/22 13:39 02/01/22 13:39 - EKG Data -: EKG Interpreted by Me <Mack Sam - Last Filed: 02/01/22 15:24> - Lab Data Result diagrams: 02/01/22 13:39 02/01/22 13:39 <Speedy Quezada - Last Filed: 02/01/22 16:06> - Medical Decision Making Based on the patient's presentation and physical exam, I'm concerned for acute infectious etiology. The patient is time. He is febrile. Remainder the vital signs are normal. He is hemodynamically stable. 1 Gran IV Tylenol as well as IV Zofran, a IV bolus. We will obtain infectious labs, urinalysis, as well as x-rays to start. Ultimately we will also obtain CT brain likely CT abdomen and pelvis. Family members and patient were in agreement with this plan. Patient received IV antipyretic therapy. EKG shows known history of atrial fibrillation with no acute ischemia. Chest x- ray shows a possible pneumonia. Plain film x-rays were unremarkable. Laboratory studies were remarkable for a leukocytosis of 15. Lactic acid is elevated to 2.9. Viral swabs are still pending at this time. Troponin is indeterminate. Remainder of the labs are unremarkable. At 1442, patient met sepsis criteria. Patient was started on broad-spectrum antibiotics, vancomycin and cefepime. He'll be administered an additional 1 L fluid bolus of lactated Ringer's and started on 130 mL an hour. He remains hemodynamically stable. After the patient's family and the patient during agreement this plan. CT imaging is still pending at this time. I also distal pending at this time. Wound cultures are still pending at this time as well as blood cultures. Patient is signed out to oncoming physician, Dr. Quezada in stable condition. (Mack Sam) Patient was endorsed to me by Dr. Sam (secondary to shift change) with the patient's CT head and CT abdomen/pelvis reports still pending. Dr. Sam recommended admitting the patient to the hospital for right lower extremity cellulitis, pneumonia and sepsis pending the patient's CT report. Patient's CT reports were reviewed myself. IV Zosyn was added to the antibiotic treatment ordered by Dr. Sam out of concern for the possibility of aspiration pneumonia. Case was discussed with Dr. Dominguez, and he has accepted hospital admission. (Speedy Quezada) - Lab Data Lab Results 02/01/22 02/01/22 02/01/22 Range/Units 13:39 13:39 13:39 WBC 15.1 H (3.8-10.6) k/uL RBC 3.66 L (4.30-5.90) m/uL Hgb 11.6 L (13.0-17.5) gm/dL Hct 34.0 L (39.0-53.0) % MCV 93.1 (80.0-100.0) fL MCH 31.7 (25.0-35.0) pg MCHC 34.0 (31.0-37.0) g/dL RDW 12.8 (11.5-15.5) % Plt Count 384 (150-450) k/uL MPV 8.7 Neutrophils % 85 % Lymphocytes % 9 % Monocytes % 3 % Eosinophils % 2 % Basophils % 0 % Neutrophils # 12.8 H (1.3-7.7) k/uL Lymphocytes # 1.4 (1.0-4.8) k/uL Monocytes # 0.5 (0-1.0) k/uL Eosinophils # 0.2 (0-0.7) k/uL Basophils # 0.1 (0-0.2) k/uL PT 10.0 (9.0-12.0) sec INR 0.9 (<1.2) APTT 24.1 (22.0-30.0) sec Sodium 136 L (137-145) mmol/L Potassium 4.9 (3.5-5.1) mmol/L Chloride 99 (98-107) mmol/L Carbon Dioxide 24 (22-30) mmol/L Anion Gap 13 mmol/L BUN 19 (9-20) mg/dL Creatinine 0.92 (0.66-1.25) mg/dL Est GFR (CKD-EPI)AfAm 88 (>60 ml/min/1.73 sqM) Est GFR (CKD-EPI)NonAf 76 (>60 ml/min/1.73 sqM) Glucose 158 H (74-99) mg/dL Plasma Lactic Acid Alexandro (0.7-2.0) mmol/L Calcium 8.9 (8.4-10.2) mg/dL Total Bilirubin 0.4 (0.2-1.3) mg/dL AST 25 (17-59) U/L ALT 13 (4-49) U/L Alkaline Phosphatase 136 H (38-126) U/L Ammonia (<30) umol/L Troponin I (0.000-0.034) ng/mL Total Protein 6.4 (6.3-8.2) g/dL Albumin 3.3 L (3.5-5.0) g/dL Urine Color Urine Appearance (Clear) Urine pH (5.0-8.0) Ur Specific [place] (1.001-1.035) Urine Protein (Negative) Urine Glucose (UA) (Negative) Urine Ketones (Negative) Urine Blood (Negative) Urine Nitrite (Negative) Urine Bilirubin (Negative) Urine Urobilinogen (<2.0) mg/dL Ur Leukocyte Esterase (Negative) Urine RBC (0-5) /hpf Urine WBC (0-5) /hpf Urine Mucus (None) /hpf Serum Alcohol <10 mg/dL Influenza Type A (PCR) (Not Detectd) Influenza Type B (PCR) (Not Detectd) RSV (PCR) (Not Detectd) SARS-CoV-2 (PCR) (Not Detectd) 02/01/22 02/01/22 02/01/22 Range/Units 13:39 13:39 13:39 WBC (3.8-10.6) k/uL RBC (4.30-5.90) m/uL Hgb (13.0-17.5) gm/dL Hct (39.0-53.0) % MCV (80.0-100.0) fL MCH (25.0-35.0) pg MCHC (31.0-37.0) g/dL RDW (11.5-15.5) % Plt Count (150-450) k/uL MPV Neutrophils % % Lymphocytes % % Monocytes % % Eosinophils % % Basophils % % Neutrophils # (1.3-7.7) k/uL Lymphocytes # (1.0-4.8) k/uL Monocytes # (0-1.0) k/uL Eosinophils # (0-0.7) k/uL Basophils # (0-0.2) k/uL PT (9.0-12.0) sec INR (<1.2) APTT (22.0-30.0) sec Sodium (137-145) mmol/L Potassium (3.5-5.1) mmol/L Chloride (98-107) mmol/L Carbon Dioxide (22-30) mmol/L Anion Gap mmol/L BUN (9-20) mg/dL Creatinine (0.66-1.25) mg/dL Est GFR (CKD-EPI)AfAm (>60 ml/min/1.73 sqM) Est GFR (CKD-EPI)NonAf (>60 ml/min/1.73 sqM) Glucose (74-99) mg/dL Plasma Lactic Acid Alexandro 2.9 H* (0.7-2.0) mmol/L Calcium (8.4-10.2) mg/dL Total Bilirubin (0.2-1.3) mg/dL AST (17-59) U/L ALT (4-49) U/L Alkaline Phosphatase (38-126) U/L Ammonia <9 (<30) umol/L Troponin I 0.022 (0.000-0.034) ng/mL Total Protein (6.3-8.2) g/dL Albumin (3.5-5.0) g/dL Urine Color Yellow Urine Appearance Clear (Clear) Urine pH 8.0 (5.0-8.0) Ur Specific [place] 1.017 (1.001-1.035) Urine Protein 1+ H (Negative) Urine Glucose (UA) Negative (Negative) Urine Ketones Negative (Negative) Urine Blood Negative (Negative) Urine Nitrite Negative (Negative) Urine Bilirubin Negative (Negative) Urine Urobilinogen <2.0 (<2.0) mg/dL Ur Leukocyte Esterase Negative (Negative) Urine RBC 3 (0-5) /hpf Urine WBC 1 (0-5) /hpf Urine Mucus Rare H (None) /hpf Serum Alcohol mg/dL Influenza Type A (PCR) (Not Detectd) Influenza Type B (PCR) (Not Detectd) RSV (PCR) (Not Detectd) SARS-CoV-2 (PCR) (Not Detectd) 02/01/22 Range/Units 13:39 WBC (3.8-10.6) k/uL RBC (4.30-5.90) m/uL Hgb (13.0-17.5) gm/dL Hct (39.0-53.0) % MCV (80.0-100.0) fL MCH (25.0-35.0) pg MCHC (31.0-37.0) g/dL RDW (11.5-15.5) % Plt Count (150-450) k/uL MPV Neutrophils % % Lymphocytes % % Monocytes % % Eosinophils % % Basophils % % Neutrophils # (1.3-7.7) k/uL Lymphocytes # (1.0-4.8) k/uL Monocytes # (0-1.0) k/uL Eosinophils # (0-0.7) k/uL Basophils # (0-0.2) k/uL PT (9.0-12.0) sec INR (<1.2) APTT (22.0-30.0) sec Sodium (137-145) mmol/L Potassium (3.5-5.1) mmol/L Chloride (98-107) mmol/L Carbon Dioxide (22-30) mmol/L Anion Gap mmol/L BUN (9-20) mg/dL Creatinine (0.66-1.25) mg/dL Est GFR (CKD-EPI)AfAm (>60 ml/min/1.73 sqM) Est GFR (CKD-EPI)NonAf (>60 ml/min/1.73 sqM) Glucose (74-99) mg/dL Plasma Lactic Acid Alexandro (0.7-2.0) mmol/L Calcium (8.4-10.2) mg/dL Total Bilirubin (0.2-1.3) mg/dL AST (17-59) U/L ALT (4-49) U/L Alkaline Phosphatase (38-126) U/L Ammonia (<30) umol/L Troponin I (0.000-0.034) ng/mL Total Protein (6.3-8.2) g/dL Albumin (3.5-5.0) g/dL Urine Color Urine Appearance (Clear) Urine pH (5.0-8.0) Ur Specific [place] (1.001-1.035) Urine Protein (Negative) Urine Glucose (UA) (Negative) Urine Ketones (Negative) Urine Blood (Negative) Urine Nitrite (Negative) Urine Bilirubin (Negative) Urine Urobilinogen (<2.0) mg/dL Ur Leukocyte Esterase (Negative) Urine RBC (0-5) /hpf Urine WBC (0-5) /hpf Urine Mucus (None) /hpf Serum Alcohol mg/dL Influenza Type A (PCR) Not Detected (Not Detectd) Influenza Type B (PCR) Not Detected (Not Detectd) RSV (PCR) Not Detected (Not Detectd) SARS-CoV-2 (PCR) Not Detected (Not Detectd) - EKG Data EKG Comments: 12-lead Electrocardiogram Interpretation Note EKG was reviewed and interpreted by myself. 12-lead ECG performed at 1344 is interpreted by me as revealing atrial fibrillation at a rate of 86 beats per minute. Martin is normal. IA interval is unobtainable, QRS duration 71 ms, QTc is 368 ms.. There were no ST or T wave abnormalities to suggest myocardial ischemia or injury. R wave progression across the precordium was satisfactory. By my interpretation this EKG is non-diagnostic for acute ischemia. (Mack Sam) - Radiology Data Noncontrast head CT: No acute intrarenal process CT abdomen/pelvis with IV contast: 1. Right lower lobe pneumonia with opacified airways related for aspiration. Small right pleural effusion could represent parapneumonic effusion. 2. No acute abdominal process to explain patient's nausea and vomiting. 3. Small pericardial effusion. 4. Moderate to severe coronary artery atherosclerosis. 5. Large stool burden throughout the colon. (Speedy Quezada) Disposition <Mack aSm - Last Filed: 02/01/22 15:24> Is patient prescribed a controlled substance at d/c from ED?: No Time of Disposition: 16:01 <Speedy Quezada - Last Filed: 02/01/22 16:06> Clinical Impression: Sepsis, Pneumonia, Altered mental status, Cellulitis of right lower extremity, Atrial fibrillation Disposition: ADMITTED IP TO THIS HOSP Condition: Stable Referrals: Ike Stone MD [REFERRING] - 1-2 days
--- NOTE | 2022-02-01 15:23 | CT ---
EXAMINATION TYPE: CT brain wo con CT DLP: 1184.4 mGycm, Automated exposure control for dose reduction was used. DATE OF EXAM: 02/01/2022 3:19 PM COMPARISON: CT 03/27/2021. CLINICAL INDICATION:Male, 86 years old with history of AMS, Altered mental status. TECHNIQUE: Brain: Axial CT images of the brain were obtained with coronal and sagittal reformats created and rev iewed. Contrast used: None. Oral contrast used: None. FINDINGS: Brain: Extra-axial spaces: No abnormal extra-axial fluid collections. Ventricular system: Dilatation in proportion to cerebral atrophy. Cerebral parenchyma: No acute intraparenchymal hemorrhage or mass effect. The peterson-white junction is well differentiated. Scattered hypoattenuating areas are seen within the white matter. Cerebellum: Unremarkable. Mass effect: No evidence of midline shift. Intracranial vasculature: Atherosclerotic calcifications of the intracranial vessels. Soft tissues: Normal. Calvarium/osseous structures: No depressed skull fracture. Paranasal sinuses and mastoid air cells: Mild scattered paranasal sinus disease. Visualized orbits: Bilateral aphakia IMPRESSION: No acute intracranial process.
[2022-02-01] MEDS ORDERED: LACTATED RINGERS 1,000 ML IV SCH (15:30)
--- NOTE | 2022-02-01 15:38 | CT ---
EXAMINATION TYPE: CT abdomen pelvis w con CT DLP: 1156.6 mGycm, Automated exposure control for dose reduction was used. DATE OF EXAM: 02/01/2022 3:25 PM COMPARISON: CT abdomen pelvis most recent from 07/23/2018. CLINICAL INDICATION:Male, 86 years old with history of N/V; Nausea and vomiting. TECHNIQUE: Axial CT of the abdomen and pelvis. Sagittal and coronal reformats were created on a [employer] workstation. Contrast used:100ml mL of Isovue 300 with IV Contrast, Oral contrast used: without Oral Contrast FINDINGS: LOWER CHEST: No gross masses the right lower lobe. Few opacified right lower lobe large airways. Ther e is moderate atherosclerosis of the arterial vasculature. There is a small right pleural effusion th ere is small or cardial effusion. ABDOMEN LIVER: Hepatic cyst is present. GALLBLADDER AND BILE DUCTS: Unremarkable. PANCREAS: Unremarkable. SPLEEN: Unremarkable. ADRENAL GLANDS: Unremarkable. KIDNEYS AND URETERS: No evidence of hydronephrosis or renal calculus. The ureters are unremarkable. PELVIS BLADDER: Unremarkable REPRODUCTIVE: Unremarkable. ABDOMEN & PELVIS STOMACH AND BOWEL: There is a large stool burden throughout the colon. No evidence of bowel obstructi on. The stomach and small bowel are grossly unremarkable. PERITONEUM: No evidence of pneumoperitoneum or free fluid. VASCULATURE: Moderate atherosclerotic calcifications are present throughout the abdominal aorta and i ts branches. No evidence of aortic aneurysm. MUSCULOSKELETAL: No acute osseous abnormalities. Moderate disc degeneration changes are present throu ghout the thoracolumbar spine. Bone island in the right iliac bone.1 LYMPH NODES: No gross evidence for lymphadenopathy. SOFT TISSUE/ABDOMINAL WALL: Unremarkable IMPRESSION: 1. Right lower lobe pneumonia with opacified airways correlate for aspiration. Small right pleural e ffusion could represent a parapneumonic effusion. 2. No acute abdominal process to explain patient's nausea and vomiting. 3. Small pericardial effusion. 4. Moderate to severe coronary artery atherosclerosis. 5. Large stool burden throughout the colon.
[2022-02-01] MEDS ORDERED: PIPERACILLIN-TAZOBACTAM 3.375 GM in SODIUM CHLORIDE 0.9% 100 ML IVPB STA (15:46)
[2022-02-01 15:58] LABS: Appearance,Urine Clear (Clear); Bilirubin,Urine Negative (Negative); Blood,Urine Negative (Negative); Color,Urine Yellow; Glucose,Urine (UA) Negative (Negative); Ketones,Urine Negative (Negative); Leukocyte Esterase,Urine Negative (Negative); Mucus,Urine Rare /hpf; Nitrite,Urine Negative (Negative); Protein,Urine 1+ (Negative); RBC,Urine 3 /hpf (0-5); Specific Gravity,Urine 1.017 (1.001-1.035); Urobilinogen,Urine <2.0 mg/dL (<2.0); WBC,Urine 1 /hpf (0-5)
[2022-02-01] MEDS ORDERED: ACETAMINOPHEN TAB 325 MG TAB PO PRN (16:01)
[2022-02-01 16:18] LABS: Amphetamine Screen,Urine Not Detected (NotDetected); Barbiturate Screen,Urine Not Detected (NotDetected); Benzodiazepines Screen,Urine Detected (NotDetected); Cocaine Screen,Urine Not Detected (NotDetected); Methadone Screen, Urine Not Detected (NotDetected); Opiate Screen,Urine Not Detected (NotDetected); Oxycodone Screen, Urine Not Detected (NotDetected); Phencyclidine Screen,Urine Not Detected (NotDetected); Tricyclic Antidepressant,Urine Not Detected (NotDetected); Urn Cannabinoid Scrn Not Detected (NotDetected)
[2022-02-01] MEDS: CEFEPIME 2 GM in SODIUM CHLORIDE 0.9% 100 ML IVPB SCH (17:00)
[2022-02-01] MEDS ORDERED: ACETAMINOPHEN TAB 500 MG TAB PO PRN (18:27)
[2022-02-01] MEDS ORDERED: traMADol 50 MG TAB PO PRN (18:27)
--- NOTE | 2022-02-01 18:39 | P.HPIM ---
History of Present Illness H&P Date: 02/01/22 Chief Complaint: Altered mental status, fever, generalized body aches 86-year-old man with history of arthritis, hypertension, hyperlipidemia, diabetes, chronic kidney disease, alf resident presented from the alf with complaints of generalized body aches, ears, altered mental status. The alf felt that patient had been complaining of more general ized bodyaches that he normally does. His baseline, he also appeared more confused than usual, therefore sent him in for further evaluation. Patient is a poor historian and does not provide much history, history is taken from chart review, family member at bedside, ER provider signout. Patient's review of systems cannot be done due to patient's medical condition. In the emergency room, patient's febrile to 102.1, 80/41 blood pressure, heart rate 95, 98% on room air. CBC demonstrates a cytosis to 15.1, anemia to Levaquin 6. Chemistry show hyponatremia to 136. Patient had an elevated lactic acid at 2.9. Liver function tests were unremarkable. Initial troponin is 0.0- 2. Urinalysis showed 1+ protein, rare mucus. Urine tox screen is positive for benzodiazepines. Influenza A, B, RSV, Covid are all negative. Patient's chest x-rays positive for posterior infiltrate consistent with pneumonia. Patient's KUB shows mild fecal retention throughout distal colon, otherwise nonspecific b owel gas pattern. Patient's tibia/fibula x-ray shows moderate degenerative changes of the left knee. He underwent brain CT which showed no acute intracranial process. CT of the abdomen/pelvis redemonstrates right lower lobe pneumonia with a small right pleural effusion, no acute abdominal process, small pericardial effusion, moderate to severe coronary artery atherosclerosis, like she'll Blurton. EKG shows atrial fibrillation with low QRS voltage. See HPI regarding review of systems Gen: in no apparent distress, resting comfortably in bed Eyes: PERRL, no scleral injection or icterus HENT: normocephalic, atraumatic, good hearing acuity, moist mucous membranes Neck: no tracheal deviation, full range of motion Resp: good air exchange, breathing comfortably with no accessory muscle use, no tactile fremitus CVS: good distal perfusion x 4, no pitting edema, irregular rate and rhythm GI: soft, diffuse pain to palpation, ND, no hepatosplenomegaly : no suprapubic tenderness, no CVAT, herbert catheter not present MSK: no clubbing, no cyanosis, no noted contractures of extremities Skin: no noted rashes, petechiae; temperature of skin is appropriate, multiple excoriations of the lower legs bilaterally Neuro: moving all extremities without signs of weakness, CN II-XII intact Psych: cooperative, euthymic mood, insight and judgment impaired Labs and imaging reviewed as above Assessment/plan: Severe sepsis Toxic encephalopathy secondary sepsis Community acquired pneumonia -Admit inpatient, telemetry -Vancomycin, Zosyn -Pro calcitonin -Follow up blood cultures -IV fluids Constipation -Bowel regimen Hypertension Hyperlipidemia Diabetes type 2 Chronic kidney disease -Home medications reviewed and reconciled -Holding home BP meds due to hypotension Patient is DO NOT RESUSCITATE/DO NOT INTUBATE DVT prophylaxis with heparin 3 times a day Past Medical History Past Medical History: Diabetes Mellitus, Hyperlipidemia, Hypertension, Pulmonary Embolus (PE), Skin Disorder Additional Past Medical History / Comment(s): skin CA, PE 1974, current rash on arms and legs(topical tx), bll carotid blockage, enlarged liver History of Any Multi-Drug Resistant Organisms: MRSA Date of last positivie culture/infection: 06/24/17 MDRO Source:: LEG Arm Past Surgical History: Appendectomy, Orthopedic Surgery, Tonsillectomy Additional Past Surgical History / Comment(s): BASAL CELL CA REMOVED RTTEMPLE A SOFÍA, left knee surgery, carotids Past Anesthesia/Blood Transfusion Reactions: Previous Problems w/ Anesthesia, Motion Sickness Additional Past Anesthesia/Blood Transfusion Reaction / Comment(s): "diff personality when coming out" Past Psychological History: No Psychological Hx Reported Smoking Status: Former smoker Past Alcohol Use History: None Reported, Occasional Past Drug Use History: None Reported - Past Family History Son(s) Family Medical History: Cancer Medications and Allergies Home Medications Medication Instructions Recorded Confirmed Type Aspirin EC [Ecotrin Low Dose] 81 mg PO DAILY@0800 07/15/17 02/01/22 History Magnesium Oxide [Mag-Ox] 250 mg PO DAILY@0800 03/12/18 02/01/22 History Multivitamins, Thera [Multivitamin 1 tab PO DAILY@0800 03/27/21 02/01/22 History (formulary)] Vitamin B Complex 1 cap PO DAILY@0800 03/27/21 02/01/22 History Acetaminophen Tab [Tylenol Tab] 500 mg PO Q4H PRN 02/01/22 02/01/22 History Acetaminophen [Tylenol Arthritis] 1,300 mg PO Q8H PRN 02/01/22 02/01/22 History Atorvastatin [Lipitor] 40 mg PO DAILY@199902/01/22 02/01/22 History Azelastine HCl [Optivar 0.05% 1 drop BOTH EYES BID@799,199902/01/22 02/01/22 History Ophth Soln] Diclofenac Sodium Gel [Voltaren 1 applic TOPICAL QID PRN 02/01/22 02/01/22 History Gel] Erythromycin Ophth Oint [Romycin 1 applic BOTH EYES HS@199902/01/22 02/01/22 History Ophth Oint] Loperamide HCl [Imodium A-D] 2 - 4 mg PO QID PRN 02/01/22 02/01/22 History Mirtazapine [Remeron] 7.5 mg PO HS@199902/01/22 02/01/22 History Sodium Bicarbonate Tab 650 mg PO BID@799,199902/01/22 02/01/22 History Triad Wound Paste 1 applic TOPICAL DAILY@79902/01/22 02/01/22 History Triamcinolone 0.5% Ointment 1 applic TOPICAL BID@799,199902/01/22 02/01/22 History diphenhydrAMINE [Benadryl] 25 mg PO Q4H PRN 02/01/22 02/01/22 History glyBURIDE [Diabeta] 1.25 mg PO DAILY@79902/01/22 02/01/22 History lisinopriL [Zestril] 5 mg PO DAILY@79902/01/22 02/01/22 History metFORMIN HCL 500 mg PO BID-W/MEALS 02/01/22 02/01/22 History traMADol HCL 50 mg PO Q6H PRN 02/01/22 02/01/22 History Allergies Allergy/AdvReac Type Severity Reaction Status Date / Time Sulfa (Sulfonamide Allergy Rash/Hives Verified 02/01/22 16:50 Antibiotics) Physical Exam Osteopathic Statement: *. No significant issues noted on an osteopathic struct ural exam other than those noted in the History and Physical/Consult. Vitals: Vital Signs Temp Pulse Resp BP Pulse Ox 02/01/22 13:14 101.2 F H 95 18 122/59 98 Intake and Output 02/01/22 02/01/22 02/01/22 06:59 14:59 22:59 Other: Weight 72.4 kg Results CBC & Chem 7: 02/01/22 13:39 02/01/22 13:39 Labs: Abnormal Lab Results - Last 24 Hours (Table) 02/01/22 02/01/22 02/01/22 Range/Units 13:39 13:39 13:39 WBC 15.1 H (3.8-10.6) k/uL RBC 3.66 L (4.30-5.90) m/uL Hgb 11.6 L (13.0-17.5) gm/dL Hct 34.0 L (39.0-53.0) % Neutrophils # 12.8 H (1.3-7.7) k/uL Sodium 136 L (137-145) mmol/L Glucose 158 H (74-99) mg/dL Plasma Lactic Acid Alexandro (0.7-2.0) mmol/L Alkaline Phosphatase 136 H (38-126) U/L Albumin 3.3 L (3.5-5.0) g/dL Urine Protein (Negative) Urine Mucus (None) /hpf U Benzodiazepines Scrn Detected H (NotDetected) 02/01/22 02/01/22 Range/Units 13:39 13:39 WBC (3.8-10.6) k/uL RBC (4.30-5.90) m/uL Hgb (13.0-17.5) gm/dL Hct (39.0-53.0) % Neutrophils # (1.3-7.7) k/uL Sodium (137-145) mmol/L Glucose (74-99) mg/dL Plasma Lactic Acid Alexandro 2.9 H* (0.7-2.0) mmol/L Alkaline Phosphatase (38-126) U/L Albumin (3.5-5.0) g/dL Urine Protein 1+ H (Negative) Urine Mucus Rare H (None) /hpf U Benzodiazepines Scrn (NotDetected)
[2022-02-01] MEDS: SODIUM BICARBONATE TAB 650 MG TAB PO SCH (20:04)
[2022-02-01] MEDS: MIRTAZAPINE 15 MG TAB PO SCH (20:05)
[2022-02-01] MEDS: ATORVASTATIN 40 MG TAB PO SCH (20:06)
[2022-02-01] MEDS: SODIUM CHLORIDE 0.9% 1,000 ML IV SCH (23:18)
[2022-02-01] MEDS: ERYTHROMYCIN 5 MG/GM OPHTH OINT 3.5 GM TUBE BOTH EYES SCH (23:22)
[2022-02-01] MEDS: BETAMETHASONE DIPROPIONATE 0.05% OINTMENT 45 GM TUBE TOPICAL SCH (23:22)
[2022-02-01] MEDS: KETOTIFEN 0.025% OPHTH DROPS 5 ML BTL BOTH EYES SCH (23:23)
[2022-02-02] MEDS: CEFEPIME 2 GM in SODIUM CHLORIDE 0.9% 100 ML IVPB SCH ×4 (00:44→17:08)
[2022-02-02] MEDS: HEPARIN SODIUM,PORCINE/PF 5,000 UNIT/0.5 ML SYRINGE SQ SCH ×3 (00:44→17:11)
[2022-02-02] MEDS ORDERED: NON FORMULARY DRUG (Vitamin B Complex [Vitamin B Complex] 1 EACH Capsule) PO SCH (08:00)
[2022-02-02 08:14] LABS: ALT 9 U/L (4-49); AST 24 U/L (17-59); African American GFR (CKD) 83 (>60 ml/min/1.73 sqM); Albumin 2.5 g/dL (3.5-5.0); Albumin/Globulin Ratio 0.9; Alkaline Phosphatase 86 U/L (38-126); Anion Gap 7 mmol/L; Blood Urea Nitrogen 21 mg/dL (9-20); Calcium 7.9 mg/dL (8.4-10.2); Carbon Dioxide 21 mmol/L (22-30); Chloride 106 mmol/L (98-107); Globulin 2.7 g/dL; Glucose 71 mg/dL (74-99); Non-African American GFR(CKD) 72 (>60 ml/min/1.73 sqM); Sodium 134 mmol/L (137-145); Total Bilirubin 0.2 mg/dL (0.2-1.3); Total Protein 5.2 g/dL (6.3-8.2)
[2022-02-02] MEDS: SODIUM BICARBONATE TAB 650 MG TAB PO SCH ×2 (08:26→20:15)
[2022-02-02] MEDS: MULTIVITAMINS, THERA 1 EACH TAB PO SCH (08:26)
[2022-02-02] MEDS: VANCOMYCIN 1,250 MG in SODIUM CHLORIDE 0.9% 250 ML IVPB SCH (08:27)
[2022-02-02] MEDS: ASPIRIN 81 MG PO SCH (08:27)
--- NOTE | 2022-02-02 11:19 | P.PN ---
Subjective Progress Note Date: 02/02/22 Pt is stable today, no new complaints. Still has low BP, but improved on fluids. Ongoing IV abx. Holding BP meds. Gen: in no apparent distress, resting comfortably in bed Eyes: PERRL, no scleral injection or icterus HENT: normocephalic, atraumatic, good hearing acuity, moist mucous membranes Neck: no tracheal deviation, full range of motion Resp: good air exchange, breathing comfortably with no accessory muscle use, no tactile fremitus CVS: good distal perfusion x 4, no pitting edema, irregular rate and rhythm GI: soft, diffuse pain to palpation, ND, no hepatosplenomegaly : no suprapubic tenderness, no CVAT, herbert catheter not present MSK: no clubbing, no cyanosis, no noted contractures of extremities Skin: no noted rashes, petechiae; temperature of skin is appropriate, multiple excoriations of the lower legs bilaterally Neuro: moving all extremities without signs of weakness, CN II-XII intact Psych: cooperative, euthymic mood, insight and judgment impaired Labs and imaging reviewed as above Assessment/plan: Severe sepsis Toxic encephalopathy secondary sepsis Community acquired pneumonia -Admit inpatient, telemetry -Vancomycin, Zosyn -Pro calcitonin -Follow up blood cultures -IV fluids Constipation -Bowel regimen Hypertension Hyperlipidemia Diabetes type 2 Chronic kidney disease -Home medications reviewed and reconciled -Holding home BP meds due to hypotension Patient is DO NOT RESUSCITATE/DO NOT INTUBATE DVT prophylaxis with heparin 3 times a day Objective - Vital Signs Vital signs: Vital Signs Temp 98.2 F 02/02/22 08:18 Pulse 67 02/02/22 08:18 Resp 17 02/02/22 08:18 BP 94/56 02/02/22 08:18 Pulse Ox 97 02/02/22 08:18 FiO2 Intake & Output 02/01/22 02/02/22 02/02/22 18:59 06:59 18:59 Weight 72.4 kg 72.4 kg Other: Voiding Method Incontinent Incontinent # Voids 2 - Labs CBC & Chem 7: 02/01/22 13:39 02/02/22 07:03 Labs: Abnormal Lab Results - Last 24 Hours (Table) 02/01/22 02/01/22 02/01/22 Range/Units 13:39 13:39 13:39 WBC 15.1 H (3.8-10.6) k/uL RBC 3.66 L (4.30-5.90) m/uL Hgb 11.6 L (13.0-17.5) gm/dL Hct 34.0 L (39.0-53.0) % Neutrophils # 12.8 H (1.3-7.7) k/uL Sodium 136 L (137-145) mmol/L Carbon Dioxide (22-30) mmol/L BUN (9-20) mg/dL Glucose 158 H (74-99) mg/dL Plasma Lactic Acid Alexandro (0.7-2.0) mmol/L Calcium (8.4-10.2) mg/dL Alkaline Phosphatase 136 H (38-126) U/L Total Protein (6.3-8.2) g/dL Albumin 3.3 L (3.5-5.0) g/dL Urine Protein (Negative) Urine Mucus (None) /hpf U Benzodiazepines Scrn Detected H (NotDetected) 02/01/22 02/01/22 02/02/22 Range/Units 13:39 13:39 07:03 WBC (3.8-10.6) k/uL RBC (4.30-5.90) m/uL Hgb (13.0-17.5) gm/dL Hct (39.0-53.0) % Neutrophils # (1.3-7.7) k/uL Sodium 134 L (137-145) mmol/L Carbon Dioxide 21 L (22-30) mmol/L BUN 21 H (9-20) mg/dL Glucose 71 L (74-99) mg/dL Plasma Lactic Acid Alexandro 2.9 H* (0.7-2.0) mmol/L Calcium 7.9 L (8.4-10.2) mg/dL Alkaline Phosphatase (38-126) U/L Total Protein 5.2 L (6.3-8.2) g/dL Albumin 2.5 L (3.5-5.0) g/dL Urine Protein 1+ H (Negative) Urine Mucus Rare H (None) /hpf U Benzodiazepines Scrn (NotDetected) Microbiology - Last 24 Hours (Table) 02/01/22 13:47 Anaerobic Culture - Preliminary Leg - Right 02/01/22 13:47 Wound Culture - Preliminary Leg - Right
[2022-02-02 15:01] LABS: Basophils # (A) 0.1 k/uL (0-0.2); Basophils % (A) 1 %; Eosinophils # (A) 0.6 k/uL (0-0.7); Eosinophils % (A) 6 %; HCT 27.7 % (39.0-53.0); Lymphocytes # (A) 0.9 k/uL (1.0-4.8); Lymphocytes % (A) 9 %; MCV 93.7 fL (80.0-100.0); Mean Platelet Volume 8.4; Monocytes # (A) 0.4 k/uL (0-1.0); Monocytes % (A) 4 %; Neutrophils # (A) 7.7 k/uL (1.3-7.7); Neutrophils % (A) 79 %; Platelet Count 253 k/uL (150-450); RBC 2.95 m/uL (4.30-5.90); RDW 12.7 % (11.5-15.5); WBC 9.7 k/uL (3.8-10.6)
[2022-02-02 15:21] LABS: HGB 9.1 gm/dL (13.0-17.5)
[2022-02-02] MEDS: BETAMETHASONE DIPROPIONATE 0.05% OINTMENT 45 GM TUBE TOPICAL SCH ×2 (15:22→20:16)
[2022-02-02] MEDS: KETOTIFEN 0.025% OPHTH DROPS 5 ML BTL BOTH EYES SCH ×2 (15:22→20:16)
[2022-02-02] MEDS: SODIUM CHLORIDE 0.9% 1,000 ML IV SCH ×2 (20:10→22:24)
[2022-02-02] MEDS: HYDROPHILIC CREAM 180 GM TUBE TOPICAL SCH (20:11)
[2022-02-02] MEDS: MIRTAZAPINE 15 MG TAB PO SCH (20:15)
[2022-02-02] MEDS: ERYTHROMYCIN 5 MG/GM OPHTH OINT 3.5 GM TUBE BOTH EYES SCH (20:16)
[2022-02-02] MEDS: ATORVASTATIN 40 MG TAB PO SCH (20:17)
[2022-02-03] MEDS: CEFEPIME 2 GM in SODIUM CHLORIDE 0.9% 100 ML IVPB SCH ×2 (00:02→08:26)
[2022-02-03] MEDS: HEPARIN SODIUM,PORCINE/PF 5,000 UNIT/0.5 ML SYRINGE SQ SCH ×3 (00:03→16:56)
[2022-02-03] MEDS: VANCOMYCIN 1,250 MG in SODIUM CHLORIDE 0.9% 250 ML IVPB SCH (00:03)
[2022-02-03] MEDS: MULTIVITAMINS, THERA 1 EACH TAB PO SCH (08:30)
[2022-02-03] MEDS: KETOTIFEN 0.025% OPHTH DROPS 5 ML BTL BOTH EYES SCH ×2 (08:30→21:16)
[2022-02-03] MEDS: ASPIRIN 81 MG PO SCH (08:30)
[2022-02-03] MEDS: SODIUM BICARBONATE TAB 650 MG TAB PO SCH ×2 (08:30→21:12)
[2022-02-03] MEDS: BETAMETHASONE DIPROPIONATE 0.05% OINTMENT 45 GM TUBE TOPICAL SCH ×2 (08:30→21:16)
[2022-02-03 10:20] LABS: Basophils # (A) 0.1 k/uL (0-0.2); Basophils % (A) 1 %; Eosinophils # (A) 0.7 k/uL (0-0.7); Eosinophils % (A) 10 %; HCT 29.1 % (39.0-53.0); HGB 9.9 gm/dL (13.0-17.5); Lymphocytes # (A) 0.8 k/uL (1.0-4.8); Lymphocytes % (A) 12 %; MCH 31.9 pg (25.0-35.0); MCHC 33.9 g/dL (31.0-37.0); Mean Platelet Volume 7.9; Monocytes # (A) 0.3 k/uL (0-1.0); Monocytes % (A) 5 %; Neutrophils % (A) 71 %; Platelet Count 267 k/uL (150-450); RBC 3.09 m/uL (4.30-5.90); RDW 12.9 % (11.5-15.5); WBC 7.1 k/uL (3.8-10.6)
--- NOTE | 2022-02-03 11:22 | P.PN ---
Subjective Progress Note Date: 02/03/22 Pt is stable today, no new complaints. BP improved today. Wound Cx growing MRSA Gen: in no apparent distress, resting comfortably in bed Eyes: PERRL, no scleral injection or icterus HENT: normocephalic, atraumatic, good hearing acuity, moist mucous membranes Neck: no tracheal deviation, full range of motion Resp: good air exchange, breathing comfortably with no accessory muscle use, no tactile fremitus CVS: good distal perfusion x 4, no pitting edema, irregular rate and rhythm GI: soft, diffuse pain to palpation, ND, no hepatosplenomegaly : no suprapubic tenderness, no CVAT, herbert catheter not present MSK: no clubbing, no cyanosis, no noted contractures of extremities Skin: no noted rashes, petechiae; temperature of skin is appropriate, multiple excoriations of the lower legs bilaterally Neuro: moving all extremities without signs of weakness, CN II-XII intact Psych: cooperative, euthymic mood, insight and judgment impaired Labs and imaging reviewed as above Assessment/plan: Severe sepsis Toxic encephalopathy secondary sepsis Community acquired pneumonia -Admit inpatient, telemetry -Vancomycin, cefepime --> doxycycline and ceftriaxone -Pro calcitonin, pending -Follow up blood cultures, NGTD -IV fluids Constipation -Bowel regimen Hypertension Hyperlipidemia Diabetes type 2 Chronic kidney disease -Home medications reviewed and reconciled -Holding home BP meds due to hypotension Patient is DO NOT RESUSCITATE/DO NOT INTUBATE DVT prophylaxis with heparin 3 times a day Objective - Vital Signs Vital signs: Vital Signs Temp 99.1 F 02/03/22 08:45 Pulse 75 02/03/22 08:45 Resp 16 02/03/22 08:45 BP 117/71 02/03/22 08:45 Pulse Ox 97 02/03/22 08:45 FiO2 Intake & Output 02/02/22 02/03/22 02/03/22 18:59 06:59 18:59 Other: Voiding Method Incontinent Incontinent Incontinent # Voids 3 3 - Labs CBC & Chem 7: 02/03/22 10:07 02/02/22 07:03 Labs: Abnormal Lab Results - Last 24 Hours (Table) 02/02/22 02/03/22 Range/Units 14:08 10:07 RBC 2.95 L 3.09 L (4.30-5.90) m/uL Hgb 9.1 L D 9.9 L (13.0-17.5) gm/dL Hct 27.7 L 29.1 L (39.0-53.0) % Lymphocytes # 0.9 L 0.8 L (1.0-4.8) k/uL Microbiology - Last 24 Hours (Table) 02/01/22 13:47 Gram Stain - Preliminary Leg - Right Wound Culture - Preliminary Presumptive MRSA 02/01/22 14:00 Blood Culture - Preliminary Blood No Growth after 24 hours 02/01/22 13:45 Blood Culture - Preliminary Blood No Growth after 24 hours
[2022-02-03] MEDS: DOXYCYCLINE 100 MG CAP PO SCH ×2 (13:53→22:24)
[2022-02-03] MEDS: HYDROPHILIC CREAM 180 GM TUBE TOPICAL SCH (13:53)
[2022-02-03] MEDS: SODIUM CHLORIDE 0.9% 1,000 ML IV SCH ×2 (13:54→16:54)
[2022-02-03] MEDS: MIRTAZAPINE 15 MG TAB PO SCH (21:12)
[2022-02-03] MEDS: ATORVASTATIN 40 MG TAB PO SCH ×2 (21:12→21:13)
[2022-02-03] MEDS: ERYTHROMYCIN 5 MG/GM OPHTH OINT 3.5 GM TUBE BOTH EYES SCH (21:16)
[2022-02-04] MEDS: HEPARIN SODIUM,PORCINE/PF 5,000 UNIT/0.5 ML SYRINGE SQ SCH ×4 (00:34→23:19)
[2022-02-04] MEDS ORDERED: VANCOMYCIN TROUGH DUE 1 EACH MISC MISCELLANE ONE (07:00)
[2022-02-04 08:54] LABS: Basophils # (A) 0.11 X 10*3/uL (0.00-0.10); Basophils % (A) 0.9 %; Eosinophils # (A) 1.25 X 10*3/uL (0.04-0.35); Eosinophils % (A) 9.8 %; HCT 30.8 % (39.6-50.0); HGB 10.2 g/dL (13.0-17.0); Immature Grans, Automated 0.3 %; Lymphocytes # (A) 2.03 X 10*3/uL (0.90-5.00); Lymphocytes % (A) 15.9 %; MCH 30.3 pg (27.0-32.0); MCHC 33.1 g/dL (32.0-37.0); MCV 91.4 fL (80.0-97.0); Mean Platelet Volume 10.8 fL (9.5-12.2); Monocytes # (A) 0.92 X 10*3/uL (0.20-1.00); Monocytes % (A) 7.2 %; NRBC Per 100 WBC 0 /100 WBCS (0.0-0.0); Neutrophils # (A) 8.41 X 10*3/uL (1.80-7.70); Neutrophils % (A) 65.9 %; Platelet Count 309 X 10*3/uL (140-440); RBC 3.37 X 10*6/uL (4.40-5.60); RDW 12.6 % (11.5-14.5); WBC 12.76 X 10*3/uL (4.50-10.00)
[2022-02-04 08:59] LABS: African American GFR (CKD) 89.9 (60.0-200.0); Anion Gap 10.6 mmol/L (10.00-18.00); BUN/Creat Ratio 13.22 Ratio (12.00-20.00); Blood Urea Nitrogen 11.9 mg/dL (9.0-27.0); Calcium 8.6 mg/dL (8.7-10.3); Carbon Dioxide 21.4 mmol/L (20.0-27.5); Magnesium 2.1 mg/dL (1.5-2.4); Non-African American GFR(CKD) 77.6 (60.0-200.0); Potassium 3.7 mmol/L (3.5-5.5)
[2022-02-04 09:22] VITALS: RESP 16
[2022-02-04] MEDS: BETAMETHASONE DIPROPIONATE 0.05% OINTMENT 45 GM TUBE TOPICAL SCH ×2 (09:29→23:13)
[2022-02-04] MEDS: KETOTIFEN 0.025% OPHTH DROPS 5 ML BTL BOTH EYES SCH ×2 (09:29→23:14)
[2022-02-04] MEDS: HYDROPHILIC CREAM 180 GM TUBE TOPICAL SCH (09:29)
[2022-02-04] MEDS: DOXYCYCLINE 100 MG CAP PO SCH ×2 (09:38→23:18)
[2022-02-04] MEDS: SODIUM BICARBONATE TAB 650 MG TAB PO SCH ×2 (09:38→23:18)
[2022-02-04] MEDS: MULTIVITAMINS, THERA 1 EACH TAB PO SCH (09:38)
[2022-02-04] MEDS: ASPIRIN 81 MG PO SCH (09:39)
--- NOTE | 2022-02-04 17:08 | P.PN ---
Progress Note - Text Progress Note Date: 02/04/22 Hospital course: 86-year-old man with history of arthritis, hypertension, hyperlipidemia, diabete s, chronic kidney disease, [facility] resident presented from the [facility] with complaints of generalized body aches, ears, altered mental status. The [facility] felt that patient had been complaining of more generalized bodyaches that he normally does. His baseline, he also appeared more confused than usual, therefore sent him in for further evaluation. Patient is a poor historian and does not provide much history, history is taken from chart review, family member at bedside, ER provider signout. Patient's review of systems cannot be done due to patient's medical condition. In the emergency room, patient's febrile to 102.1, 80/41 blood pressure, heart rate 95, 98% on room air. CBC demonstrates a cytosis to 15.1, anemia to Levaquin 6. Chemistry show hyponatremia to 136. Patient had an elevated lactic acid at 2.9. Liver function tests were unremarkable. Initial troponin is 0.0- 2. Urinalysis showed 1+ protein, rare mucus. Urine tox screen is positive for benzodiazepines. Influenza A, B, RSV, Covid are all negative. Patient's chest x-rays positive for posterior infiltrate consistent with pneumonia. Patient's KUB shows mild fecal retention throughout distal colon, otherwise nonspecific bowel gas pattern. Patient's tibia/fibula x-ray shows moderate degenerative changes of the left knee. He underwent brain CT which showed no acute intracranial process. CT of the abdomen/pelvis redemonstrates right lower lobe pneumonia with a small right pleural effusion, no acute abdominal process, small pericardial effusion, moderate to severe coronary artery atherosclerosis, like she'll [place]ur[place]. EKG shows atrial fibrillation with low QRS voltage. February 04: I assumed care from my colleague from [facility] physician. 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 The able to come indicate. Oral intake as below. Body wound cultures have been coming back positive for MRSA. On doxycycline. Patient is able to also questions appropriately. Patient has a long-standing history of repeated scratching and has multiple body wounds from the same. Discussed with the patient and nurse. Agreeable to have rubber gloves with soft stuffing inside, to squeeze the same when he feels like scratching himself. Patient understands the same. Lives at [place]. Active Medications Acetaminophen (Acetaminophen Tab 500 Mg Tab) 500 mg PO Q4H PRN PRN Reason: Pain or Fever > 100.5 Aspirin (Aspirin 81 Mg) 81 mg PO DAILY@799 [facility] Last Admin: 02/04/22 09:39 Dose: 81 mg Atorvastatin Calcium (Atorvastatin 40 Mg Tab) 40 mg PO DAILY@1999 [facility] Last Admin: 02/03/22 21:13 Dose: 40 mg Betamethasone Dipropionate (Betamethasone Dipropionate 0.05% Ointment 45 Gm Tube) 1 applic TOPICAL BID@ [facility] Last Admin: 02/04/22 09:29 Dose: 1 applic Doxycycline Monohydrate (Doxycycline 100 Mg Cap) 100 mg PO BID [facility]; Protocol Last Admin: 02/04/22 09:38 Dose: 100 mg Erythromycin (Erythromycin 5 Mg/Gm Ophth Oint 3.5 Gm Tube) 1 applic BOTH EYES HS@1999 [facility] Last Admin: 02/03/22 21:16 Dose: Not Given Heparin Sodium (Porcine) (Heparin Sodium,Porcine/Pf 5,000 Unit/0.5 Ml Syringe) 5,000 unit SQ Q8HR [facility] Last Admin: 02/04/22 16:10 Dose: 5,000 unit Ketotifen Fumarate (Ketotifen 0.025% Ophth Drops 5 Ml Btl) 1 drops BOTH EYES BID@ [facility] Last Admin: 02/04/22 09:29 Dose: 1 drops Mirtazapine (Mirtazapine 15 Mg Tab) 7.5 mg PO HS@1999 [facility] Last Admin: 02/03/22 21:12 Dose: 7.5 mg Multi-Ingred Cream/Lotion/Oil/Oint (Hydrophilic Cream 180 Gm Tube) 1 applic TOPICAL DAILY@799 [facility] Last Admin: 02/04/22 09:29 Dose: 1 applic Multivitamins (Multivitamins, Thera 1 Each Tab) 1 each PO DAILY@799 [facility] Last Admin: 02/04/22 09:38 Dose: 1 each Sodium Bicarbonate (Sodium Bicarbonate Tab 650 Mg Tab) 650 mg PO BID@ [facility] Last Admin: 02/04/22 09:38 Dose: 650 mg Tramadol HCl (Tramadol 50 Mg Tab) 50 mg PO Q6H PRN PRN Reason: Pain Last Admin: 02/03/22 21:15 Dose: 50 mg On examination: VITAL SIGNS: [98.4, 80, 16, 127/75, 99% room air] GENERAL APPEARANCE: Laying in bed, slightly anxious, occasionally scratching himself HEENT: Normal external appearance of nose and ear. Oral cavity normal. Decreased hearing EYES: Pupils equal. Conjunctiva normal. Poor eyesight NECK: JVD not raised. Mass not palpable. RESPIRATORY: Respiratory effort normal. Lungs clear to auscultation. CARDIOVASCULAR: First and second sounds normal. No edema. ABDOMEN: Soft. Liver and spleen not palpable. No tenderness. No mass palpable. External catheter DERMATOLOGICAL: Multiple scattered wounds in the body of different levels of healing. PSYCHIATRY: Able to answer questions appropriately. 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 Throughout the skin. Use gloves to prevent scratching as discussed with the patient. -Multiple superficial wounds of different ages growing MRSA Doxycycline. Topical antiseptics -Pneumonia, suspect gram-negative organism: Better Patient received ceftriaxone and cefepime now discontinued -Severe sepsis secondary to pneumonia: Better -Essential hypertension Zestril 5 mg a day -Hyperlipidemia Lipitor -Diabetes mellitus type 2, chronic and oral hypoglycemic Metformin 5 mg twice a day -Primary osteoarthritis Voltaren gel when necessary -Chronic insomnia Remeron -Chronic medical debility, mainly bedbound Fall precautions -DO NOT RESUSCITATE Discussed at length with the patient and the nurse. We will use gloves and give a soft material inside the gloves the patient can squeeze in the same and he feels like scratching himself. IV antibiotics discontinued. Doxycycline. Discussed with the patient. In the nurse. Patient oral intake. Looking at p ossible discharge in 24 hours.
[2022-02-04] MEDS: ERYTHROMYCIN 5 MG/GM OPHTH OINT 3.5 GM TUBE BOTH EYES SCH (23:14)
[2022-02-04] MEDS: MIRTAZAPINE 15 MG TAB PO SCH (23:18)
[2022-02-05] MEDS: DOXYCYCLINE 100 MG CAP PO SCH ×2 (08:26→08:48)
[2022-02-05] MEDS: MULTIVITAMINS, THERA 1 EACH TAB PO SCH ×2 (08:26→08:48)
[2022-02-05] MEDS: ASPIRIN 81 MG PO SCH ×2 (08:26→08:45)
[2022-02-05] MEDS: SODIUM BICARBONATE TAB 650 MG TAB PO SCH ×2 (08:26→08:48)
[2022-02-05] MEDS: HEPARIN SODIUM,PORCINE/PF 5,000 UNIT/0.5 ML SYRINGE SQ SCH ×3 (08:27→17:15)
[2022-02-05] MEDS: BETAMETHASONE DIPROPIONATE 0.05% OINTMENT 45 GM TUBE TOPICAL SCH ×2 (08:27→08:45)
[2022-02-05] MEDS: KETOTIFEN 0.025% OPHTH DROPS 5 ML BTL BOTH EYES SCH (08:45)
[2022-02-05] MEDS: HYDROPHILIC CREAM 180 GM TUBE TOPICAL SCH (08:45)
[2022-02-05 15:22] VITALS: BP 124/78; PULSE 77; TEMP 98.7
--- NOTE | 2022-02-05 18:18 | P.DS ---
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 The correction felt that patient had been complaining of more generalized bodyaches that he normally does. His baseline, he also appeared more confused than usual, therefore sent him in for further evaluation. Patient is a poor historian and does not provide much history, history is taken from chart review, family member at bedside, ER provider signout. Patient's review of systems cannot be done due to patient's medical condition. In the emergency room, patient's febrile to 102.1, 80/41 blood pressure, heart rate 95, 98% on room air. CBC demonstrates a cytosis to 15.1, anemia to Levaquin 6. Chemistry show hyponatremia to 136. Patient had an elevated lactic acid at 2.9. Liver function tests were unremarkable. Initial troponin is 0.0- 2. Urinalysis showed 1+ protein, rare mucus. Urine tox screen is positive for benzodiazepines. Influenza A, B, RSV, Covid are all negative. Patient's chest x-rays positive for posterior infiltrate consistent with pneumonia. Patient's KUB shows mild fecal retention throughout distal colon, otherwise nonspecific bowel gas pattern. Patient's tibia/fibula x-ray shows moderate degenerative changes of the left knee. He underwent brain CT which showed no acute intracranial process. CT of the abdomen/pelvis redemonstrates right lower lobe pneumonia with a small right pleural effusion, no acute abdominal process, small pericardial effusion, moderate to severe coronary artery atherosclerosis, like she'll [place]. EKG shows atrial fibrillation with low QRS voltage. February 04: I assumed care from my colleague from [facility] physician. 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 The able to come indicate. Oral intake as below. Body wound cultures have been coming back positive for MRSA. On doxycycline. Patient is able to also questions appropriately. Patient has a long-standing history of repeated scratching and has multiple body wounds from the same. Discussed with the patient and nurse. Agreeable to have rubber gloves with soft stuffing inside, to squeeze the same when he feels like scratching himself. Patient understands the same. Lives at [facility] February 05: Stable. Computed cause of doxycycline at home. Has gloves at home. Bacitracin cream for superficial wounds. Spoke to the nurse and the case loader operator. On examination: VITAL SIGNS: 98.2, 73, 16, 122/71, 97% room air GENERAL APPEARANCE: Laying in bed, slightly anxious, HEENT: Normal external appearance of nose and ear. Oral cavity normal. Decreased hearing EYES: Pupils equal. Conjunctiva normal. Poor eyesight NECK: JVD not raised. Mass not palpable. RESPIRATORY: Respiratory effort normal. Lungs clear to auscultation. CARDIOVASCULAR: First and second sounds normal. No edema. ABDOMEN: Soft. Liver and spleen not palpable. No tenderness. No mass palpable. External catheter DERMATOLOGICAL: Multiple scattered wounds in the body of different levels of healing. PSYCHIATRY: Able to answer questions appropriately. 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 Throughout the skin. Use gloves to prevent scratching as discussed with the patient. -Multiple superficial wounds of different ages growing MRSA Doxycycline. Topical antiseptics -Pneumonia, suspect gram-negative organism: Better Patient received ceftriaxone and cefepime now discontinued -Severe sepsis secondary to pneumonia: Better -Essential hypertension Zestril 5 mg a day -Hyperlipidemia Lipitor -Diabetes mellitus type 2, chronic and oral hypoglycemic Metformin 5 mg twice a day -Primary osteoarthritis Voltaren gel when necessary -Chronic insomnia Remeron -Chronic medical debility, mainly bedbound Fall precautions -DO NOT RESUSCITATE Disposition: [facility] Plan - Discharge Summary Discharge Rx Participant: No New Discharge Prescriptions: New Doxycycline [Vibramycin] 100 mg PO BID #20 cap Continue Aspirin EC [Ecotrin Low Dose] 81 mg PO DAILY@0800 Magnesium Oxide [Mag-Ox] 250 mg PO DAILY@0800 diphenhydrAMINE [Benadryl] 25 mg PO Q4H PRN PRN Reason: ITCHING/ALLERGIES Diclofenac Sodium Gel [Voltaren Gel] 1 applic TOPICAL QID PRN PRN Reason: Pain Acetaminophen Tab [Tylenol] 500 mg PO Q4H PRN PRN Reason: Pain Or Fever > 100.5 Acetaminophen [Tylenol Arthritis] 1,300 mg PO Q8H PRN PRN Reason: Pain Or Fever > 100.5 Triamcinolone 0.5% Ointment 1 applic TOPICAL BID@799,1999 Triad Wound Paste 1 applic TOPICAL DAILY@799 Mirtazapine [Remeron] 7.5 mg PO HS@1999 Erythromycin Ophth Oint [Romycin Ophth Oint] 1 applic BOTH EYES HS@1999 Azelastine HCl [Optivar 0.05% Ophth Soln] 1 drop BOTH EYES BID@799,1999 Atorvastatin [Lipitor] 40 mg PO DAILY@1999 Vitamin B Complex 1 cap PO DAILY@08 Multivitamins, Thera [Multivitamin (formulary)] 1 tab PO DAILY@08 traMADol HCL 50 mg PO Q6H PRN PRN Reason: Pain Loperamide HCl [Imodium A-D] 2 - 4 mg PO QID PRN PRN Reason: Loose Stool Sodium Bicarbonate Tab 650 mg PO BID@799,1999 Discontinued metFORMIN HCL 500 mg PO BID-W/MEALS lisinopriL [Zestril] 5 mg PO DAILY@0800 glyBURIDE [Diabeta] 1.25 mg PO DAILY@0800 Discharge Medication List Aspirin EC [Ecotrin Low Dose] 81 mg PO DAILY@0800 07/15/17 [History] Magnesium Oxide [Mag-Ox] 250 mg PO DAILY@0800 03/12/18 [History] Multivitamins, Thera [Multivitamin (formulary)] 1 tab PO DAILY@0800 03/27/21 [History] Vitamin B Complex 1 cap PO DAILY@0800 03/27/21 [History] Acetaminophen Tab [Tylenol] 500 mg PO Q4H PRN 02/01/22 [History] Acetaminophen [Tylenol Arthritis] 1,300 mg PO Q8H PRN 02/01/22 [History] Atorvastatin [Lipitor] 40 mg PO DAILY@199902/01/22 [History] Azelastine HCl [Optivar 0.05% Ophth Soln] 1 drop BOTH EYES BID@0800,199902/01/22 [History] Diclofenac Sodium Gel [Voltaren Gel] 1 applic TOPICAL QID PRN 02/01/22 [History] Erythromycin Ophth Oint [Romycin Ophth Oint] 1 applic BOTH EYES HS@199902/01/22 [History] Loperamide HCl [Imodium A-D] 2 - 4 mg PO QID PRN 02/01/22 [History] Mirtazapine [Remeron] 7.5 mg PO HS@199902/01/22 [History] Sodium Bicarbonate Tab 650 mg PO BID@799,199902/01/22 [History] Triad Wound Paste 1 applic TOPICAL DAILY@79902/01/22 [History] Triamcinolone 0.5% Ointment 1 applic TOPICAL BID@799,199902/01/22 [History] diphenhydrAMINE [Benadryl] 25 mg PO Q4H PRN 02/01/22 [History] traMADol HCL 50 mg PO Q6H PRN 02/01/22 [History] Doxycycline [Vibramycin] 100 mg PO BID #20 cap 02/05/22 [Rx] Follow up Appointment(s)/Referral(s): Ike Stone MD [REFERRING] - 1-2 days Patient Instructions/Handouts: Pneumonia (DC) Activity/Diet/Wound Care/Special Instructions: Patient to return to [facility]. Heart Healthy Diet Bacitracin ointment to bilateral lower extremities with gauze as needed. Patient may wear compression stockings if no open or weeping wounds.
== END 2022-02-05 18:15 | DRG 871 ==
LOC: EC 12:45 → SUPCPDRO 12:45 → 4SSUR 16:01
PROVIDERS: ADMIT Hospitalist; ATTEND Hospitalist
DX: A41.89 Other specified sepsis (principal); G92.8 Other toxic encephalopathy; J15.6 Pneumonia due to other Gram-negative bacteria; L03.115 Cellulitis of right lower limb; E87.1 Hypo-osmolality and hyponatremia; I31.3 Pericardial effusion (noninflammatory); R65.20 Severe sepsis without septic shock; B95.62 Methicillin resistant Staphylococcus aureus infection as the cause of diseases classified elsewhere; I48.91 Unspecified atrial fibrillation; K59.00 Constipation, unspecified; F42.4 Excoriation (skin-picking) disorder; I12.9 Hypertensive chronic kidney disease with stage 1 through stage 4 chronic kidney disease, or unspecified chronic kidney disease; N18.9 Chronic kidney disease, unspecified; E78.5 Hyperlipidemia, unspecified; Z66 Do not resuscitate; D64.9 Anemia, unspecified; E11.22 Type 2 diabetes mellitus with diabetic chronic kidney disease; F51.04 Psychophysiologic insomnia; G89.29 Other chronic pain; H54.7 Unspecified visual loss; H91.90 Unspecified hearing loss, unspecified ear; M17.12 Unilateral primary osteoarthritis, left knee; Z74.01 Bed confinement status; Z79.82 Long term (current) use of aspirin; Z79.84 Long term (current) use of oral hypoglycemic drugs; Z79.899 Other long term (current) drug therapy; Z85.828 Personal history of other malignant neoplasm of skin; Z86.711 Personal history of pulmonary embolism; Z87.891 Personal history of nicotine dependence; Z91.81 History of falling; Z88.2 Allergy status to sulfonamides
CPT/HCPCS: 36415; 70450; 71046; 74018; 74177; 80048; 80053; 80306; 80320; 81001; 82140; 83605; 83735; 84145; 84484; 85025; 85610; 85730; 87040; 87070; 87075; 87077; 87186; 87205; 87636; 93005; 94760; 96365; 96366; 96367; 96368; 96375; 99285